=== PATIENT | male | born 1990 | race Caucasian/White ===

== ENCOUNTER 2020-11-11 12:31 | Outpatient (REF) | payer OTHER, SELFPAY | END 2020-11-11 12:32 | disposition home or self-care (01) | LOC: HO.LAB 12:31 | PROVIDERS: PCP Physician Assistant; Visit Provider Internal Medicine | DX: Z20.822 Contact with and (suspected) exposure to COVID-19 (principal) | CPT/HCPCS: 36415; C9803; U0003 ==

== ENCOUNTER 2020-12-28 13:00 | Outpatient (REF) | payer OTHER, SELFPAY | END 2020-12-28 13:01 | disposition home or self-care (01) | LOC: HO.LAB 13:00 | PROVIDERS: Visit Provider Internal Medicine | DX: Z20.822 Contact with and (suspected) exposure to COVID-19 (principal) | CPT/HCPCS: 36415; C9803; U0003; U0005 ==

== ENCOUNTER 2021-01-04 10:51 | Emergency (ER) | payer OTHER, SELFPAY ==
--- NOTE | ~2021-01-04 | US_ITS ---
EXAMINATION: US ABDOMEN LIMITED CLINICAL INFORMATION: Right upper quadrant pain.. COMPARISON: Ultrasound of the abdomen 11/02/2019. CT scan abdomen pelvis 08/24/2019 TECHNIQUE: Real-time imaging of the right upper quadrant abdominal viscera., Doppler exam was used. FINDINGS: PANCREAS: Normal. LIVER: Diffuse increased echogenicity of liver parenchyma due to fatty change. There is no focal liver lesion. There is no intrahepatic bile duct dilatation. GALLBLADDER: Normal. The gallbladder is physiologically distended without evidence of stones, sludge, polyps, wall thickening or pericholecystic fluid. Positive ultrasound Huddleston's sign COMMON BILE DUCT: Normal in caliber measuring 0.2 cm in diameter. RIGHT KIDNEY: Normal. No hydronephrosis. No renal calculi or focal parenchymal lesions. The kidney measures 12.5 cm in maximum dimension. FREE FLUID: None. US/US abdomen limited IMPRESSION: 1. No gallstone or acute change of gallbladder wall. No bile duct dilatation. Positive ultrasound Huddleston's sign. 2. Diffuse fatty change of liver.
[2021-01-04 11:14] VITALS: BP 174/98; PULSE 102; RESP 18; TEMP 36.9; O2SAT 97; BMI 27.0
[2021-01-04 12:02] LABS: Basophils Absolute Auto 0.1 X10*3/uL (0.0-0.2); Basophils Percent Auto 1.1 % (0-2); Eosinophils Absolute Auto 0.1 X10*3/uL (0.0-0.4); Eosinophils Percent Auto 1.5 % (0-4); Hematocrit 46.7 % (42-52); Hemoglobin 16.3 g/dl (14.0-18.0); Imm Gran Abs Auto 0.01 X10*3/uL (0.00-0.03); Imm Gran Pct Auto 0.2 % (0.0-0.4); Lymphocytes Percent Auto 21.9 % (20-40); MANUAL DIFF FLAG NO; Mean Corpuscular HGB Conc 34.9 g/dl (31.0-36.0); Mean Corpuscular Hemoglobin 32.9 pg (27.0-33.0); Mean Corpuscular Volume 94.2 fL (80-98); Mean Platelet Volume 9.6 fL (9.4-12.4); Monocytes Absolute Auto 0.4 X10*3/uL (0.1-1.2); Monocytes Percent Auto 7.6 % (2-11); Neutrophils Absolute Auto 3.1 X10*3/uL (2.0-8.3); Neutrophils Percent Auto 67.7 % (45-73); Platelet Count 173 X10*3/uL (160-400); Red Blood Count 4.96 X10*6/uL (4.60-5.80); Red Cell Distribution Width 11.8 % (11.0-16.0); White Blood Count 4.6 X10*3/uL (4.8-10.8)
[2021-01-04 12:34] LABS: Anion Gap 20 (12-20); Blood Urea Nitrogen 10 mg/dL (9-16); Calcium 9.4 mg/dL (8.4-10.2); Carbon Dioxide 22 mmol/L (22-29); Chloride 99 mmol/L (96-108); Creatinine Clr Calc Pharmacy 142.8; Estimated Glomerular Filt Rate > 60; Glucose Random 98 mg/dL (60-115); Lipase 19 U/L (8-78); Sodium 137 mmol/L (135-145)
--- NOTE | 2021-01-04 13:08 | ED_ITS ---
HPI - Abdominal Pain General Chief Complaint: Abdominal Pain <WAN Chung - Last Filed: 01/04/21 18:23> Stated Complaint: upper rt abd pain <WAN Chung - Last Filed: 01/04/21 18:23> Time Seen by Provider: 01/04/21 13:08 <WAN Chung Last Filed: 01/04/21 18:23> History of Present Illness HPI narrative: Patient has been drinking heavily For several days then had his last drink Saturday, and today developed right upper abdominal pain, nausea vomiting on Saturday and has not had a drink since He denies diarrhea he denies any dizziness or weakness, he had no fall no injury no fever no chills Patient has had multiple episodes of pancreatitis in the past he has pre- existing liver abnormalities and is a frequent binge drinker <WAN Chung Last Filed: 01/04/21 18:23> Related Data Home Medications: Previous Rx's Medication Instructions Recorded ondansetron HCl [Zofran] 4 mg PO Q6H PRN #10 tab 01/04/21 oxycodone 5 mg PO Q6H PRN #7 tab 01/04/21 <WAN Chung - Last Filed: 01/04/21 18:23> Allergies/Adverse Reactions: Allergies Allergy/AdvReac Type Severity Reaction Status Date / Time No Known Allergies Allergy Verified 01/04/21 11:17 [No Known Allergies*] <WAN Chung Last Filed: 01/04/21 18:23> Review of Systems Review of Systems Abdominal pain nausea and vomiting Negatives are no fever no chills no dizziness no weakness no throat pain no chest pain no blood in the emesis no coffee-ground emesis, no chest pain no shortness of breath no diarrhea no skin rash no numbness no weakness <WAN Chung Last Filed: 01/04/21 18:23> Physical Exam Vital Signs: Vital Signs: Last Vital Signs Temp 98.9 F 01/04/21 15:31 Pulse 74 01/04/21 17:42 Resp 20 01/04/21 17:42 BP 134/85 01/04/21 17:42 Pulse Ox 96 01/04/21 17:42 Body Mass Index 27.0 <WAN Chung Last Filed: 01/04/21 18:23> Vital Signs: Last Vital Signs Temp 98.9 F 01/04/21 15:31 Pulse 74 01/04/21 17:42 Resp 20 01/04/21 17:42 BP 134/85 01/04/21 17:42 Pulse Ox 96 01/04/21 17:42 Body Mass Index 27.0 <Lenny Youssef MD - Last Filed: 01/04/21 18:11> General appearance is uncomfortable appearing, a and O x3, and cooperative The head is normocephalic atraumatic, the eyes are anicteric without pallor The pharynx is mildly dried The neck is supple Chest is clear to auscultation bilaterally full symmetric deep breath sounds Heart rate and rhythm regular no murmur The abdomen had right upper quadrant tenderness, no rebound no guarding, no other tenderness The extremities full range of motion x4 The skin no rash The neuro exam motor is 5/5 x4 there is no tremor balance and gait are normal verbal interaction and comprehension are normal finger to nose is normal, There is no facial asymmetry <WAN Chung - Last Filed: 01/04/21 18:23> Course Course Course Narrative: Patient he had an ultrasound which did not show any evidence of cholecystitis and no acute abnormalities diffuse fatty changes of the liver Lipase was normal Elevated LFTs were consistent with previous Treatment with IV fluids Zofran and morphine relieved pain and nausea Re exam of the abdomen was nontender and patient was pain free Patient was given a large glass of water to drink and observed for 20 minutes and tolerated with no problems, no vomiting <WAN Chung - Last Filed: 01/04/21 18:23> I have discussed the case and management with the BOOGIE <Lenny Youssef MD - Last Filed: 01/04/21 18:11> MDM - Abdominal Pain Lab Data Attestation: I reviewed the patient's lab results. <WAN Chung - Last Filed: 01/04/21 18:23> Result diagrams: : 01/04/21 11:57 01/04/21 11:57 <WAN Chung - Last Filed: 01/04/21 18:23> Labs: Lab Results 01/04/21 01/04/21 01/04/21 Range/Units 11:57 11:57 11:57 WBC 4.6 L (4.8-10.8) X10*3/uL RBC 4.96 (4.60-5.80) X10*6/uL Hgb 16.3 (14.0-18.0) g/dl Hct 46.7 (42-52) % MCV 94.2 (80-98) fL MCH 32.9 (27.0-33.0) pg MCHC 34.9 (31.0-36.0) g/dl RDW 11.8 (11.0-16.0) % Plt Count 173 (160-400) X10*3/uL MPV 9.6 (9.4-12.4) fL Immature Gran % (Auto) 0.2 (0.0-0.4) % Neut % (Auto) 67.7 (45-73) % Lymph % (Auto) 21.9 (20-40) % Isabel[place] % (Auto) 7.6 (2-11) % Eos % (Auto) 1.5 (0-4) % Baso % (Auto) 1.1 (0-2) % Lymph # (Auto) 1.0 L (1.2-4.9) X10*3/uL [place] # (Auto) 0.4 (0.1-1.2) X10*3/uL Eos # (Auto) 0.1 (0.0-0.4) X10*3/uL Baso # (Auto) 0.1 (0.0-0.2) X10*3/uL Abs Immat Gran (auto) 0.01 (0.00-0.03) X10*3/uL Absolute Neuts (auto) 3.1 (2.0-8.3) X10*3/uL Absolute Nucleated RBC 0.000 (0.0-0.012) X10*3/uL Nucleated RBC % (auto) 0.0 (0.0-0.2) /100WBC Hold Blue Top SEE NOTE Sodium 137 (135-145) mmol/L Potassium 4.0 (3.3-5.1) mmol/L Chloride 99 (96-108) mmol/L Carbon Dioxide 22 (22-29) mmol/L Anion Gap 20 (12-20) BUN 10 (9-16) mg/dL Creatinine 0.87 (0.5-1.4) mg/dL Estim Creat Clear Calc 142.8 Estimated GFR > 60 Random Glucose 98 (60-115) mg/dL Calcium 9.4 (8.4-10.2) mg/dL Total Bilirubin 2.8 H (0.0-1.0) mg/dL Direct Bilirubin 1.0 H (0.0-0.5) mg/dL AST 60 H (5-37) U/L ALT 57 H (0-40) U/L Alkaline Phosphatase 49 (39-117) U/L Total Protein 8.2 H (6.5-8.0) g/dL Albumin 4.8 (3.5-5.0) g/dL Lipase 19 (8-78) U/L Urine Color Urine Appearance Urine pH (5.0-8.0) Ur Specific [place] (1.005-1.025) Urine Protein (NEG-TRACE) MG/DL Urine Glucose (UA) (NEG) MG/DL Urine Ketones (NEG) MG/DL Urine Blood (NEG) Urine Nitrite (NEG) Ur Leukocyte Esterase (NEG) Urine RBC (0) /HPF Urine WBC (0-4) /HPF Urine WBC Clumps Ur Squamous Epith Cells /LPF Ur Renal Epithelial Cell [place] Biurate Crystals Calcium Carbonate Cryst Calcium Phosphate Cryst Calcium Oxalate Crystal Leucine Crystals Cystine Crystals Uric Acid Crystals Triple Phos Crystals Talc Crystals Tyrosine Crystals Other Crystals Amorphous Sediment Urine Bacteria /LPF Epithelial Casts Fatty Casts Hyaline Casts Granular Casts Waxy Casts RBC Casts WBC Casts Other Casts Urine Mucus /LPF Urine Trichomonas Urine Yeast Urine Sperm Ur Oval Fat Bodies 01/04/21 01/04/21 Range/Units 12:27 12:27 WBC (4.8-10.8) X10*3/uL RBC (4.60-5.80) X10*6/uL Hgb (14.0-18.0) g/dl Hct (42-52) % MCV (80-98) fL MCH (27.0-33.0) pg MCHC (31.0-36.0) g/dl RDW (11.0-16.0) % Plt Count (160-400) X10*3/uL MPV (9.4-12.4) fL Immature Gran % (Auto) (0.0-0.4) % Neut % (Auto) (45-73) % Lymph % (Auto) (20-40) % Isabel[place] % (Auto) (2-11) % Eos % (Auto) (0-4) % Baso % (Auto) (0-2) % Lymph # (Auto) (1.2-4.9) X10*3/uL [place] # (Auto) (0.1-1.2) X10*3/uL Eos # (Auto) (0.0-0.4) X10*3/uL Baso # (Auto) (0.0-0.2) X10*3/uL Abs Immat Gran (auto) (0.00-0.03) X10*3/uL Absolute Neuts (auto) (2.0-8.3) X10*3/uL Absolute Nucleated RBC (0.0-0.012) X10*3/uL Nucleated RBC % (auto) (0.0-0.2) /100WBC Hold Blue Top Sodium (135-145) mmol/L Potassium (3.3-5.1) mmol/L Chloride (96-108) mmol/L Carbon Dioxide (22-29) mmol/L Anion Gap (12-20) BUN (9-16) mg/dL Creatinine (0.5-1.4) mg/dL Estim Creat Clear Calc Estimated GFR Random Glucose (60-115) mg/dL Calcium (8.4-10.2) mg/dL Total Bilirubin (0.0-1.0) mg/dL Direct Bilirubin (0.0-0.5) mg/dL AST (5-37) U/L ALT (0-40) U/L Alkaline Phosphatase (39-117) U/L Total Protein (6.5-8.0) g/dL Albumin (3.5-5.0) g/dL Lipase (8-78) U/L Urine Color CARL Cancelled Urine Appearance HAZY Cancelled Urine pH 6.0 Cancelled (5.0-8.0) Ur Specific [place] 1.025 Cancelled (1.005-1.025) Urine Protein 1+ H Cancelled (NEG-TRACE) MG/DL Urine Glucose (UA) NEG Cancelled (NEG) MG/DL Urine Ketones >=80 Cancelled (NEG) MG/DL Urine Blood NEG Cancelled (NEG) Urine Nitrite POS H Cancelled (NEG) Ur Leukocyte Esterase NEG Cancelled (NEG) Urine RBC 0-2 Cancelled (0) /HPF Urine WBC 1-4 Cancelled (0-4) /HPF Urine WBC Clumps Cancelled Ur Squamous Epith Cells NONE Cancelled /LPF Ur Renal Epithelial Cell Cancelled [place] Biurate Crystals Cancelled Calcium Carbonate Cryst Cancelled Calcium Phosphate Cryst Cancelled Calcium Oxalate Crystal Cancelled Leucine Crystals Cancelled Cystine Crystals Cancelled Uric Acid Crystals Cancelled Triple Phos Crystals Cancelled Talc Crystals Cancelled Tyrosine Crystals Cancelled Other Crystals Cancelled Amorphous Sediment Cancelled Urine Bacteria 1+ Cancelled /LPF Epithelial Casts Cancelled Fatty Casts Cancelled Hyaline Casts Cancelled Granular Casts Cancelled Waxy Casts Cancelled RBC Casts Cancelled WBC Casts Cancelled Other Casts Cancelled Urine Mucus 2+ Cancelled /LPF Urine Trichomonas Cancelled Urine Yeast Cancelled Urine Sperm Cancelled Ur Oval Fat Bodies Cancelled <WAN Chung - Last Filed: 01/04/21 18:23> Lab Results 01/04/21 01/04/21 01/04/21 Range/Units 11:57 11:57 11:57 WBC 4.6 L (4.8-10.8) X10*3/uL RBC 4.96 (4.60-5.80) X10*6/uL Hgb 16.3 (14.0-18.0) g/dl Hct 46.7 (42-52) % MCV 94.2 (80-98) fL MCH 32.9 (27.0-33.0) pg MCHC 34.9 (31.0-36.0) g/dl RDW 11.8 (11.0-16.0) % Plt Count 173 (160-400) X10*3/uL MPV 9.6 (9.4-12.4) fL Immature Gran % (Auto) 0.2 (0.0-0.4) % Neut % (Auto) 67.7 (45-73) % Lymph % (Auto) 21.9 (20-40) % Isabel[place] % (Auto) 7.6 (2-11) % Eos % (Auto) 1.5 (0-4) % Baso % (Auto) 1.1 (0-2) % Lymph # (Auto) 1.0 L (1.2-4.9) X10*3/uL [place] # (Auto) 0.4 (0.1-1.2) X10*3/uL Eos # (Auto) 0.1 (0.0-0.4) X10*3/uL Baso # (Auto) 0.1 (0.0-0.2) X10*3/uL Abs Immat Gran (auto) 0.01 (0.00-0.03) X10*3/uL Absolute Neuts (auto) 3.1 (2.0-8.3) X10*3/uL Absolute Nucleated RBC 0.000 (0.0-0.012) X10*3/uL Nucleated RBC % (auto) 0.0 (0.0-0.2) /100WBC Hold Blue Top SEE NOTE Sodium 137 (135-145) mmol/L Potassium 4.0 (3.3-5.1) mmol/L Chloride 99 (96-108) mmol/L Carbon Dioxide 22 (22-29) mmol/L Anion Gap 20 (12-20) BUN 10 (9-16) mg/dL Creatinine 0.87 (0.5-1.4) mg/dL Estim Creat Clear Calc 142.8 Estimated GFR > 60 Random Glucose 98 (60-115) mg/dL Calcium 9.4 (8.4-10.2) mg/dL Total Bilirubin 2.8 H (0.0-1.0) mg/dL Direct Bilirubin 1.0 H (0.0-0.5) mg/dL AST 60 H (5-37) U/L ALT 57 H (0-40) U/L Alkaline Phosphatase 49 (39-117) U/L Total Protein 8.2 H (6.5-8.0) g/dL Albumin 4.8 (3.5-5.0) g/dL Lipase 19 (8-78) U/L Urine Color Urine Appearance Urine pH (5.0-8.0) Ur Specific [place] (1.005-1.025) Urine Protein (NEG-TRACE) MG/DL Urine Glucose (UA) (NEG) MG/DL Urine Ketones (NEG) MG/DL Urine Blood (NEG) Urine Nitrite (NEG) Ur Leukocyte Esterase (NEG) Urine RBC (0) /HPF Urine WBC (0-4) /HPF Urine WBC Clumps Ur Squamous Epith Cells /LPF Ur Renal Epithelial Cell [place] Biurate Crystals Calcium Carbonate Cryst Calcium Phosphate Cryst Calcium Oxalate Crystal Leucine Crystals Cystine Crystals Uric Acid Crystals Triple Phos Crystals Talc Crystals Tyrosine Crystals Other Crystals Amorphous Sediment Urine Bacteria /LPF Epithelial Casts Fatty Casts Hyaline Casts Granular Casts Waxy Casts RBC Casts WBC Casts Other Casts Urine Mucus /LPF Urine Trichomonas Urine Yeast Urine Sperm Ur Oval Fat Bodies 01/04/21 01/04/21 Range/Units 12:27 12:27 WBC (4.8-10.8) X10*3/uL RBC (4.60-5.80) X10*6/uL Hgb (14.0-18.0) g/dl Hct (42-52) % MCV (80-98) fL MCH (27.0-33.0) pg MCHC (31.0-36.0) g/dl RDW (11.0-16.0) % Plt Count (160-400) X10*3/uL MPV (9.4-12.4) fL Immature Gran % (Auto) (0.0-0.4) % Neut % (Auto) (45-73) % Lymph % (Auto) (20-40) % [place] % (Auto) (2-11) % Eos % (Auto) (0-4) % Baso % (Auto) (0-2) % Lymph # (Auto) (1.2-4.9) X10*3/uL [place] # (Auto) (0.1-1.2) X10*3/uL Eos # (Auto) (0.0-0.4) X10*3/uL Baso # (Auto) (0.0-0.2) X10*3/uL Abs Immat Gran (auto) (0.00-0.03) X10*3/uL Absolute Neuts (auto) (2.0-8.3) X10*3/uL Absolute Nucleated RBC (0.0-0.012) X10*3/uL Nucleated RBC % (auto) (0.0-0.2) /100WBC Hold Blue Top Sodium (135-145) mmol/L Potassium (3.3-5.1) mmol/L Chloride (96-108) mmol/L Carbon Dioxide (22-29) mmol/L Anion Gap (12-20) BUN (9-16) mg/dL Creatinine (0.5-1.4) mg/dL Estim Creat Clear Calc Estimated GFR Random Glucose (60-115) mg/dL Calcium (8.4-10.2) mg/dL Total Bilirubin (0.0-1.0) mg/dL Direct Bilirubin (0.0-0.5) mg/dL AST (5-37) U/L ALT (0-40) U/L Alkaline Phosphatase (39-117) U/L Total Protein (6.5-8.0) g/dL Albumin (3.5-5.0) g/dL Lipase (8-78) U/L Urine Color CARL Cancelled Urine Appearance HAZY Cancelled Urine pH 6.0 Cancelled (5.0-8.0) Ur Specific [place] 1.025 Cancelled (1.005-1.025) Urine Protein 1+ H Cancelled (NEG-TRACE) MG/DL Urine Glucose (UA) NEG Cancelled (NEG) MG/DL Urine Ketones >=80 Cancelled (NEG) MG/DL Urine Blood NEG Cancelled (NEG) Urine Nitrite POS H Cancelled (NEG) Ur Leukocyte Esterase NEG Cancelled (NEG) Urine RBC 0-2 Cancelled (0) /HPF Urine WBC 1-4 Cancelled (0-4) /HPF Urine WBC Clumps Cancelled Ur Squamous Epith Cells NONE Cancelled /LPF Ur Renal Epithelial Cell Cancelled [place] Biurate Crystals Cancelled Calcium Carbonate Cryst Cancelled Calcium Phosphate Cryst Cancelled Calcium Oxalate Crystal Cancelled Leucine Crystals Cancelled Cystine Crystals Cancelled Uric Acid Crystals Cancelled Triple Phos Crystals Cancelled Talc Crystals Cancelled Tyrosine Crystals Cancelled Other Crystals Cancelled Amorphous Sediment Cancelled Urine Bacteria 1+ Cancelled /LPF Epithelial Casts Cancelled Fatty Casts Cancelled Hyaline Casts Cancelled Granular Casts Cancelled Waxy Casts Cancelled RBC Casts Cancelled WBC Casts Cancelled Other Casts Cancelled Urine Mucus 2+ Cancelled /LPF Urine Trichomonas Cancelled Urine Yeast Cancelled Urine Sperm Cancelled Ur Oval Fat Bodies Cancelled <Lenny Youssef MD - Last Filed: 01/04/21 18:11> Imaging Data US - abdomen: Radiologist's impression: S: Normal. LIVER: Diffuse increased echogenicity of liver parenchyma due to fatty change. There is no focal liver lesion. There is no intrahepatic bile duct dilatation. GALLBLADDER: Normal. The gallbladder is physiologically distended without evidence of stones, sludge, polyps, wall thickening or pericholecystic fluid. Positive ultrasound Huddleston's sign COMMON BILE DUCT: Normal in caliber measuring 0.2 cm in diameter. RIGHT KIDNEY: Normal. No hydronephrosis. No renal calculi or focal parenchymal lesions. The kidney measures 12.5 cm in maximum dimension. FREE FLUID: None. US/US abdomen limited IMPRESSION: 1. No gallstone or acute change of gallbladder wall. No bile duct dilatation. Positive ultrasound Huddleston's sign. 2. Diffuse fatty change of liver. <WAN Chung - Last Filed: 01/04/21 18:23> Discharge Plan Discharge Clinical Impression: Abdominal pain Qualifiers: Abdominal location: right upper quadrant Qualified Code(s): R10.11 - Right upper quadrant pain <WAN Chung - Last Filed: 01/04/21 18:23> Patient Disposition: Home, Self-Care <WAN Chung Last Filed: 01/04/21 18:23> Additional Instructions: Your pain is most likely from chronic liver disease from alcohol use I highly recommend follow with primary care doctor for discussion of medications that might help you stop drinking TATE is often helpful It is very difficult to stop but given that your so young and already have liver issues you will likely have worse problems in a very short amount of time Our testing today did not show pancreatitis or cholecystitis or gallbladder disease Use Zofran for nausea, if needed use the oxycodone for pain Return any time any worse condition or any concerns <WAN Chung Last Filed: 01/04/21 18:23> Prescriptions: New ondansetron HCl [Zofran] 4 mg tablet 4 mg PO Q6H PRN (Reason: nausea and vomiting) Qty: 10 RF: 0 oxycodone 5 mg tablet 5 mg PO Q6H PRN (Reason: pain) Qty: 7 RF: 0 <WAN Chung Last Filed: 01/04/21 18:23> Stand Alone Forms: Work/School Release <WAN Chung - Last Filed: 01/04/21 18:23> [facility] Past Medical History [facility] Narrative: Frequent drinker of alcohol, last drink was 48 hours ago, history of multiple bouts of pancreatitis <WAN Chung - Last Filed: 01/04/21 18:23> Source: nursing notes reviewed <WAN Chung - Last Filed: 01/04/21 18:23> Medical History: Medical History (Updated 01/04/21 @ 18:19 by WAN Chung) HTN (hypertension) <WAN Chung - Last Filed: 01/04/21 18:23> Social History Social History: Social History Alcohol intake: current Alcohol intake frequency: 3 or more drinks per day Alcohol type: beer Smoking Status: Never smoker Use of substances other than those prescribed or required for medical reasons: No Advance Directives: No Advance Directives Information Provided: No <WAN Chung - Last Filed: 01/04/21 18:23>
[2021-01-04 13:14] LABS: Glucose Urine UA NEG (NEG); Leukocyte Esterase Urine NEG (NEG); Specific Gravity - Urine 1.025 (1.005-1.025); Urine Blood NEG (NEG); Urine Ketones >=80 MG/DL (NEG); Urine Protein 1+ MG/DL (NEG-TRACE)
[2021-01-04 13:15] LABS: Appearance Urine HAZY; Color Urine AMBER
[2021-01-04 13:20] LABS: Nitrite Urine POS (NEG); UACC CULT YES
[2021-01-04 13:24] LABS: Bacteria Urine 1+ /LPF; Mucus Urine 2+ /LPF; RBC Urine 0-2 /HPF (0)
[2021-01-04 13:51] LABS: Alanine Aminotransferase 57 U/L (0-40); Albumin Level 4.8 g/dL (3.5-5.0); Alkaline Phosphatase 49 U/L (39-117); Aspartate Amino Transferase 60 U/L (5-37); Bilirubin Total 2.8 mg/dL (0.0-1.0); Total Protein 8.2 g/dL (6.5-8.0)
[2021-01-04] MEDS: ondansetron HCL 4 MG/2 ML VIAL IVPUSH (14:24)
[2021-01-04] MEDS: Morphine Sulfate 4 MG/ML CARTRIDGE IVPUSH ×2 (14:24→16:23)
[2021-01-04] MEDS: 0.9 % Sodium Chloride 1,000 ML 999 ML IVCONT (14:24)
[2021-01-04 14:38] VITALS: BP 143/95; PULSE 74; RESP 18; TEMP 36.8; O2SAT 96
--- NOTE | 2021-01-04 14:43 | PC.NURSE ---
IV started meds given as ordered
[2021-01-04 15:31] VITALS: BP 135/88; PULSE 77; RESP 18; TEMP 37.2; O2SAT 97
[2021-01-04 17:42] VITALS: BP 134/85; PULSE 74; RESP 20; O2SAT 96
--- NOTE | 2021-01-04 18:00 | MHC.RECOVSUP ---
? Reason for consult Support o Current location: ED20 o Identified substance use concern: Alcohol - Support ? Intervention: o Community resources provided o Harm reduction discussion ? Plan: o Referral to the [facility] o Patient to follow up with [facility] after discharge ? Additional information: Patient was looking for support to help him in recovery.. Patient is interested in M.A.T I supplied patient with the [facility] information and the walk in hours.
[2021-01-04] MEDS: Morphine Sulfate 2 MG/ML CARTRIDGE IVPUSH (18:01)
== END 2021-01-04 18:36 | disposition home or self-care (01) ==
PROVIDERS: Physician Assistant Medical; Emergency Provider Emergency Medicine; PCP Physician Assistant
DX: R10.11 Right upper quadrant pain (principal); I10 Essential (primary) hypertension; Z79.899 Other long term (current) drug therapy
CPT/HCPCS: 36415; 76705; 80048; 80076; 81001; 83690; 85025; 87086; 96365; 96375; 96376; 99284; J2270; J2405

== ENCOUNTER 2021-01-06 05:59 | Emergency (ER) | payer OTHER, SELFPAY ==
--- NOTE | ~2021-01-06 | US_ITS ---
EXAMINATION: US VENOUS ULTRASOUND WITH DOPPLER LOWER EXTREMITY, RIGHT CLINICAL INFORMATION: Pain right knee and calf. Assess for acute DVT. COMPARISON: None TECHNIQUE: Ultrasound of the deep veins is performed from the hip to the calf with compression sonography and color and pulse Doppler assessment. Spectral analysis with color-flow imaging is performed. FINDINGS: There is normal venous compression and respiratory variation and augmented flow. The visualized common femoral vein, superficial femoral vein, profunda femoral vein, popliteal vein, and the trifurcation region shows no evidence of deep venous thrombosis. There is small popliteal fossa cyst measuring 2.2 x 1.0 x 0.8 cm. US/US venous duplex LE RT IMPRESSION: 1. No DVT demonstrated in the right lower extremity. 2. Small popliteal fossa cyst 2.2 x 1.0 x 0.8 cm.
[2021-01-06 06:09] VITALS: BP 128/82; PULSE 99; RESP 15; TEMP 37.4; O2SAT 95; BMI 25.6
[2021-01-06 07:08] LABS: MANUAL DIFF FLAG NO
[2021-01-06] MEDS: Ketorolac Tromethamine 30 MG/ML VIAL IVPUSH (07:08)
[2021-01-06 07:10] LABS: Basophils Percent Auto 0.5 % (0-2); Eosinophils Absolute Auto 0.2 X10*3/uL (0.0-0.4); Eosinophils Percent Auto 2.5 % (0-4); Hematocrit 40.2 % (42-52); Hemoglobin 13.9 g/dl (14.0-18.0); Imm Gran Abs Auto 0.02 X10*3/uL (0.00-0.03); Imm Gran Pct Auto 0.3 % (0.0-0.4); Lymphocytes Absolute Auto 1.2 X10*3/uL (1.2-4.9); Lymphocytes Percent Auto 14.6 % (20-40); Mean Corpuscular HGB Conc 34.6 g/dl (31.0-36.0); Mean Corpuscular Hemoglobin 32.8 pg (27.0-33.0); Mean Corpuscular Volume 94.8 fL (80-98); Monocytes Absolute Auto 0.7 X10*3/uL (0.1-1.2); Monocytes Percent Auto 8.1 % (2-11); Neutrophils Absolute Auto 5.9 X10*3/uL (2.0-8.3); Platelet Count 133 X10*3/uL (160-400); Red Blood Count 4.24 X10*6/uL (4.60-5.80)
[2021-01-06 07:31] LABS: Alanine Aminotransferase 103 U/L (0-40); Albumin Level 4.4 g/dL (3.5-5.0); Alkaline Phosphatase 53 U/L (39-117); Anion Gap 17 (12-20); Aspartate Amino Transferase 109 U/L (5-37); Bilirubin Total 1.1 mg/dL (0.0-1.0); Blood Urea Nitrogen 13 mg/dL (9-16); C Reactive Protein 1.34 mg/dL (< or = 0.50); Calcium 8.9 mg/dL (8.4-10.2); Carbon Dioxide 21 mmol/L (22-29); Chloride 104 mmol/L (96-108); Creatinine Clr Calc Pharmacy 139.8; Estimated Glomerular Filt Rate > 60; Glucose Random 105 mg/dL (60-115); Potassium 4.3 mmol/L (3.3-5.1); Sodium 138 mmol/L (135-145); Total Protein 7.5 g/dL (6.5-8.0)
--- NOTE | 2021-01-06 08:45 | PC.NURSE ---
bedside ultrasound being completed, pain somewhat relieved per pt. wctm.
--- NOTE | 2021-01-06 09:05 | ED.GENADULT ---
HPI - General Adult General Chief complaint: Extremity Injury, Lower Stated complaint: RIGHT KNEE PAIN Time Seen by Provider: 01/06/21 06:43 Source: patient Mode of arrival: ambulatory Limitations: no limitations History of Present Illness HPI narrative: 30-year-old male who presents emergency department for evaluation of right knee pain. He states that Saturday he woke up with pain behind his right knee. He states that the pain was mild it got worse throughout the day. The patient was seen in the emergency department on Saturday for abdominal pain and had a workup which showed that had elevated LFTs secondary to alcohol use. He states his abdominal pain get better but his right knee pain is got progressively worse. The pain is spread to his right inner thigh into his calf. He feels like his calf and the back of his knee is swollen. He states that this morning he woke up and was unable to bear weight secondary to the pain. He states he is a constant, pressure, sharp pain in the back of his knee, calf and right inner thigh. The patient took 1 oxycodone with no relief for the pain. He states the pain is 10/10. The patient denied fever, chills, cough, chest pain, shortness of breath, abdominal pain, nausea, vomiting, frequency, urgency or dysuria. Related Data Home Medications Medication Instructions Recorded Confirmed ondansetron HCl 1 tab PO Q6H PRN 01/06/21 01/06/21 oxycodone 1 tab PO Q6H PRN 01/06/21 01/06/21 Previous Rx's Medication Instructions Recorded morphine 15 mg PO Q4-6H PRN #10 tab 01/06/21 Allergies Allergy/AdvReac Type Severity Reaction Status Date / Time No Known Allergies Allergy Verified 01/04/21 11:17 [No Known Allergies*] Review of Systems Review of Systems: Yes all other systems are reviewed and are negative [facility] Past Medical History [facility] Narrative: Patient has a history of hypertension, he denies tobacco use, he states that he drinks alcohol daily, 4 shots and multiple beers per day, he states he stopped drinking over the past 3 days, he denies injection drug use but does smoke marijuana at night. Medical History (Updated 01/06/21 @ 09:15 by Jose A Warner MD) HTN (hypertension) Social History Social History Alcohol intake: current Alcohol intake frequency: 0-2 drinks per day Alcohol type: beer Smoking Status: Never smoker Use of substances other than those prescribed or required for medical reasons: No Advance Directives: No Physical Exam Vital Signs: Vital Signs: Last Vital Signs Temp 99.3 F 01/06/21 06:09 Pulse 99 01/06/21 06:09 Resp 15 01/06/21 06:09 BP 128/82 01/06/21 06:09 Pulse Ox 95 01/06/21 06:09 Body Mass Index 25.6 Const: General: cooperative, healthy appearing and in distress moderate (Secondary to right leg pain) Orientation/consciousness: oriented to person and oriented to place Limitations: no limitations HENMT: Head: Yes normal to inspection, Yes normocephalic and Yes atraumatic Ears: external ears normal General nose exam: Normal external nose present Face and sinus: Yes normal facial exam Mouth: Normal oral and palatal mucosa present Throat: Yes posterior oropharynx normal Eyes: Periorbital: periorbital findings normal Eyelids: Yes eyelids normal Conjunctivae: conjunctivae normal Sclerae: sclerae normal Corneas: corneas normal Pupils: Equal, round and reactive pupils present Direct Ophthalmoscopy: normal light reflex Neck: Neck: Yes full ROM, Yes no lymphadenopathy, Yes no meningeal signs, Yes trachea midline and Yes supple Chest: Chest palpation & inspection: normal inspection of the chest and normal palpation of entire chest wall Resp: Effort & Inspection: normal respiratory effort and able to speak in complete sentences Auscultation: clear to auscultation bilaterally Cardio: Rate: regular rate Rhythm: regular rhythm Heart sounds: S1 normal heart sound present, S2 normal heart sound present and no murmurs GI: Inspection: Yes normal to inspection Palpation (GI): Soft to palpation, nontender, no guarding, not rigid and No hepatosplenomegaly present : General: Yes no CVA tenderness Back/Spine/Pelvis: Back: no CVA tenderness Cervical Spine: normal cervical lordosis Thoracic/Lumbar Spine: thoracic and lumbar spine normal to inspection Skin: Lesions: no lesions Rashes: no rashes Wounds: no wounds Neuro: General: oriented to person, oriented to place and no meningeal signs Cranial nerves: Yes CN's II-XII intact bilaterally and Yes Equal, round and reactive pupils present Cognition (Neuro): normal cognition Motor exam (neuro): 5/5 motor strength present throughout Extrem: Other: The patient does have a fullness in the right popliteal area of his knee, he has difficulty extending his knee secondary to pain, there is no joint effusion, there is no increased warmth, there does not appear to be any asymmetry of the patient's right versus left lower extremity, there is no increased warmth, there are no wounds noted or lesions noted. General: Yes normal to inspection and Yes full ROM Psych: Appearance: well kempt Mental Status: mental status grossly normal Speech and movement: Normal speech and movement present Affect: normal affect Attitude: cooperative Thought process: Normal thought process present Thought content: Normal thought content present Course Course Course Narrative: 30-year-old male who presents emergency department for evaluation of right leg pain times 3 days which is gotten progressively worse to the point where is having difficulty straightening his right knee. He had no systemic symptoms. Physical examination did reveal that he was in distress secondary to his pain. He does have a fullness behind his right knee but otherwise there were no other abnormalities noted on physical examination. Laboratory evaluation revealed a normal white blood cell count of 8000. CRP was elevated at 1.34. Patient's AST and ALT are elevated [id number] with an elevated total bilirubin of 1.1. The patient's Doppler ultrasound of his right lower extremity did reveal small popliteal cyst but otherwise has no other skin abnormalities. Hip this time I do not have a clear etiology for the patient's pain but I do not think that he has a soft tissue infection/necrotizing fasciitis or other infectious process. The patient does have a small popliteal cyst but I do not think that this is the cause of his pain and I do not think that he has a DVT. Patient most likely has an inflammatory process. He did receive Toradol 30 mg IV with only minimal improved his pain (10/10 to 7/10). He was given morphine 4 mg IV. The patient will be discharged home advised to take ibuprofen 600 mg 3 times a day. He was given a prescription for limited number of morphine tablet since the oxycodone was not helping his pain. He was given verbal and printed instructions and discharged home. [place] PAT search revealed by prescriptions for opiates over a 2 year period, I did note that he recently had oxycodone dispense from our emergency department for his abdominal pain by advised him to stop his medication and to switch to morphine for his pain. Medical Decision Making Lab Data Result diagrams: 01/06/21 07:03 01/06/21 07:03 Labs: Lab Results 01/06/21 01/06/21 Range/Units 07:03 07:03 WBC 8.0 (4.8-10.8) X10*3/uL RBC 4.24 L (4.60-5.80) X10*6/uL Hgb 13.9 L (14.0-18.0) g/dl Hct 40.2 L (42-52) % MCV 94.8 (80-98) fL MCH 32.8 (27.0-33.0) pg MCHC 34.6 (31.0-36.0) g/dl RDW 12.0 (11.0-16.0) % Plt Count 133 L (160-400) X10*3/uL MPV 10.0 (9.4-12.4) fL Immature Gran % (Auto) 0.3 (0.0-0.4) % Neut % (Auto) 74.0 H (45-73) % Lymph % (Auto) 14.6 L (20-40) % [place] % (Auto) 8.1 (2-11) % Eos % (Auto) 2.5 (0-4) % Baso % (Auto) 0.5 (0-2) % Lymph # (Auto) 1.2 (1.2-4.9) X10*3/uL [place] # (Auto) 0.7 (0.1-1.2) X10*3/uL Eos # (Auto) 0.2 (0.0-0.4) X10*3/uL Baso # (Auto) 0.0 (0.0-0.2) X10*3/uL Abs Immat Gran (auto) 0.02 (0.00-0.03) X10*3/uL Absolute Neuts (auto) 5.9 (2.0-8.3) X10*3/uL Absolute Nucleated RBC 0.000 (0.0-0.012) X10*3/uL Nucleated RBC % (auto) 0.0 (0.0-0.2) /100WBC Sodium 138 (135-145) mmol/L Potassium 4.3 (3.3-5.1) mmol/L Chloride 104 (96-108) mmol/L Carbon Dioxide 21 L (22-29) mmol/L Anion Gap 17 (12-20) BUN 13 (9-16) mg/dL Creatinine 0.94 (0.5-1.4) mg/dL Estim Creat Clear Calc 139.8 Estimated GFR > 60 Random Glucose 105 (60-115) mg/dL Calcium 8.9 (8.4-10.2) mg/dL Total Bilirubin 1.1 H (0.0-1.0) mg/dL AST 109 H (5-37) U/L ALT 103 H (0-40) U/L Alkaline Phosphatase 53 (39-117) U/L C-Reactive Protein 1.34 H (< or = 0.50) mg/dL Total Protein 7.5 (6.5-8.0) g/dL Albumin 4.4 (3.5-5.0) g/dL Discharge Plan Discharge Clinical Impression: Acute pain of right knee Patient Disposition: Home, Self-Care Instructions: Knee Pain (ED) Additional Instructions: Laboratory evaluation today revealed a normal white blood cell count and a slight elevation in your C reactive protein but otherwise nothing significant to explain your pain. I do not think that you have an infectious process however if you get fever, chills, redness or swelling of your leg then you should return to the emergency department so that we can re-evaluate you for an infection. The Doppler ultrasound of your right leg did reveal a small popliteal cyst behind your knee (Ruth cyst). I do not think that this is the cause of your pain. Your blood work did reveal an elevation in liver tests, your AST and ALT and this is most likely related to alcohol use. Also on your ultrasound of the liver you do have fatty liver and this can sometimes cause elevations in your liver test. Do not take Tylenol it is important that you stop drinking alcohol. Need to follow-up with your doctor in 2 weeks to have repeat liver test. Take ibuprofen 200 mg pills, 3 pills every 6 hours as needed for pain. Stop taking oxycodone. For pain not relieved by ibuprofen take morphine 15 mg pills, 1 pill every 6 hours as needed for pain. This is a narcotic medication and can be addicting, if your concerned about addiction do not this medication filled or ask the pharmacist for less pills. This medication will make you sleepy, do not drive or work while taking this medication. Follow-up with your doctor in 2 weeks for repeat liver test. Please return to the emergency department if your symptoms get worse or if you develop any symptoms that are concerning to you. Prescriptions: New morphine 15 mg tablet 15 mg PO Q4-6H PRN (Reason: pain) Qty: 10 RF: 0 No Action ondansetron HCl 4 mg tablet 1 tab PO Q6H PRN (Reason: nausea/vomiting) RF: 0 oxycodone 5 mg tablet 1 tab PO Q6H PRN (Reason: pain) RF: 0
[2021-01-06] MEDS: Morphine Sulfate 4 MG/ML CARTRIDGE IVPUSH (09:28)
== END 2021-01-06 10:28 | disposition home or self-care (01) ==
PROVIDERS: Emergency Provider Emergency Medicine Emergency Medical Services; PCP Physician Assistant
DX: M25.561 Pain in right knee (principal); Z79.899 Other long term (current) drug therapy
CPT/HCPCS: 36415; 80053; 85025; 86140; 93971; 96374; 96375; 99284; J1885; J2270

== ENCOUNTER → 2021-04-03 13:04 | Outpatient (BNVA) | payer OTHER, SELFPAY | PROVIDERS: Visit Provider Internal Medicine | DX: F10.20 Alcohol dependence, uncomplicated (principal) | CPT/HCPCS: 99202 ==

== ENCOUNTER 2021-06-28 09:06 | Inpatient (IN) | payer OTHER, SELFPAY ==
[2021-06-28] VITALS (10 sets, daily range): BP systolic 128–154; BP diastolic 81–100; PULSE 66–97; RESP 16–20; TEMP 36.7–37.6; O2SAT 93–98; BMI 26.2
--- NOTE | ~2021-06-28 | XR_ITS ---
EXAMINATION: XR CHEST CLINICAL INFORMATION: Left upper quadrant chest/rib pain COMPARISON: None TECHNIQUE: 2 views of the chest were obtained. FINDINGS: No significant abnormality is noted involving the heart, lungs, mediastinum, bony thorax or soft tissues. XR/XR chest 2V IMPRESSION: Unremarkable examination.
--- NOTE | ~2021-06-28 | CT_ITS ---
EXAMINATION: CT ABDOMEN AND PELVIS WITH CONTRAST CLINICAL INFORMATION: Left upper quadrant pain COMPARISON: Previous CT of the abdomen and pelvis August 2019 and abdominal ultrasound October 2019 TECHNIQUE: Multidetector volumetric images were obtained from the superior aspect of the liver through the pubic symphysis following administration 85 mL of Omnipaque 350 intravenous contrast. Sagittal and coronal reformatted images were obtained on the technologist's workstation. Oral contrast: Yes This CT examination was performed using dose optimization techniques as appropriate, variously including the following: *Automated exposure control *Adjustment of mA and/or kV according to patient size (this includes techniques or standardized protocols for targeted exams where dose is matched to indication/reason for exam; i.e. extremities or head) *Use of iterative reconstruction technique DLP: 704 mGy-cm FINDINGS: LUNG BASES: The visualized lung bases are unremarkable. LIVER, GALLBLADDER, AND BILIARY TREE: The liver is enlarged and low in attenuation suggestive of fatty infiltration. No focal liver lesion or biliary duct dilatation. Normal-appearing gallbladder. PANCREAS: The tail the pancreas is slightly enlarged measuring 2.3 cm in AP dimension. There is stranding of the peripancreatic fat adjacent to the tail the pancreas. There is trace fluid seen in the left anterior pararenal fascia and adjacent to the spleen. Findings are suggestive of acute pancreatitis. SPLEEN: Unremarkable. ADRENAL GLANDS: Unremarkable. KIDNEYS AND URETERS: The kidneys are normal in size, shape, and attenuation. No hydronephrosis, hydroureter, or calculi seen. No perinephric stranding. BLADDER: Unremarkable. GASTROINTESTINAL TRACT: The small and large bowel are unremarkable. The appendix is unremarkable. ABDOMINAL WALL: No significant hernia is appreciated. LYMPH NODES: Normal. VASCULAR: Unremarkable. PELVIC VISCERA: Unremarkable. OSSEOUS STRUCTURES: Unremarkable. CT/CT abdomen pelvis w con IMPRESSION: Acute pancreatitis of the tail the pancreas. Fatty infiltration of the liver.
--- NOTE | ~2021-06-28 | US_ITS ---
EXAMINATION: US ABDOMEN LIMITED CLINICAL INFORMATION: Pancreatitis. Assess for common duct stone. COMPARISON: CT abdomen and pelvis with contrast 06/28/2021 and 08/24/2019, abdominal ultrasound 01/04/2021 TECHNIQUE: Real-time imaging of the right upper quadrant abdominal viscera. FINDINGS: PANCREAS: Portions of the pancreatic head and tail are obscured by bowel gas and not imaged. The mid body pancreas appears normal in size and shows no pancreatic ductal distention. There is no retroperitoneal effusion or visible pseudocyst. LIVER: The liver is mildly enlarged secondary to diffuse hepatic steatosis. The liver surface is smooth. There is no focal hepatic parenchymal lesion or intrahepatic ductal dilatation. GALLBLADDER: The gallbladder is anechoic and shows no stone or sludge or wall thickening. There is a negative sonographic Huddleston's sign. COMMON BILE DUCT: The common duct is normal in caliber measuring 0.5 cm. There are some portions obscured by bowel gas. The visualized common duct shows no calculus. RIGHT KIDNEY: Normal. No hydronephrosis. No renal calculi or focal parenchymal lesions. The kidney measures 12.6 cm in maximum dimension. FREE FLUID: None. US/US abdomen limited IMPRESSION: 1. No cholelithiasis or biliary ductal dilatation. 2. The visualized portions of the common duct show no intraductal calculus. Some portions are obscured by bowel gas. 3. Mid body pancreas shows no ductal dilatation. No visible retroperitoneal effusion or pseudocyst. Portions of pancreatic head and tail are obscured by bowel gas and not imaged.
--- NOTE | ~2021-06-28 | XR_ITS ---
EXAMINATION: XR CHEST CLINICAL INFORMATION: Fever. COMPARISON: None TECHNIQUE: Frontal view of the chest was obtained. FINDINGS: The lungs are hypoexpanded with left basilar patchy opacity question atelectasis/effusion/infiltrate. Rest of the lungs are clear.. The heart size and pulmonary vascularity is normal. No gross bony abnormality seen. XR/XR chest 1V IMPRESSION: Hypoexpanded lungs patchy opacity left lung base suspicious for infiltrate/atelectasis/effusion. It is a new finding compared to previous study 06/28/2021.
--- NOTE | 2021-06-28 10:18 | ECG_ITS ---
Test Reason : CP Blood Pressure : / mmHG Vent. Rate : 072 BPM Atrial Rate : 072 BPM P-R Int : 130 ms QRS Dur : 088 ms QT Int : 386 ms P-R-T Axes : 037 060 064 degrees QTc Int : 422 ms Normal sinus rhythm Normal ECG When compared with ECG of 24-AUG-2019 02:35, No significant change was found Referred By: Dyan Bartlett Electronically Signed By:ADRIANNE TUCKER
--- NOTE | 2021-06-28 10:48 | ED_ITS ---
HPI - General Adult General Chief complaint: General Medical Stated complaint: lt side rib pain Time Seen by Provider: 06/28/21 10:12 Source: patient Mode of arrival: ambulatory Limitations: no limitations History of Present Illness HPI narrative: This is a 30-year-old male who presents to the emergency department with complaints off left upper quadrant pain, and pain to his left flank. He states this started last night, and worsened this morning. Abdominal pain is severe, and constant nature located to his left and right upper quadrant, with radiation 2 flank.The chest pain is boring, centralized and nonradiating. also reports nausea, with 1 episode of vomiting, prior to arriving. He states he vomited a stomach acid. He rates his pain a 7/10. He also states that he is having chest discomfort, which also started last night and has progressively worsened. He adds that he is been drinking more than usual this past week, since his friends are home to visit. Last night he drank 4 alcoholic beverages that contained whiskey and smoked marijuana. He reports previous issues with his gallbladder, but he is never gotten any abdominal surgeries. He has no past medical history. He denies fevers, chills, shortness of breath, recent sick contacts. He denies any trauma to the area. Onset (ago): day(s) (One) Relieving factors: none Exacerbating factors: none Associated symptoms: chest pain Treatments prior to arrival: none Related Data Home Medications Medication Instructions Recorded Confirmed ondansetron HCl 4 mg tablet 1 tab PO Q6H PRN 01/06/21 01/06/21 oxycodone 5 mg tablet 1 tab PO Q6H PRN 01/06/21 01/06/21 Previous Rx's Medication Instructions Recorded morphine 15 mg immediate release 15 mg PO Q4-6H PRN #10 tab 01/06/21 tablet clonidine HCl 0.1 mg tablet 0.1 mg PO TID 3 Days #9 tab 04/03/21 folic acid 1 mg tablet 1 mg PO DAILY 30 Days #30 tab 04/03/21 hydroxyzine pamoate 25 mg capsule 25 mg PO TID PRN 3 Days #9 cap 04/03/21 (Vistaril) naltrexone 50 mg tablet 50 mg PO DAILY 10 Days #10 tab 04/03/21 naltrexone microspheres 380 mg 380 mg IM Q4W 30 Days #1 ea 04/03/21 intramuscular suspension,extended release (Vivitrol) thiamine HCl (vitamin B1) 100 mg 100 mg PO DAILY 30 Days #30 tab 04/03/21 tablet Allergies Allergy/AdvReac Type Severity Reaction Status Date / Time No Known Allergies Allergy Verified 01/04/21 11:17 [No Known Allergies*] Review of Systems Constitutional: Constitutional: Reports no additional constitutional complaints Eyes: Eyes: Reports no additional eye complaints ENT: Reports system reviewed and no additional complaints, except as documented Cardiovascular: Cardiovascular: Reports chest pain (Centralized without radiation) Respiratory: Respiratory: Reports no additional respiratory complaints Gastrointestinal: Gastrointestinal: Reports abdominal pain (Localized to left and right upper quadrant radiates to left flank.) Genitourinary: Genitourinary: Reports no additional male genitourinary complaints Musculoskeletal: Musculoskeletal: Reports no additional musculoskeletal complaints Integumentary/Breasts: Skin/Breast: Reports system reviewed and no additional complaints, except as docu [facility] Past Medical History Medical History (Updated 06/28/21 @ 14:40 by WAN Morris) Alcohol use disorder HTN (hypertension) Surgical History (Updated 06/28/21 @ 10:46 by Denae Harry) History of appendectomy Social History Social History Alcohol intake: current Alcohol intake frequency: 0-2 drinks per day Alcohol type: beer Advance Directives: No Advance Directives Information Provided: No Physical Exam Vital Signs: Vital Signs: Last Vital Signs Temp 98.7 F 06/28/21 14:24 Pulse 87 06/28/21 14:24 Resp 16 06/28/21 14:24 BP 128/84 06/28/21 14:24 Pulse Ox 97 06/28/21 14:24 Body Mass Index 26.2 vital signs have been reviewed as normal and appeared to be correct. Blood pressure elevated (154/100), Heart rate normal. Respiration rate normal. Temperature normal. Oxygen saturation normal. Appearance: Alert. Oriented X3. No acute distress. However, patient appears uncomfortable, and is grimacing Head: Normal external exam. Normocephalic. Atraumatic. No [place] signs noted. No raccoon eyes noted Eyes: PERRLA. EOMI. Conjunctiva and sclera normal. Eyelids normal. Neck: Normal inspection. Neck supple. FROM. CVS: Normal heart rate and rhythm. Heart sound normal. Pulses normal throughout. No murmurs/rales/gallops. Respiratory: No respiratory distress. Painless inspiration. Breath sounds normal. No wheezes/rales/rhonchi noted. Chest nontender. No accessory muscle usage noted or decreased air movement noted. Abdomen: Soft and tender to left and right upper quadrant. Bowel sounds normal in all 4 quadrants. No distention noted. No organomegaly noted. No visible injury noted. Back: Left-sided CVA tenderness. Full range of motion noted. No rashes/lesion/induration/fluctuance or signs of infection noted. Skin: Skin warm and dry. Normal skin color. Normal skin turgor. No rashes/lesions/lacerations noted. Extremities: No lower extremity edema. Extremities exhibit normal range of mot ion. Extremities nontender. Neuro: Oriented X 3. No motor deficit. No sensory deficit. Reflexes normal. Normal steady gait. No focal neuro deficits noted. Vascular: + radial pulses/+ 2 distal pedal pulses/+2 dorsalis pedis b/l. Normal cap refill. No cyanosis noted to upper extremity nails and lower extremity toes nails. Course Course Course Narrative: 1028 30-year-old male who presents to the emergency department with complaints off left upper quadrant pain, and pain to his left flank. He states this started last night, and worsened this morning. Abdominal pain is severe, and constant nature located to his left and right upper quadrant, with radiation 2 flank.The chest pain is boring, centralized and nonradiating. also reports nausea, with 1 episode of vomiting, prior to arriving. He states he vomited a stomach acid. He rates his pain a 7/10. He also states that he is having chest discomfort, which also started last night and has progressively worsened. He adds that he is been drinking more than usual this past week, since his friends are home to visit. Last night he drank 4 alcoholic beverages that contained whiskey and smoked marijuana. -Plan: ordered basic labs. covid/flu/rsv/, chest x-ray, CT of the abdomen and pelvis, EKG, troponin Reevaluation(s) Reevaluation #1: CT scan revealed acute pancreatitis of the tail the pancreas. Fatty infiltrates of the liver. This is consistent with the findings on lab work. Dr. Loredo will be admitting this patient. Time: 14:37 Medical Decision Making Lab Data Result diagrams: 06/28/21 11:53 06/28/21 11:53 Labs: Lab Results 06/28/21 06/28/21 06/28/21 Range/Units 11:38 11:38 11:53 WBC 12.7 H (4.8-10.8) X10*3/uL RBC 4.95 (4.60-5.80) X10*6/uL Hgb 16.6 (14.0-18.0) g/dl Hct 45.7 (42-52) % MCV 92.3 (80-98) fL MCH 33.5 H (27.0-33.0) pg MCHC 36.3 H (31.0-36.0) g/dl RDW 12.5 (11.0-16.0) % Plt Count 176 D (160-400) X10*3/uL MPV 9.6 (9.4-12.4) fL Immature Gran % (Auto) 0.3 (0.0-0.4) % Neut % (Auto) 85.7 H (45-73) % Lymph % (Auto) 8.0 L (20-40) % [place] % (Auto) 5.5 (2-11) % Eos % (Auto) 0.1 (0-4) % Baso % (Auto) 0.4 (0-2) % Lymph # (Auto) 1.0 L (1.2-4.9) X10*3/uL [place] # (Auto) 0.7 (0.1-1.2) X10*3/uL Eos # (Auto) 0.0 (0.0-0.4) X10*3/uL Baso # (Auto) 0.1 (0.0-0.2) X10*3/uL Abs Immat Gran (auto) 0.04 H (0.00-0.03) X10*3/uL Absolute Neuts (auto) 10.9 H (2.0-8.3) X10*3/uL Absolute Nucleated RBC 0.000 (0.0-0.012) X10*3/uL Nucleated RBC % (auto) 0.0 (0.0-0.2) /100WBC PT (9.9-13.0) SEC INR (0.9-1.1) Sodium (135-145) mmol/L Potassium (3.3-5.1) mmol/L Chloride (96-108) mmol/L Carbon Dioxide (22-29) mmol/L Anion Gap (12-20) BUN (9-16) mg/dL Creatinine (0.5-1.4) mg/dL Estim Creat Clear Calc Estimated GFR Random Glucose (60-115) mg/dL Calcium (8.4-10.2) mg/dL Magnesium (1.6-2.6) mg/dL Total Bilirubin (0.0-1.0) mg/dL AST (5-37) U/L ALT (0-40) U/L Alkaline Phosphatase (39-117) U/L Lactate Dehydrogenase (118-273) U/L Troponin I High Sens (<3.5-35.0) ng/L Total Protein (6.5-8.0) g/dL Albumin (3.5-5.0) g/dL Lipase (8-78) U/L Urine Color YELLOW Urine Appearance CLEAR Urine pH 6.0 (5.0-8.0) Ur Specific [place] >= 1.030 H (1.005-1.025) Urine Protein TRACE (NEG-TRACE) MG/DL Urine Glucose (UA) NEG (NEG) MG/DL Urine Ketones 5 (NEG) MG/DL Urine Blood NEG (NEG) Urine Nitrite NEG (NEG) Ur Leukocyte Esterase NEG (NEG) Ethyl Alcohol mg/dL Coronavirus (PCR) NEGATIVE (Negative) Influenza Type A (PCR) NEGATIVE (Negative) Influenza Type B (PCR) NEGATIVE (Negative) RSV RNA Qual (PCR) NEGATIVE (Negative) 06/28/21 06/28/21 06/28/21 Range/Units 11:53 11:53 11:53 WBC (4.8-10.8) X10*3/uL RBC (4.60-5.80) X10*6/uL Hgb (14.0-18.0) g/dl Hct (42-52) % MCV (80-98) fL MCH (27.0-33.0) pg MCHC (31.0-36.0) g/dl RDW (11.0-16.0) % Plt Count (160-400) X10*3/uL MPV (9.4-12.4) fL Immature Gran % (Auto) (0.0-0.4) % Neut % (Auto) (45-73) % Lymph % (Auto) (20-40) % [place] % (Auto) (2-11) % Eos % (Auto) (0-4) % Baso % (Auto) (0-2) % Lymph # (Auto) (1.2-4.9) X10*3/uL [place] # (Auto) (0.1-1.2) X10*3/uL Eos # (Auto) (0.0-0.4) X10*3/uL Baso # (Auto) (0.0-0.2) X10*3/uL Abs Immat Gran (auto) (0.00-0.03) X10*3/uL Absolute Neuts (auto) (2.0-8.3) X10*3/uL Absolute Nucleated RBC (0.0-0.012) X10*3/uL Nucleated RBC % (auto) (0.0-0.2) /100WBC PT 13.8 H (9.9-13.0) SEC INR 1.2 H (0.9-1.1) Sodium 136 (135-145) mmol/L Potassium 4.1 (3.3-5.1) mmol/L Chloride 103 (96-108) mmol/L Carbon Dioxide 21 L (22-29) mmol/L Anion Gap 16 (12-20) BUN 13 (9-16) mg/dL Creatinine 0.80 (0.5-1.4) mg/dL Estim Creat Clear Calc 164.3 Estimated GFR > 60 Random Glucose 103 (60-115) mg/dL Calcium 9.2 (8.4-10.2) mg/dL Magnesium 1.9 (1.6-2.6) mg/dL Total Bilirubin 2.1 H (0.0-1.0) mg/dL AST 160 H (5-37) U/L ALT 133 H (0-40) U/L Alkaline Phosphatase 58 (39-117) U/L Lactate Dehydrogenase (118-273) U/L Troponin I High Sens (<3.5-35.0) ng/L Total Protein 7.9 (6.5-8.0) g/dL Albumin 4.5 (3.5-5.0) g/dL Lipase (8-78) U/L Urine Color Urine Appearance Urine pH (5.0-8.0) Ur Specific [place] (1.005-1.025) Urine Protein (NEG-TRACE) MG/DL Urine Glucose (UA) (NEG) MG/DL Urine Ketones (NEG) MG/DL Urine Blood (NEG) Urine Nitrite (NEG) Ur Leukocyte Esterase (NEG) Ethyl Alcohol mg/dL Coronavirus (PCR) (Negative) Influenza Type A (PCR) (Negative) Influenza Type B (PCR) (Negative) RSV RNA Qual (PCR) (Negative) 06/28/21 06/28/21 06/28/21 Range/Units 11:53 11:53 11:53 WBC (4.8-10.8) X10*3/uL RBC (4.60-5.80) X10*6/uL Hgb (14.0-18.0) g/dl Hct (42-52) % MCV (80-98) fL MCH (27.0-33.0) pg MCHC (31.0-36.0) g/dl RDW (11.0-16.0) % Plt Count (160-400) X10*3/uL MPV (9.4-12.4) fL Immature Gran % (Auto) (0.0-0.4) % Neut % (Auto) (45-73) % Lymph % (Auto) (20-40) % [place] % (Auto) (2-11) % Eos % (Auto) (0-4) % Baso % (Auto) (0-2) % Lymph # (Auto) (1.2-4.9) X10*3/uL [place] # (Auto) (0.1-1.2) X10*3/uL Eos # (Auto) (0.0-0.4) X10*3/uL Baso # (Auto) (0.0-0.2) X10*3/uL Abs Immat Gran (auto) (0.00-0.03) X10*3/uL Absolute Neuts (auto) (2.0-8.3) X10*3/uL Absolute Nucleated RBC (0.0-0.012) X10*3/uL Nucleated RBC % (auto) (0.0-0.2) /100WBC PT (9.9-13.0) SEC INR (0.9-1.1) Sodium (135-145) mmol/L Potassium (3.3-5.1) mmol/L Chloride (96-108) mmol/L Carbon Dioxide (22-29) mmol/L Anion Gap (12-20) BUN (9-16) mg/dL Creatinine (0.5-1.4) mg/dL Estim Creat Clear Calc Estimated GFR Random Glucose (60-115) mg/dL Calcium (8.4-10.2) mg/dL Magnesium (1.6-2.6) mg/dL Total Bilirubin (0.0-1.0) mg/dL AST (5-37) U/L ALT (0-40) U/L Alkaline Phosphatase (39-117) U/L Lactate Dehydrogenase 305 H (118-273) U/L Troponin I High Sens (<3.5-35.0) ng/L Total Protein (6.5-8.0) g/dL Albumin (3.5-5.0) g/dL Lipase 79 H (8-78) U/L Urine Color Urine Appearance Urine pH (5.0-8.0) Ur Specific [place] (1.005-1.025) Urine Protein (NEG-TRACE) MG/DL Urine Glucose (UA) (NEG) MG/DL Urine Ketones (NEG) MG/DL Urine Blood (NEG) Urine Nitrite (NEG) Ur Leukocyte Esterase (NEG) Ethyl Alcohol 35 mg/dL Coronavirus (PCR) (Negative) Influenza Type A (PCR) (Negative) Influenza Type B (PCR) (Negative) RSV RNA Qual (PCR) (Negative) 06/28/21 Range/Units 11:53 WBC (4.8-10.8) X10*3/uL RBC (4.60-5.80) X10*6/uL Hgb (14.0-18.0) g/dl Hct (42-52) % MCV (80-98) fL MCH (27.0-33.0) pg MCHC (31.0-36.0) g/dl RDW (11.0-16.0) % Plt Count (160-400) X10*3/uL MPV (9.4-12.4) fL Immature Gran % (Auto) (0.0-0.4) % Neut % (Auto) (45-73) % Lymph % (Auto) (20-40) % [place] % (Auto) (2-11) % Eos % (Auto) (0-4) % Baso % (Auto) (0-2) % Lymph # (Auto) (1.2-4.9) X10*3/uL [place] # (Auto) (0.1-1.2) X10*3/uL Eos # (Auto) (0.0-0.4) X10*3/uL Baso # (Auto) (0.0-0.2) X10*3/uL Abs Immat Gran (auto) (0.00-0.03) X10*3/uL Absolute Neuts (auto) (2.0-8.3) X10*3/uL Absolute Nucleated RBC (0.0-0.012) X10*3/uL Nucleated RBC % (auto) (0.0-0.2) /100WBC PT (9.9-13.0) SEC INR (0.9-1.1) Sodium (135-145) mmol/L Potassium (3.3-5.1) mmol/L Chloride (96-108) mmol/L Carbon Dioxide (22-29) mmol/L Anion Gap (12-20) BUN (9-16) mg/dL Creatinine (0.5-1.4) mg/dL Estim Creat Clear Calc Estimated GFR Random Glucose (60-115) mg/dL Calcium (8.4-10.2) mg/dL Magnesium (1.6-2.6) mg/dL Total Bilirubin (0.0-1.0) mg/dL AST (5-37) U/L ALT (0-40) U/L Alkaline Phosphatase (39-117) U/L Lactate Dehydrogenase (118-273) U/L Troponin I High Sens < 3.5 (<3.5-35.0) ng/L Total Protein (6.5-8.0) g/dL Albumin (3.5-5.0) g/dL Lipase (8-78) U/L Urine Color Urine Appearance Urine pH (5.0-8.0) Ur Specific [place] (1.005-1.025) Urine Protein (NEG-TRACE) MG/DL Urine Glucose (UA) (NEG) MG/DL Urine Ketones (NEG) MG/DL Urine Blood (NEG) Urine Nitrite (NEG) Ur Leukocyte Esterase (NEG) Ethyl Alcohol mg/dL Coronavirus (PCR) (Negative) Influenza Type A (PCR) (Negative) Influenza Type B (PCR) (Negative) RSV RNA Qual (PCR) (Negative) Imaging Data CT of the abdomen and pelvis: Attestation: I personally reviewed and interpreted this imaging study as follows: Radiologist's impression: IMPRESSION: Acute pancreatitis of the tail the pancreas. Fatty infiltration of the liver. ECG Data Attestation: I personally reviewed and interpreted this ECG as follows: Prior ECG tracings: available for review Interpretation: Normal sinus rhythm with a ventricular rate of 72 with normal [place] interval normal QRS duration normal QT/QTC interval. No acute ischemic changes are noted. EKG 08/24/2019. Critical Care Time Critical Care Time Critical Care Time: Yes Total Critical Care Time: 60 Attestation: I personally attest to this time spent taking care of the patient Discharge Plan Discharge Clinical Impression: Pancreatitis, alcoholic, acute, Nausea & vomiting Patient Disposition: Admitted As Inpatient Prescriptions: No Action ondansetron HCl 4 mg tablet 1 tab PO Q6H PRN (Reason: nausea/vomiting) RF: 0 oxycodone 5 mg tablet 1 tab PO Q6H PRN (Reason: pain) RF: 0 morphine 15 mg tablet 15 mg PO Q4-6H PRN (Reason: pain) Qty: 10 RF: 0 naltrexone 50 mg tablet 50 mg PO DAILY 10 Days Qty: 10 RF: 0 folic acid 1 mg tablet 1 mg PO DAILY 30 Days Qty: 30 RF: 11 thiamine HCl (vitamin B1) 100 mg tablet 100 mg PO DAILY 30 Days Qty: 30 RF: 0 clonidine HCl 0.1 mg tablet 0.1 mg PO TID 3 Days Qty: 9 RF: 0 hydroxyzine pamoate [Vistaril] 25 mg capsule 25 mg PO TID PRN (Reason: itching) 3 Days Qty: 9 RF: 0 Vivitrol 380 mg suspension,extended rel recon 380 mg IM Q4W 30 Days Qty: 1 RF: 5
[2021-06-28] MEDS: ondansetron HCL 4 MG/2 ML VIAL IVPUSH ×2 (11:18→13:47)
[2021-06-28] MEDS: Morphine Sulfate 4 MG/ML CARTRIDGE IVPUSH (11:21)
[2021-06-28] MEDS: 0.9 % Sodium Chloride 1,000 ML 999 ML IVCONT ×2 (11:30→14:49)
[2021-06-28 11:45] LABS: Appearance Urine CLEAR; Color Urine YELLOW; Glucose Urine UA NEG (NEG); Leukocyte Esterase Urine NEG (NEG); Nitrite Urine NEG (NEG); Specific Gravity - Urine >= 1.030 (1.005-1.025); Urine Blood NEG (NEG); Urine Ketones 5 MG/DL (NEG); Urine Protein TRACE MG/DL (NEG-TRACE)
[2021-06-28 12:00] LABS: MANUAL DIFF FLAG NO
[2021-06-28 12:04] LABS: Basophils Absolute Auto 0.1 X10*3/uL (0.0-0.2); Basophils Percent Auto 0.4 % (0-2); Eosinophils Percent Auto 0.1 % (0-4); Hematocrit 45.7 % (42-52); Hemoglobin 16.6 g/dl (14.0-18.0); Imm Gran Abs Auto 0.04 X10*3/uL (0.00-0.03); Imm Gran Pct Auto 0.3 % (0.0-0.4); Mean Corpuscular HGB Conc 36.3 g/dl (31.0-36.0); Mean Corpuscular Hemoglobin 33.5 pg (27.0-33.0); Mean Corpuscular Volume 92.3 fL (80-98); Mean Platelet Volume 9.6 fL (9.4-12.4); Monocytes Absolute Auto 0.7 X10*3/uL (0.1-1.2); Monocytes Percent Auto 5.5 % (2-11); Neutrophils Absolute Auto 10.9 X10*3/uL (2.0-8.3); Neutrophils Percent Auto 85.7 % (45-73); Platelet Count 176 X10*3/uL (160-400); Red Blood Count 4.95 X10*6/uL (4.60-5.80); Red Cell Distribution Width 12.5 % (11.0-16.0); White Blood Count 12.7 X10*3/uL (4.8-10.8)
[2021-06-28 12:07] LABS: INTERNATIONAL NORM RATIO 1.2 (0.9-1.1); Prothrombin Time 13.8 SEC (9.9-13.0)
[2021-06-28 12:18] LABS: Ethanol 35 mg/dL
[2021-06-28 12:21] LABS: Lactate Dehydrogenase 305 U/L (118-273); Magnesium 1.9 mg/dL (1.6-2.6)
[2021-06-28 12:23] LABS: Lipase 79 U/L (8-78)
[2021-06-28 12:29] LABS: Alanine Aminotransferase 133 U/L (0-40); Albumin Level 4.5 g/dL (3.5-5.0); Alkaline Phosphatase 58 U/L (39-117); Anion Gap 16 (12-20); Aspartate Amino Transferase 160 U/L (5-37); Bilirubin Total 2.1 mg/dL (0.0-1.0); Blood Urea Nitrogen 13 mg/dL (9-16); Calcium 9.2 mg/dL (8.4-10.2); Carbon Dioxide 21 mmol/L (22-29); Chloride 103 mmol/L (96-108); Creatinine Clr Calc Pharmacy 164.3; Estimated Glomerular Filt Rate > 60; Glucose Random 103 mg/dL (60-115); Potassium 4.1 mmol/L (3.3-5.1); Sodium 136 mmol/L (135-145); Total Protein 7.9 g/dL (6.5-8.0)
[2021-06-28 12:38] LABS: Troponin-I High Sensitivity < 3.5 ng/L (<3.5-35.0)
[2021-06-28 12:41] LABS: Influenza A PCR NEGATIVE (Negative); Influenza B PCR NEGATIVE (Negative); Resp Syncy Virus RNA Qual PCR NEGATIVE (Negative); SARS COV2 PCR INHOUSE NEGATIVE (Negative)
[2021-06-28] MEDS: iohexoL 350 MG/ML 100 ML INFUS..BTL 85 ML IV (13:33)
[2021-06-28] MEDS: HYDROmorphone HCl 1 MG/ML SYRINGE IVPUSH ×2 (13:51→14:40)
--- NOTE | 2021-06-28 15:10 | PM.EVENT ---
Event Note Date of Service: 06/28/21 Event Note: Attending Attestation: Patient seen and examined independently and I was present during reynoso portion of E/M service. Agree with Yudy Enriquez NP's history, physical, assessment, and plan. In brief, a 30 yo M with previous alcohol induced pancreatitis who now presents after a week long binge of EtOH use. Reports abdominal pain which started yesterday and became unbearable so he came in. CT showing evidence of acute pancreatitis. IVF IV pain control clear liquids alcohol cessation has been encouraged
--- NOTE | 2021-06-28 15:36 | PHA.MEDREC ---
Pharmacy Consult ? Medication Reconciliation Pharmacy has completed the medication reconciliation. Patient reports taking no medications at home. Cait Aleman, AnuragD
--- NOTE | 2021-06-28 16:21 | PM.IMHP ---
History of Present Illness Date of Service: 06/28/21 Chief Complaint: abdominal pain 30-year-old man with history of alcohol abuse and pancreatitis presents with complaints of abdominal pain, nausea and some episodes of vomiting. He reports that this has been ongoing for about a week. Over the last week specifically he has been drinking at least 6 drinks a day. reports epigastric abdominal pain and belching. His vital signs are stable. He was noted to have elevated liver enzymes, bilirubin 2.1. abdominal CT showed acute pancreatitis of the tail of the pancreas with fatty infiltration of the liver. He was given IV fluids and pain medication the ER he will be admitted for further management and treatment of acute pancreatitis. Review of Systems Review of Systems: Denies any recent fever chills or decrease in appetite respiratory denies any shortness of breath coverage production cardiovascular is adjustment of any PND or edema gastrointestinal see HPI genitourinary denies any dysuria frequency or hematuria musculoskeletal denies any joint pain or swelling neuropsych denies any weakness or seizures all other systems reviewed are negative [facility] Medical History (Updated 06/28/21 @ 14:40 by WAN Morris) Alcohol use disorder HTN (hypertension) Surgical History (Updated 06/28/21 @ 10:46 by Denae Harry) History of appendectomy Social History Alcohol intake: current Alcohol intake frequency: 0-2 drinks per day Alcohol type: beer Advance Directives: No Advance Directives Information Provided: No Meds Allergies Allergy/AdvReac Type Severity Reaction Status Date / Time No Known Allergies Allergy Verified 01/04/21 11:17 [No Known Allergies*] Active Medications: Current Medications Generic Name Dose Route Start Last Admin Trade Name Freq PRN Reason Stop Dose Admin Acetaminophen 650 mg 06/28/21 15:11 Acetaminophen 325 Mg Tablet PO Q6H PRN Pain, Mild (Pain Scale 1-3) Enoxaparin Sodium 40 mg 06/28/21 16:00 Enoxaparin Sodium 40 Mg/0.4 Ml Syringe SUBCUT Q24H TODD Hydromorphone HCl 0.5 mg 06/28/21 15:11 Hydromorphone Hcl 0.5 Mg/0.5 Ml Syringe IVPUSH Q4H PRN Pain, Moderate (Pain Scale 4-6 Protocol Hydromorphone HCl 1 mg 06/28/21 15:17 Hydromorphone Hcl 2 Mg/Ml Vial SUBCUT Q4H PRN Pain, Severe (Pain Scale 7-10) Protocol Lactated Ringer's 1,000 mls @ 150 mls/hr 06/28/21 15:15 Lr IVCONT .Q6H40M [facility] Ondansetron HCl 4 mg 06/28/21 15:11 Ondansetron Hcl 4 Mg/2 Ml Vial IVPUSH Q8H PRN Nausea and Vomiting Pharmacy Consult 1 each 06/28/21 14:46 Consult Rx Perform Med Rec MISCELLANE ONCE PRN Consult order Sodium Chloride 3 ml 06/28/21 16:00 0.9 % Sodium Chloride Flush 3 Ml Syringe IVFLUSH QSHIFT [facility] Home Medications Medication Instructions Recorded Confirmed Last Taken Type No Known Home Meds 06/28/21 06/28/21 Unknown History Physical Exam Vital Signs and Narrative: Vital Signs: Last Vital Signs Temp 99.7 F 06/28/21 15:17 Pulse 91 06/28/21 15:17 Resp 18 06/28/21 15:17 BP 139/89 06/28/21 15:17 Pulse Ox 95 06/28/21 15:17 Body Mass Index 26.2 Appearing in no acute distress head is normocephalic atraumatic eyes pupils are PERRLA sclera is anicteric mouth throat mucous membranes are intact and moist neck is supple no lymphadenopathy, no JVD noted lung sounds are clear to auscultation heart regular rate rhythm, clear S1, S2 positive bowel sounds, abdomen is soft, nontender neuro patient is alert x3, no focal deficits Results Labs CBC and Chem 7: 06/28/21 11:53 06/28/21 11:53 Labs: Laboratory Results - last 24 hr 06/28/21 06/28/21 06/28/21 11:38 11:38 11:53 MCV 92.3 MCH 33.5 H MCHC 36.3 H RDW 12.5 Plt Count 176 D MPV 9.6 Immature Gran % (Auto) 0.3 Neut % (Auto) 85.7 H Lymph % (Auto) 8.0 L [place] % (Auto) 5.5 Eos % (Auto) 0.1 Baso % (Auto) 0.4 Lymph # (Auto) 1.0 L [place] # (Auto) 0.7 Eos # (Auto) 0.0 Baso # (Auto) 0.1 Abs Immat Gran (auto) 0.04 H Absolute Neuts (auto) 10.9 H Absolute Nucleated RBC 0.000 Nucleated RBC % (auto) 0.0 PT INR Anion Gap Estim Creat Clear Calc Estimated GFR Random Glucose Calcium Magnesium Total Bilirubin AST ALT Alkaline Phosphatase Lactate Dehydrogenase Troponin I High Sens Total Protein Albumin Lipase Urine Color YELLOW Urine Appearance CLEAR Urine pH 6.0 Ur Specific [place] >= 1.030 H Urine Protein TRACE Urine Glucose (UA) NEG Urine Ketones 5 Urine Blood NEG Urine Nitrite NEG Ur Leukocyte Esterase NEG Ethyl Alcohol Coronavirus (PCR) NEGATIVE Influenza Type A (PCR) NEGATIVE Influenza Type B (PCR) NEGATIVE RSV RNA Qual (PCR) NEGATIVE 06/28/21 06/28/21 06/28/21 11:53 11:53 11:53 MCV MCH MCHC RDW Plt Count MPV Immature Gran % (Auto) Neut % (Auto) Lymph % (Auto) [place] % (Auto) Eos % (Auto) Baso % (Auto) Lymph # (Auto) [place] # (Auto) Eos # (Auto) Baso # (Auto) Abs Immat Gran (auto) Absolute Neuts (auto) Absolute Nucleated RBC Nucleated RBC % (auto) PT 13.8 H INR 1.2 H Anion Gap 16 Estim Creat Clear Calc 164.3 Estimated GFR > 60 Random Glucose 103 Calcium 9.2 Magnesium 1.9 Total Bilirubin 2.1 H AST 160 H ALT 133 H Alkaline Phosphatase 58 Lactate Dehydrogenase Troponin I High Sens Total Protein 7.9 Albumin 4.5 Lipase Urine Color Urine Appearance Urine pH Ur Specific [place] Urine Protein Urine Glucose (UA) Urine Ketones Urine Blood Urine Nitrite Ur Leukocyte Esterase Ethyl Alcohol Coronavirus (PCR) Influenza Type A (PCR) Influenza Type B (PCR) RSV RNA Qual (PCR) 06/28/21 06/28/21 06/28/21 11:53 11:53 11:53 MCV MCH MCHC RDW Plt Count MPV Immature Gran % (Auto) Neut % (Auto) Lymph % (Auto) [place] % (Auto) Eos % (Auto) Baso % (Auto) Lymph # (Auto) [place] # (Auto) Eos # (Auto) Baso # (Auto) Abs Immat Gran (auto) Absolute Neuts (auto) Absolute Nucleated RBC Nucleated RBC % (auto) PT INR Anion Gap Estim Creat Clear Calc Estimated GFR Random Glucose Calcium Magnesium Total Bilirubin AST ALT Alkaline Phosphatase Lactate Dehydrogenase 305 H Troponin I High Sens Total Protein Albumin Lipase 79 H Urine Color Urine Appearance Urine pH Ur Specific [place] Urine Protein Urine Glucose (UA) Urine Ketones Urine Blood Urine Nitrite Ur Leukocyte Esterase Ethyl Alcohol 35 Coronavirus (PCR) Influenza Type A (PCR) Influenza Type B (PCR) RSV RNA Qual (PCR) 06/28/21 11:53 MCV MCH MCHC RDW Plt Count MPV Immature Gran % (Auto) Neut % (Auto) Lymph % (Auto) [place] % (Auto) Eos % (Auto) Baso % (Auto) Lymph # (Auto) [place] # (Auto) Eos # (Auto) Baso # (Auto) Abs Immat Gran (auto) Absolute Neuts (auto) Absolute Nucleated RBC Nucleated RBC % (auto) PT INR Anion Gap Estim Creat Clear Calc Estimated GFR Random Glucose Calcium Magnesium Total Bilirubin AST ALT Alkaline Phosphatase Lactate Dehydrogenase Troponin I High Sens < 3.5 Total Protein Albumin Lipase Urine Color Urine Appearance Urine pH Ur Specific [place] Urine Protein Urine Glucose (UA) Urine Ketones Urine Blood Urine Nitrite Ur Leukocyte Esterase Ethyl Alcohol Coronavirus (PCR) Influenza Type A (PCR) Influenza Type B (PCR) RSV RNA Qual (PCR) Imaging Radiologist's Impressions: Impressions Abdomen/Pelvis CT 06/28/21 10:17 IMPRESSION: Acute pancreatitis of the tail the pancreas. Fatty infiltration of the liver. Chest X-Ray 06/28/21 10:19 IMPRESSION: Unremarkable examination. Assessment and Plan (1) Pancreatitis, alcoholic, acute: Status: Acute 30-year-old man admitted with acute pancreatitis with history of alcohol abuse and pancreatitis in the past. Pancreatitis. lipase 79 Aggressive IV fluid hydration Clear liquid diet Pain management Transaminitis. Secondary to alcohol abuse Trend Alcohol abuse. Encouraged to disease from alcohol CIWA scale DVT prophylaxis with Lovenox Attending Dr. Butts Quality Stroke Does the patient have a stroke diagnosis?: No VTE Prior VTE?: No VTE Risk Level:: Medical - moderate - high VTE Device Contraindication: Treatment Not Indicated VTE Drug Contraindication: N/A - Med Ordered
[2021-06-28] MEDS: Enoxaparin Sodium 40 MG/0.4 ML SYRINGE SUBCUT (17:25)
[2021-06-28] MEDS: HYDROmorphone HCl 2 MG/ML VIAL 1 MG SUBCUT ×2 (17:25→21:37)
[2021-06-28] MEDS: 0.9 % Sodium Chloride Flush 3 ML SYRINGE IVFLUSH (17:26)
[2021-06-28] MEDS: Lactated Ringers 1,000 ML 150 ML IVCONT ×2 (17:33→23:42)
--- NOTE | 2021-06-28 17:43 | PC.NURSE ---
Pt given pain medicine. On clear liquid diet. Offered broth but declined. Given [place] ice per pt request. Pt appears to be in NAD at this time.
--- NOTE | 2021-06-28 19:21 | MHC.CM.PN ---
CM met with admitted patient with bed pending. Pt is A&Ox3. Pleasant and cooperative. Contact is patients mother, Mariel Boss ([phone]). No HCP on file. Pt refuses to complete one at this time. Pt is fully vaccinated with [employer]. Pt lives with his mother. Use on DME or services and is employed. Pt agreeable to meeting with recovery team during hospitalization. Pt encouraged to actively deal with addiction to alcohol. D/C plan is home, hopefully to recovery program for ETOH abuse. Transportation by self or family. CM to follow for d/c needs.
[2021-06-28] MEDS: Acetaminophen 325 MG TABLET 650 MG PO (19:45)
[2021-06-29] VITALS (11 sets, daily range): BP systolic 137–158; BP diastolic 85–95; PULSE 97–131; RESP 15–20; TEMP 37.3–39; O2SAT 93–96
[2021-06-29] MEDS: Zolpidem Tartrate 5 MG TABLET PO (00:26)
--- NOTE | 2021-06-29 00:27 | PC.NURSE ---
Spoke with Dr Mcdermott regarding one time order for rebecaien after 2300. Still wants medication given.
[2021-06-29] MEDS: HYDROmorphone HCl 2 MG/ML VIAL 1 MG SUBCUT ×4 (01:54→19:57)
[2021-06-29] MEDS: Acetaminophen 325 MG TABLET 650 MG PO ×2 (04:29→13:40)
--- NOTE | 2021-06-29 05:55 | PC.NURSE ---
PATIENT WAKING UP MULTIPLE TIMES ASKING FOR HIS PAIN MEDICATION, STATING THE OTHER NURSE GAVE IT TO ME AT MIDNIGHT SO NOW I AM DUE, REVIEWING EMAR WITH PATIENT THE LAST TIME HE REECIVED MEDICAITON WAS AT 0154 AND COULD NOT RECIEVE IT AGAIN UNTIL 0554. PATIENT OFFERED AND ACCEPTING TYLENOL FOR BREAK THROUGH PAIN. PATIENT THEN RETURNING TO SLEEP. AWAKING NOW, WANTING PAIN MEDICATION. PATIENT MEDICATED PER EMAR. PATIENT HAVING NO FACIAL GRIMACE OR GUARDING ABLE TO TOLERATE CLEAR FLUIDS.
[2021-06-29] MEDS: Lactated Ringers 1,000 ML 150 ML IVCONT ×3 (06:40→20:24)
[2021-06-29 06:54] LABS: Hematocrit 40.9 % (42-52); Hemoglobin 14.4 g/dl (14.0-18.0); Mean Corpuscular HGB Conc 35.2 g/dl (31.0-36.0); Mean Corpuscular Hemoglobin 33.3 pg (27.0-33.0); Mean Corpuscular Volume 94.7 fL (80-98); Platelet Count 120 X10*3/uL (160-400); Red Blood Count 4.32 X10*6/uL (4.60-5.80); Red Cell Distribution Width 12.4 % (11.0-16.0); White Blood Count 11.4 X10*3/uL (4.8-10.8)
[2021-06-29 07:08] LABS: Alanine Aminotransferase 87 U/L (0-40); Albumin Level 3.6 g/dL (3.5-5.0); Alkaline Phosphatase 46 U/L (39-117); Anion Gap 11 (12-20); Aspartate Amino Transferase 86 U/L (5-37); Bilirubin Direct 1.3 mg/dL (0.0-0.5); Bilirubin Total 3.8 mg/dL (0.0-1.0); Blood Urea Nitrogen 5 mg/dL (9-16); Calcium 8.4 mg/dL (8.4-10.2); Carbon Dioxide 26 mmol/L (22-29); Chloride 101 mmol/L (96-108); Creatinine Clr Calc Pharmacy 162.2; Estimated Glomerular Filt Rate > 60; Glucose Random 109 mg/dL (60-115); Potassium 3.6 mmol/L (3.3-5.1); Sodium 134 mmol/L (135-145); Total Protein 6.3 g/dL (6.5-8.0)
[2021-06-29] MEDS: 0.9 % Sodium Chloride Flush 3 ML SYRINGE IVFLUSH (08:22)
--- NOTE | 2021-06-29 08:29 | PC.NURSE ---
Pt alert and oriented, vss. Pt denies headache/dizziness/sob. No chest pain/discomfort. LR infusing. Pt on thin liquid diet- thin liquid breakfast given. Pt in no apparent distress. will continue to monitor.
[2021-06-29] MEDS: HYDROmorphone HCl 0.5 MG/0.5 ML SYRINGE IVPUSH (10:57)
--- NOTE | 2021-06-29 11:19 | P.PNIM_ITS ---
Subjective Subjective Date of Service: 06/29/21 Interval History: seen and examined this AM abdominal pain persists but has improved reports epigastric pain now as well, reports similar to heart burn also reports mild anxiety / alcohol withdrawal symptoms Review of Systems no fevers or chills Review of Systems: Yes all other systems are reviewed and are negative Physical Exam Vital Signs: Vital Signs: Last Vital Signs Temp 98.9 F 06/28/21 16:54 Pulse 106 H 06/29/21 11:02 Resp 18 06/29/21 11:02 BP 137/94 H 06/29/21 11:02 Pulse Ox 96 06/29/21 11:02 Body Mass Index 26.2 Const: Other: General - no acute distress, appears comfortable Cardiovascular - regular rate and rhythm, S1-S2 Lungs - normal respiratory effort, clear to auscultation bilaterally, no wheezing Abdomen - +TTP, +epigastric TTP -- hypoactive BS Extremities - no edema bilaterally Neuro - awake and alert, no focal deficits Objective Data Active Medications Acetaminophen (Acetaminophen 325 Mg Tablet) 650 mg PO Q6H PRN PRN Reason: Pain, Mild (Pain Scale 1-3) Last Admin: 06/29/21 04:29 Dose: 650 mg Documented by: AGNES Enoxaparin Sodium (Enoxaparin Sodium 40 Mg/0.4 Ml Syringe) 40 mg SUBCUT Q24H [facility] Last Admin: 06/28/21 17:25 Dose: 40 mg Documented by: REA Famotidine (Famotidine/Pf 20 Mg/2 Ml Vial) 20 mg IVPUSH BID [facility] Hydromorphone HCl (Hydromorphone Hcl 0.5 Mg/0.5 Ml Syringe) 0.5 mg IVPUSH Q4H PRN; Protocol PRN Reason: Pain, Moderate (Pain Scale 4-6 Last Admin: 06/29/21 10:57 Dose: 0.5 mg Documented by: MARIETTA Hydromorphone HCl (Hydromorphone Hcl 2 Mg/Ml Vial) 1 mg SUBCUT Q4H PRN; Protocol PRN Reason: Pain, Severe (Pain Scale 7-10) Last Admin: 06/29/21 05:59 Dose: 1 mg Documented by: MILIND Lactated Ringer's (Lr) 1,000 mls @ 150 mls/hr IVCONT .Q6H40M [facility] Last Admin: 06/29/21 06:40 Dose: 150 mls/hr Documented by: AGNES Ondansetron HCl (Ondansetron Hcl 4 Mg/2 Ml Vial) 4 mg IVPUSH Q8H PRN PRN Reason: Nausea and Vomiting Pharmacy Consult (Consult Rx Perform Med Rec) 1 each MISCELLANE ONCE PRN PRN Reason: Consult order Pharmacy Consult (Consult Rx Etoh Phenob Dosing) 1 each MISCELLANE ONCE ONE; Protocol Stop: 06/29/21 11:15 Sodium Chloride (0.9 % Sodium Chloride Flush 3 Ml Syringe) 3 ml IVFLUSH QSHIFT [facility] Last Admin: 06/29/21 08:22 Dose: 3 ml Documented by: MARIETTA Labs CBC & Chem 7: 06/29/21 06:37 06/29/21 06:37 Labs: Laboratory Results - last 24 hr 06/28/21 06/28/21 06/28/21 11:38 11:38 11:53 MCV 92.3 MCH 33.5 H MCHC 36.3 H RDW 12.5 Plt Count 176 D MPV 9.6 Immature Gran % (Auto) 0.3 Neut % (Auto) 85.7 H Lymph % (Auto) 8.0 L Blanco % (Auto) 5.5 Eos % (Auto) 0.1 Baso % (Auto) 0.4 Lymph # (Auto) 1.0 L Blanco # (Auto) 0.7 Eos # (Auto) 0.0 Baso # (Auto) 0.1 Abs Immat Gran (auto) 0.04 H Absolute Neuts (auto) 10.9 H Absolute Nucleated RBC 0.000 Nucleated RBC % (auto) 0.0 PT INR Anion Gap Estim Creat Clear Calc Estimated GFR Random Glucose Calcium Magnesium Total Bilirubin Direct Bilirubin AST ALT Alkaline Phosphatase Lactate Dehydrogenase Troponin I High Sens Total Protein Albumin Lipase Urine Color YELLOW Urine Appearance CLEAR Urine pH 6.0 Ur Specific Firth >= 1.030 H Urine Protein TRACE Urine Glucose (UA) NEG Urine Ketones 5 Urine Blood NEG Urine Nitrite NEG Ur Leukocyte Esterase NEG Ethyl Alcohol Coronavirus (PCR) NEGATIVE Influenza Type A (PCR) NEGATIVE Influenza Type B (PCR) NEGATIVE RSV RNA Qual (PCR) NEGATIVE 06/28/21 06/28/21 06/28/21 11:53 11:53 11:53 MCV MCH MCHC RDW Plt Count MPV Immature Gran % (Auto) Neut % (Auto) Lymph % (Auto) Blanco % (Auto) Eos % (Auto) Baso % (Auto) Lymph # (Auto) Blanco # (Auto) Eos # (Auto) Baso # (Auto) Abs Immat Gran (auto) Absolute Neuts (auto) Absolute Nucleated RBC Nucleated RBC % (auto) PT 13.8 H INR 1.2 H Anion Gap 16 Estim Creat Clear Calc 164.3 Estimated GFR > 60 Random Glucose 103 Calcium 9.2 Magnesium 1.9 Total Bilirubin 2.1 H Direct Bilirubin AST 160 H ALT 133 H Alkaline Phosphatase 58 Lactate Dehydrogenase Troponin I High Sens Total Protein 7.9 Albumin 4.5 Lipase Urine Color Urine Appearance Urine pH Ur Specific Firth Urine Protein Urine Glucose (UA) Urine Ketones Urine Blood Urine Nitrite Ur Leukocyte Esterase Ethyl Alcohol Coronavirus (PCR) Influenza Type A (PCR) Influenza Type B (PCR) RSV RNA Qual (PCR) 06/28/21 06/28/21 06/28/21 11:53 11:53 11:53 MCV MCH MCHC RDW Plt Count MPV Immature Gran % (Auto) Neut % (Auto) Lymph % (Auto) Blanco % (Auto) Eos % (Auto) Baso % (Auto) Lymph # (Auto) Blanco # (Auto) Eos # (Auto) Baso # (Auto) Abs Immat Gran (auto) Absolute Neuts (auto) Absolute Nucleated RBC Nucleated RBC % (auto) PT INR Anion Gap Estim Creat Clear Calc Estimated GFR Random Glucose Calcium Magnesium Total Bilirubin Direct Bilirubin AST ALT Alkaline Phosphatase Lactate Dehydrogenase 305 H Troponin I High Sens Total Protein Albumin Lipase 79 H Urine Color Urine Appearance Urine pH Ur Specific Firth Urine Protein Urine Glucose (UA) Urine Ketones Urine Blood Urine Nitrite Ur Leukocyte Esterase Ethyl Alcohol 35 Coronavirus (PCR) Influenza Type A (PCR) Influenza Type B (PCR) RSV RNA Qual (PCR) 06/28/21 06/29/21 06/29/21 11:53 06:37 06:37 MCV 94.7 MCH 33.3 H MCHC 35.2 RDW 12.4 Plt Count 120 L D MPV 10.0 Immature Gran % (Auto) Neut % (Auto) Lymph % (Auto) Blanco % (Auto) Eos % (Auto) Baso % (Auto) Lymph # (Auto) Blanco # (Auto) Eos # (Auto) Baso # (Auto) Abs Immat Gran (auto) Absolute Neuts (auto) Absolute Nucleated RBC 0.000 Nucleated RBC % (auto) 0.0 PT INR Anion Gap 11 L Estim Creat Clear Calc 162.2 Estimated GFR > 60 Random Glucose 109 Calcium 8.4 D Magnesium Total Bilirubin 3.8 H Direct Bilirubin 1.3 H AST 86 H ALT 87 H Alkaline Phosphatase 46 D Lactate Dehydrogenase Troponin I High Sens < 3.5 Total Protein 6.3 L D Albumin 3.6 Lipase Urine Color Urine Appearance Urine pH Ur Specific Firth Urine Protein Urine Glucose (UA) Urine Ketones Urine Blood Urine Nitrite Ur Leukocyte Esterase Ethyl Alcohol Coronavirus (PCR) Influenza Type A (PCR) Influenza Type B (PCR) RSV RNA Qual (PCR) Assessment and Plan (1) Pancreatitis, alcoholic, acute: Status: Acute Assessment and Plan: This is a 30 male with a past medical history of heavy alcohol abuse who presents to the hospital after a 7 day binge with his friends. He is admitted for out acute alcoholic pancreatitis. 1. Acute alcoholic pancreatitis Continue IV fluids Continue IV narcotics for pain control Will advance diet to full liquids 2. Alcoholic liver disease Bilirubin on the rise His imaging studies show of fatty liver Also may have a component of alcoholic hepatitis 3. Alcohol abuse and dependence Endorses mild withdrawal symptoms, will start him on phenobarbital to prevent severe symptoms 4. Gastritis likely EtOH related IV pepcid 5. Thrombocytopenia stop lovenox trend supsected from his EtOH DVT pptx - early ambulation due to drop in platelets Quality Stroke Does the patient have a stroke diagnosis?: No VTE Prior VTE?: No VTE Risk Level:: Medical - moderate - high VTE Device Contraindication: Treatment Not Indicated VTE Drug Contraindication: N/A - Med Ordered
[2021-06-29] MEDS: PHENobarbitaL sodium 130 MG/ML VIAL 270 MG IM (11:51)
[2021-06-29] MEDS: Famotidine/PF 20 MG/2 ML VIAL IVPUSH ×2 (11:51→20:00)
--- NOTE | 2021-06-29 12:01 | PC.NURSE ---
Report given to receiving RN, pt will be transferred to room 357 by emergency medicine. Pt requested pain med, prn pain med given at 1057. LR still infusing.
[2021-06-29] MEDS: PHENobarbitaL sodium 130 MG/ML VIAL 203 MG IM ×2 (14:53→17:40)
[2021-06-29 15:52] LABS: Lactic Acid 0.9 mmol/L (0.5-2.0)
--- NOTE | 2021-06-29 16:30 | PC.NURSE ---
Temp 102.2. HR 116. Dr. Butts notified. Medicated with tylenol. Temp 101.6 after [address]lenol. HR 119. Dr. Butts ordered sepsis workup.
[2021-06-29] MEDS: levoFLOXacin/D5W 750 MG/150 ML PIGGYBACK 100 MG IV (17:36)
[2021-06-29] MEDS: Enoxaparin Sodium 40 MG/0.4 ML SYRINGE SUBCUT (17:38)
[2021-06-30] VITALS: BP 155/89; PULSE 125; RESP 18; TEMP 37.4; O2SAT 94
[2021-06-30] MEDS: HYDROmorphone HCl 0.5 MG/0.5 ML SYRINGE IVPUSH ×2 (00:16→09:02)
[2021-06-30] MEDS: 0.9 % Sodium Chloride Flush 3 ML SYRINGE IVFLUSH ×2 (00:16→09:02)
[2021-06-30 03:53] VITALS: BP 135/77; PULSE 120; RESP 18; TEMP 37.4; O2SAT 95
[2021-06-30] MEDS: HYDROmorphone HCl 2 MG/ML VIAL 1 MG SUBCUT (04:18)
[2021-06-30] MEDS: Lactated Ringers 1,000 ML 150 ML IVCONT ×3 (04:19→20:37)
[2021-06-30 06:28] LABS: Hematocrit 39.4 % (42-52); Hemoglobin 13.9 g/dl (14.0-18.0); Mean Corpuscular HGB Conc 35.3 g/dl (31.0-36.0); Mean Corpuscular Hemoglobin 33.3 pg (27.0-33.0); Mean Corpuscular Volume 94.5 fL (80-98); Mean Platelet Volume 10.6 fL (9.4-12.4); Platelet Count 100 X10*3/uL (160-400); Red Blood Count 4.17 X10*6/uL (4.60-5.80); Red Cell Distribution Width 12.4 % (11.0-16.0); White Blood Count 11.2 X10*3/uL (4.8-10.8)
[2021-06-30 06:39] LABS: INTERNATIONAL NORM RATIO 1.1 (0.9-1.1); Prothrombin Time 12.7 SEC (9.9-13.0)
[2021-06-30 06:55] LABS: Alanine Aminotransferase 69 U/L (0-40); Albumin Level 3.4 g/dL (3.5-5.0); Alkaline Phosphatase 47 U/L (39-117); Anion Gap 12 (12-20); Aspartate Amino Transferase 82 U/L (5-37); Bilirubin Direct 1.6 mg/dL (0.0-0.5); Bilirubin Total 3.5 mg/dL (0.0-1.0); Blood Urea Nitrogen 3 mg/dL (9-16); Carbon Dioxide 29 mmol/L (22-29); Chloride 96 mmol/L (96-108); Creatinine Clr Calc Pharmacy 170.7; Estimated Glomerular Filt Rate > 60; Glucose Random 104 mg/dL (60-115); Magnesium 1.6 mg/dL (1.6-2.6); Sodium 133 mmol/L (135-145); Total Protein 6.2 g/dL (6.5-8.0)
[2021-06-30 07:21] VITALS: BP 138/78; PULSE 93; RESP 18; TEMP 36.9; O2SAT 96
[2021-06-30] MEDS: PHENobarbitaL 30 MG TABLET 60 MG PO ×2 (09:01→20:34)
[2021-06-30] MEDS: Famotidine/PF 20 MG/2 ML VIAL IVPUSH ×2 (09:02→20:34)
[2021-06-30 11:29] VITALS: BP 123/75; PULSE 116; RESP 16; TEMP 37; O2SAT 94
--- NOTE | 2021-06-30 11:34 | P.PNIM_ITS ---
Subjective Subjective Date of Service: 06/30/21 Interval History: seen and examined this AM reports abd pain improved reports L sided pleurtic cp reports cough, non productive denies major withdrawal symptoms Review of Systems no fevers or chills Review of Systems: Yes all other systems are reviewed and are negative (except above) Physical Exam Vital Signs: Vital Signs: Last Vital Signs Temp 98.6 F 06/30/21 11:29 Pulse 116 H 06/30/21 11:29 Resp 16 06/30/21 11:29 BP 123/75 06/30/21 11:29 Pulse Ox 94 06/30/21 11:29 Body Mass Index 26.2 Const: Other: General - no acute distress, appears comfortable Cardiovascular - regular rate and rhythm, S1-S2 Lungs - normal respiratory effort, clear to auscultation - slighly dim L lung base, no wheezing Abdomen - tenderness improved, soft and improving BS Extremities - no edema bilaterally Neuro - awake and alert, no focal deficits Objective Data Active Medications Acetaminophen (Acetaminophen 325 Mg Tablet) 650 mg PO Q6H PRN PRN Reason: Pain, Mild (Pain Scale 1-3) Last Admin: 06/29/21 13:40 Dose: 650 mg Documented by: JANIE Enoxaparin Sodium (Enoxaparin Sodium 40 Mg/0.4 Ml Syringe) 40 mg SUBCUT Q24H [facility] Last Admin: 06/29/21 17:38 Dose: 40 mg Documented by: JUSTYNA Famotidine (Famotidine/Pf 20 Mg/2 Ml Vial) 20 mg IVPUSH BID [facility] Last Admin: 06/30/21 09:02 Dose: 20 mg Documented by: TANJA Hydromorphone HCl (Hydromorphone Hcl 0.5 Mg/0.5 Ml Syringe) 0.5 mg IVPUSH Q4H PRN; Protocol PRN Reason: Pain, Moderate (Pain Scale 4-6 Last Admin: 06/30/21 09:02 Dose: 0.5 mg Documented by: TANJA Hydromorphone HCl (Hydromorphone Hcl 2 Mg/Ml Vial) 1 mg SUBCUT Q4H PRN; Protocol PRN Reason: Pain, Severe (Pain Scale 7-10) Last Admin: 06/30/21 04:18 Dose: 1 mg Documented by: HO.ANTOIC Lactated Ringer's (Lr) 1,000 mls @ 150 mls/hr IVCONT .Q6H40M [facility] Last Admin: 06/30/21 04:19 Dose: 150 mls/hr Documented by: ANTOIC Levofloxacin (Levaquin) 750 mg in 150 mls @ 100 mls/hr IV Q24H [facility] Last Infusion: 06/29/21 19:38 Dose: 0 mls/hr Documented by: BEIT Medication (No Benzodiazepines) 1 each MISCELLANE DAILY [facility] Ondansetron HCl (Ondansetron Hcl 4 Mg/2 Ml Vial) 4 mg IVPUSH Q8H PRN PRN Reason: Nausea and Vomiting Pharmacy Consult (Consult Rx Perform Med Rec) 1 each MISCELLANE ONCE PRN PRN Reason: Consult order Phenobarbital (Phenobarbital 30 Mg Tablet) 60 mg PO BID [facility]; Protocol Stop: 07/01/21 21:01 Last Admin: 06/30/21 09:01 Dose: 60 mg Documented by: TANJA Phenobarbital (Phenobarbital 30 Mg Tablet) 30 mg PO BID [facility]; Protocol Stop: 07/03/21 21:01 Phenobarbital (Phenobarbital 30 Mg Tablet) 30 mg PO DAILY [facility]; Protocol Stop: 07/05/21 09:01 Sodium Chloride (0.9 % Sodium Chloride Flush 3 Ml Syringe) 3 ml IVFLUSH QSHIFT [facility] Last Admin: 06/30/21 09:02 Dose: 3 ml Documented by: TANJA Labs CBC & Chem 7: 06/30/21 05:53 06/30/21 05:53 Labs: Laboratory Results - last 24 hr 06/29/21 06/30/21 06/30/21 15:29 05:53 05:53 MCV 94.5 MCH 33.3 H MCHC 35.3 RDW 12.4 Plt Count 100 L MPV 10.6 Absolute Nucleated RBC 0.000 Nucleated RBC % (auto) 0.0 PT 12.7 INR 1.1 Anion Gap Estim Creat Clear Calc Estimated GFR Random Glucose Lactic Acid 0.9 Calcium Magnesium Total Bilirubin Direct Bilirubin AST ALT Alkaline Phosphatase Total Protein Albumin 06/30/21 05:53 MCV MCH MCHC RDW Plt Count MPV Absolute Nucleated RBC Nucleated RBC % (auto) PT INR Anion Gap 12 Estim Creat Clear Calc 170.7 Estimated GFR > 60 Random Glucose 104 Lactic Acid Calcium 8.0 L Magnesium 1.6 Total Bilirubin 3.5 H Direct Bilirubin 1.6 H AST 82 H ALT 69 H Alkaline Phosphatase 47 Total Protein 6.2 L Albumin 3.4 L Assessment and Plan (1) Pancreatitis, alcoholic, acute: Status: Acute Assessment and Plan: This is a 30 male with a past medical history of heavy alcohol abuse who present s to the hospital after a 7 day binge with his friends. He is admitted for out acute alcoholic pancreatitis. Acute alcoholic pancreatitis imaging negative for biliary cause clinically improving advance diet taper IV pain meds dec IVF, oral hydration encouraged Pneumonia -- suspected gram negative IV levaquin 750mg -- switch to oral upon d/c for total 5 days Alcoholic liver disease bili stable His imaging studies show of fatty liver Also may have a component of alcoholic hepatitis Alcohol abuse and dependence with withdrawal phenobarb care team consult ordered Gastritis likely EtOH related IV pepcid Thrombocytopenia supsected from his EtOH DVT pptx - early ambulation due to drop in platelets Quality Stroke Does the patient have a stroke diagnosis?: No VTE Prior VTE?: No VTE Risk Level:: Medical - moderate - high VTE Device Contraindication: Treatment Not Indicated VTE Drug Contraindication: N/A - Med Ordered
[2021-06-30] MEDS: oxyCODONE HCl Immed Release 5 MG TABLET PO ×2 (12:18→16:40)
[2021-06-30 15:11] VITALS: BP 132/79; PULSE 121; RESP 18; TEMP 36.6; O2SAT 93
[2021-06-30] MEDS: Enoxaparin Sodium 40 MG/0.4 ML SYRINGE SUBCUT (16:30)
[2021-06-30] MEDS: levoFLOXacin/D5W 750 MG/150 ML PIGGYBACK 100 MG IV (16:30)
[2021-06-30 18:57] VITALS: BP 131/79; PULSE 118; RESP 18; TEMP 36.8; O2SAT 95
[2021-06-30] MEDS: Morphine Sulfate 2 MG/ML CARTRIDGE IVPUSH (19:25)
[2021-07-01] VITALS: BP 148/89; PULSE 100; RESP 17; TEMP 36.9; O2SAT 95
[2021-07-01] MEDS: oxyCODONE HCl Immed Release 5 MG TABLET PO ×2 (00:59→08:48)
[2021-07-01 03:51] VITALS: BP 137/82; PULSE 94; RESP 17; TEMP 37.2; O2SAT 96
[2021-07-01] MEDS: HYDROmorphone HCl 0.5 MG/0.5 ML SYRINGE IVPUSH (04:27)
[2021-07-01] MEDS: Lactated Ringers 1,000 ML 150 ML IVCONT (04:30)
[2021-07-01 07:40] VITALS: BP 121/69; PULSE 103; RESP 18; TEMP 36.4; O2SAT 94
[2021-07-01] MEDS: PHENobarbitaL 30 MG TABLET 60 MG PO (08:48)
[2021-07-01] MEDS: Famotidine/PF 20 MG/2 ML VIAL IVPUSH (08:48)
[2021-07-01] MEDS: 0.9 % Sodium Chloride Flush 3 ML SYRINGE IVFLUSH (08:48)
[2021-07-01 09:54] LABS: Alanine Aminotransferase 54 U/L (0-40); Albumin Level 3.2 g/dL (3.5-5.0); Alkaline Phosphatase 44 U/L (39-117); Anion Gap 10 (12-20); Aspartate Amino Transferase 58 U/L (5-37); Bilirubin Direct 1.3 mg/dL (0.0-0.5); Bilirubin Total 2.3 mg/dL (0.0-1.0); Blood Urea Nitrogen 6 mg/dL (9-16); Calcium 8.4 mg/dL (8.4-10.2); Carbon Dioxide 31 mmol/L (22-29); Chloride 99 mmol/L (96-108); Creatinine Clr Calc Pharmacy 175.2; Estimated Glomerular Filt Rate > 60; Glucose Random 117 mg/dL (60-115); Potassium 4.2 mmol/L (3.3-5.1); Sodium 136 mmol/L (135-145); Total Protein 5.9 g/dL (6.5-8.0)
--- NOTE | 2021-07-01 10:08 | PM.DS ---
DS: Providers Provider Date of Service: 07/01/21 Date of admission: 06/28/21 15:11 Primary care physician: Stanley Grewal PA-C Consults: 06/30/21 11:39 Consult to Care Team Routine Comment: Reason for consultation: etoh abuse Attending physician on discharge: [facility] Discharging clinician: Aurea Enriquez DS: Diagnosis Discharge Diagnosis (1) Pancreatitis, alcoholic, acute: Status: Acute (2) Community acquired pneumonia: Status: Acute DS: Summary Hospital Course Hospital Course: HP as per admitting provider 30-year-old man with history of alcohol abuse and pancreatitis presents with complaints of abdominal pain, nausea and some episodes of vomiting.? He reports that this has been ongoing for about a week.? Over the last week specifically he has been drinking at least 6 drinks a day. reports epigastric abdominal pain and belching. His vital signs are stable.? He was noted to have elevated liver enzymes, bilirubin 2.1.? abdominal CT showed acute pancreatitis of the tail of the pancreas with fatty infiltration of the liver.? He was given IV fluids and pain medication the ER he will be admitted for further management and treatment of acute pancreatitis . Pancreatitis. Secondary to alcohol abuse and bingeing. Patient was treated with aggressive IV fluid hydration, Phenobarbital and pain medication. Diet was advanced to regular the patient did well with that. He no longer has abdominal pain. He also developed transaminitis that peaked at 3.8, came down to 2.3 his LFTs also trended down nicely as well. He was encouraged to stop drinking alcohol. He will have follow-up labs next week. He should follow-up with his primary care provider if he needs any assistance in stopping alcohol further id CAP. Developed cough, left-sided pleuritic chest pain. Chest x-ray showed lung opacity in the left lung base suspicious for infiltrate. He was started on IV Levaquin. He will go home with Levaquin for 3 more days for total 5 day treatment. Time Spent with Patient Time attestation: Total time spent providing and/or coordinating discharge services: Discharge coordination time: Greater than 30 minutes Quality: Stroke Does the patient have a stroke diagnosis?: No Physical Exam Vital Signs: Vital Signs: Last Vital Signs Temp 97.6 F 07/01/21 07:40 Pulse 103 H 07/01/21 07:40 Resp 18 07/01/21 07:40 BP 121/69 07/01/21 07:40 Pulse Ox 94 07/01/21 07:40 Body Mass Index 26.2 Appearing in no acute distress head is normocephalic atraumatic eyes pupils are PERRLA sclera is anicteric mouth throat mucous membranes are intact and moist neck is supple no lymphadenopathy, no JVD noted lung sounds are clear to auscultation heart regular rate rhythm, clear S1, S2 positive bowel sounds, abdomen is soft, nontender neuro patient is alert x3, no focal deficits DS: Data Data Completed and Pending Labs on day of discharge: Laboratory Results - last 24 hr 07/01/21 08:07 Sodium 136 Potassium 4.2 Chloride 99 Carbon Dioxide 31 H Anion Gap 10 L BUN 6 L D Creatinine 0.75 Estim Creat Clear Calc 175.2 Estimated GFR > 60 Random Glucose 117 H Calcium 8.4 Total Bilirubin 2.3 H Direct Bilirubin 1.3 H AST 58 H ALT 54 H Alkaline Phosphatase 44 Total Protein 5.9 L Albumin 3.2 L Preliminary micro results at discharge 06/29/21 15:29 Blood Culture - Preliminary Blood - Venous No growth after 24 hours. 06/29/21 15:29 Blood Culture - Preliminary Blood - Venous No growth after 24 hours. Discharge Plan Discharge Anticipated Discharge Date/Time: 07/01/21 09:56 Patient Disposition: Home, Self-Care Discharge Diagnosis: Pancreatitis Pneumonia Transaminitis Alcohol abuse Referrals: Stanley Grewal PA-C [Primary Care Provider] - 07/03/21 1:30 pm (You have a primary care follow up appointment scheduled on Saturday, July 03 at 1:30 pm. Please call your doctor's office if you need to reschedule.) Discharge Medications: New levofloxacin 750 mg tablet 750 mg PO DAILY Qty: 3 RF: 0 Discharge Orders: Discharge Order (Routine); Ordered 07/01/21 Ordered By: Aurea Enriquez Diet: advance to usual diet Activity on Discharge: As tolerated Stand Alone Forms: Patient Portal Discharge page Other Ambulatory Orders: Basic Metabolic Panel (Routine) Timeframe: [id number] Facility: [facility] - Location: Laboratory Ordered By: Aurea Enriquez Liver Panel (Routine) Timeframe: [id number] Facility: [facility] - Location: Laboratory Ordered By: Aurea Enriquez Care Plan Goals: stop drinking alcohol. Health Concerns: Pancreatitis Pneumonia Transaminitis Alcohol abuse Plan of Treatment: Follow-up with her primary care provider as needed. If he need help with alcohol use the primary care provider's office can help with this. Continue antibiotics as prescribed Assessment: See discharge summary
--- NOTE | 2021-07-01 10:51 | MHC.CM.PN ---
PT CLEARED TO DC HOME TODAY WITH NO SERVICES PT TO SELF ARRANGE TRANSPORT
--- NOTE | 2021-07-01 10:57 | MHC.RECOVSUP ---
Recovery Support note: Patient is a 30 year old Swedish speaking male who presented to [facility] ED due to N/V and abdominal pain. This credit underwriter met with patient in to discuss his alcohol use and recovery supports. Patient reports he typically drinks whiskey Saturday-Saturday because it is there, no other reason. Patient states when he drinks in this manner for 4-8 weeks, he then starts drinking daily. Patient reports daily alcohol consumption has resulted in him being hospitalized in the past. Patient reports he has been drinking daily for the last week due to a friend being in town. Patient reports a desire to reduce his alcohol consumption. Patient states that alcohol has a strong effect on his body and that he knows other people who drink far more than he does and they do not experience the health problems that he does. Discussed outpatient recovery supports with patient. Patient reports he has a great family and girlfriend and that everyone is very supportive. Patient reports he has an uncle who is also in recovery. Discussed the multiple pathways of recovery with patient. Patient accepted information on the [facility], [facility] and [facility]. Patient reports he previously did outpatient therapy however did not find it helpful. Patient found naltrexone helpful and hopes to restart this medication. Discussed naltrexone/Vivitrol with patient and provided him with information on the [facility]. Patient requested the medication while inpatient however patient will be discharging today. Encouraged patient to contact the [facility] on Saturday or come as a walk-in. Patient acknowledged and reports no questions or concerns at this time. Discussed case with Barbara Rabago NP.
[2021-07-01 11:53] VITALS: BP 117/78; PULSE 97; RESP 18; TEMP 36.7; O2SAT 93
== END 2021-07-01 13:54 | disposition home or self-care (01) | DRG 282 ==
LOC: HO.ED 14:39 → HO.EDOVER 15:23 → HO.S3 06-29 11:26
PROVIDERS: Physician Assistant Medical; Admitting Provider Family Medicine; Emergency Provider Emergency Medicine; PCP Physician Assistant; Visit Provider Nurse Practitioner Acute Care
DX: K85.20 Alcohol induced acute pancreatitis without necrosis or infection (principal); J15.9 Unspecified bacterial pneumonia; D69.6 Thrombocytopenia, unspecified; K70.0 Alcoholic fatty liver; F10.239 Alcohol dependence with withdrawal, unspecified; K70.10 Alcoholic hepatitis without ascites; K29.20 Alcoholic gastritis without bleeding; I10 Essential (primary) hypertension; Z20.822 Contact with and (suspected) exposure to COVID-19
CPT/HCPCS: 0241U; 36415; 71045; 71046; 74177; 76705; 80048; 80053; 80076; 81003; 82077; 83605; 83615; 83690; 83735; 84484; 85025; 85027; 85610; 87040; 93005; 96361; 96374; 96375; 96376; 99285; 99291; J1170; J1650; J1956; J2270; J2405; J2560; Q9967

== ENCOUNTER 2022-02-22 19:15 | Emergency (ER) | payer OTHER, SELFPAY ==
--- NOTE | ~2022-02-22 | XR_ITS ---
EXAMINATION: XR FOOT, RIGHT CLINICAL INFORMATION: Pain. Erythema. No injury. COMPARISON: None TECHNIQUE: AP, lateral, and oblique views of the right foot. FINDINGS: The bones and soft tissues are normal. No fracture. Alignment is anatomic. Joint spaces are maintained. XR/XR foot RT min 3V IMPRESSION: Normal right foot.
[2022-02-22 21:04] VITALS: BP 139/89; PULSE 112; RESP 16; TEMP 36.8; O2SAT 95; BMI 26.9
[2022-02-22 21:45] LABS: MANUAL DIFF FLAG NO
[2022-02-22 21:47] LABS: Basophils Percent Auto 0.4 % (0-2); Eosinophils Percent Auto 0.1 % (0-4); Hematocrit 40.5 % (42.0-52.0); Hemoglobin 14.2 g/dl (14.0-18.0); Imm Gran Abs Auto 0.05 X10*3/uL (0.00-0.03); Imm Gran Pct Auto 0.7 % (0.0-0.4); Lymphocytes Absolute Auto 1.1 X10*3/uL (1.2-4.9); Lymphocytes Percent Auto 14.7 % (20-40); Mean Corpuscular HGB Conc 35.1 g/dl (31.0-36.0); Mean Corpuscular Hemoglobin 33.4 pg (27.0-33.0); Mean Corpuscular Volume 95.3 fL (80.0-98.0); Mean Platelet Volume 9.6 fL (9.4-12.4); Monocytes Absolute Auto 0.6 X10*3/uL (0.1-1.2); Monocytes Percent Auto 8.3 % (2-11); Neutrophils Absolute Auto 5.5 x10*3/uL (2.0-8.3); Neutrophils Percent Auto 75.8 % (45-73); Platelet Count 248 X10*3/uL (160-400); Red Blood Count 4.25 X10*6/uL (4.60-5.80); White Blood Count 7.3 X10*3/uL (4.8-10.8)
[2022-02-22 22:00] LABS: Anion Gap 18 (12-20); Blood Urea Nitrogen 7 mg/dL (9-16); Calcium 10.2 mg/dL (8.4-10.2); Carbon Dioxide 21 mmol/L (22-29); Chloride 105 mmol/L (96-108); Creatinine Clr Calc Pharmacy 162.8; Estimated Glomerular Filt Rate > 60; Glucose Random 178 mg/dL (60-115); Potassium 3.8 mmol/L (3.3-5.1); Sodium 140 mmol/L (135-145)
--- NOTE | 2022-02-23 00:27 | ED_ITS ---
HPI - Extremity Injury (Lower) General Chief Complaint: Extremity Injury, Lower Stated Complaint: right ankle pain Time Seen by Provider: 02/22/22 23:06 Source: patient Mode of arrival: ambulatory History of Present Illness HPI Narrative: 31-year-old male with a past medical history of hypertension, ETOH use, gout, presenting to the ED complaining of right foot pain & erythema x 3 days. Denies trauma/ injury or fall. Denies numbness, tingling, weakness, fever. MD complaint: foot injury Onset (ago): day(s) Related Data Previous Rx's Medication Instructions Recorded blood pressure test kit-large #1 ea 12/21/21 naltrexone 50 mg tablet 50 mg PO DAILY 30 Days #30 tab 12/21/21 cephalexin 500 mg capsule 500 mg PO QID 7 Days #28 cap 02/23/22 naproxen 500 mg tablet 500 mg PO BID PRN 10 Days #20 tab 02/23/22 prednisone 20 mg tablet 40 mg PO DAILY 5 Days #10 tab 02/23/22 Allergies Allergy/AdvReac Type Severity Reaction Status Date / Time No Known Allergies Allergy Verified 12/21/21 15:05 [No Known Allergies*] Review of Systems Review of Systems: Constitutional: No Fever, No Chills ENT/Mouth: No Ear Pain, No Nasal Congestion, No Sinus Pain, No Hoarseness, No sore throat, No Rhinorrhea, No Swallowing Difficulty Cardiovascular: No Chest Pain, No SOB Respiratory: No Cough, No Sputum, No Wheezing Gastrointestinal: No Nausea, No Vomiting, No Diarrhea, No Constipation, No Abdominal pain Genitourinary: No Dysuria, No Urinary Frequency, No Flank Pain Musculoskeletal: + joint pain, No Myalgias, No+Joint Swelling Skin: + Skin Lesions, No rash Neuro: No Weakness, No Numbness, No Paresthesias Yes all other systems are reviewed and are negative [facility] Past Medical History Attestation statement: The following information was validated with the patient. Medical History Alcohol use disorder HTN (hypertension) Surgical History History of appendectomy Social History Social History Household Members: Family Housing: House Do you presently have visiting nurse or other home services: No Alcohol intake: current Alcohol intake frequency: a few times a week Alcohol type: hard liquor Patient Tobacco Use Status: Never used Tobacco Substance Use Type: Marijuana Advance Directives: No Advance Directives Information Provided: No service: No Current occupational status: employed Physical Exam Vital Signs: Vital Signs: Last Vital Signs Temp 97.1 F 02/23/22 00:54 Pulse 93 02/23/22 00:54 Resp 18 02/23/22 00:54 BP 142/84 H 02/23/22 00:54 Pulse Ox 96 02/23/22 00:54 BMI result Body Mass Index 26.9 Const: General: cooperative, healthy appearing and no acute distress Orientation/consciousness: patient oriented x3 Limitations: no limitations HEENT: Head: Yes normal to inspection and Yes atraumatic Ears: hearing grossly normal bilaterally General nose exam: Normal external nose present Face and sinus: Yes normal facial exam Eyes: General: appearance normal, both eyes and all related structures EOM: EOMs intact bilaterally Neck: Neck: Yes normal visual inspection and Yes no meningeal signs Resp: Effort & Inspection: normal respiratory effort and no respiratory distress Cardio: Rate: regular rate Peripheral pulses: dorsalis pedis present Skin: Rashes: no rashes Wounds: no wounds Neuro: General: patient oriented x3, tone normal and no meningeal signs Gait exam (Neuro): Normal gait present Extrem: Other: Right foot dorsal lateral aspect of with noted swelling and erythema. Warm to touch. Tender to palpation. Ankle nontender with full range of motion intact. Sensation intact to light touch. Neurovascularly intact. Course Course Course Narrative: XR foot RT min 3V IMPRESSION: Normal right foot. - labs otherwise unremarkable /no leukocytosis Results discussed with patient. Will treat for cellulitis and gout. Is to follow-up with PCP. Patient in agreement with plan MDM - Extremity Injury (Lower) MDM Narrative Medical decision making narrative: 31-year-old male with a past medical history of hypertension, ETOH use, gout, presenting to the ED complaining of right foot pain & erythema x 3 days. On exam a initially tachycardic likely from discomfort, NAD, nontoxic appearing, tachycardia resolved without intervention. Physical exam as above. Concern for fracture vs cellulitis vs gout plan: X-rays. Labs were ordered in triage Differential Diagnosis Differential diagnosis: Likely fracture of toe Medical Records Attestation: I reviewed the patient's medical records. Lab Data Attestation: I reviewed the patient's lab results. Result diagrams: 02/22/22 21:11 02/22/22 21:11 Labs: Lab Results 02/22/22 02/22/22 Range/Units 21:11 21:11 WBC 7.3 (4.8-10.8) X10*3/uL RBC 4.25 L (4.60-5.80) X10*6/uL Hgb 14.2 (14.0-18.0) g/dl Hct 40.5 L (42.0-52.0) % MCV 95.3 (80.0-98.0) fL MCH 33.4 H (27.0-33.0) pg MCHC 35.1 (31.0-36.0) g/dl RDW 14.0 (11.0-16.0) % Plt Count 248 (160-400) X10*3/uL MPV 9.6 (9.4-12.4) fL Immature Gran % (Auto) 0.7 H (0.0-0.4) % Neut % (Auto) 75.8 H (45-73) % Lymph % (Auto) 14.7 L (20-40) % [place] % (Auto) 8.3 (2-11) % Eos % (Auto) 0.1 (0-4) % Baso % (Auto) 0.4 (0-2) % Lymph # (Auto) 1.1 L (1.2-4.9) X10*3/uL [place] # (Auto) 0.6 (0.1-1.2) X10*3/uL Eos # (Auto) 0.0 (0.0-0.4) X10*3/uL Baso # (Auto) 0.0 (0.0-0.2) X10*3/uL Abs Immat Gran (auto) 0.05 H (0.00-0.03) X10*3/uL Absolute Neuts (auto) 5.5 (2.0-8.3) x10*3/uL Absolute Nucleated RBC 0.000 (0.0-0.012) X10*3/uL Nucleated RBC % (auto) 0.0 (0.0-0.2) /100WBC Sodium 140 (135-145) mmol/L Potassium 3.8 (3.3-5.1) mmol/L Chloride 105 (96-108) mmol/L Carbon Dioxide 21 L (22-29) mmol/L Anion Gap 18 (12-20) BUN 7 L (9-16) mg/dL Creatinine 0.80 (0.5-1.4) mg/dL Estim Creat Clear Calc 162.8 Estimated GFR > 60 Random Glucose 178 H D (60-115) mg/dL Calcium 10.2 D (8.4-10.2) mg/dL Discharge Plan Discharge Clinical Impression: Cellulitis, Gout Patient Disposition: Home, Self-Care Instructions: Cellulitis (DC), Gout (ED) Additional Instructions: your x-rays unremarkable. Your blood work is reassuring. You likely have early cellulitis versus gout. Keflex as an antibiotic please take as prescribed. In addition naproxen as anti-inflammatory/pain medication, and prednisone as a steroid which helped treat gout. If area begins to look worse, more infected, you have fever or pain becomes unbearable return to the emergency department. Follow up with her doctor Prescriptions: New prednisone 20 mg tablet 40 mg PO DAILY 5 Days Qty: 10 0RF cephalexin 500 mg capsule 500 mg PO QID 7 Days Qty: 28 0RF naproxen 500 mg tablet 500 mg PO BID PRN (Reason: pain) 10 Days Qty: 20 0RF No Action (DME) blood pressure test kit-large Kit See Rx Instructions .Route Qty: 1 0RF Rx Instructions: As directed naltrexone 50 mg tablet 50 mg PO DAILY 30 Days Qty: 30 1RF Referrals: Stanley Grewal PA-C [Primary Care Provider] - 3 days Interventions: ED Discharge Assessment Last Done: 02/23/22 00:54 Discharge Date/Time: 02/23/22 00:56
[2022-02-23 00:54] VITALS: BP 142/84; PULSE 93; RESP 18; TEMP 36.2; O2SAT 96
== END 2022-02-23 00:56 | disposition home or self-care (01) ==
PROVIDERS: Emergency Provider Student in an Organized Health Care Education/Training Program; PCP Physician Assistant
DX: L03.115 Cellulitis of right lower limb (principal); M10.9 Gout, unspecified; I10 Essential (primary) hypertension
CPT/HCPCS: 36415; 73630; 80048; 85025; 99281; 99283

== ENCOUNTER 2022-05-14 06:21 | Emergency (ER) | payer OTHER, SELFPAY ==
[2022-05-14 06:48] VITALS: BP 166/64; PULSE 91; RESP 22; TEMP 36.7; O2SAT 96; BMI 27.5
--- NOTE | 2022-05-14 08:09 | ED.GENADULT ---
HPI - General Adult General Chief complaint: Extremity Injury, Lower Stated complaint: left knee sharp pain Time Seen by Provider: 05/14/22 08:09 Source: patient Mode of arrival: ambulatory Limitations: no limitations History of Present Illness HPI narrative: Patient with atraumatic knee pain. Started to swell yesterday. Patient has had gout to the foot 3 times with redness and swelling. He is an alcoholic Onset (ago): day(s) Location: left and lower extremity Severity: moderate Quality: burning Pain Consistency: constant Associated symptoms: other (knee effusion) Related Data Previous Rx's Medication Instructions Recorded blood pressure test kit-large #1 ea 12/21/21 naltrexone 50 mg tablet 50 mg PO DAILY 30 days #30 tabs 12/21/21 cephalexin 500 mg capsule 500 mg PO QID 7 days #28 caps 02/23/22 naproxen 500 mg tablet 500 mg PO BID PRN pain 10 days #20 02/23/22 tabs prednisone 20 mg tablet 40 mg PO DAILY 5 days #10 tabs 02/23/22 colchicine 0.6 mg tablet (Colcrys) 0.6 mg PO DAILY #7 tabs 05/14/22 indomethacin 50 mg capsule 50 mg PO TID #14 caps 05/14/22 Allergies Allergy/AdvReac Type Severity Reaction Status Date / Time No Known Allergies Allergy Verified 12/21/21 15:05 [No Known Allergies*] Review of Systems Constitutional: Constitutional: Reports no additional constitutional complaints Eyes: Eyes: Reports no additional eye complaints ENT: Denies dizziness Cardiovascular: Cardiovascular: Reports no additional cardiovascular complaints Respiratory: Respiratory: Reports as per HPI Gastrointestinal: Gastrointestinal: Reports no additional gastrointestinal complaints Musculoskeletal: Musculoskeletal: Reports no additional musculoskeletal complaints Integumentary/Breasts: Skin/Breast: Denies rash Neurologic: Reports system reviewed and no additional complaints, except as documented, Denies dizziness and Denies Sensory deficit (Neuro) Psychiatric: Psychiatric: Denies anxiety PMFSH Past Medical History Medical History Alcohol use disorder HTN (hypertension) Surgical History History of appendectomy Social History Social History Household Members: Family Housing: House Do you presently have visiting nurse or other home services: No Alcohol intake: current Alcohol intake frequency: a few times a week Alcohol type: hard liquor Patient Tobacco Use Status: Never used Tobacco Substance Use Type: Marijuana Advance Directives: No Advance Directives Information Provided: No service: No Current occupational status: employed Physical Exam ED Vital Signs: Vital Signs - 24 hr 05/14/22 06:48 Temperature 98.1 F Pulse Rate 91 Respiratory Rate 22 H Blood Pressure 166/64 H Pulse Oximetry 96 Oxygen Delivery Method Room Air BMI result Body Mass Index 27.5 Const General: healthy appearing Nutritional Appearance: average body habitus Orientation/consciousness: oriented to person and patient oriented x3 Limitations: no limitations HENMT Head: Yes normal to inspection Ears: external ears normal General nose exam: Normal external nose present Mouth: Normal oral and palatal mucosa present and oropharynx normal Throat: Yes posterior oropharynx normal Eyes General: appearance normal, both eyes and all related structures Neck Neck: Yes normal visual inspection Chest Chest palpation & inspection: normal inspection of the chest Resp Auscultation: clear to auscultation bilaterally Cardio Jugular venous distension: no JVD Rate: regular rate Rhythm: regular rhythm Heart sounds: S1 normal heart sound present and S2 normal heart sound present GI Inspection: Yes normal to inspection Palpation (GI): Soft to palpation, nontender and No hepatosplenomegaly present Auscultation: normal bowel sounds General: Yes no CVA tenderness Back/Spine/Pelvis Back: no CVA tenderness Skin General skin exam: no rashes or lesions noted Neuro General: oriented to person and patient oriented x3 Cranial nerves: Yes CN's II-XII intact bilaterally Motor exam (neuro): 5/5 motor strength present throughout Sensory Exam: No Sensory deficit (Neuro) Extrem Other: left knee with effusion, warmth and pain with range of motion Psych Appearance: grossly normal Course Reevaluation(s) Reevaluation #1: patient with a prior history of gout, given his active alcoholism this is most likely gout. Time: 08:49 Discharge Plan Discharge Clinical Impression: Gout, Gout attack Patient Disposition: Home, Self-Care Instructions: Low Purine Diet (ED), Gout (ED) Prescriptions: New indomethacin 50 mg capsule 50 mg PO TID Qty: 14 0RF Rx Instructions: administer with food or milk colchicine [Colcrys] 0.6 mg tablet 0.6 mg PO DAILY Qty: 7 0RF No Action prednisone 20 mg tablet 40 mg PO DAILY 5 Days Qty: 10 0RF cephalexin 500 mg capsule 500 mg PO QID 7 Days Qty: 28 0RF naproxen 500 mg tablet 500 mg PO BID PRN (Reason: pain) 10 Days Qty: 20 0RF (DME) blood pressure test kit-large Kit See Rx Instructions .Route Qty: 1 0RF Rx Instructions: As directed naltrexone 50 mg tablet 50 mg PO DAILY 30 Days Qty: 30 1RF
[2022-05-14] MEDS: Ketorolac Tromethamine 60 MG/2 ML VIAL IM (08:24)
[2022-05-14] MEDS: Colchicine 0.6 MG TABLET 1.2 MG PO (08:52)
== END 2022-05-14 10:10 | disposition home or self-care (01) ==
PROVIDERS: Emergency Provider Emergency Medicine; PCP Physician Assistant
DX: M10.062 Idiopathic gout, left knee (principal); M25.562 Pain in left knee; Z79.899 Other long term (current) drug therapy
CPT/HCPCS: 96372; 99283; 99284; J1885

== ENCOUNTER 2022-08-22 11:57 | Emergency (ER) | payer OTHER, SELFPAY ==
[2022-08-22 14:08] VITALS: BP 168/95; PULSE 80; RESP 16; TEMP 36.8; O2SAT 97; BMI 27.5
--- OUTSIDE RECORDS SUMMARY | 2022-08-22 14:32 | XMS_ITS | Continuity of Care Document ---
:1990 Author Organization [facility] Address [address] [place] [id number]- Care Team Providers Name Role Phone Stanley Cleaning Primary Care Physician Encounter [facility] Date(s): 06/09/20 - 06/11/[address] [id number]- [facility] Encounter Diagnosis Pancreatitis (Final) - 06/09/20 Discharge Disposition: A-D/C Home Attending Physician: Genet Torres MD Admitting Physician: Roz Tadeo MD Referring Physician: Not on Staff, Referring MD Allergies, Adverse Reactions, Alerts Substance Reaction Severity Status NKA Active Immunizations Not Given Vaccine Date Status Refusal Reason pneumococcal 23-valent vaccine 05/27/19 Not Given P atient Refuses Medications oxyCODONE 5 mg oral capsule 1 capsule = 5 mg, By Mouth, Every 6 hours, PRN as needed for pain, # 10 capsule, 0 Refills, Acute 06/17/20 17:00:00 EDT, 06/11/20 16:12:00 EDT, Capsule, BISON #[id number], 191, cm, 06/11/20 11:59:00 EDT, Height, 97.75, kg, 06/09/20 15:18:00... Start Date: 06/11/20 Stop Date: 06/17/20 Status: Ordered Problem List Condition Effective Dates Status Health Status Informant Alcohol abuse(Confirmed) Active Pancreatitis(Confirmed) Active Procedures Procedure Date Related Diagnosis Body Site Status Appendectomy 06/08/14 Completed Vital Signs Most recent to oldest 1 2 3 [Reference Range]: Height 191 cm 191 cm 191 cm (06/11/20 11:59 AM) (06/11/20 9:23 AM) (06/11/20 4: 25 AM) Weight 97.75 kg 97.75 kg (06/09/20 3:18 PM) (06/09/20 2:47 PM) Oxygen Saturation [94-100 97 % 98 % 96 % %] (06/11/20 11:59 AM) (06/11/20 9:23 AM) (06/11/20 4: 25 AM) Pulse Rate [55-90 bpm] 77 bpm 74 bpm 77 bpm (06/11/20 11:59 AM) (06/11/20 9:23 AM) (06/11/20 4: 25 AM) Body Mass Index 26.79 26.79 [18.5-24.99] *H* *H* (06/09/20 3:18 PM) (06/09/20 2:47 PM) Blood Pressure 150/100 mm Hg 154/105 mm Hg 136/86 mm Hg [90-138/55-84 mm Hg] *H* *H* (06/11/20 9: 14 AM) (06/11/20 11:59 AM) (06/11/20 9:23 AM) Respiratory Rate [16-30 19 br/min 18 br/min 20 br/mi n br/min] (06/11/20 2:42 PM) (06/11/20 11:59 AM) (06/11/20 11 :54 AM) Temperature [96.8-100.4 98.5 DegF 98.1 DegF 98.3 Deg F DegF] (06/11/20 11:59 AM) (06/11/20 9:23 AM) (06/11/20 4: 25 AM) Mode of Delivery (Oxygen) Room air Room air Room a ir (06/11/20 11:59 AM) (06/11/20 9:23 AM) (06/11/20 4: 25 AM) Blood pressure sites Arm, left Arm, right Arm, left (06/11/20 11:59 AM) (06/11/20 9:23 AM) (06/11/20 4: 25 AM) Temperature Route Oral Oral Oral (06/11/20 11:59 AM) (06/11/20 9:23 AM) (06/11/20 4: 25 AM) Dry Weight 97.75 kg 97.75 kg (06/09/20 3:18 PM) (06/09/20 2:47 PM) Weight Obtained Via Patient/family stated (06/09/20 2:47 PM) Dry Weight Obtained Via Patient/family stated (06/09/20 2:47 PM) Social History Social History Type Response Smoking Status Never (less than 100 in life time) entered on: 05/26/19 Sex
--- NOTE | 2022-08-22 15:26 | ED.HA ---
HPI - Headache General Chief Complaint: Headache Stated Complaint: Head Pain S/P Injury 08/19/22 Time Seen by Provider: 08/22/22 14:22 History of Present Illness HPI Narrative: Patient with the complaint of 4 days of headache and some nausea and 1 episode of vomiting yesterday, but no nausea or vomiting today no dizziness This started 4 days ago when he was carrying something into a freezer and banged his head hard against the metal entryway to the freezer, no loss of consciousness, no retrograde amnesia no confusion no disorientation he was not dazed no seizure no vision change no numbness or weakness Related Data Previous Rx's Medication Instructions Recorded blood pressure test kit-large #1 ea 12/21/21 naltrexone 50 mg tablet 50 mg PO DAILY 30 days #30 tabs 12/21/21 cephalexin 500 mg capsule 500 mg PO QID 7 days #28 caps 02/23/22 prednisone 20 mg tablet 40 mg PO DAILY 5 days #10 tabs 02/23/22 colchicine 0.6 mg tablet (Colcrys) 0.6 mg PO DAILY #7 tabs 07/02/22 indomethacin 50 mg capsule 50 mg PO TID #14 caps 07/02/22 acetaminophen 500 mg tablet 1,000 mg PO QID PRN pain #30 tabs 08/22/22 colchicine 0.6 mg tablet 0.6 mg PO DAILY PRN Gout flare #7 08/22/22 tabs indomethacin 50 mg capsule 50 mg PO BID PRN Pain from gout 08/22/22 #14 caps Allergies Allergy/AdvReac Type Severity Reaction Status Date / Time No Known Allergies Allergy Verified 08/22/22 14:10 [No Known Allergies*] Review of Systems Review of Systems: Positive for headache Negatives are no loss of consciousness he was not dazed there was no disorientation no confusion no retrograde amnesia no vision changes no fainting or feeling faint no neck pain no numbness weakness or tingling no chest pain no abdominal pain no extremity pain or injuries Yes all other systems are reviewed and are negative PMFSH Past Medical History Source: nursing notes reviewed Medical History Alcohol use disorder HTN (hypertension) Surgical History History of appendectomy Social History Social History Household Members: Family Housing: House Do you presently have visiting nurse or other home services: No Alcohol intake: current Alcohol intake frequency: a few times a week Alcohol type: hard liquor Patient Tobacco Use Status: Never used Tobacco Substance Use Type: Marijuana Advance Directives: No Advance Directives Information Provided: No service: No Current occupational status: employed Physical Exam Vital Signs: Vital Signs: Last Vital Signs Temp 98.2 F 08/22/22 14:08 Pulse 80 08/22/22 14:08 Resp 16 08/22/22 14:08 BP 144/103 H 08/22/22 15:27 Pulse Ox 97 08/22/22 14:08 O2 Del Method 08/22/22 14:08 BMI result Body Mass Index 27.5 General appearance is no acute distress comfortable relaxed cooperative The head was normocephalic atraumatic there was no raccoon eyes no Mendiola signs no hematomas on the scalp no deformities on the scalp no lacerations The ears no hemotympanum Eyes pupils were equal round reactive to light extraocular motions are intact The neck was supple and nontender with full range of motion The chest wall was nontender Abdomen soft nontender Extremities full range of motion x4 Neuro gait and balance are normal, interaction both expression and comprehension were normal, motor is 5/5 x4 sensation is intact and symmetrical the cerebellar exam was normal, cranial nerves 2-12 intact as tested Course Course Course Narrative: Patient with a headache that is not progressing since a minor head injury 4 days ago, he did have nausea and vomiting yesterday but this is completely resolved, he has a [address] [place] Head CT score and so no CT will be done at this time, he likely has a concussion At this time he has no nausea no vomiting tolerates p.o. the headache is mild and does not request any medication and is very well-appearing and cooperative Prior to discharge she also mentioned that he believes is right knee is flaring up with his gout which he has had before in the same location and he says colchicine and Indocin have worked in the past and he is given prescription for both Discharge Plan Discharge Clinical Impression: Concussion, Gout Patient Disposition: Home, Self-Care Additional Instructions: Evaluation today shows likely concussion, no sign on history and exam of any dangerous brain bleeding or skull fracture, or any dangerous or concerning condition at this time If headache get significantly worse, vomiting returns confusion any worse condition or any concerns return to the ER for re-evaluation You mention you believe you are getting a gout flare in the right knee so I wrote prescriptions for some gout medications Follow with your doctor, return any concerns Prescriptions: New colchicine 0.6 mg tablet 0.6 mg PO DAILY PRN (Reason: Gout flare) Qty: 7 0RF acetaminophen 500 mg tablet 1,000 mg PO QID PRN (Reason: pain) Qty: 30 0RF indomethacin 50 mg capsule 50 mg PO BID PRN (Reason: Pain from gout) Qty: 14 0RF Rx Instructions: administer with food or milk No Action colchicine [Colcrys] 0.6 mg tablet 0.6 mg PO DAILY Qty: 7 0RF indomethacin 50 mg capsule 50 mg PO TID Qty: 14 0RF Rx Instructions: administer with food or milk prednisone 20 mg tablet 40 mg PO DAILY 5 Days Qty: 10 0RF cephalexin 500 mg capsule 500 mg PO QID 7 Days Qty: 28 0RF (DME) blood pressure test kit-large Kit See Rx Instructions .Route Qty: 1 0RF Rx Instructions: As directed naltrexone 50 mg tablet 50 mg PO DAILY 30 Days Qty: 30 1RF Interventions: ED Discharge Assessment Last Done: 08/22/22 15:51 Discharge Date/Time: 08/22/22 15:51
[2022-08-22 15:27] VITALS: BP 144/103
== END 2022-08-22 15:51 | disposition home or self-care (01) ==
PROVIDERS: Emergency Provider Emergency Medicine; PCP Physician Assistant
DX: M10.9 Gout, unspecified (principal); R51.9 Headache, unspecified; R11.2 Nausea with vomiting, unspecified; Z79.899 Other long term (current) drug therapy
CPT/HCPCS: 99283

== ENCOUNTER 2022-10-01 08:36 | Emergency (ER) | payer OTHER, SELFPAY ==
[2022-10-01 08:44] VITALS: PULSE 85; RESP 18; TEMP 37.1; O2SAT 97; BMI 27.5
[2022-10-01] MEDS: Ketorolac Tromethamine 15 MG/ML VIAL IM (10:21)
--- NOTE | 2022-10-01 10:30 | ED.EXTPRO ---
HPI - Extremity Problem General Chief complaint: Extremity Problem Stated complaint: r foot inj Time Seen by Provider: 10/01/22 09:43 History of Present Illness HPI Narrative: 32-year-old male with past medical history of gout presents to the emergency department today complaining of right foot pain with difficulty walking after drinking alcohol this weekend. He reports pain began on Saturday morning after drinking alcohol on Saturday and Saturday night. He denies any know injury and states he has had similar pain in the past with negative xrays of the foot. He declines xray at this time. He states he typically takes colchicine for gout flares, however; he does not have any refills on the prescription. He states he has been managing pain with [id number] Tylenol and Motrin with little reduction in pain. Related Data Previous Rx's Medication Instructions Recorded blood pressure test kit-large #1 ea 12/21/21 naltrexone 50 mg tablet 50 mg PO DAILY 30 days #30 tabs 12/21/21 cephalexin 500 mg capsule 500 mg PO QID 7 days #28 caps 02/23/22 prednisone 20 mg tablet 40 mg PO DAILY 5 days #10 tabs 02/23/22 acetaminophen 500 mg tablet 1,000 mg PO QID PRN pain #30 tabs 08/22/22 colchicine 0.6 mg tablet 0.6 mg PO DAILY PRN Gout flare #7 08/22/22 tabs indomethacin 50 mg capsule 50 mg PO BID PRN Pain from gout 08/22/22 #14 caps colchicine 0.6 mg tablet (Colcrys) 0.6 mg PO DAILY #7 tabs 09/04/22 indomethacin 50 mg capsule 50 mg PO TID #14 caps 09/04/22 colchicine 0.6 mg tablet 0.6 mg PO BID 10 days #20 tabs 10/01/22 oxycodone 5 mg tablet 5 mg PO BID PRN pain (scale score 10/01/22 7-10) 3 days #3 tabs Allergies Allergy/AdvReac Type Severity Reaction Status Date / Time No Known Allergies Allergy Verified 08/22/22 14:10 [No Known Allergies*] [facility] Past Medical History Medical History Alcohol use disorder HTN (hypertension) Surgical History History of appendectomy Social History Social History Household Members: Family Housing: House Do you presently have visiting nurse or other home services: No Alcohol intake: current Alcohol intake frequency: holidays/special occasions only Alcohol type: hard liquor Patient Tobacco Use Status: Never used Tobacco Smoked in Last 30 Days: No Substance Use Type: Marijuana Advance Directives: No Advance Directives Information Provided: No service: No Current occupational status: employed Physical Exam Vital Signs: Vital Signs: Last Vital Signs Temp 98.7 F 10/01/22 08:44 Pulse 85 10/01/22 08:44 Resp 18 10/01/22 08:44 Pulse Ox 97 10/01/22 08:44 O2 Del Method 10/01/22 08:44 BMI result Body Mass Index 27.5 Medications Administered Discontinued Medications Generic Name Dose Route Start Last Admin Trade Name Freq PRN Reason Stop Dose Admin Colchicine 1.2 mg 10/01/22 10:20 10/01/22 12:03 Colchicine 0.6 Mg Tablet PO 10/01/22 10:21 1.2 mg ONCE ONE Administration Ketorolac Tromethamine 15 mg 10/01/22 10:15 10/01/22 10:21 Ketorolac Tromethamine 15 Mg/Ml Vial IM 10/01/22 10:16 15 mg ONCE ONE Administration Oxycodone HCl 5 mg 10/01/22 11:47 10/01/22 12:04 Oxycodone Hcl Immed Release 5 Mg Tablet PO 10/01/22 11:48 5 mg ONCE ONE Administration Medical Decision Making Medical Decision Making MDM Narrative: 32-year-old male with past medical history of gout presents to the emergency department today complaining of right foot pain with difficulty walking after drinking alcohol this weekend. He reports pain began on Saturday morning after drinking alcohol on Saturday and Saturday night. No eccymosis or erythema noted. ROM of LLE WNL. HPI and PE consistent with gout. IM toradol given with moderate improvement in discomfort. Oxycodone given in ED with improved pain level. Colchicine started in the ED with colchicine prescription sent to his preferred pharmacy to continue at home. HPI, PE, and plan discussed with patient with no unanswered questions at this time. Patient educated to refrain from eating foods high in purines and drinking alcohol. Educated to return to the emergency department with worsening pain, redness, warmth, or increased difficulty walking. Recommended to follow up with his primary care provider for further management to prevent future gout flares. Discharge Plan Discharge Clinical Impression: Gout flare Patient Disposition: Home, Self-Care Instructions: Low Purine Diet (ED), Gout (ED), Swollen Ankle Joint (ED) Additional Instructions: You are having an acute flare of gout most likely brought on by alcohol consumption. Please return to the emergency department with worsening pain, redness, warmth, or increased difficulty walking. Please follow up with your primary care provider for further management to prevent future gout flares. Prescriptions: New colchicine 0.6 mg tablet 0.6 mg PO BID 10 Days Qty: 20 0RF Rx Instructions: Please begin one hour after taking dose in the Emergency Department. oxycodone 5 mg tablet 5 mg PO BID PRN (Reason: pain (scale score 7-10)) 3 Days Qty: 3 0RF Rx Instructions: Partial Fill upon patient request. No Action colchicine [Colcrys] 0.6 mg tablet 0.6 mg PO DAILY Qty: 7 0RF indomethacin 50 mg capsule 50 mg PO TID Qty: 14 0RF Rx Instructions: administer with food or milk prednisone 20 mg tablet 40 mg PO DAILY 5 Days Qty: 10 0RF cephalexin 500 mg capsule 500 mg PO QID 7 Days Qty: 28 0RF colchicine 0.6 mg tablet 0.6 mg PO DAILY PRN (Reason: Gout flare) Qty: 7 0RF acetaminophen 500 mg tablet 1,000 mg PO QID PRN (Reason: pain) Qty: 30 0RF indomethacin 50 mg capsule 50 mg PO BID PRN (Reason: Pain from gout) Qty: 14 0RF Rx Instructions: administer with food or milk (DME) blood pressure test kit-large Kit See Rx Instructions .Route Qty: 1 0RF Rx Instructions: As directed naltrexone 50 mg tablet 50 mg PO DAILY 30 Days Qty: 30 1RF Referrals: Stanley Grewal PA-C [Primary Care Provider] - Stand Alone Forms: Work/School Release Print Language: Uzbek
[2022-10-01] MEDS: Colchicine 0.6 MG TABLET 1.2 MG PO (12:03)
[2022-10-01] MEDS: oxyCODONE HCl Immed Release 5 MG TABLET PO (12:04)
[2022-10-01 12:28] VITALS: BP 131/84; PULSE 72; RESP 18; O2SAT 97
== END 2022-10-01 12:34 | disposition home or self-care (01) ==
PROVIDERS: Emergency Provider Emergency Medicine; PCP Physician Assistant
DX: M10.071 Idiopathic gout, right ankle and foot (principal)
CPT/HCPCS: 96372; 99284; J1885

== ENCOUNTER 2023-08-18 12:25 | Emergency (ER) | payer OTHER, SELFPAY ==
[2023-08-18 12:28] VITALS: BP 148/103; PULSE 104; RESP 18; TEMP 36.8; O2SAT 97; BMI 27.3
--- NOTE | 2023-08-18 12:28 | ED_ITS ---
HPI - General Adult General Chief complaint: General Medical Stated complaint: Chest pain/Gout flare Time Seen by Provider: 08/18/23 13:09 Source: patient Mode of arrival: ambulatory Limitations: no limitations History of Present Illness HPI narrative: This is a very pleasant 33 years old male who presented to the emergency department with multiple complain which include the alcohol abuse chest pain, without radiation non exertional, also is complaining of a flare of gout left knee . He does not want any help for the drinking he does want to go to detox . He denies SI and HI Onset (ago): day(s) (2) Radiation: non-radiation Severity: mild Relieving factors: none Exacerbating factors: none Associated symptoms: denies other symptoms Related Data Previous Rx's Medication Instructions Recorded blood pressure test kit-large #1 ea 12/21/21 prednisone 20 mg tablet 40 mg (2 x 20 mg) PO DAILY 5 days 02/26/23 #10 tabs hydroxyzine HCl 25 mg tablet 25 mg PO BEDTIME PRN sleep 20 days 03/27/23 #20 tabs colchicine (gout) 0.6 mg tablet 0.6 mg PO DAILY 30 days #30 tabs 05/15/23 colchicine (gout) 0.6 mg tablet 0.6 mg PO DAILY #10 tabs 08/18/23 prednisone 20 mg tablet 20 mg PO DAILY #3 tabs 08/18/23 Allergies Allergy/AdvReac Type Severity Reaction Status Date / Time No Known Allergies Allergy Verified 08/18/23 12:28 [No Known Allergies*] Review of Systems 2 Constitutional: Constitutional: Denies fever(s) ENT: Reports system reviewed and no additional complaints, except as documented Cardiovascular: Cardiovascular: Reports as per HPI Musculoskeletal: Musculoskeletal: Reports as per HPI Psychiatric: Psychiatric: Reports anxiety and Denies suicidal ideation [facility] Past Medical History Medical History Alcohol use disorder HTN (hypertension) Surgical History History of appendectomy Social History Social History Household Members: Family Housing: House Do you presently have visiting nurse or other home services: No Alcohol intake: current Alcohol intake frequency: 3 or more drinks per day Alcohol type: hard liquor Patient Tobacco Use Status: Never used Tobacco Smoked in Last 30 Days: Yes e-Cigarette/Vaping Use: Currently Using Second Hand Smoke Exposure: No Substance Use Type: Marijuana Substance Use Frequency: Weekly Advance Directives: No service: No Current occupational status: employed Cognitive needs: No Hearing needs: No Vision needs: Yes (contact/glasses) Physical Exam ED Vital Signs: Vital Signs - 24 hr 08/18/23 12:28 08/18/23 13:06 08/18/23 14:08 Temperature 98.2 F 98.2 F Pulse Rate 104 H 85 78 Respiratory Rate 18 14 16 Blood Pressure 148/103 H 147/86 H 134/85 Pulse Oximetry 97 98 100 Oxygen Delivery Method Room Air Room Air Room Air 08/18/23 15:34 08/18/23 18:00 Temperature 97.8 F 98.4 F Pulse Rate 69 82 Respiratory Rate 16 18 Blood Pressure 127/79 140/87 H Pulse Oximetry 97 98 Oxygen Delivery Method Room Air Room Air BMI result Body Mass Index 27.3 Const General: cooperative Nutritional Appearance: well nourished Orientation/consciousness: patient oriented x3 Limitations: no limitations HENMT Head: Yes normal to inspection Ears: hearing grossly normal bilaterally General nose exam: Normal external nose present Face and sinus: Yes normal facial exam Mouth: Normal oral and palatal mucosa present Throat: Yes posterior oropharynx normal Neck Neck: Yes normal visual inspection and Yes full ROM Chest Chest palpation & inspection: normal inspection of the chest Resp Effort & Inspection: normal respiratory effort Auscultation: clear to auscultation bilaterally Cardio Jugular venous distension: no JVD Rate: regular rate Rhythm: regular rhythm GI Inspection: Yes normal to inspection Palpation (GI): Soft to palpation, not firm, nontender and no guarding Percussion: Yes normal to percussion Auscultation: normal bowel sounds Skin General skin exam: no rashes or lesions noted Lesions: no lesions Rashes: no rashes Neuro General: patient oriented x3 Cranial nerves: Yes CN's II-XII intact bilaterally Extrem Other: left knee positive effusion Course Course Course Narrative: RME: 33yo M w/PMHx HTN, ETOH use disorder, gout c/o ETOH abuse daily since mother passed & now w/gout flare up to L knee and foot. Also reports CP and epigastric abdominal pain w/ PO intake. Admits to drinking 10-15 shots daily, last drink yesterday afternoon. denies hx withdrawal seizures/hallucinations. denies interested in detox EKG, labs, UA ordered Full HPI, ROS and PE to be performed by primary ED provider. Reevaluation(s) Reevaluation #1: left knee was aspirated and sent to the lab,he received IV toradol,refused detox we are waiting for arthrocentesis result Time: 16:36 Reevaluation #2: signed out to Dr Palma Time: 16:37 Medications Administered Discontinued Medications Generic Name Dose Route Start Last Admin Trade Name Brisa PRN Reason Stop Dose Admin Sodium Chloride 1,000 mls @ 999 mls/hr 08/18/23 13:30 08/18/23 15:38 Ns IVCONT 08/18/23 14:30 Infused .Q1H1M TODD Infusion Sodium Chloride 1,000 mls @ 999 mls/hr 08/18/23 16:00 08/18/23 18:13 Ns IVCONT 08/18/23 17:00 Infused .Q1H1M TODD Infusion Sodium Chloride 1,000 mls @ 999 mls/hr 08/18/23 16:15 08/18/23 18:13 Ns IVCONT 08/18/23 17:15 999 mls/hr .Q1H1M TODD Administration Ketorolac Tromethamine 30 mg 08/18/23 13:49 08/18/23 13:53 Ketorolac Tromethamine 30 Mg/Ml Vial IVPUSH 08/18/23 13:50 30 mg ONCE ONE Administration Procedures Joint Aspiration/Injection Joint Asp./Inject. 1: Time Out Performed: Yes Side of body: left Joint Aspirated: knee Ultrasound Guidance: No Skin Prep: Chlorhexidine Local Anesthetic: lidocaine 1% Amount of anesthesia used (mL): 2 Needle Size Used: 18G Fluid Obtained: bloody Total fluid obtained (mL): 60 Patient Tolerated Procedure: well Complications: none Medical Decision Making Medical Decision Making [facility] Narrative: Patient presented with multiple complaining gluten chest pain and flare of gout and abusing alcohol, he does no want any help for is alcohol use disorder -I received sign-out from Dr. Carr, patient was given colchicine. -synovial fluid reassuring, not concerning for septic joint. Differential Diagnosis Differential Diagnoses: The differential diagnosis associated with the presentation includes Should gout/pericarditis/acute coronary syndrome Admission/Observation Consideration of admission/observation: Escalation of care including admission/observation considered Lab Data MDM Lab Attestation statement: I reviewed the patient's lab results. 08/18/23 13:15 08/18/23 13:15 Labs: Lab Results 08/18/23 08/18/23 08/18/23 Range/Units 13:15 13:28 16:07 WBC 6.6 (4.8-10.8) X10*3/uL RBC 4.55 L (4.60-5.80) X10*6/uL Hgb 15.8 (14.0-18.0) g/dl Hct 44.2 (42.0-52.0) % MCV 97.1 (80.0-98.0) fL MCH 34.7 H (27.0-33.0) pg MCHC 35.7 (31.0-36.0) g/dl RDW 13.0 (11.0-16.0) % Plt Count 201 (160-400) X10*3/uL MPV 9.3 L (9.4-12.4) fL Immature Gran % (Auto) 0.2 (0.0-0.4) % Neut % (Auto) 68.6 (45-73) % Lymph % (Auto) 18.8 L (20-40) % [place] % (Auto) 9.9 (2-11) % Eos % (Auto) 1.7 (0-4) % Baso % (Auto) 0.8 (0-2) % Lymph # (Auto) 1.2 (1.2-4.9) X10*3/uL [place] # (Auto) 0.7 (0.1-1.2) X10*3/uL Eos # (Auto) 0.1 (0.0-0.4) X10*3/uL Baso # (Auto) 0.1 (0.0-0.2) X10*3/uL Abs Immat Gran (auto) 0.01 (0.00-0.03) X10*3/uL Absolute Neuts (auto) 4.5 (2.0-8.3) x10*3/uL Absolute Nucleated RBC 0.000 (0.0-0.012) X10*3/uL Nucleated RBC % (auto) 0.0 (0.0-0.2) /100WBC Sodium 138 (135-145) mmol/L Potassium 3.4 (3.3-5.1) mmol/L Chloride 100 (96-108) mmol/L Carbon Dioxide 25 (22-29) mmol/L Anion Gap 16 (12-20) BUN 6 L (9-16) mg/dL Creatinine 0.87 (0.5-1.4) mg/dL Estim Creat Clear Calc 147.0 Estimated GFR > 60 Random Glucose 111 (60-115) mg/dL Uric Acid 14.0 H (3.4-7.0) mg/dL Calcium 9.4 D (8.4-10.2) mg/dL Magnesium 1.5 L (1.6-2.6) mg/dL Total Bilirubin 2.5 H (0.0-1.0) mg/dL Direct Bilirubin 1.0 H (0.0-0.5) mg/dL AST 104 H (5-37) U/L ALT 69 H (0-40) U/L Alkaline Phosphatase 70 (39-117) U/L Troponin I High Sens < 2.7 (<3.5-35.0) ng/L Total Protein 8.5 H (6.5-8.0) g/dL Albumin 4.4 (3.5-5.0) g/dL Lipase 12 (8-78) U/L Urine Color [place] A Urine Appearance Clear Urine pH 6.0 (5.0-9.0) Ur Specific [place] 1.020 (1.005-1.025) Urine Protein See Note (Neg-Trace) mg/dL Urine Glucose (UA) Negative (Negative) mg/dL Urine Ketones Negative (Negative) mg/dL Urine Blood Trace H (Negative) Urine Nitrite See Note (Negative) Ur Leukocyte Esterase See Note (Negative) Urine RBC 3-5 H (0-2) /HPF Urine WBC 0-5 (0-5) /HPF Ur Squamous Epith Cells 0-2 (0-2) /HPF Urine Bacteria None Seen (None Seen) Hyaline Casts 0-2 (0-2) /LPF Synovial Source knee Synovial WBC 6.378 X10*3/uL Synovial RBC 0.059 X10*6/uL Synovial Neutrophils 77 % Synovial Lymphocytes 5 % Synovial Monocytes 10 % Synovial Other Cells 8 Urine Opiates Screen Not Detected (Not Detect) Urine Fentanyl Screen Not Detected (Not Detect) Ur Barbiturates Screen Not Detected (Not Detect) Ur Phencyclidine Scrn Not Detected (Not Detect) Ur Amphetamines Screen Not Detected (Not Detect) U Benzodiazepines Scrn Not Detected (Not Detect) Urine Cocaine Screen Not Detected (Not Detect) U Marijuana (THC) Screen POSITIVE H (Not Detect) Ethyl Alcohol < 10 mg/dL Independent Interpretation I performed an independent interpretation of an: EKG Interpretation: Normal sinus rhythm rate [address]-T changes normal EKG Discharge Plan Discharge Clinical Impression: Effusion of left knee, Alcohol abuse, Elevated LFTs Patient Disposition: Home, Self-Care Instructions: Chest Pain (ED), Gout (ED), Alcohol Dependence (ED) Additional Instructions: Please follow-up with your primary care physician tomorrow. If you have any worsening or new symptoms, please return to the emergency room or call 911 Prescriptions: New colchicine (gout) 0.6 mg tablet 0.6 mg PO DAILY Qty: 10 0RF prednisone 20 mg tablet 20 mg PO DAILY Qty: 3 0RF No Action prednisone 20 mg tablet 40 mg PO DAILY 5 Days Qty: 10 0RF colchicine (gout) 0.6 mg tablet 0.6 mg PO DAILY 30 Days Qty: 30 3RF (DME) blood pressure test kit-large Kit See Rx Instructions .Route Qty: 1 0RF Rx Instructions: As directed hydroxyzine HCl 25 mg tablet 25 mg PO BEDTIME PRN (Reason: sleep) 20 Days Qty: 20 1RF
--- NOTE | 2023-08-18 12:31 | ECG_ITS ---
Test Reason : CP Blood Pressure : / mmHG Vent. Rate : 084 BPM Atrial Rate : 084 BPM P-R Int : 138 ms QRS Dur : 092 ms QT Int : 368 ms P-R-T Axes : 065 041 057 degrees QTc Int : 434 ms Normal sinus rhythm Normal ECG When compared with ECG of 28-JUN-2021 10:48, No significant change was found Referred By: Betzaida Rodriguez Electronically Signed By:JACE HOLMAN MD
[2023-08-18 13:06] VITALS: BP 147/86; PULSE 85; RESP 14; TEMP 36.8; O2SAT 98
[2023-08-18 13:18] LABS: MANUAL DIFF FLAG NO
[2023-08-18 13:21] LABS: Basophils Absolute Auto 0.1 X10*3/uL (0.0-0.2); Basophils Percent Auto 0.8 % (0-2); Eosinophils Absolute Auto 0.1 X10*3/uL (0.0-0.4); Eosinophils Percent Auto 1.7 % (0-4); Hematocrit 44.2 % (42.0-52.0); Hemoglobin 15.8 g/dl (14.0-18.0); Imm Gran Abs Auto 0.01 X10*3/uL (0.00-0.03); Imm Gran Pct Auto 0.2 % (0.0-0.4); Lymphocytes Absolute Auto 1.2 X10*3/uL (1.2-4.9); Lymphocytes Percent Auto 18.8 % (20-40); Mean Corpuscular HGB Conc 35.7 g/dl (31.0-36.0); Mean Corpuscular Hemoglobin 34.7 pg (27.0-33.0); Mean Corpuscular Volume 97.1 fL (80.0-98.0); Mean Platelet Volume 9.3 fL (9.4-12.4); Monocytes Absolute Auto 0.7 X10*3/uL (0.1-1.2); Monocytes Percent Auto 9.9 % (2-11); Neutrophils Absolute Auto 4.5 x10*3/uL (2.0-8.3); Neutrophils Percent Auto 68.6 % (45-73); Platelet Count 201 X10*3/uL (160-400); Red Blood Count 4.55 X10*6/uL (4.60-5.80); White Blood Count 6.6 X10*3/uL (4.8-10.8)
[2023-08-18 13:35] LABS: Alanine Aminotransferase 69 U/L (0-40); Albumin Level 4.4 g/dL (3.5-5.0); Alkaline Phosphatase 70 U/L (39-117); Anion Gap 16 (12-20); Aspartate Amino Transferase 104 U/L (5-37); Bilirubin Total 2.5 mg/dL (0.0-1.0); Blood Urea Nitrogen 6 mg/dL (9-16); Calcium 9.4 mg/dL (8.4-10.2); Carbon Dioxide 25 mmol/L (22-29); Chloride 100 mmol/L (96-108); Estimated Glomerular Filt Rate > 60; Ethanol < 10 mg/dL; Glucose Random 111 mg/dL (60-115); Lipase 12 U/L (8-78); Magnesium 1.5 mg/dL (1.6-2.6); Potassium 3.4 mmol/L (3.3-5.1); Sodium 138 mmol/L (135-145); Total Protein 8.5 g/dL (6.5-8.0)
[2023-08-18 13:42] LABS: Troponin-I High Sensitivity < 2.7 ng/L (<3.5-35.0)
[2023-08-18 13:43] LABS: Amphetamine Screen Urine Not Detected (Not Detect); Barbiturates, Urine Not Detected (Not Detect); Benzodiazepines Screen Urine Not Detected (Not Detect); Cannabinoid Screen Urine POSITIVE (Not Detect); Cocaine Screen Urine Not Detected (Not Detect); Fentanyl, urine Not Detected (Not Detect); Opiate Screen Urine Not Detected (Not Detect); Phencyclidine Screen Urine Not Detected (Not Detect)
[2023-08-18] MEDS: 0.9 % Sodium Chloride 1,000 ML 999 ML IVCONT ×3 (13:45→18:13)
[2023-08-18 13:52] LABS: Appearance Urine Clear; Color Urine Orange; Glucose Urine UA Negative (Negative); UMIC TRIGGER UACC YES; Urine Blood Trace (Negative); Urine Ketones Negative (Negative)
[2023-08-18 13:53] LABS: Bacteria Urine None Seen (None Seen); Hyaline Casts Urine 0-2 /LPF (0-2); Squamous Epithelial Cell Urine 0-2 /HPF (0-2); WBC Urine 0-5 /HPF (0-5)
[2023-08-18] MEDS: Ketorolac Tromethamine 30 MG/ML VIAL IVPUSH (13:53)
[2023-08-18 14:08] VITALS: BP 134/85; PULSE 78; RESP 16; O2SAT 100
[2023-08-18 15:34] VITALS: BP 127/79; PULSE 69; RESP 16; TEMP 36.6; O2SAT 97
--- NOTE | 2023-08-18 15:52 | PC.NURSE ---
md saenz notified pt reports very minimal relief w toradol. attempting po fluids/food. no respiratory distress/cp/sob
[2023-08-18 16:12] LABS: Source Synovial Fluid knee
[2023-08-18 16:30] LABS: MN% 29.4 %; PMN% 70.6 %; RBC Synovial Fluid 0.059 X10*6/uL; WBC Synovial Fluid 6.378 X10*3/uL
[2023-08-18 16:59] LABS: BF Shift QC OK YES; Lymphocytes Synovial Fluid 5 %; Man Diluent Bkgrd OK YES; Neutrophils Synovial Fluid 77 %
[2023-08-18 17:01] LABS: Monocytes Synovial Fluid 10 %; Other Cells Synovial Fluid 8
[2023-08-18 18:00] VITALS: BP 140/87; PULSE 82; RESP 18; TEMP 36.9; O2SAT 98
[2023-08-18 19:04] VITALS: BP 143/86; PULSE 86; RESP 18; O2SAT 98
== END 2023-08-18 19:05 | disposition home or self-care (01) ==
PROVIDERS: Emergency Medicine; Physician Assistant; Emergency Provider Emergency Medicine; PCP Physician Assistant
DX: M25.462 Effusion, left knee (principal); R79.89 Other specified abnormal findings of blood chemistry; M10.9 Gout, unspecified; R07.9 Chest pain, unspecified; F10.90 Alcohol use, unspecified, uncomplicated; I10 Essential (primary) hypertension; R10.13 Epigastric pain; Z79.899 Other long term (current) drug therapy
CPT/HCPCS: 20610; 36415; 80048; 80076; 80307; 81001; 83690; 83735; 84484; 84550; 85025; 87070; 87073; 87205; 89051; 89060; 93005; 96361; 96374; 99285; J1885

== ENCOUNTER 2023-08-19 02:08 | Emergency (ER) | payer OTHER, SELFPAY ==
[2023-08-19 02:09] VITALS: BP 155/101; PULSE 86; RESP 18; TEMP 36.8; O2SAT 95; BMI 25.6
--- NOTE | 2023-08-19 03:45 | ED_ITS ---
HPI - Extremity Injury (Lower) General Chief Complaint: Extremity Injury, Lower Stated Complaint: knee pain Time Seen by Provider: 08/19/23 03:27 Source: patient Mode of arrival: ambulatory Limitations: no limitations History of Present Illness HPI Narrative: return to the emergency department for evaluation of left knee pain. Was seen yesterday in the emergency department for left knee swelling and pain patient is with known history of gout patient admitted to drinking plenty of alcohol lately. S/p arthrocentesis of the left knee yesterday and patient was sent home on cholicin and the prednisone returned today for persistent pain in the left knee. No fever, no chills. Patient stated that he has been feeling dehydrated and would like to have IV hydration. Related Data Previous Rx's Medication Instructions Recorded blood pressure test kit-large #1 ea 12/21/21 prednisone 20 mg tablet 40 mg (2 x 20 mg) PO DAILY 5 days 02/26/23 #10 tabs hydroxyzine HCl 25 mg tablet 25 mg PO BEDTIME PRN sleep 20 days 03/27/23 #20 tabs colchicine (gout) 0.6 mg tablet 0.6 mg PO DAILY 30 days #30 tabs 05/15/23 colchicine (gout) 0.6 mg tablet 0.6 mg PO DAILY #10 tabs 08/18/23 prednisone 20 mg tablet 20 mg PO DAILY #3 tabs 08/18/23 Allergies Allergy/AdvReac Type Severity Reaction Status Date / Time No Known Allergies Allergy Verified 08/19/23 02:13 [No Known Allergies*] Review of Systems 2 Review of Systems: All other systems are reviewed and are negative Constitutional: Reports as per HPI and Reports no additional constitutional complaints Eyes: Reports as per HPI and Reports no additional eye complaints Reports system reviewed and no additional complaints, except as documented Cardiovascular: Reports as per HPI and Reports no additional cardiovascular complaints Respiratory: Reports as per HPI and Reports no additional respiratory complaints Gastrointestinal: Reports as per HPI and Reports no additional gastrointestinal complaints Genitourinary: Reports no additional female genitourinary complaints Musculoskeletal: Reports no additional musculoskeletal complaints Skin/Breast: Reports system reviewed and no additional complaints, except as docu Psychiatric: Reports no additional psychiatric complaints Endocrine: Reports no additional endocrine complaints Hematologic/Lymphatic: Reports no additional hematologic/lymphatic complaints Allergic/Immunologic: Reports no additional allergic/immunologic complaints Reports system reviewed and no additional complaints, except as documented and Reports Abnormal speech present PMFSH Past Medical History Medical History Alcohol use disorder HTN (hypertension) Surgical History History of appendectomy Social History Social History Household Members: Family Housing: House Do you presently have visiting nurse or other home services: No Alcohol intake: current Alcohol intake frequency: 3 or more drinks per day Alcohol type: hard liquor Patient Tobacco Use Status: Never used Tobacco Smoked in Last 30 Days: Yes e-Cigarette/Vaping Use: Currently Using Second Hand Smoke Exposure: No Use of substances other than those prescribed or required for medical reasons: Yes Substance Use Type: Marijuana Advance Directives: No Advance Directives Information Provided: Yes service: No Current occupational status: employed Cognitive needs: No Hearing needs: No Vision needs: Yes (contact/glasses) Physical Exam 2 Vital Signs: Vital Signs: Last Vital Signs Temp 98.2 F 08/19/23 02:09 Pulse 77 08/19/23 05:19 Resp 16 08/19/23 05:19 BP 135/83 08/19/23 05:19 Pulse Ox 94 08/19/23 05:19 O2 Del Method Room Air 08/19/23 05:19 BMI result Body Mass Index 25.6 Vital signs have been reviewed and appear to be correct. Blood pressure elevated. Heart rate normal. Respiratory rate normal. Temperature normal. Oxygen saturation normal. Appearance: Alert. Oriented X3. No acute distress. Head: Normal external exam. Normocephalic. Atraumatic. No [place] signs noted. No raccoon eyes noted Eyes: PERRLA. EOMI. Conjunctiva and sclera normal. Eyelids normal. ENT: TM's Normal. Pharynx normal. Uvula midline. Moist mucous membranes. No trismus noted. No drooling noted. No muffled voice noted. Neck: Normal inspection. Neck supple. FROM. No adenopathy. Thyroid Normal. No meningeal signs. No neck mass noted. CVS: Normal heart rate and rhythm. Heart sound normal. No murmurs noted. Pulses normal throughout. Respiratory: No respiratory distress. Painless inspiration. Breath sounds normal. No wheezes/rales/rhonchi noted. Chest nontender. No accessory muscle usage noted or decreased air movement noted. Abdomen: Soft and nontender. Bowel sounds normal in all 4 quadrants. No distention noted. No organomegaly noted. No visible injury noted. Back: No CVA tenderness. Full range of motion noted. Skin: Skin warm and dry. Normal skin color. Normal skin turgor. No rashes/lesions/lacerations noted. Extremities: Left knee: Mild effusion, no redness, no hotness, full range of motion, neurovascular exam is grossly intact to the left lower extremity. Neuro: Oriented X 3. Cranial nerve exam: II-XII are grossly intact No motor deficit. No sensory deficit. Reflexes normal. Course Reevaluation(s) Reevaluation #1: left knee gout arthritis s/p arthrocentesis yesterday come back for swelling of the left knee again and seeking IV hydration. Patient was instructed to resume his colchicine and prednisone and follow up with orthopedic. Patient was instructed to refrain from drinking alcohol. Time: 04:31 Medications Administered Discontinued Medications Generic Name Dose Route Start Last Admin Trade Name Freq PRN Reason Stop Dose Admin Hydromorphone HCl 1 mg 08/19/23 04:01 08/19/23 04:24 Hydromorphone Hcl 1 Mg/Ml Syringe IVPUSH 08/19/23 04:02 1 mg ONCE ONE Administration Protocol Sodium Chloride 1,000 mls @ 999 mls/hr 08/19/23 04:01 08/19/23 05:42 Ns IV 08/19/23 05:01 Infused .Q1H1M ONE Infusion Oxycodone HCl 5 mg 08/19/23 05:39 08/19/23 05:48 Oxycodone Hcl Immed Release 5 Mg Tablet PO 08/19/23 05:40 5 mg ONCE ONE Administration Medical Decision Making Differential Diagnosis Differential Diagnoses: The differential diagnosis associated with the presentation includes ( Gout, arthritis, dehydration, severe anemia, electrolyte abnormality.) Admission/Observation Consideration of admission/observation: Escalation of care including admission/observation considered Lab Data MDM Lab Attestation statement: I reviewed the patient's lab results. 08/19/23 04:19 08/19/23 04:19 Labs: Lab Results 08/19/23 Range/Units 04:19 WBC 5.4 (4.8-10.8) X10*3/uL RBC 4.05 L (4.60-5.80) X10*6/uL Hgb 14.2 (14.0-18.0) g/dl Hct 39.2 L (42.0-52.0) % MCV 96.8 (80.0-98.0) fL MCH 35.1 H (27.0-33.0) pg MCHC 36.2 H (31.0-36.0) g/dl RDW 12.9 (11.0-16.0) % Plt Count 160 (160-400) X10*3/uL MPV 9.5 (9.4-12.4) fL Immature Gran % (Auto) 0.2 (0.0-0.4) % Neut % (Auto) 61.2 (45-73) % Lymph % (Auto) 25.9 (20-40) % [place] % (Auto) 9.4 (2-11) % Eos % (Auto) 2.4 (0-4) % Baso % (Auto) 0.9 (0-2) % Lymph # (Auto) 1.4 (1.2-4.9) X10*3/uL [place] # (Auto) 0.5 (0.1-1.2) X10*3/uL Eos # (Auto) 0.1 (0.0-0.4) X10*3/uL Baso # (Auto) 0.1 (0.0-0.2) X10*3/uL Abs Immat Gran (auto) 0.01 (0.00-0.03) X10*3/uL Absolute Neuts (auto) 3.3 (2.0-8.3) x10*3/uL Absolute Nucleated RBC 0.000 (0.0-0.012) X10*3/uL Nucleated RBC % (auto) 0.0 (0.0-0.2) /100WBC Sodium 139 (135-145) mmol/L Potassium 3.7 (3.3-5.1) mmol/L Chloride 106 (96-108) mmol/L Carbon Dioxide 23 (22-29) mmol/L Anion Gap 14 (12-20) BUN 6 L (9-16) mg/dL Creatinine 0.76 (0.5-1.4) mg/dL Estim Creat Clear Calc 168.3 Estimated GFR > 60 Random Glucose 94 (60-115) mg/dL Calcium 8.8 D (8.4-10.2) mg/dL Discharge Plan Discharge Clinical Impression: Gout attack, Effusion of left knee Patient Disposition: Home, Self-Care Instructions: Gout (ED), Swollen Joint (ED) Prescriptions: No Action prednisone 20 mg tablet 40 mg PO DAILY 5 Days Qty: 10 0RF colchicine (gout) 0.6 mg tablet 0.6 mg PO DAILY 30 Days Qty: 30 3RF colchicine (gout) 0.6 mg tablet 0.6 mg PO DAILY Qty: 10 0RF prednisone 20 mg tablet 20 mg PO DAILY Qty: 3 0RF (DME) blood pressure test kit-large Kit See Rx Instructions .Route Qty: 1 0RF Rx Instructions: As directed hydroxyzine HCl 25 mg tablet 25 mg PO BEDTIME PRN (Reason: sleep) 20 Days Qty: 20 1RF Referrals: Erich Card MD [Physician] - Stand Alone Forms: Work/School Release
[2023-08-19 04:23] LABS: MANUAL DIFF FLAG NO
[2023-08-19 04:24] LABS: Basophils Absolute Auto 0.1 X10*3/uL (0.0-0.2); Basophils Percent Auto 0.9 % (0-2); Eosinophils Absolute Auto 0.1 X10*3/uL (0.0-0.4); Eosinophils Percent Auto 2.4 % (0-4); Hematocrit 39.2 % (42.0-52.0); Hemoglobin 14.2 g/dl (14.0-18.0); Imm Gran Abs Auto 0.01 X10*3/uL (0.00-0.03); Imm Gran Pct Auto 0.2 % (0.0-0.4); Lymphocytes Absolute Auto 1.4 X10*3/uL (1.2-4.9); Lymphocytes Percent Auto 25.9 % (20-40); Mean Corpuscular HGB Conc 36.2 g/dl (31.0-36.0); Mean Corpuscular Hemoglobin 35.1 pg (27.0-33.0); Mean Corpuscular Volume 96.8 fL (80.0-98.0); Mean Platelet Volume 9.5 fL (9.4-12.4); Monocytes Absolute Auto 0.5 X10*3/uL (0.1-1.2); Monocytes Percent Auto 9.4 % (2-11); Neutrophils Absolute Auto 3.3 x10*3/uL (2.0-8.3); Neutrophils Percent Auto 61.2 % (45-73); Platelet Count 160 X10*3/uL (160-400); Red Blood Count 4.05 X10*6/uL (4.60-5.80); Red Cell Distribution Width 12.9 % (11.0-16.0); White Blood Count 5.4 X10*3/uL (4.8-10.8)
[2023-08-19] MEDS: 0.9 % Sodium Chloride 1,000 ML 999 ML IV (04:24)
[2023-08-19] MEDS: HYDROmorphone HCl 1 MG/ML SYRINGE IVPUSH (04:24)
--- NOTE | 2023-08-19 04:29 | PC.NURSE ---
20 g iv placed in l hand pt tolerated well. pt medicated according to wanda pt calm and cooperative
[2023-08-19 04:35] LABS: Anion Gap 14 (12-20); Blood Urea Nitrogen 6 mg/dL (9-16); Calcium 8.8 mg/dL (8.4-10.2); Carbon Dioxide 23 mmol/L (22-29); Chloride 106 mmol/L (96-108); Creatinine Clr Calc Pharmacy 168.3; Estimated Glomerular Filt Rate > 60; Glucose Random 94 mg/dL (60-115); Potassium 3.7 mmol/L (3.3-5.1); Sodium 139 mmol/L (135-145)
[2023-08-19 05:19] VITALS: BP 135/83; PULSE 77; RESP 16; O2SAT 94
[2023-08-19] MEDS: oxyCODONE HCl Immed Release 5 MG TABLET PO (05:48)
--- NOTE | 2023-08-19 06:15 | PC.NURSE ---
pt calm and cooperative. pt sister to provide ride home. pt ambulatory at discharge. pt provided with discharge packet and work note at discharge pt verbalized understanding of discharge plan
== END 2023-08-19 06:18 | disposition home or self-care (01) ==
PROVIDERS: Emergency Provider Emergency Medicine
DX: M10.9 Gout, unspecified (principal); M25.462 Effusion, left knee; M25.562 Pain in left knee; Z79.899 Other long term (current) drug therapy
CPT/HCPCS: 36415; 80048; 85025; 96361; 96374; 99284; J1170

== ENCOUNTER 2023-08-19 09:22 | Emergency (ER) | payer OTHER, SELFPAY ==
[2023-08-19 09:46] VITALS: BP 147/86; PULSE 92; RESP 18; TEMP 37; O2SAT 97; BMI 25.6
--- NOTE | 2023-08-19 10:08 | PC.NURSE ---
pt comes in today d/t gout flare up in left knee. pt currently verbalizing 07/23 pain while in tears. states he came on saturday - had knee drained - found relief. was referred to specialist at [address] [place] [address]. woke up this am around 0130 in 07/23 pain - came back to ED w/o relief. returning today for 2nd time.
--- NOTE | 2023-08-19 10:20 | ED.EXTPRO ---
HPI - Extremity Problem General Chief complaint: Extremity Problem Stated complaint: seen 08/19, gout flair up Time Seen by Provider: 08/19/23 10:08 Source: patient, RN notes reviewed and old records reviewed Mode of arrival: ambulatory History of Present Illness HPI Narrative: 33-year-old male with a past medical history of hypertension, ETOH use disorder, gout, presenting to the ED complaining of acute on chronic left knee pain s/p arthrocentesis. Patient was seen and treated in our ED yesterday and again early this morning for similar symptoms, had knee arthrocentesis yesterday which showed no evidence of septic joint, labs consistent with gout flare, was discharged on Colchicine and Prednisone. Patient admits to taking Colchicine, denies other medications or picking up new prescriptions. Denies injury/trauma or fall, fever/chills, nausea/vomiting. Reports pain is worsening since visit this morning MD Complaint: extremity pain and extremity swelling Onset (ago): day(s) Related Data Previous Rx's Medication Instructions Recorded blood pressure test kit-large #1 ea 12/21/21 prednisone 20 mg tablet 40 mg (2 x 20 mg) PO DAILY 5 days 02/26/23 #10 tabs hydroxyzine HCl 25 mg tablet 25 mg PO BEDTIME PRN sleep 20 days 03/27/23 #20 tabs colchicine (gout) 0.6 mg tablet 0.6 mg PO DAILY 30 days #30 tabs 05/15/23 colchicine (gout) 0.6 mg tablet 0.6 mg PO DAILY #10 tabs 08/18/23 prednisone 20 mg tablet 20 mg PO DAILY #3 tabs 08/18/23 tramadol 50 mg tablet 50 mg PO BID pain 4 days #8 tabs 08/19/23 Allergies Allergy/AdvReac Type Severity Reaction Status Date / Time No Known Allergies Allergy Verified 08/19/23 02:13 [No Known Allergies*] Review of Systems Review of Systems: Constitutional: No Fever, No Chills ENT/Mouth: No Ear Pain, No Nasal Congestion, No sore throat, No Rhinorrhea, No Swallowing Difficulty Cardiovascular: No Chest Pain, No SOB Respiratory: No Cough, No Sputum Gastrointestinal: No Nausea, No Vomiting, No Abdominal pain Musculoskeletal: +joint pain, No Myalgias, + Joint Swelling Skin: No Skin Lesions, No rash Neuro: No Weakness, No Numbness, No Paresthesias Yes all other systems are reviewed and are negative Constitutional: Constitutional: Reports as per [facility] Past Medical History Attestation statement: The following information was validated with the patient. Source: old records reviewed Medical History Alcohol use disorder HTN (hypertension) Surgical History History of appendectomy Social History Social History Household Members: Family Housing: House Do you presently have visiting nurse or other home services: No Alcohol intake: current Alcohol intake frequency: 3 or more drinks per day Alcohol type: hard liquor Patient Tobacco Use Status: Never used Tobacco e-Cigarette/Vaping Use: Currently Using Second Hand Smoke Exposure: No Substance Use Type: Marijuana service: No Current occupational status: employed Cognitive needs: No Hearing needs: No Vision needs: Yes (contact/glasses) Physical Exam Vital Signs: Vital Signs: Last Vital Signs Temp 98.6 F 08/19/23 09:46 Pulse 92 08/19/23 09:46 Resp 18 08/19/23 09:46 BP 147/86 H 08/19/23 09:46 Pulse Ox 97 08/19/23 09:46 O2 Del Method Room Air 08/19/23 09:46 BMI result Body Mass Index 25.6 Const: General: cooperative, healthy appearing and no acute distress Orientation/consciousness: patient oriented x3 Limitations: no limitations HEENT: Head: Yes normal to inspection and Yes atraumatic Ears: hearing grossly normal bilaterally General nose exam: Normal external nose present Face and sinus: Yes normal facial exam Eyes: General: appearance normal, both eyes and all related structures EOM: EOMs intact bilaterally Neck: Neck: Yes normal visual inspection and Yes no meningeal signs Resp: Effort & Inspection: normal respiratory effort and no respiratory distress Cardio: Rate: regular rate Heart sounds: S1 normal heart sound present and S2 normal heart sound present Skin: Rashes: no rashes Wounds: no wounds Neuro: General: patient oriented x3, tone normal and no meningeal signs Cranial nerves: Yes CN's II-XII intact bilaterally Gait exam (Neuro): Normal gait present Extrem: Other: Left knee with mild swelling, no erythema/warmth. +diffusely ttp. No crepitus. Limited ROM 2/2 pain. NV intact distally General: Yes no pedal edema and Yes no calf tenderness Course Course Course Narrative: 1115-Colton wrap applied. Patient ambulatory with crutches. Recommended close orthopedic follow-up. Should refrain from EtOH use. Will not discharge on opiates secondary to EtOH abuse Results discussed with patient including worrisome signs and symptoms and strict return precautions, and when to return to the emergency department. They verbalized understanding and feel safe for discharge at this time. Medications Administered Discontinued Medications Generic Name Dose Route Start Last Admin Trade Name Brisa PRN Reason Stop Dose Admin Acetaminophen 650 mg 08/19/23 10:20 08/19/23 10:26 Acetaminophen 325 Mg Tablet PO 08/19/23 10:21 650 mg ONCE ONE Administration Oxycodone HCl 5 mg 08/19/23 10:20 08/19/23 10:26 Oxycodone Hcl Immed Release 5 Mg Tablet PO 08/19/23 10:21 5 mg ONCE ONE Administration Prednisone 40 mg 08/19/23 10:20 08/19/23 10:26 Prednisone 20 Mg Tablet PO 08/19/23 10:21 40 mg ONCE ONE Administration Medical Decision Making Medical Decision Making [facility] Narrative: 33-year-old male with a past medical history of hypertension, ETOH use disorder, gout, presenting to the ED complaining of acute on chronic left knee pain s/p arthrocentesis. On exam vital signs stable, NAD, nontoxic appearing, physical exam as above with left knee swelling and diffuse tenderness. Limited ROM secondary to pain. No erythema/warmth or crepitus. Concern for knee pain secondary to gout. No evidence of septic joint/arthritis, low suspicion for hematoma/bleeding into joint space, bursitis, DVT Plan: Pain medication, Colton wrap, orthopedic follow-up Labs reviewed from yesterday Please refer to course for remaining clinical decision making, interpretation of labs/imaging results, and discussions with consultants and/or family members. Differential Diagnosis Differential Diagnoses: The differential diagnosis associated with the presentation includes As above Lab Data [facility] Lab Attestation statement: I reviewed the patient's lab results. External Record Review External record reviewed: Inpatient record, Office record, Outpatient record, Prior outpatient labs, Prior outpatient radiology, Primary care record and Outside ED record Tests considered The following testing was considered but not selected: As above Repeat labs, and imaging not needed at this time Prescription Management I considered prescription management with: Pain Medication Social Determinants Patient?s care significantly limited by Social Determinants of Health including: Alcoholism and drug addiction in family and Problems related to primary support group Discharge Plan Discharge Clinical Impression: Gout attack Patient Disposition: Home, Self-Care Instructions: Low Purine Diet (ED), Gout (ED) Additional Instructions: 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 FROM THE PHARMACY ICE AND ELEVATE WEAR COLTON WRAP FOR COMFORT AND STABILITY USE CRUTCHES NEEDED CALL ORTHOPEDICS FOR FOLLOW-UP AVOID ALCOHOL USE IF SYMPTOMS PERSIST OR WORSEN OR AREA BEGINS TO LOOK INFECTED, IS RED OR WARM RETURN TO THE ED Prescriptions: No Action prednisone 20 mg tablet 40 mg PO DAILY 5 Days Qty: 10 0RF colchicine (gout) 0.6 mg tablet 0.6 mg PO DAILY 30 Days Qty: 30 3RF tramadol 50 mg tablet 50 mg PO BID 4 Days Qty: 8 0RF colchicine (gout) 0.6 mg tablet 0.6 mg PO DAILY Qty: 10 0RF prednisone 20 mg tablet 20 mg PO DAILY Qty: 3 0RF (DME) blood pressure test kit-large Kit See Rx Instructions .Route Qty: 1 0RF Rx Instructions: As directed hydroxyzine HCl 25 mg tablet 25 mg PO BEDTIME PRN (Reason: sleep) 20 Days Qty: 20 1RF Referrals: [facility] [place] Orthopedic Surgeons [Provider Group] Interventions: ED Discharge Assessment Last Done: 08/19/23 11:45 Discharge Date/Time: 08/19/23 11:45
[2023-08-19] MEDS: oxyCODONE HCl Immed Release 5 MG TABLET PO (10:26)
[2023-08-19] MEDS: Acetaminophen 325 MG TABLET 650 MG PO (10:26)
[2023-08-19] MEDS: predniSONE 20 MG TABLET 40 MG PO (10:26)
--- NOTE | 2023-08-19 10:28 | PC.NURSE ---
medication administered per provider order. pt c/o 07/23 left knee pain - will reassess pain level shortly. pt tearful/resting w/ lights dimmed.
== END 2023-08-19 11:45 | disposition home or self-care (01) ==
PROVIDERS: Emergency Provider Emergency Medicine
DX: M10.062 Idiopathic gout, left knee (principal); M25.562 Pain in left knee; Z79.899 Other long term (current) drug therapy
CPT/HCPCS: 99283; 99284

== ENCOUNTER 2023-08-23 13:35 | Outpatient (AMB) | payer OTHER, SELFPAY ==
[2023-08-23 13:40] VITALS: BMI 25.6
--- NOTE | 2023-08-23 13:40 | A.OFFVIS_ITS ---
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 Patient reports having a lot a pain for some time. He states that his pain is mainly behind his knee. No hx of previous treatment. Patient reports his ROM is limited. 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 He was seen at ED on 08/19/23. He states he has chronic pain in his knee which is located in the posterior aspect of his knee. He also c/o limited ROM in his knee. He denies any treatment and has not had any injury in the past. He has a history of gout and reports having flareups once every 2 months. [facility] Medical History Alcohol use disorder HTN (hypertension) Surgical History History of appendectomy Social History Household Members: Family Housing: House Do you presently have visiting nurse or other home services: No Alcohol intake: current Alcohol intake frequency: 3 or more drinks per day Alcohol type: hard liquor Patient Tobacco Use Status: Never used Tobacco e-Cigarette/Vaping Use: Currently Using Second Hand Smoke Exposure: No Substance Use Type: Marijuana service: No Current occupational status: employed Cognitive needs: No Hearing needs: No Vision needs: Yes (contact/glasses) Review of Systems Const All systems reviewed & are unremarkable except as noted in HPI and below Physical Exam Vital Signs: BMI result Body Mass Index 25.6 Const General: cooperative, healthy appearing, comfortable, no acute distress, well developed and alert Orientation/consciousness: patient oriented x3 HEENT Head: Yes normal to inspection, Yes normocephalic and Yes atraumatic Eyes General: appearance normal, both eyes and all related structures Resp Effort & Inspection: normal respiratory effort and able to speak in complete sentences Cardio Rate: regular rate Peripheral pulses: Peripheral pulses 2+ throughout GI Palpation (GI): Soft to palpation Skin Lesions: no lesions Rashes: no rashes Neuro General: patient oriented x3 Extrem Other: Left knee: Skin intact, no erythema. Moderate sized joint effusion. Tenderness along the medial and lateral joint line. Full ROM with crepitus. Negative Tia?s. No ligamentous laxity. NVI. Office Procedures Joint Injection/Drain Joint Injection/Drain Details: 95cc joint fluid asp from the left knee Primary Site: left knee Prep: site was prepped using aseptic technique and injection warnings given Injected: 80 mg of, DepoMedrol, with 8 mL of, 1% plain lidocaine and in the joint Approach Used: lateral parapatellar Procedure: The patient tolerated the procedure well and there was some relief with the local anesthesia Coding 78290 - Glenohumeral/Tronchanteric Bursa/Intraarticular Procedure code (CPT) selection complete Results Reviewed Results Reviewed: 08/23/23 13:54 Lidocaine HCl 2 % MPF [Xylocaine 2 % MPF] 5 ml .ROUTE .STK-MED ONE methylPREDNISolone acetate [DEPO-MedroL] 80 mg .ROUTE .STK-MED ONE Assessment & Plan Assessment & Plan (1) Gout: Code(s): M10.9 - Gout, unspecified Qualifiers: Chronicity: chronic Gout etiology: idiopathic Gout site: knee Laterality: left Presence of tophus: without tophus Qualified Code(s): M1A.0620 - Idiopathic chronic gout, left knee, without tophus (tophi) Plan We discussed options today which include steroid injection. They did consent to move forward with the left knee aspiration and injection, which was tolerated well. Aspiration of 95cc joint fluid from the left knee. I recommended rest, ice and elevation and OTC anti-inflammatories PRN for discomfort. If symptoms persist or worsens over the next 6-8 weeks, patient will contact the office, otherwise follow-up as needed. Patient Instructions: Scribed for Kianna Ghotra PA-C, by Will Escobar medical operations supervisor, on 08/23/2023 at 1:45 PM EST. IKianna PA-C, have personally reviewed and agree with the information entered by the scribe. 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
== END 2023-08-23 14:21 | disposition home or self-care (01) ==
PROVIDERS: Visit Provider Physician Assistant
DX: M1A.0620 Idiopathic chronic gout, left knee, without tophus (tophi) (principal)
CPT/HCPCS: 20610; 99203

== ENCOUNTER → 2023-08-23 13:35 | Outpatient (BNVA) | payer OTHER, SELFPAY | PROVIDERS: Visit Provider Physician Assistant | DX: M1A.0620 Idiopathic chronic gout, left knee, without tophus (tophi) (principal) | CPT/HCPCS: 20610; 99202; J1040 ==

== ENCOUNTER 2023-10-16 06:53 | Emergency (ER) | payer OTHER, SELFPAY ==
--- NOTE | ~2023-10-16 | CT_ITS ---
EXAMINATION: CT ABDOMEN AND PELVIS WITH CONTRAST CLINICAL INFORMATION: Abdominal pain. COMPARISON: Ultrasound abdomen 06/29/2021 TECHNIQUE: Multidetector volumetric images were obtained from the superior aspect of the liver through the pubic symphysis following administration 100 mL of Omnipaque 350 intravenous contrast. Sagittal and coronal reformatted images were obtained on the technologist's workstation. Oral contrast: No This CT examination was performed using dose optimization techniques as appropriate, variously including the following: *Automated exposure control *Adjustment of mA and/or kV according to patient size (this includes techniques or standardized protocols for targeted exams where dose is matched to indication/reason for exam; i.e. extremities or head) *Use of iterative reconstruction technique DLP: 557 mGy-cm FINDINGS: LUNG BASES: There is bibasilar compressive atelectasis. The heart size is normal. LIVER, GALLBLADDER, AND BILIARY TREE: The liver is enlarged in size measuring 23 cm in craniocaudal length. It has normal shape, and diffuse hypo-attenuation. No focal hepatic lesion or biliary ductal dilatation is present. The gallbladder is unremarkable with no evidence of radiopaque gallstones, gallbladder wall thickening, or obvious pericholecystic inflammatory changes. PANCREAS: Unremarkable. SPLEEN: Unremarkable. ADRENAL GLANDS: Unremarkable. KIDNEYS AND URETERS: The kidneys are normal in size, shape, and attenuation. No hydronephrosis, hydroureter, or calculi seen. No perinephric stranding. BLADDER: Unremarkable. GASTROINTESTINAL TRACT: There is scattered gas and stool seen in colon without distention. The small bowel loops are normal caliber. Appendix is not visualized. No inflammatory process, free air or free fluid seen. ABDOMINAL WALL: Small umbilical hernia containing fat is noted. LYMPH NODES: Normal. VASCULAR: Unremarkable. PELVIC VISCERA: The prostate gland is normal size. The periprostatic fat planes are preserved. No abnormal size pelvic or inguinal lymph nodes seen. OSSEOUS STRUCTURES: No aggressive lytic or sclerotic process seen. CT/CT abdomen pelvis w IV con IMPRESSION: 1. No acute intra-abdominal process seen. 2. Mild hepatomegaly with diffuse hepatic steatosis. Fleischner guidelines were followed.
[2023-10-16 07:01] VITALS: BP 171/96; PULSE 95; RESP 20; TEMP 36.7; O2SAT 97; BMI 26.6
[2023-10-16 07:21] LABS: MANUAL DIFF FLAG NO
--- NOTE | 2023-10-16 07:23 | ED_ITS ---
HPI - General Adult General Chief complaint: Abdominal Pain Stated complaint: L Shoulder Blade Pain No Injury Time Seen by Provider: 10/16/23 07:22 Source: patient Mode of arrival: ambulatory Limitations: no limitations History of Present Illness HPI narrative: Patient is a 33 year old assigned male at with a history of HTN and alcohol abuse presenting to the emergency department today with left shoulder pain and epigastric pain. Patient states that yesterday he began to have left sided shoulder pain that radiates to his epigastric area. Patient states that the last time this happened, it was pancreatitis. Patient denies any dizziness, lightheadedness, vomiting, fever, chills, blurry vision, double vision, loss of vision, chest pain, difficulty breathing, shortness of breath, back pain, night sweats, pain with urination, increased urinary frequency, increased urinary urgency, blood in his urine or stool, syncope or a near syncopal episode, recent trauma or falls, bowel incontinence, bladder incontinence, bowel retention, bladder retention, or any other complaints at this time. Onset (ago): day(s) (1) Location: abdomen, left and upper extremity Severity: mild Severity scale (1-10): 4 Relieving factors: none Exacerbating factors: none Associated symptoms: nausea/vomiting Treatments prior to arrival: none Related Data Previous Rx's Medication Instructions Recorded blood pressure test kit-large #1 ea 12/21/21 prednisone 20 mg tablet 40 mg (2 x 20 mg) PO DAILY 5 days 02/26/23 #10 tabs hydroxyzine HCl 25 mg tablet 25 mg PO BEDTIME PRN sleep 20 days 03/27/23 #20 tabs colchicine 0.6 mg tablet 0.6 mg PO DAILY #10 tabs 08/18/23 prednisone 20 mg tablet 20 mg PO DAILY #3 tabs 08/18/23 tramadol 50 mg tablet 50 mg PO BID pain 4 days #8 tabs 08/19/23 colchicine 0.6 mg tablet 0.6 mg PO DAILY 30 days #30 tabs 10/03/23 Allergies Allergy/AdvReac Type Severity Reaction Status Date / Time No Known Allergies Allergy Verified 10/16/23 07:03 [No Known Allergies*] Review of Systems 2 Constitutional: Constitutional: Reports no additional constitutional complaints, Denies chills, Denies fever(s) and Denies night sweats Eyes: Eyes: Reports no additional eye complaints, Denies blurry vision, Denies change in vision, Denies diplopia, Denies eye discharge, Denies loss of vision and Denies eye pain ENT: Denies dizziness Cardiovascular: Cardiovascular: Reports no additional cardiovascular complaints, Denies chest pain, Denies lightheadedness, Denies Loss of Consciousness and Denies dyspnea Respiratory: Respiratory: Reports no additional respiratory complaints and Denies dyspnea Gastrointestinal: Gastrointestinal: Reports no additional gastrointestinal complaints, Reports abdominal pain, Denies melena, Denies hematochezia, Denies change in bowel habits, Denies change in stool character and Reports nausea Genitourinary: Genitourinary: Reports no additional male genitourinary complaints, Denies hematuria, Denies oliguria, Denies difficulty urinating, Denies dysuria, Denies urinary frequency, Denies urinary hesitancy, Denies urinary incontinence and Denies urinary urgency Musculoskeletal: Musculoskeletal: Reports no additional musculoskeletal complaints, Denies numbness and Denies tingling Comments: left shoulder pain Neurologic: Denies dizziness, Denies loss of vision, Denies numbness and Denies tingling Psychiatric: Psychiatric: Reports no additional psychiatric complaints Endocrine: Endocrine: Reports no additional endocrine complaints Hematologic/Lymphatic: Hematologic/Lymphatic: Reports no additional hematologic/lymphatic complaints Allergic/Immunologic: Allergic/Immunologic: Reports no additional allergic/immunologic complaints PMFSH Past Medical History Attestation statement: The following information was validated with the patient. Source: old records reviewed and nursing notes reviewed Onset Date is defined in the Problem List Problems that require an onset date and time if occurred within 24 hrs of arrival to the ED Aortic Dissection and Rupture; Neurologic impairment; Cardiopulmonary Arrest; Endotracheal Intubation; Insertion or Replacement of Mechanical Circulatory Assist Device Medical History (Updated 10/16/23 @ 11:35 by WAN Laurent) Screening for hypercholesterolemia Screening for diabetes mellitus (DM) Community acquired pneumonia Transaminitis Alcohol use disorder, moderate, dependence Alcohol use disorder HTN (hypertension) Surgical History History of appendectomy Social History Social History Household Members: Family Housing: House Do you presently have visiting nurse or other home services: No Alcohol intake: current Alcohol intake frequency: 3 or more drinks per day Alcohol type: hard liquor Patient Tobacco Use Status: Never used Tobacco Smoked in Last 30 Days: No e-Cigarette/Vaping Use: Currently Using Second Hand Smoke Exposure: No Substance Use Type: Marijuana Advance Directives: No service: No Current occupational status: employed Cognitive needs: No Hearing needs: No Vision needs: Yes (contact/glasses) Physical Exam ED Vital Signs: Vital Signs - 24 hr 10/16/23 07:01 10/16/23 07:30 10/16/23 08:25 Temperature 98.1 F Pulse Rate 95 82 84 Respiratory Rate 20 16 20 Blood Pressure 171/96 H 140/95 H 133/84 Pulse Oximetry 97 95 95 Oxygen Delivery Method Room Air Room Air Room Air 10/16/23 10:46 Temperature Pulse Rate 73 Respiratory Rate 14 Blood Pressure 135/77 Pulse Oximetry 97 Oxygen Delivery Method Room Air BMI result Body Mass Index 26.6 Const General: cooperative, no acute distress, alert and awake Nutritional Appearance: well nourished Orientation/consciousness: patient oriented x3 Limitations: no limitations HENMT Head: Yes normal to inspection and Yes atraumatic Ears: hearing grossly normal bilaterally and external ears normal General nose exam: Normal external nose present, no nasal discharge noted and no epistaxis Face and sinus: Yes normal facial exam, No abrasion and No laceration Mouth: Normal oral and palatal mucosa present, no drooling and no muffled voice Eyes General: appearance normal, both eyes and all related structures Periorbital: periorbital findings normal Eyelids: Yes eyelids normal Conjunctivae: conjunctivae normal Pupils: Equal, round and reactive pupils present EOM: EOMs intact bilaterally Neck Neck: Yes normal visual inspection, Yes full ROM and Yes no lymphadenopathy Chest Chest palpation & inspection: normal inspection of the chest Resp Effort & Inspection: normal respiratory effort and able to speak in complete sentences GI Inspection: Yes normal to inspection Palpation (GI): Soft to palpation, not firm, nontender and no guarding Neuro General: patient oriented x3 and moves all extremities Cranial nerves: Yes Equal, round and reactive pupils present Cognition (Neuro): normal cognition Motor exam (neuro): 5/5 motor strength present throughout Sensory Exam: Normal double simultaneous stimulation for sensation Coordination: [id number] test normal Extrem General: Yes normal to inspection, Yes full ROM and Yes capillary refill normal Psych Appearance: grossly normal Mental Status: mental status grossly normal Affect: normal affect Attitude: cooperative Thought process: Normal thought process present Thought content: Normal thought content present Insight: Good insight present (Psych) Medications Administered Discontinued Medications Generic Name Dose Route Start Last Admin Trade Name Brisa PRN Reason Stop Dose Admin Al Hydroxide/Mg Hydroxide 15 ml 10/16/23 07:49 10/16/23 08:22 Magnesium Hydrox/Alum Hydrox 30 Ml Oral.Susp PO 10/16/23 07:50 15 ml ONCE ONE Administration Hydromorphone HCl 1 mg 10/16/23 09:09 10/16/23 09:14 Hydromorphone Hcl 1 Mg/Ml Syringe IVPUSH 10/16/23 09:10 1 mg ONCE ONE Administration Protocol Sodium Chloride 1,000 mls @ 999 mls/hr 10/16/23 07:30 10/16/23 09:11 Ns IV 10/16/23 08:30 Infused .Q1H1M TODD Infusion Sodium Chloride 1,000 mls @ 999 mls/hr 10/16/23 09:45 10/16/23 11:23 Ns IV 10/16/23 10:45 Infused .Q1H1M TODD Infusion Iohexol 85 ml 10/16/23 08:13 10/16/23 08:14 Iohexol 350 Mg/Ml 100 Ml Infus..Btl IV 10/16/23 08:14 85 ml ONCE ONE Administration Iohexol 70 ml 10/16/23 10:24 10/16/23 10:26 Iohexol 350 Mg/Ml 100 Ml Infus..Btl IV 10/16/23 10:25 70 ml ONCE ONE Administration Morphine Sulfate 4 mg 10/16/23 07:38 10/16/23 07:45 Morphine Sulfate 4 Mg/Ml Cartridge IVPUSH 10/16/23 07:39 4 mg ONCE ONE Administration Protocol Ondansetron HCl 4 mg 10/16/23 07:22 10/16/23 07:44 Ondansetron Hcl 4 Mg/2 Ml Vial IVPUSH 10/16/23 07:23 4 mg ONCE ONE Administration Pantoprazole Sodium 40 mg 10/16/23 07:49 10/16/23 08:21 Pantoprazole Sodium 40 Mg/10 Ml Vial IVPUSH 10/16/23 07:50 40 mg ONCE ONE Administration Medical Decision Making Medical Decision Making MDM Narrative: Patient is a 33 year old assigned male at with a history of HTN and alcohol abuse presenting to the emergency department today with epigastric pain and left shoulder pain. Patient's physical exam was unremarkable. Patient's blood work was unremarkable. Patient's urine showed a possible UTI however, the patient's sample was contaminated, will await culture before initiating treatment. Patient's EKG was unremarkable. Patient's CT abdomen/pelvis showed no acute process. Patient's CT angio aorta of the chest showed evidence of viral illness but was otherwise unremarkable. I explained my physical exam findings as well as all test results to the patient. I answered all questions asked by the patient. Patient received multiple doses of IV pain medication which he stated helped his symptoms significantly. I stressed the importance of the patient taking his medication as prescribed. I stressed the importance of the patient following up with his primary care provider. I stressed the importance of the patient returning to the emergency department immediately if his symptoms were to worsen or if he were to develop any dizziness, shortness of breath, difficulty breathing, chest pain, blurry vision, loss of vision, nausea, vomiting, abdominal pain, fever, chills, back pain, or any other complaints. Patient verbalized agreement and understanding with this treatment plan and discharge. Differential Diagnosis Differential Diagnoses: The differential diagnosis associated with the presentation includes Viral illness Epigastric pain Alcohol use / abuse Admission/Observation Consideration of admission/observation: Escalation of care including admission/observation considered Patient would have been admitted to the hospital had his work up had any findings where hospital admission was appropriate and his clinical presentation warranted hospital admission. Lab Data MDM Lab Attestation statement: I reviewed the patient's lab results. My interpretation of these studies and their corresponding values is that they are grossly normal. 10/16/23 07:16 10/16/23 07:16 Labs: Lab Results 10/16/23 10/16/23 Range/Units 07:16 07:37 WBC 6.7 (4.8-10.8) X10*3/uL RBC 4.40 L (4.60-5.80) X10*6/uL Hgb 15.1 (14.0-18.0) g/dl Hct 41.7 L (42.0-52.0) % MCV 94.8 (80.0-98.0) fL MCH 34.3 H (27.0-33.0) pg MCHC 36.2 H (31.0-36.0) g/dl RDW 12.9 (11.0-16.0) % Plt Count 194 (160-400) X10*3/uL MPV 9.4 (9.4-12.4) fL Immature Gran % (Auto) 0.6 H (0.0-0.4) % Neut % (Auto) 71.5 (45-73) % Lymph % (Auto) 19.5 L (20-40) % [place] % (Auto) 6.6 (2-11) % Eos % (Auto) 1.2 (0-4) % Baso % (Auto) 0.6 (0-2) % Lymph # (Auto) 1.3 (1.2-4.9) X10*3/uL [place] # (Auto) 0.4 (0.1-1.2) X10*3/uL Eos # (Auto) 0.1 (0.0-0.4) X10*3/uL Baso # (Auto) 0.0 (0.0-0.2) X10*3/uL Abs Immat Gran (auto) 0.04 H (0.00-0.03) X10*3/uL Absolute Neuts (auto) 4.8 (2.0-8.3) x10*3/uL Absolute Nucleated RBC 0.000 (0.0-0.012) X10*3/uL Nucleated RBC % (auto) 0.0 (0.0-0.2) /100WBC Sodium 137 (135-145) mmol/L Potassium 3.6 (3.3-5.1) mmol/L Chloride 102 (96-108) mmol/L Carbon Dioxide 25 (22-29) mmol/L Anion Gap 14 (12-20) BUN 8 L (9-16) mg/dL Creatinine 0.85 (0.5-1.4) mg/dL Estim Creat Clear Calc 150.4 Estimated GFR > 60 Random Glucose 150 H (60-115) mg/dL Calcium 9.9 D (8.4-10.2) mg/dL Total Bilirubin 4.3 H (0.0-1.0) mg/dL Direct Bilirubin 1.6 H (0.0-0.5) mg/dL AST 122 H (5-37) U/L ALT 69 H (0-40) U/L Alkaline Phosphatase 76 (39-117) U/L Troponin I High Sens < 2.7 (<3.5-35.0) ng/L Total Protein 8.5 H (6.5-8.0) g/dL Albumin 4.7 (3.5-5.0) g/dL Lipase 26 (8-78) U/L Urine Color [place] Urine Appearance Hazy Urine pH 5.5 (5.0-9.0) Ur Specific [place] 1.025 (1.005-1.025) Urine Protein See Note (Neg-Trace) mg/dL Urine Glucose (UA) See Note (Negative) mg/dL Urine Ketones See Note (Negative) mg/dL Urine Blood See Note (Negative) Urine Nitrite See Note (Negative) Ur Leukocyte Esterase Trace H (Negative) Urine RBC 3-5 H (0-2) /HPF Urine WBC 11-20 H (0-5) /HPF Ur Squamous Epith Cells 6-10 (0-2) /HPF Urine Bacteria None Seen (None Seen) Hyaline Casts 0-2 (0-2) /LPF Influenza Type A (PCR) NEGATIVE (Negative) Influenza Type B (PCR) NEGATIVE (Negative) RSV RNA Qual (PCR) NEGATIVE (Negative) SARS-CoV-2 RNA (RT-PCR) NEGATIVE (Negative) Independent Interpretation I performed an independent interpretation of an: EKG and CT Scan Interpretation: My interpretation is in agreement with the radiologist's impression of these imaging studies. - EXAMINATION: CT ABDOMEN AND PELVIS WITH CONTRAST CLINICAL INFORMATION: Abdominal pain. COMPARISON: Ultrasound abdomen 06/29/2021 TECHNIQUE: Multidetector volumetric images were obtained from the superior aspect of the liver through the pubic symphysis following administration 100 mL of Omnipaque 350 intravenous contrast. Sagittal and coronal reformatted images were obtained on the technologist's workstation. Oral contrast: No This CT examination was performed using dose optimization techniques as appropriate, variously including the following: *Automated exposure control *Adjustment of mA and/or kV according to patient size (this includes techniques or standardized protocols for targeted exams where dose is matched to indication/reason for exam; i.e. extremities or head) *Use of iterative reconstruction technique DLP: 557 mGy-cm FINDINGS: LUNG BASES: There is bibasilar compressive atelectasis. The heart size is normal. LIVER, GALLBLADDER, AND BILIARY TREE: The liver is enlarged in size measuring 23 cm in craniocaudal length. It has normal shape, and diffuse hypo-attenuation. No focal hepatic lesion or biliary ductal dilatation is present. The gallbladder is unremarkable with no evidence of radiopaque gallstones, gallbladder wall thickening, or obvious pericholecystic inflammatory changes. PANCREAS: Unremarkable. SPLEEN: Unremarkable. ADRENAL GLANDS: Unremarkable. KIDNEYS AND URETERS: The kidneys are normal in size, shape, and attenuation. No hydronephrosis, hydroureter, or calculi seen. No perinephric stranding. BLADDER: Unremarkable. GASTROINTESTINAL TRACT: There is scattered gas and stool seen in colon without distention. The small bowel loops are normal caliber. Appendix is not visualized. No inflammatory process, free air or free fluid seen. ABDOMINAL WALL: Small umbilical hernia containing fat is noted. LYMPH NODES: Normal. VASCULAR: Unremarkable. PELVIC VISCERA: The prostate gland is normal size. The periprostatic fat planes are preserved. No abnormal size pelvic or inguinal lymph nodes seen. OSSEOUS STRUCTURES: No aggressive lytic or sclerotic process seen. CT/CT abdomen pelvis w IV con IMPRESSION: 1. No acute intra-abdominal process seen. 2. Mild hepatomegaly with diffuse hepatic steatosis. Fleischner guidelines were followed. Dictated By: Francisco Steiner MD Signed By: Electronically signed by Francisco Steiner MD 10/16/23 1092 - EXAMINATION: CT ANGIOGRAM CHEST CLINICAL INFORMATION: Chest pain COMPARISON: Chest radiograph 06/29/2021, CT abdomen and pelvis 10/16/2023 TECHNIQUE: Multiple axial images were obtained through the chest after the administration of 70 mL of Omnipaque 350 intravenous contrast. Extensive vascular post-processing including two-dimensional and three-dimensional reformatted images were created and reviewed on an independent workstation. This CT examination was performed using dose optimization techniques as appropriate, variously including the following: *Automated exposure control *Adjustment of mA and/or kV according to patient size (this includes techniques or standardized protocols for targeted exams where dose is matched to indication/reason for exam; i.e. extremities or head) *Use of iterative reconstruction technique DLP: 412 mGy-cm FINDINGS: While the study is not gated, there is no evidence of aneurysm or dissection of the thoracic aorta. There is a three-vessel branching appearance to the aortic arch. The origins of the arch vessels and their visualized segments are normal in caliber. The visualized upper abdominal aorta is normal in caliber and the origin of the celiac is widely patent. While not a dedicated evaluation of the pulmonary arteries, there are no large central pulmonary emboli. There is an unremarkable appearance of the central venous structures. The heart is not enlarged. There is no pericardial effusion or pericardial thickening. The lungs are well expanded. There is equivocal mild smooth thickening of the medium-sized airways of the lower lobes and patchy areas of groundglass attenuation which could represent scattered atelectasis in the setting of airways inflammation. No discrete suspicious pulmonary nodule or focal consolidation is identified. There is no pleural effusion or pleural thickening. The axillae are unremarkable. The structures of the chest wall are intact. Incompletely visualized upper abdomen is again notable for diffuse hepatic steatosis. No new findings in the abdomen since prior study. CT/CT angio chest aorta IMPRESSION: No evidence of acute aortic pathology. Equivocal mild smooth airways thickening involving the lower lobes and scattered foci of atelectasis which could represent airways inflammation. Correlate with any upper respiratory symptoms. Fleischner guidelines were followed. Dictated By: Jose Miguel Driver MD Signed By: Electronically signed by Jose Miguel Driver MD 10/16/23 1126 - Vent. Rate : 082 BPM Atrial Rate : 082 BPM P-R Int: 134 ms QRS Dur 086 ms QT Int: 358 ms P-R-T Axes: 075 050 070 degrees QTc Int: 418 ms Normal sinus rhythm Normal ECG When compared with ECG of 18-AUG-2023 12:57, No significant change was found DD/ [id number] Radiology Impression Discussion of test interpretation with radiology: I have reviewed the radiologist's reading. Critical Care Time Critical Care Time Critical Care Time: Yes Total Critical Care Time: 45 Attestation: I spent 45 minutes of Critical Care Time with this patient. This does not include time spent on separately reported billable procedures. Discharge Plan Discharge Clinical Impression: Viral illness, Epigastric pain Patient Disposition: Home, Self-Care Instructions: Viral Syndrome (ED), Epigastric Pain (ED) Additional Instructions: Please continue to abstain from alcohol. Follow up with your primary care provider. Return to the emergency department immediately if your symptoms worsen or if you develop any dizziness, shortness of breath, difficulty breathing, chest pain, blurry vision, loss of vision, nausea, vomiting, abdominal pain, fever, chills, back pain, or any other complaints. Prescriptions: No Action prednisone 20 mg tablet 40 mg PO DAILY 5 Days Qty: 10 0RF tramadol 50 mg tablet 50 mg PO BID 4 Days Qty: 8 0RF colchicine 0.6 mg tablet 0.6 mg PO DAILY 30 Days Qty: 30 3RF colchicine 0.6 mg tablet 0.6 mg PO DAILY Qty: 10 0RF prednisone 20 mg tablet 20 mg PO DAILY Qty: 3 0RF (DME) blood pressure test kit-large Kit See Rx Instructions .Route Qty: 1 0RF Rx Instructions: As directed hydroxyzine HCl 25 mg tablet 25 mg PO BEDTIME PRN (Reason: sleep) 20 Days Qty: 20 1RF Referrals: Stanley Grewal PA-C [Primary Care Provider] - Print Language: Maltese
--- NOTE | 2023-10-16 07:23 | ECG_ITS ---
Test Reason : l sided pain Blood Pressure : / mmHG Vent. Rate : 082 BPM Atrial Rate : 082 BPM P-R Int : 134 ms QRS Dur : 086 ms QT Int : 358 ms P-R-T Axes : 075 050 070 degrees QTc Int : 418 ms Normal sinus rhythm Normal ECG When compared with ECG of 18-AUG-2023 12:57, No significant change was found Referred By: Tika Garcia Electronically Signed By:Mayco Mark
[2023-10-16 07:25] LABS: Appearance Urine Hazy; Color Urine Orange; Leukocyte Esterase Urine Trace (Negative); PH 5.5 (5.0-9.0); Specific Gravity - Urine 1.025 (1.005-1.025); UMIC TRIGGER UACC YES
[2023-10-16 07:30] VITALS: BP 140/95; PULSE 82; RESP 16; O2SAT 95
[2023-10-16 07:30] LABS: Basophils Percent Auto 0.6 % (0-2); Eosinophils Absolute Auto 0.1 X10*3/uL (0.0-0.4); Eosinophils Percent Auto 1.2 % (0-4); Hematocrit 41.7 % (42.0-52.0); Hemoglobin 15.1 g/dl (14.0-18.0); Imm Gran Abs Auto 0.04 X10*3/uL (0.00-0.03); Imm Gran Pct Auto 0.6 % (0.0-0.4); Lymphocytes Absolute Auto 1.3 X10*3/uL (1.2-4.9); Lymphocytes Percent Auto 19.5 % (20-40); Mean Corpuscular HGB Conc 36.2 g/dl (31.0-36.0); Mean Corpuscular Hemoglobin 34.3 pg (27.0-33.0); Mean Corpuscular Volume 94.8 fL (80.0-98.0); Mean Platelet Volume 9.4 fL (9.4-12.4); Monocytes Absolute Auto 0.4 X10*3/uL (0.1-1.2); Monocytes Percent Auto 6.6 % (2-11); Neutrophils Absolute Auto 4.8 x10*3/uL (2.0-8.3); Neutrophils Percent Auto 71.5 % (45-73); Platelet Count 194 X10*3/uL (160-400); Red Cell Distribution Width 12.9 % (11.0-16.0); White Blood Count 6.7 X10*3/uL (4.8-10.8)
[2023-10-16 07:32] LABS: Bacteria Urine None Seen (None Seen); Hyaline Casts Urine 0-2 /LPF (0-2); UACC Culture Trigger YES
[2023-10-16] MEDS: ondansetron HCL 4 MG/2 ML VIAL IVPUSH (07:44)
[2023-10-16] MEDS: Morphine Sulfate 4 MG/ML CARTRIDGE IVPUSH (07:45)
[2023-10-16] MEDS: 0.9 % Sodium Chloride 1,000 ML 999 ML IV (07:45)
[2023-10-16 07:46] LABS: Alanine Aminotransferase 69 U/L (0-40); Albumin Level 4.7 g/dL (3.5-5.0); Alkaline Phosphatase 76 U/L (39-117); Anion Gap 14 (12-20); Aspartate Amino Transferase 122 U/L (5-37); Bilirubin Direct 1.6 mg/dL (0.0-0.5); Bilirubin Total 4.3 mg/dL (0.0-1.0); Blood Urea Nitrogen 8 mg/dL (9-16); Calcium 9.9 mg/dL (8.4-10.2); Carbon Dioxide 25 mmol/L (22-29); Chloride 102 mmol/L (96-108); Creatinine Clr Calc Pharmacy 150.4; Estimated Glomerular Filt Rate > 60; Glucose Random 150 mg/dL (60-115); Lipase 26 U/L (8-78); Potassium 3.6 mmol/L (3.3-5.1); Sodium 137 mmol/L (135-145); Total Protein 8.5 g/dL (6.5-8.0)
--- NOTE | 2023-10-16 07:48 | PC.NURSE ---
Pt reports heavily drinking throughout holidays, yesterday starting with left shoulder pain into epigastrium nausea, vomiting yesterday. H/O Pancreatitis and feels similar. Skin pwd. Restless and uncomfortable. IV established and medicated as charted
[2023-10-16] MEDS: iohexoL 350 MG/ML 100 ML INFUS..BTL 85 ML IV (08:14)
[2023-10-16] MEDS: Pantoprazole Sodium 40 MG/10 ML VIAL IVPUSH (08:21)
[2023-10-16] MEDS: Magnesium Hydrox/Alum Hydrox 30 ML ORAL.SUSP 15 ML PO (08:22)
[2023-10-16 08:24] LABS: Influenza A PCR NEGATIVE (Negative); Influenza B PCR NEGATIVE (Negative); Resp Syncy Virus RNA Qual PCR NEGATIVE (Negative); SARS COV2 PCR INHOUSE NEGATIVE (Negative)
[2023-10-16 08:25] VITALS: BP 133/84; PULSE 84; RESP 20; O2SAT 95
[2023-10-16 08:50] LABS: Troponin-I High Sensitivity < 2.7 ng/L (<3.5-35.0)
--- NOTE | 2023-10-16 09:15 | PC.NURSE ---
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
--- NOTE | 2023-10-16 10:16 | PC.NURSE ---
Plan for CTA, new iv start 20g to right AC, additional fluid bolus started Pt voided marcelo colored urine in bedside urinal
[2023-10-16 10:46] VITALS: BP 135/77; PULSE 73; RESP 14; O2SAT 97
== END 2023-10-16 12:07 | disposition home or self-care (01) ==
PROVIDERS: Physician Assistant Medical; Emergency Provider Emergency Medicine; PCP Physician Assistant
DX: B34.9 Viral infection, unspecified (principal); R10.13 Epigastric pain; I10 Essential (primary) hypertension; M25.512 Pain in left shoulder; R07.9 Chest pain, unspecified; Z20.822 Contact with and (suspected) exposure to COVID-19; Z20.828 Contact with and (suspected) exposure to other viral communicable diseases
CPT/HCPCS: 0241U; 36415; 71275; 74177; 80048; 80076; 81001; 83690; 84484; 85025; 87086; 93005; 96361; 96374; 96375; 96376; 99284; 99285; C9113; J1170; J2270; J2405; Q9967

== ENCOUNTER → 2023-10-16 07:23 | Outpatient (BNV) | payer OTHER, SELFPAY | PROVIDERS: Emergency Provider Emergency Medicine; PCP Physician Assistant; Visit Provider Internal Medicine Cardiovascular Disease | DX: M25.512 Pain in left shoulder (principal) | CPT/HCPCS: 93010 ==

== ENCOUNTER 2023-12-10 05:37 | Emergency (ER) | payer OTHER, SELFPAY ==
--- NOTE | ~2023-12-10 | XR_ITS ---
EXAMINATION: XR FOOT, LEFT CLINICAL INFORMATION: Pain to foot and toe COMPARISON: 04/28/2020 TECHNIQUE: AP, lateral, and oblique views of the left foot. FINDINGS: Osseous alignment is anatomic. No acute fracture is seen. There is mild degenerative change at the second MTP and PIP joints with spurring. Plantar calcaneal spur is noted. No significant focal soft tissue abnormality identified. XR/XR foot LT 2V IMPRESSION: No acute findings identified. Degenerative changes as noted above.
[2023-12-10 05:45] VITALS: BP 148/95; PULSE 107; RESP 16; TEMP 37; O2SAT 96; BMI 25.6
[2023-12-10 06:27] VITALS: BP 138/89; PULSE 94; RESP 16; TEMP 36.8; O2SAT 96
[2023-12-10 06:34] LABS: Appearance Urine Clear; Color Urine Dark Yellow; Glucose Urine UA Negative (Negative); Leukocyte Esterase Urine Trace (Negative); Nitrite Urine Negative (Negative); PH 5.5 (5.0-9.0); UMIC TRIGGER UACC YES; Urine Blood Negative (Negative); Urine Ketones Negative (Negative); Urine Protein Negative (Neg-Trace)
[2023-12-10 06:41] LABS: Bacteria Urine None Seen (None Seen); Hyaline Casts Urine 0-2 /LPF (0-2); RBC Urine 0-2 /HPF (0-2); Squamous Epithelial Cell Urine 0-2 /HPF (0-2); WBC Urine 0-5 /HPF (0-5)
--- NOTE | 2023-12-10 06:52 | ED_ITS ---
HPI - Extremity Problem General Chief complaint: Extremity Problem Stated complaint: gout flare up Time Seen by Provider: 12/10/23 06:37 Source: patient Mode of arrival: ambulatory Limitations: no limitations History of Present Illness HPI Narrative: This is a 33-year-old male history of alcohol use disorder, hypertension, gout presenting with complaints of atraumatic left foot pain for the past few days, patient reports his left foot hurts diffusely however worse to the medial aspect of left ankle and his left 2nd toe. He reports he has a history of gout and this feels like his typical flare. Denies fevers, chills, nausea, vomiting, numbness, tingling, blunt trauma, chest pain, shortness of breath. Related Data Previous Rx's Medication Instructions Recorded blood pressure test kit-large #1 ea 12/21/21 prednisone 20 mg tablet 40 mg (2 x 20 mg) PO DAILY 5 days 02/26/23 #10 tabs hydroxyzine HCl 25 mg tablet 25 mg PO BEDTIME PRN sleep 20 days 03/27/23 #20 tabs colchicine 0.6 mg tablet 0.6 mg PO DAILY #10 tabs 08/18/23 prednisone 20 mg tablet 20 mg PO DAILY #3 tabs 08/18/23 tramadol 50 mg tablet 50 mg PO BID pain 4 days #8 tabs 08/19/23 colchicine 0.6 mg tablet 0.6 mg PO DAILY 30 days #30 tabs 10/03/23 ketorolac 10 mg tablet 10 mg PO TID PRN pain 5 days #15 12/10/23 tabs prednisone 50 mg tablet 50 mg PO DAILY 5 days #5 tabs 12/10/23 Allergies Allergy/AdvReac Type Severity Reaction Status Date / Time No Known Allergies Allergy Verified 10/16/23 07:03 [No Known Allergies*] Review of Systems Review of Systems: Yes all other systems are reviewed and are negative PMFSH Past Medical History Attestation statement: The following information was validated with the patient. Source: old records reviewed and nursing notes reviewed Medical History Screening for hypercholesterolemia Screening for diabetes mellitus (DM) Community acquired pneumonia Transaminitis Alcohol use disorder, moderate, dependence Alcohol use disorder HTN (hypertension) Surgical History History of appendectomy Social History Social History Household Members: Family Housing: House Do you presently have visiting nurse or other home services: No Alcohol intake: current Alcohol intake frequency: 3 or more drinks per day Alcohol type: hard liquor Patient Tobacco Use Status: Never used Tobacco e-Cigarette/Vaping Use: Currently Using Second Hand Smoke Exposure: No Substance Use Type: Marijuana Advance Directives: No Advance Directives Information Provided: No service: No Current occupational status: employed Cognitive needs: No Hearing needs: No Vision needs: Yes (contact/glasses) Physical Exam Vital Signs: Vital Signs: Last Vital Signs Temp 98.3 F 12/10/23 06:27 Pulse 94 12/10/23 06:27 Resp 16 12/10/23 06:27 BP 138/89 12/10/23 06:27 Pulse Ox 96 12/10/23 06:27 O2 Del Method Room Air 12/10/23 06:27 BMI result Body Mass Index 25.6 vss Appearance: Alert.? Oriented X3.? No acute distress.? Head: Normocephalic, atraumatic, no step-offs or deformities Eyes: Pupils equal, round and reactive to light.? Neck: Normal inspection.? Neck supple.? CVS: Normal heart rate and rhythm.? Pulses normal.? Respiratory: No respiratory distress.? Breath sounds normal.? Abdomen: Soft and nontender.? Skin: Skin warm and dry.? Normal skin color.? Normal skin turgor.? Extremities: No lower extremity edema.? No calf ttp. 5/5 strength to bilateral upper and lower extremities 2+ DP,AT,PT pulses equal and b/l. TTP to L medial aspect of ankle and foot and TTP to L second toe. Back: No midline tenderness, no C-spine tenderness, full range of motion, no CVA tenderness bilaterally Neuro: Oriented X 3.? No motor deficit.? No sensory deficit. CN 2-12 intact Course Reevaluation(s) Reevaluation #1: X-ray no acute findings degenerative changes noted. Educated patient on diagnosis and treatment plan, answered all question, patient verbalizes understanding. At this time patient will be discharged home, advised to return with new or worsening symptoms. Educated on worrisome signs and symptoms and when to return. At this time I feel comfortable discharge home. Time: 07:01 Medical Decision Making Medical Decision Making [facility] Narrative: 33-year-old male presents with atraumatic left foot pain for the past few days Physical exam significant 2+ DP,AT,PT pulses equal and b/l. TTP to L medial aspect of ankle and foot and TTP to L second toe. History and physical exam concerning for gout versus pseudogout versus inflammatory arthritis. Unlikely neurovascular compromise, threat to Kenny, septic joint. No trauma unlikely fracture dislocation Plan at this time imaging Differential Diagnosis Differential Diagnoses: The differential diagnosis associated with the presentation includes History and physical exam concerning for gout versus pseudogout versus inflammatory arthritis. Unlikely neurovascular compromise, threat to Kenny, septic joint. No trauma unlikely fracture dislocation Admission/Observation Consideration of admission/observation: Escalation of care including admission/observation considered Unlikely based off presentation Lab Data [facility] Lab Attestation statement: I reviewed the patient's lab results. Labs: Lab Results 12/10/23 Range/Units 06:26 Urine Color Dark Yellow Urine Appearance Clear Urine pH 5.5 (5.0-9.0) Ur Specific [place] 1.020 (1.005-1.025) Urine Protein Negative (Neg-Trace) mg/dL Urine Glucose (UA) Negative (Negative) mg/dL Urine Ketones Negative (Negative) mg/dL Urine Blood Negative (Negative) Urine Nitrite Negative (Negative) Ur Leukocyte Esterase Trace H (Negative) Urine RBC 0-2 (0-2) /HPF Urine WBC 0-5 (0-5) /HPF Ur Squamous Epith Cells 0-2 (0-2) /HPF Urine Bacteria None Seen (None Seen) Hyaline Casts 0-2 (0-2) /LPF Independent Interpretation I performed an independent interpretation of an: Plain X-Ray (FINDINGS: Osseous alignment is anatomic. No acute fracture is seen. There is mild degenerative change at the second MTP and PIP joints with spurring. Plantar calcaneal spur is noted. No significant focal soft tissue abnormality identified. XR/XR foot LT 2V IMPRESSION: No acut) Radiology Impression Discussion of test interpretation with radiology: I have reviewed the radiologist's reading. Prescription Management I considered prescription management with: Pain Medication (toradol ) Critical Care Time Critical Care Time Critical Care Time: No Discharge Plan Discharge Clinical Impression: Gout Patient Disposition: Home, Self-Care Instructions: Low Purine Diet (ED), Gout (ED), Swollen Ankle Joint (ED) Additional Instructions: Take your medications as prescribed. If you were prescribed antibiotics today, it is important that you take your medication to their entirety, do not skip any doses, do not finish them early. Follow-up with your primary care provider this week. Return to the emergency department with new or worsening symptoms. Such as fevers, chills, chest pain, shortness of breath, nausea, vomiting, dizziness, headache, vision changes, lethargy In case of emergency call 911 Toradol has been sent to your pharmacy, you tolerated this well in the department. Please take this as prescribed do not take this with ibuprofen, or other NSAIDs, do not mix this with alcohol. Side effects of this medication including increased risk for bleeding and possible kidney injury. Prescriptions: New ketorolac 10 mg tablet 10 mg PO TID PRN (Reason: pain) 5 Days Qty: 15 0RF prednisone 50 mg tablet 50 mg PO DAILY 5 Days Qty: 5 0RF No Action prednisone 20 mg tablet 40 mg PO DAILY 5 Days Qty: 10 0RF tramadol 50 mg tablet 50 mg PO BID 4 Days Qty: 8 0RF colchicine 0.6 mg tablet 0.6 mg PO DAILY 30 Days Qty: 30 3RF colchicine 0.6 mg tablet 0.6 mg PO DAILY Qty: 10 0RF prednisone 20 mg tablet 20 mg PO DAILY Qty: 3 0RF (DME) blood pressure test kit-large Kit See Rx Instructions .Route Qty: 1 0RF Rx Instructions: As directed hydroxyzine HCl 25 mg tablet 25 mg PO BEDTIME PRN (Reason: sleep) 20 Days Qty: 20 1RF Referrals: ED Physician,Generic [Emergency Provider] - 2 days Stand Alone Forms: Work/School Release
[2023-12-10] MEDS: Morphine Sulfate Immed Release 15 MG TABLET PO (07:03)
[2023-12-10] MEDS: Ketorolac Tromethamine 30 MG/ML VIAL IM (07:04)
== END 2023-12-10 07:12 | disposition home or self-care (01) ==
PROVIDERS: Emergency Provider Emergency Medicine
DX: M10.072 Idiopathic gout, left ankle and foot (principal); M79.672 Pain in left foot; Z79.899 Other long term (current) drug therapy
CPT/HCPCS: 73620; 81001; 96372; 99283; 99284; J1885

== ENCOUNTER 2023-12-15 17:59 | Emergency (ER) | payer OTHER, SELFPAY ==
[2023-12-15 18:12] VITALS: BP 148/83; PULSE 102; RESP 16; O2SAT 94; BMI 21.7
--- NOTE | 2023-12-15 18:15 | ED_ITS ---
HPI - General Adult General Chief complaint: Extremity Injury, Lower Stated complaint: L foot gout flare up Time Seen by Provider: 12/15/23 18:14 Source: patient, RN notes reviewed and old records reviewed Mode of arrival: ambulatory Limitations: no limitations History of Present Illness HPI narrative: 33-year-old male presents for evaluation of left foot pain. Patient reports he has a history of gout and this feels similar. He reports he was seen here about a week ago for gout and was treated with prednisone and ketorolac. His symptoms resolved. He reports that he was drinking last night and his symptoms returned today with left foot pain at the left 2nd toe He reports some redness, denies any trauma to the area Related Data Previous Rx's Medication Instructions Recorded blood pressure test kit-large #1 ea 12/21/21 prednisone 20 mg tablet 40 mg (2 x 20 mg) PO DAILY 5 days 02/26/23 #10 tabs hydroxyzine HCl 25 mg tablet 25 mg PO BEDTIME PRN sleep 20 days 03/27/23 #20 tabs colchicine 0.6 mg tablet 0.6 mg PO DAILY #10 tabs 08/18/23 prednisone 20 mg tablet 20 mg PO DAILY #3 tabs 08/18/23 tramadol 50 mg tablet 50 mg PO BID pain 4 days #8 tabs 08/19/23 colchicine 0.6 mg tablet 0.6 mg PO DAILY 30 days #30 tabs 10/03/23 ketorolac 10 mg tablet 10 mg PO TID PRN pain 5 days #15 12/10/23 tabs prednisone 50 mg tablet 50 mg PO DAILY 5 days #5 tabs 12/10/23 ketorolac 10 mg tablet 10 mg PO TID PRN pain 5 days #15 12/15/23 tabs prednisone 20 mg tablet 40 mg (2 x 20 mg) PO DAILY #10 tabs 12/15/23 Allergies Allergy/AdvReac Type Severity Reaction Status Date / Time No Known Allergies Allergy Verified 10/16/23 07:03 [No Known Allergies*] Review of Systems Constitutional: Constitutional: Denies chills and Denies fever(s) Musculoskeletal: Musculoskeletal: Reports arthralgias and Reports joint swelling Integumentary/Breasts: Skin/Breast: Reports erythema PMFSH Past Medical History Medical History Screening for hypercholesterolemia Screening for diabetes mellitus (DM) Community acquired pneumonia Transaminitis Alcohol use disorder, moderate, dependence Alcohol use disorder HTN (hypertension) Surgical History History of appendectomy Social History Social History Household Members: Family Housing: House Do you presently have visiting nurse or other home services: No Alcohol intake: current Alcohol intake frequency: 3 or more drinks per day Alcohol type: hard liquor Patient Tobacco Use Status: Never used Tobacco e-Cigarette/Vaping Use: Currently Using Second Hand Smoke Exposure: No Substance Use Type: Marijuana Advance Directives: No Advance Directives Information Provided: No service: No Current occupational status: employed Cognitive needs: No Hearing needs: No Vision needs: Yes (contact/glasses) Physical Exam ED Vital Signs: Vital Signs - 24 hr 12/15/23 18:12 Pulse Rate 102 H Respiratory Rate 16 Blood Pressure 148/83 H Pulse Oximetry 94 Oxygen Delivery Method Room Air BMI result Body Mass Index 21.7 Extrem Other: Mild edema to the base of the left 2nd MTP with tenderness to palpation. No d eformity noted Medical Decision Making Medical Decision Making MDM Narrative: Patient requesting the same treatment he received last month which was prednisone and ketorolac. I have low suspicion for infectious process and low suspicion for traumatic injury as patient denies any trauma. We will treat with prednisone and ketorolac Differential Diagnosis Differential Diagnoses: The differential diagnosis associated with the presentation includes Gout Foot pain Cellulitis Contusion Discharge Plan Discharge Clinical Impression: Acute gout of left foot Patient Disposition: Home, Self-Care Instructions: Gout (ED) Additional Instructions: Take prednisone 40 mg daily for the next 5 days. Take ketorolac 10 mg up to 3 times a day for pain Drink lots of fluids that are nonalcoholic Prescriptions: New prednisone 20 mg tablet 40 mg PO DAILY Qty: 10 0RF ketorolac 10 mg tablet 10 mg PO TID PRN (Reason: pain) 5 Days Qty: 15 0RF No Action prednisone 20 mg tablet 40 mg PO DAILY 5 Days Qty: 10 0RF tramadol 50 mg tablet 50 mg PO BID 4 Days Qty: 8 0RF colchicine 0.6 mg tablet 0.6 mg PO DAILY 30 Days Qty: 30 3RF ketorolac 10 mg tablet 10 mg PO TID PRN (Reason: pain) 5 Days Qty: 15 0RF prednisone 50 mg tablet 50 mg PO DAILY 5 Days Qty: 5 0RF colchicine 0.6 mg tablet 0.6 mg PO DAILY Qty: 10 0RF prednisone 20 mg tablet 20 mg PO DAILY Qty: 3 0RF (DME) blood pressure test kit-large Kit See Rx Instructions .Route Qty: 1 0RF Rx Instructions: As directed hydroxyzine HCl 25 mg tablet 25 mg PO BEDTIME PRN (Reason: sleep) 20 Days Qty: 20 1RF Interventions: ED Discharge Assessment Last Done: 12/15/23 18:26 Discharge Date/Time: 12/15/23 18:27
== END 2023-12-15 18:27 | disposition home or self-care (01) ==
LOC: HO.ED 18:24
PROVIDERS: Emergency Provider Internal Medicine; PCP Physician Assistant
DX: M10.072 Idiopathic gout, left ankle and foot (principal); Z79.899 Other long term (current) drug therapy
CPT/HCPCS: 99282; 99283

== ENCOUNTER 2023-12-25 10:34 | Emergency (ER) | payer OTHER, SELFPAY ==
--- NOTE | 2023-12-25 | ECG_ITS ---
Test Reason : CHEST PAIN Blood Pressure : / mmHG Vent. Rate : 103 BPM Atrial Rate : 103 BPM P-R Int : 124 ms QRS Dur : 088 ms QT Int : 338 ms P-R-T Axes : 074 056 058 degrees QTc Int : 442 ms Sinus tachycardia Otherwise normal ECG When compared with ECG of 16-OCT-2023 07:28, No significant change was found Referred By: Generic ED Physician Electronically Signed By:JESE SHEPHERD MD
--- NOTE | ~2023-12-25 | XR_ITS ---
EXAMINATION: XR FOOT, LEFT CLINICAL INFORMATION: Left foot pain COMPARISON: Radiographs 12/10/2023 TECHNIQUE: AP, lateral, and oblique views of the left foot. FINDINGS: No acute fracture or malalignment. Probable remote, healed fracture of the 2nd proximal phalanx with secondary degenerative change at the 2nd MTP and PIP joints, similar to previous. No acute abnormality. Prominent heel spur. XR/XR foot LT 2V IMPRESSION: No acute fracture or malalignment. Probable remote, healed fracture of the 2nd proximal phalanx with secondary degenerative change at the 2nd MTP and PIP joints.
--- NOTE | ~2023-12-25 | XR_ITS ---
EXAMINATION: XR CHEST CLINICAL INFORMATION: Chest pain COMPARISON: None available. TECHNIQUE: 2 views of the chest were obtained. FINDINGS: No significant abnormality is noted involving the heart, lungs, mediastinum, bony thorax or soft tissues. XR/XR chest 2V IMPRESSION: Unremarkable chest examination.
[2023-12-25 10:46] VITALS: BP 147/95; PULSE 102; RESP 18; TEMP 36.6; O2SAT 95; BMI 26.9
[2023-12-25 14:51] LABS: MANUAL DIFF FLAG NO
[2023-12-25 14:57] LABS: Basophils Absolute Auto 0.1 X10*3/uL (0.0-0.2); Basophils Percent Auto 0.5 % (0-2); Eosinophils Absolute Auto 0.1 X10*3/uL (0.0-0.4); Eosinophils Percent Auto 0.8 % (0-4); Hematocrit 43.6 % (42.0-52.0); Hemoglobin 14.9 g/dl (14.0-18.0); Imm Gran Abs Auto 0.05 X10*3/uL (0.00-0.03); Imm Gran Pct Auto 0.4 % (0.0-0.4); Lymphocytes Absolute Auto 1.6 X10*3/uL (1.2-4.9); Lymphocytes Percent Auto 12.7 % (20-40); Mean Corpuscular HGB Conc 34.2 g/dl (31.0-36.0); Mean Corpuscular Volume 96.7 fL (80.0-98.0); Mean Platelet Volume 9.5 fL (9.4-12.4); Monocytes Absolute Auto 1.3 X10*3/uL (0.1-1.2); Monocytes Percent Auto 9.9 % (2-11); Neutrophils Absolute Auto 9.5 x10*3/uL (2.0-8.3); Neutrophils Percent Auto 75.7 % (45-73); Platelet Count 298 X10*3/uL (160-400); Red Blood Count 4.51 X10*6/uL (4.60-5.80); Red Cell Distribution Width 13.4 % (11.0-16.0); White Blood Count 12.6 X10*3/uL (4.8-10.8)
[2023-12-25 15:21] LABS: Alanine Aminotransferase 75 U/L (0-40); Albumin Level 4.3 g/dL (3.5-5.0); Alkaline Phosphatase 62 U/L (39-117); Anion Gap 15 (12-20); Aspartate Amino Transferase 41 U/L (5-37); Bilirubin Total 1.8 mg/dL (0.0-1.0); Blood Urea Nitrogen 9 mg/dL (9-16); Calcium 9.9 mg/dL (8.4-10.2); Carbon Dioxide 25 mmol/L (22-29); Chloride 105 mmol/L (96-108); Creatinine Clr Calc Pharmacy 193.8; Estimated Glomerular Filt Rate > 60; Glucose Random 107 mg/dL (60-115); Magnesium 1.7 mg/dL (1.6-2.6); Potassium 4.1 mmol/L (3.3-5.1); Sodium 141 mmol/L (135-145); Total Protein 8.4 g/dL (6.5-8.0)
--- NOTE | 2023-12-25 16:59 | ED.GENADULT ---
HPI - General Adult General Chief complaint: General Medical Stated complaint: Chest Pain L Foot Pain Time Seen by Provider: 12/25/23 14:43 Source: patient Limitations: no limitations History of Present Illness HPI narrative: 33 years old with history of gout, presents to the emergency room for left foot and the left knee pain. Patient reported symptoms are very similar to his prior gout exacerbation. Last use of steroids was 3 weeks ago and patient reports that he had moderate results with colchicine. Patient reports pain is 10/10 in severity, he also reports swelling of the left foot at the level of the 2nd digit but denies swelling of the knee. He denies chills or fever, no recent falls. He also reported he had chest pain that started earlier today. Pain is worsened on palpation of the chest, it has not exertional or pleuritic. Related Data Previous Rx's Medication Instructions Recorded blood pressure test kit-large #1 ea 12/21/21 prednisone 20 mg tablet 40 mg (2 x 20 mg) PO DAILY 5 days 02/26/23 #10 tabs hydroxyzine HCl 25 mg tablet 25 mg PO BEDTIME PRN sleep 20 days 03/27/23 #20 tabs colchicine 0.6 mg tablet 0.6 mg PO DAILY #10 tabs 08/18/23 prednisone 20 mg tablet 20 mg PO DAILY #3 tabs 08/18/23 tramadol 50 mg tablet 50 mg PO BID pain 4 days #8 tabs 08/19/23 colchicine 0.6 mg tablet 0.6 mg PO DAILY 30 days #30 tabs 10/03/23 ketorolac 10 mg tablet 10 mg PO TID PRN pain 5 days #15 12/10/23 tabs prednisone 50 mg tablet 50 mg PO DAILY 5 days #5 tabs 12/10/23 ketorolac 10 mg tablet 10 mg PO TID PRN pain 5 days #15 12/15/23 tabs prednisone 20 mg tablet 40 mg (2 x 20 mg) PO DAILY #10 tabs 12/15/23 naproxen 500 mg tablet 500 mg PO BID #30 tabs 12/25/23 oxycodone 5 mg tablet 5 mg PO Q8H PRN pain #6 tabs 12/25/23 pantoprazole 20 mg tablet,delayed 20 mg PO DAILY #30 tabs 12/25/23 release prednisone 10 mg tablets in a dose 10 mg PO DIRECTED #70 ea 12/25/23 pack Allergies Allergy/AdvReac Type Severity Reaction Status Date / Time No Known Allergies Allergy Verified 12/25/23 10:48 [No Known Allergies*] Review of Systems Review of Systems: Yes all other systems are reviewed and are negative [facility] Past Medical History Medical History Screening for hypercholesterolemia Screening for diabetes mellitus (DM) Community acquired pneumonia Transaminitis Alcohol use disorder, moderate, dependence Alcohol use disorder HTN (hypertension) Surgical History History of appendectomy Social History Social History Household Members: Family Housing: House Do you presently have visiting nurse or other home services: No Alcohol intake: current Alcohol intake frequency: 3 or more drinks per day Alcohol type: hard liquor Patient Tobacco Use Status: Never used Tobacco Smoked in Last 30 Days: No e-Cigarette/Vaping Use: Currently Using Second Hand Smoke Exposure: No Use of substances other than those prescribed or required for medical reasons: No Substance Use Type: Marijuana Advance Directives: No Advance Directives Information Provided: No service: No Current occupational status: employed Cognitive needs: No Hearing needs: No Vision needs: Yes (contact/glasses) Physical Exam ED Vital Signs: Vital Signs - 24 hr 12/25/23 10:46 12/25/23 17:01 12/25/23 18:00 Temperature 97.9 F 98.5 F 98.8 F Pulse Rate 102 H 94 91 Respiratory Rate 18 20 16 Blood Pressure 147/95 H 138/94 H 141/92 H Pulse Oximetry 95 98 97 Oxygen Delivery Method Room Air Room Air Room Air 12/25/23 20:16 Temperature 98.8 F Pulse Rate 99 Respiratory Rate 16 Blood Pressure 149/88 H Pulse Oximetry 97 Oxygen Delivery Method Room Air BMI result Body Mass Index 26.9 General: Alert, Not in Distress Skin: mild erythematous rash at the level of the 2nd metatersal area. There is also tenderness on palpation of the area. HEENT: Atraumatic, No Exudate or Pharyngeal Erythema Resp: Normal Breath sounds bilaterally Cardio: Regular rate and Rhythm, Normal S1, S2 ABD: Abd soft, non tender, no guarding or rebound. Normal Bowel sounds. : No cva tenderness Neuro: Alert, oriented x4, PERRL Strenght 5/5 on all extremities Sensation is preserved in both lower and upper extremities Index to nose: normal Cranial Nerves II-XII grossly intact No dysarthria, or aphasia No neglet. Visual mishra are normal bilaterally Psych: Cooperative, NO SI Left knee is not swollen There is tenderness on palpation of the knee. No fluctuance Neurovascular intact on all 4 extremity Course Reevaluation(s) Reevaluation #1: Patient reports minimal improve with pain with NSAIDs, colchicine and steroids. Will give 1 dose of opiate. I discussed at bedside outpatient treatment and the patient will like to try NSAIDs and steroids rather than colchicine since he had inconsistent results in the past. I think it is appropriate to discharge the patient on naproxen 500 mg twice a day. At this time I do not think patient requires further observation or admission. Time: 19:45 Reevaluation #2: Pain is still present but improved. We will give a 2nd dose of Toradol. Considering that the patient's symptoms have just mild improve after NSAID will prescribe also short course of oxycodone which I recommended the patient to use only if strictly necessary. Patient is okay with discharge him on naproxen and steroids. Prescription sent to patient's pharmacy. Time: 20:37 Medications Administered Discontinued Medications Generic Name Dose Route Start Last Admin Trade Name Brisa PRN Reason Stop Dose Admin Colchicine 1.2 mg 12/25/23 14:55 12/25/23 17:32 Colchicine 0.6 Mg Tablet PO 12/25/23 14:56 1.2 mg ONCE ONE Administration Colchicine 1.2 mg 12/25/23 17:00 12/25/23 17:33 Colchicine 0.6 Mg Tablet PO 12/25/23 17:01 Not Given ONCE ONE Ketorolac Tromethamine 30 mg 12/25/23 14:50 12/25/23 17:32 Ketorolac Tromethamine 30 Mg/Ml Vial IM 12/25/23 14:51 30 mg ONCE ONE Administration Ketorolac Tromethamine 30 mg 12/25/23 17:00 12/25/23 17:33 Ketorolac Tromethamine 30 Mg/Ml Vial IM 12/25/23 17:01 Not Given ONCE ONE Oxycodone HCl 5 mg 12/25/23 18:35 12/25/23 20:02 Oxycodone Hcl Immed Release 5 Mg Tablet PO 12/25/23 18:36 5 mg ONCE ONE Administration Prednisone 40 mg 12/25/23 14:55 12/25/23 17:32 Prednisone 20 Mg Tablet PO 12/25/23 14:56 40 mg ONCE ONE Administration Prednisone 40 mg 12/25/23 17:00 12/25/23 17:33 Prednisone 20 Mg Tablet PO 12/25/23 17:01 Not Given ONCE ONE Medical Decision Making Medical Decision Making [facility] Narrative: Patient presented to the emergency room for what it looks like gout exacerbation. Patient has been diagnosed with gout in the past but is not on any allopurinol, I personally reviewed the patient's old lab work which showed an elevated uric acid. He does not have any fever at this time I have very low suspicion for septic joint. Considering there are 2 joints involved will give patient is steroids as well as Toradol and colchicine. Admission/Observation Consideration of admission/observation: Escalation of care including admission/observation considered Lab Data [facility] Lab Attestation statement: I reviewed the patient's lab results. 12/25/23 14:42 12/25/23 14:42 Labs: Lab Results 12/25/23 Range/Units 14:42 WBC 12.6 H (4.8-10.8) X10*3/uL RBC 4.51 L (4.60-5.80) X10*6/uL Hgb 14.9 (14.0-18.0) g/dl Hct 43.6 (42.0-52.0) % MCV 96.7 (80.0-98.0) fL MCH 33.0 (27.0-33.0) pg MCHC 34.2 (31.0-36.0) g/dl RDW 13.4 (11.0-16.0) % Plt Count 298 D (160-400) X10*3/uL MPV 9.5 (9.4-12.4) fL Immature Gran % (Auto) 0.4 (0.0-0.4) % Neut % (Auto) 75.7 H (45-73) % Lymph % (Auto) 12.7 L (20-40) % [place] % (Auto) 9.9 (2-11) % Eos % (Auto) 0.8 (0-4) % Baso % (Auto) 0.5 (0-2) % Lymph # (Auto) 1.6 (1.2-4.9) X10*3/uL [place] # (Auto) 1.3 H (0.1-1.2) X10*3/uL Eos # (Auto) 0.1 (0.0-0.4) X10*3/uL Baso # (Auto) 0.1 (0.0-0.2) X10*3/uL Abs Immat Gran (auto) 0.05 H (0.00-0.03) X10*3/uL Absolute Neuts (auto) 9.5 H (2.0-8.3) x10*3/uL Absolute Nucleated RBC 0.000 (0.0-0.012) X10*3/uL Nucleated RBC % (auto) 0.0 (0.0-0.2) /100WBC Sodium 141 (135-145) mmol/L Potassium 4.1 (3.3-5.1) mmol/L Chloride 105 (96-108) mmol/L Carbon Dioxide 25 (22-29) mmol/L Anion Gap 15 (12-20) BUN 9 (9-16) mg/dL Creatinine 0.66 (0.5-1.4) mg/dL Estim Creat Clear Calc 193.8 Estimated GFR > 60 Random Glucose 107 (60-115) mg/dL Uric Acid 12.0 H (3.4-7.0) mg/dL Calcium 9.9 (8.4-10.2) mg/dL Magnesium 1.7 (1.6-2.6) mg/dL Total Bilirubin 1.8 H (0.0-1.0) mg/dL AST 41 H (5-37) U/L ALT 75 H (0-40) U/L Alkaline Phosphatase 62 (39-117) U/L Total Protein 8.4 H (6.5-8.0) g/dL Albumin 4.3 (3.5-5.0) g/dL Independent Interpretation I performed an independent interpretation of an: Plain X-Ray (I personally reviewed patient's chest x-ray which was normal and as well patient's foot x-ray which showed no fracture. ) Discharge Plan Discharge Clinical Impression: Gout attack Patient Disposition: Home, Self-Care Additional Instructions: You were seen emergency room for gout exacerbation. Chest x-ray, x-ray of the foot were unremarkable, your uric acid was elevated and we would like you to discuss with your primary care physician the use of allopurinol if indicated. In the meantime while you are having this exacerbation allopurinol is contraindicated because may worsened symptoms Take prednisone 40 mg once a day for 7 days and then taper down as instructed For pain control you can take naproxen 500 mg twice a day for the next 2 weeks For the 1st few days you can also use oxycodone 5 mg every 6 hours. This medication may upset your stomach therefore I prescribed you also 20 mg daily of the pantoprazole. Prescriptions: New naproxen 500 mg tablet 500 mg PO BID Qty: 30 0RF pantoprazole 20 mg tablet,delayed release (DR/EC) 20 mg PO DAILY Qty: 30 0RF prednisone 10 mg tablets,dose pack 10 mg PO DIRECTED Qty: 70 0RF Rx Instructions: take 40 mg ( 4 tablet) for 7 days then 30 mg once a day for 7 days then 20mg once a day for 7 days and then 10 mg for 7 days oxycodone 5 mg tablet 5 mg PO Q8H PRN (Reason: pain) Qty: 6 0RF Rx Instructions: Partial Fill upon patient request. No Action prednisone 20 mg tablet 40 mg PO DAILY 5 Days Qty: 10 0RF tramadol 50 mg tablet 50 mg PO BID 4 Days Qty: 8 0RF colchicine 0.6 mg tablet 0.6 mg PO DAILY 30 Days Qty: 30 3RF ketorolac 10 mg tablet 10 mg PO TID PRN (Reason: pain) 5 Days Qty: 15 0RF prednisone 50 mg tablet 50 mg PO DAILY 5 Days Qty: 5 0RF prednisone 20 mg tablet 40 mg PO DAILY Qty: 10 0RF ketorolac 10 mg tablet 10 mg PO TID PRN (Reason: pain) 5 Days Qty: 15 0RF colchicine 0.6 mg tablet 0.6 mg PO DAILY Qty: 10 0RF prednisone 20 mg tablet 20 mg PO DAILY Qty: 3 0RF (DME) blood pressure test kit-large Kit See Rx Instructions .Route Qty: 1 0RF Rx Instructions: As directed hydroxyzine HCl 25 mg tablet 25 mg PO BEDTIME PRN (Reason: sleep) 20 Days Qty: 20 1RF Stand Alone Forms: Work/School Release
[2023-12-25 17:01] VITALS: BP 138/94; PULSE 94; RESP 20; TEMP 36.9; O2SAT 98
[2023-12-25] MEDS: Ketorolac Tromethamine 30 MG/ML VIAL IM (17:32)
[2023-12-25] MEDS: Colchicine 0.6 MG TABLET 1.2 MG PO (17:32)
[2023-12-25] MEDS: predniSONE 20 MG TABLET 40 MG PO (17:32)
--- NOTE | 2023-12-25 17:36 | PC.NURSE ---
Medicated as charted for 10/10 left knee burning, cramp like pain d/t gout. No other sx reported. Skin pwd. Breathing easy and unlabored
[2023-12-25 18:00] VITALS: BP 141/92; PULSE 91; RESP 16; TEMP 37.1; O2SAT 97
--- NOTE | 2023-12-25 18:11 | MHC.EDTECH ---
Brought patient a pitcher of ice water.
--- NOTE | 2023-12-25 18:37 | MHC.EDTECH ---
Put patient on heart monitor.
[2023-12-25] MEDS: oxyCODONE HCl Immed Release 5 MG TABLET PO (20:02)
[2023-12-25 20:16] VITALS: BP 149/88; PULSE 99; RESP 16; TEMP 37.1; O2SAT 97
[2023-12-25] MEDS: Ketorolac Tromethamine 15 MG/ML VIAL IVPUSH (20:57)
[2023-12-25 20:58] VITALS: BP 143/82; PULSE 110; RESP 14; O2SAT 94
== END 2023-12-25 21:05 | disposition home or self-care (01) ==
PROVIDERS: Physician Assistant Medical; Emergency Provider Student in an Organized Health Care Education/Training Program; PCP Physician Assistant
DX: M10.062 Idiopathic gout, left knee (principal); R07.89 Other chest pain; M79.672 Pain in left foot; M25.562 Pain in left knee; Z79.899 Other long term (current) drug therapy
CPT/HCPCS: 36415; 71046; 73620; 80053; 83735; 84550; 85025; 93005; 96372; 96374; 99284; J1885

== ENCOUNTER → 2023-12-25 10:39 | Outpatient (BNV) | payer OTHER, SELFPAY | PROVIDERS: PCP Physician Assistant; Visit Provider Internal Medicine Cardiovascular Disease | DX: R07.9 Chest pain, unspecified (principal) | CPT/HCPCS: 93010 ==

== ENCOUNTER 2023-12-29 12:58 | Emergency (ER) | payer OTHER, SELFPAY ==
--- NOTE | ~2023-12-29 | XR_ITS ---
EXAMINATION: XR KNEE, LEFT CLINICAL INFORMATION: Reason for Exam pain and swelling COMPARISON: None TECHNIQUE: 4 views of the knee FINDINGS: No acute fracture or dislocation. Joint spaces are maintained. Moderate suprapatellar joint effusion. Soft tissues are unremarkable. XR/XR knee LT 3V IMPRESSION: * No acute osseous abnormality. * Joint spaces are maintained without significant degenerative change. Moderate suprapatellar joint effusion.
--- NOTE | 2023-12-29 13:00 | ED.GENADULT ---
HPI - General Adult General Chief complaint: Extremity Injury, Lower Stated complaint: L Knee Pain Swelling No Injury Time Seen by Provider: 12/29/23 14:04 Source: patient Mode of arrival: ambulatory Limitations: no limitations History of Present Illness HPI narrative: 33-year-old male with past medical history significant for hypertension, transaminitis and alcohol dependence presents to the ED today for evaluation of atraumatic painful and swollen left knee. Patient was seen in our ED 4 days ago. He was diagnosed with gout of the left knee and left foot via lab work. No imaging of the knee was obtained. Joint aspiration was not performed. He was discharged home with oxycodone, prednisone and naproxen. He presents today with continued 10/10 pain despite 4 days of treatment. 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 Denies fever, chills. Denies IV drug use. Denies recent tick or insect bites. Related Data Previous Rx's Medication Instructions Recorded blood pressure test kit-large #1 ea 12/21/21 prednisone 20 mg tablet 40 mg (2 x 20 mg) PO DAILY 5 days 02/26/23 #10 tabs hydroxyzine HCl 25 mg tablet 25 mg PO BEDTIME PRN sleep 20 days 03/27/23 #20 tabs colchicine 0.6 mg tablet 0.6 mg PO DAILY #10 tabs 08/18/23 prednisone 20 mg tablet 20 mg PO DAILY #3 tabs 08/18/23 tramadol 50 mg tablet 50 mg PO BID pain 4 days #8 tabs 08/19/23 colchicine 0.6 mg tablet 0.6 mg PO DAILY 30 days #30 tabs 10/03/23 ketorolac 10 mg tablet 10 mg PO TID PRN pain 5 days #15 12/10/23 tabs prednisone 50 mg tablet 50 mg PO DAILY 5 days #5 tabs 12/10/23 ketorolac 10 mg tablet 10 mg PO TID PRN pain 5 days #15 12/15/23 tabs prednisone 20 mg tablet 40 mg (2 x 20 mg) PO DAILY #10 tabs 12/15/23 naproxen 500 mg tablet 500 mg PO BID #30 tabs 12/25/23 oxycodone 5 mg tablet 5 mg PO Q8H PRN pain #6 tabs 12/25/23 pantoprazole 20 mg tablet,delayed 20 mg PO DAILY #30 tabs 12/25/23 release prednisone 10 mg tablets in a dose 10 mg PO DIRECTED #70 ea 12/25/23 pack morphine 15 mg immediate release 15 mg PO Q12H PRN pain (scale 12/29/23 tablet score 7-10) #2 tabs Allergies Allergy/AdvReac Type Severity Reaction Status Date / Time No Known Allergies Allergy Verified 12/25/23 10:48 [No Known Allergies*] Review of Systems Review of Systems: Constitutional: No fever, chills, fatigue, night sweats, weight changes ENT/Mouth: No ear pain, hearing loss, nasal congestion, sinus pain, rhinorrhea, sore throat Eyes: No eye pain, swelling, redness, vision changes, discharge Cardio: No chest pain, palpitations, MC, orthopnea, peripheral edema Pulm: No SOB, cough, sputum, wheezing, dyspnea, hemoptysis GI: No nausea, vomiting, hematemesis, abdominal pain, diarrhea, constipation, hematochezia, melena : No irregular bleeding, dysuria, frequency, urgency, hesitancy, hematuria, flank pain, urinary flow changes, urinary incontinence or retention MSK: No back pain, neck pain, joint pain, myalgias, +knee pain/swelling Skin: No lesions, rashes Neuro: No weakness, numbness, paresthesias, LOC, dizziness, headache Psych: No anxiety/panic, depression, SI/HI, AH/VH All other systems reviewed and are negative. [facility] Past Medical History Attestation statement: The following information was validated with the patient. Source: old records reviewed and nursing notes reviewed Medical History Screening for hypercholesterolemia Screening for diabetes mellitus (DM) Community acquired pneumonia Transaminitis Alcohol use disorder, moderate, dependence Alcohol use disorder HTN (hypertension) Surgical History History of appendectomy Social History Social History Household Members: Family Housing: House Do you presently have visiting nurse or other home services: No Alcohol intake: current Alcohol intake frequency: 3 or more drinks per day Alcohol type: hard liquor Patient Tobacco Use Status: Never used Tobacco Smoked in Last 30 Days: No e-Cigarette/Vaping Use: Currently Using Second Hand Smoke Exposure: No Use of substances other than those prescribed or required for medical reasons: No Substance Use Type: Marijuana Advance Directives: No Advance Directives Information Provided: No service: No Current occupational status: employed Cognitive needs: No Hearing needs: No Vision needs: Yes (contact/glasses) Physical Exam ED Vital Signs: Vital Signs - 24 hr 12/29/23 13:18 12/29/23 15:03 12/29/23 19:05 Temperature 98.2 F 97.8 F 98.2 F Pulse Rate 90 88 75 Respiratory Rate 16 20 18 Blood Pressure 120/82 136/79 130/73 Pulse Oximetry 96 97 98 Oxygen Delivery Method Room Air Room Air Room Air BMI result Body Mass Index 28.1 Vital signs stable Const General: cooperative, healthy appearing, comfortable and no acute distress Orientation/consciousness: patient oriented x3 Limitations: no limitations HENMT Head: Yes normal to inspection, Yes No palpable skull fracture present, Yes normocephalic and Yes atraumatic Eyes General: appearance normal, both eyes and all related structures Pupils: Equal, round and reactive pupils present Neck Neck: Yes normal visual inspection Resp Effort & Inspection: normal respiratory effort Auscultation: clear to auscultation bilaterally Cardio Rate: regular rate Rhythm: regular rhythm Skin General skin exam: no rashes or lesions noted Neuro Other: + antalgic gait secondary to pain + Strength 5/5 intact throughout.? No saddle anesthesia.? Sensation intact to light touch.? Neurovascular intact distally.? General: patient oriented x3 Cranial nerves: Yes Equal, round and reactive pupils present Extrem Other: + moderate amount of swelling noted to left knee. Warm to the touch. No overlying cellulitic changes. Diffusely tender to palpation, greater along the lateral and posterior aspect. No palpable deformity. No pitting edema noted to the left lower extremity. 2+ DP and PT pulses. No calf tenderness. Course Course Course Narrative: This is a rapid medical exam: Additional HPI, ROS, PE not included below will be deferred to primary provider. Patient is a 33-year-old male with history of gout, HTN, alcohol use disorder presenting to the ED with complaint of left knee pain and swelling. Denies injury, fevers. Seen here on 12/24 and diagnosed with gout, states has been taking meds he was prescribed but last night pain worsened. Plan: xray, labs Reevaluation(s) Reevaluation #1: 4666-- Patient with slight leukocytosis to 11.9 however improved since visit 4 days ago. Stable anemia. Chemistry without acute electrolyte abnormality requiring intervention. Uric acid 9.2, improved from 12 4 days ago. Chronically elevated liver enzymes secondary to EtOH abuse. Elevated inflammatory markers. X-ray of the knee does not show acute fracture or osseous abnormality. It does show moderate suprapatellar joint effusion. > joint aspiration performed to left knee. Written consent obtained. This was a sterile procedure. Lidocaine was injected and then approximately 30 cc of fluid was removed from the joint. Dr. Han was at bedside supervising and assisting. Patient tolerated procedure well with minimal amount of pain. He was administered morphine prior to procedure due to 10/10 pain. Fluid sent to lab to assess for infection vs gout. Patient will be called with any positive results. Presentation most consistent with gout however due to patient's continued pain without even slight improvement with medication regimen, needle aspiration was performed. Knee was wrapped with Colton wrap. Patient requesting pain medication to go home with. I advised him that he can take the naproxen that was prescribed to him 4 days ago along with the oxycodone. He states that he ran out of the oxycodone. I will prescribe him 2 tablets of morphine for him to take for breakthrough pain following today's procedure. I will not send any other controlled substance to pharmacy. > educated patient on the importance of a low purine diet. He states he was unaware of this and will now make the appropriate dietary changes > Patient has remained stable throughout ED visit today. Discussed worrisome signs and symptoms and when to return to the ED. All questions answered at this time. Patient is agreeable with disposition and stable for discharge. Medications Administered Discontinued Medications Generic Name Dose Route Start Last Admin Trade Name Freq PRN Reason Stop Dose Admin Ketorolac Tromethamine 30 mg 12/29/23 14:56 12/29/23 15:17 Ketorolac Tromethamine 30 Mg/Ml Vial IM 12/29/23 14:57 30 mg ONCE ONE Administration Lidocaine HCl 5 ml 12/29/23 16:15 12/29/23 17:39 Lidocaine Hcl 1 % Mpf 5 Ml Vial INFILTRATI 12/29/23 16:16 5 ml ONCE ONE Administration Lidocaine HCl 5 ml 12/29/23 16:15 12/29/23 17:40 Lidocaine Hcl 1 % Mpf 5 Ml Vial INFILTRATI 12/29/23 16:16 5 ml ONCE ONE Administration Morphine Sulfate 4 mg 12/29/23 17:15 12/29/23 17:39 Morphine Sulfate 4 Mg/Ml Cartridge IVPUSH 12/29/23 17:16 4 mg ONCE ONE Administration Protocol Procedures Joint Aspiration/Injection Joint Asp./Inject. 1: Time Out Performed: Yes Side of body: left Joint Aspirated: knee Ultrasound Guidance: No Skin Prep: Povidone-Iodine1% Local Anesthetic: lidocaine 1% Amount of anesthesia used (mL): 5 Needle Size Used: 18G Fluid Obtained: bloody Total fluid obtained (mL): 30 Medication Injected, if any: Lidocaine Amount of medication injected (mL): 5 Patient Tolerated Procedure: well Complications: none Orthopedic Splinting/Casting Injury #1: Side: left Lower Extremity Injury Location: knee Lower Extremity Immobilizer: Colton wrap Medical Decision Making Medical Decision Making [facility] Narrative: 33-year-old male with past medical history significant for hypertension, transaminitis and alcohol dependence presents to the ED today for evaluation of atraumatic painful and swollen left knee. Vital signs stable. Afebrile. On exam, there is moderate amount of swelling noted to left knee. Warm to the touch. No overlying cellulitic changes. Diffusely tender to palpation, greater along the lateral and posterior aspect. No palpable deformity. No pitting edema noted to the left lower extremity. 2+ DP and PT pulses. No calf tenderness. Differential diagnosis includes gout, pseudogout, septic joint, arthritis. Low suspicion for fracture, dislocation, neurovascular compromise, threat to limb, compartment syndrome, Lyme arthritis Plan for labs, x-ray +/-aspiration Differential Diagnosis Differential Diagnoses: The differential diagnosis associated with the presentation includes As above Admission/Observation Not indicated Lab Data [facility] Lab Attestation statement: I reviewed the patient's lab results. as above. 12/29/23 13:29 12/29/23 13:29 Labs: Lab Results 12/29/23 12/29/23 Range/Units 13:29 18:44 WBC 11.9 H (4.8-10.8) X10*3/uL RBC 4.10 L (4.60-5.80) X10*6/uL Hgb 13.8 L (14.0-18.0) g/dl Hct 40.6 L (42.0-52.0) % MCV 99.0 H (80.0-98.0) fL MCH 33.7 H (27.0-33.0) pg MCHC 34.0 (31.0-36.0) g/dl RDW 13.2 (11.0-16.0) % Plt Count 279 (160-400) X10*3/uL MPV 9.2 L (9.4-12.4) fL Immature Gran % (Auto) 0.5 H (0.0-0.4) % Neut % (Auto) 88.5 H (45-73) % Lymph % (Auto) 7.5 L (20-40) % Stearns % (Auto) 2.7 (2-11) % Eos % (Auto) 0.3 (0-4) % Baso % (Auto) 0.5 (0-2) % Lymph # (Auto) 0.9 L (1.2-4.9) X10*3/uL Stearns # (Auto) 0.3 (0.1-1.2) X10*3/uL Eos # (Auto) 0.0 (0.0-0.4) X10*3/uL Baso # (Auto) 0.1 (0.0-0.2) X10*3/uL Abs Immat Gran (auto) 0.06 H (0.00-0.03) X10*3/uL Absolute Neuts (auto) 10.5 H (2.0-8.3) x10*3/uL Absolute Nucleated RBC 0.000 (0.0-0.012) X10*3/uL Nucleated RBC % (auto) 0.0 (0.0-0.2) /100WBC ESR 34 H (0-15) MM/HR Sodium 140 (135-145) mmol/L Potassium 4.4 (3.3-5.1) mmol/L Chloride 106 (96-108) mmol/L Carbon Dioxide 24 (22-29) mmol/L Anion Gap 14 (12-20) BUN 15 (9-16) mg/dL Creatinine 0.75 (0.5-1.4) mg/dL Estim Creat Clear Calc 184.6 Estimated GFR > 60 Random Glucose 155 H (60-115) mg/dL Uric Acid 9.2 H (3.4-7.0) mg/dL Calcium 9.3 D (8.4-10.2) mg/dL Total Bilirubin 0.5 (0.0-1.0) mg/dL AST 160 H (5-37) U/L ALT 148 H (0-40) U/L Alkaline Phosphatase 61 (39-117) U/L C-Reactive Protein 0.74 H (< or = 0.50) mg/dL Total Protein 7.5 (6.5-8.0) g/dL Albumin 4.0 (3.5-5.0) g/dL Synovial Source knee Independent Interpretation I performed an independent interpretation of an: Plain X-Ray Interpretation: I reviewed x-ray of left knee and agree with radiologist's interpretation. I also reviewed x-ray of left foot obtained on 12/25/2023 and agree with radiologist's interpretation. Radiology Impression Discussion of test interpretation with radiology: I have reviewed the radiologist's reading. Radiologist Impression: EXAMINATION: XR KNEE, LEFT CLINICAL INFORMATION: Reason for Exam pain and swelling COMPARISON: None TECHNIQUE: 4 views of the knee FINDINGS: No acute fracture or dislocation. Joint spaces are maintained. Moderate suprapatellar joint effusion. Soft tissues are unremarkable. XR/XR knee LT 3V IMPRESSION: * No acute osseous abnormality. * Joint spaces are maintained without significant degenerative change. Moderate suprapatellar joint effusion. Critical Care Time Critical Care Time Critical Care Time: Yes Total Critical Care Time: 40 Attestation: Critical care time in the amount of 40 minutes has been provided to the patient in terms of direct patient care, frequent reevaluation on IV morphine, review and interpretation of medical data and results, and management of potentially life-threatening conditions. This is all outside of any medical procedures. Discharge Plan Discharge Clinical Impression: Gout attack Qualifiers: Gout site: knee Laterality: left Patient Disposition: Home, Self-Care Instructions: Low Purine Diet (ED), Gout (ED), Swollen Ankle Joint (ED) Additional Instructions: You were evaluated in the ED today for swelling of your left knee. The x-ray of your left knee shows a moderate amount of fluid within the joint however no other abnormality is noted. Your knee was drained via needle aspiration and the fluid has been sent to the lab for evaluation. You will be called with any positive results. You likely are having an acute gout attack. Continue taking the naproxen and prednisone prescribed to you at your visit on December 24. As discussed, you need to make diet changes in order to prevent gout flare-ups. Limit red meat. Stop drinking alcohol. This is harmful to your health and will increase symptoms. See the low purine diet sheet attached to this paperwork. Keep the Colton wrap on your knee to help with compression swelling. Morphine has been sent to your pharmacy for you to take for breakthrough pain. Follow-up with your PCP as scheduled this month. Prescriptions: New morphine 15 mg tablet 15 mg PO Q12H PRN (Reason: pain (scale score 7-10)) Qty: 2 0RF Rx Instructions: Partial Fill upon patient request. No Action prednisone 20 mg tablet 40 mg PO DAILY 5 Days Qty: 10 0RF tramadol 50 mg tablet 50 mg PO BID 4 Days Qty: 8 0RF colchicine 0.6 mg tablet 0.6 mg PO DAILY 30 Days Qty: 30 3RF ketorolac 10 mg tablet 10 mg PO TID PRN (Reason: pain) 5 Days Qty: 15 0RF prednisone 50 mg tablet 50 mg PO DAILY 5 Days Qty: 5 0RF prednisone 20 mg tablet 40 mg PO DAILY Qty: 10 0RF ketorolac 10 mg tablet 10 mg PO TID PRN (Reason: pain) 5 Days Qty: 15 0RF colchicine 0.6 mg tablet 0.6 mg PO DAILY Qty: 10 0RF prednisone 20 mg tablet 20 mg PO DAILY Qty: 3 0RF naproxen 500 mg tablet 500 mg PO BID Qty: 30 0RF pantoprazole 20 mg tablet,delayed release (DR/EC) 20 mg PO DAILY Qty: 30 0RF prednisone 10 mg tablets,dose pack 10 mg PO DIRECTED Qty: 70 0RF Rx Instructions: take 40 mg ( 4 tablet) for 7 days then 30 mg once a day for 7 days then 20mg once a day for 7 days and then 10 mg for 7 days oxycodone 5 mg tablet 5 mg PO Q8H PRN (Reason: pain) Qty: 6 0RF Rx Instructions: Partial Fill upon patient request. (DME) blood pressure test kit-large Kit See Rx Instructions .Route Qty: 1 0RF Rx Instructions: As directed hydroxyzine HCl 25 mg tablet 25 mg PO BEDTIME PRN (Reason: sleep) 20 Days Qty: 20 1RF Referrals: Stanley Grewal PA-C [Primary Care Provider] - Stand Alone Forms: Work/School Release Interventions: ED Discharge Assessment Last Done: 12/29/23 19:05 Discharge Date/Time: 12/29/23 19:06
[2023-12-29 13:18] VITALS: BP 120/82; PULSE 90; RESP 16; TEMP 36.8; O2SAT 96; BMI 28.1
[2023-12-29 13:33] LABS: MANUAL DIFF FLAG NO
[2023-12-29 13:35] LABS: Basophils Absolute Auto 0.1 X10*3/uL (0.0-0.2); Basophils Percent Auto 0.5 % (0-2); Eosinophils Percent Auto 0.3 % (0-4); Hematocrit 40.6 % (42.0-52.0); Hemoglobin 13.8 g/dl (14.0-18.0); Imm Gran Abs Auto 0.06 X10*3/uL (0.00-0.03); Imm Gran Pct Auto 0.5 % (0.0-0.4); Lymphocytes Absolute Auto 0.9 X10*3/uL (1.2-4.9); Lymphocytes Percent Auto 7.5 % (20-40); Mean Corpuscular Hemoglobin 33.7 pg (27.0-33.0); Mean Platelet Volume 9.2 fL (9.4-12.4); Monocytes Absolute Auto 0.3 X10*3/uL (0.1-1.2); Monocytes Percent Auto 2.7 % (2-11); Neutrophils Absolute Auto 10.5 x10*3/uL (2.0-8.3); Neutrophils Percent Auto 88.5 % (45-73); Platelet Count 279 X10*3/uL (160-400); Red Cell Distribution Width 13.2 % (11.0-16.0); White Blood Count 11.9 X10*3/uL (4.8-10.8)
[2023-12-29 13:50] LABS: Alanine Aminotransferase 148 U/L (0-40); Alkaline Phosphatase 61 U/L (39-117); Anion Gap 14 (12-20); Aspartate Amino Transferase 160 U/L (5-37); Bilirubin Total 0.5 mg/dL (0.0-1.0); Blood Urea Nitrogen 15 mg/dL (9-16); C Reactive Protein 0.74 mg/dL (< or = 0.50); Calcium 9.3 mg/dL (8.4-10.2); Carbon Dioxide 24 mmol/L (22-29); Chloride 106 mmol/L (96-108); Creatinine Clr Calc Pharmacy 184.6; Estimated Glomerular Filt Rate > 60; Glucose Random 155 mg/dL (60-115); Potassium 4.4 mmol/L (3.3-5.1); Sodium 140 mmol/L (135-145); Total Protein 7.5 g/dL (6.5-8.0); Uric Acid 9.2 mg/dL (3.4-7.0)
[2023-12-29 15:02] LABS: Erythrocyte Sedimentation Rate 34 MM/HR (0-15)
[2023-12-29 15:03] VITALS: BP 136/79; PULSE 88; RESP 20; TEMP 36.6; O2SAT 97
[2023-12-29] MEDS: Ketorolac Tromethamine 30 MG/ML VIAL IM (15:17)
[2023-12-29] MEDS: Morphine Sulfate 4 MG/ML CARTRIDGE IVPUSH (17:39)
[2023-12-29] MEDS: Lidocaine HCl 1 % MPF 5 ML VIAL INFILTRATI ×2 (17:39→17:40)
[2023-12-29 18:55] LABS: Source Synovial Fluid knee
[2023-12-29 19:02] LABS: MN% 27.3 %; PMN% 72.7 %; RBC Synovial Fluid 0.199 X10*6/uL; WBC Synovial Fluid 3.873 X10*3/uL
[2023-12-29 19:05] VITALS: BP 130/73; PULSE 75; RESP 18; TEMP 36.8; O2SAT 98
[2023-12-29 19:06] LABS: BF Shift QC OK YES
[2023-12-29 19:59] LABS: Lymphocytes Synovial Fluid 18 %; Monocytes Synovial Fluid 3 %; Neutrophils Synovial Fluid 79 %
[2024-01-02 07:38] LABS: Uric Acid Synovial Fluid 7.9
== END 2023-12-29 19:06 | disposition home or self-care (01) ==
PROVIDERS: Physician Assistant Medical; Registered Nurse Emergency; Emergency Provider Emergency Medicine; PCP Physician Assistant
DX: M10.9 Gout, unspecified (principal); I10 Essential (primary) hypertension
CPT/HCPCS: 20610; 36415; 73562; 80053; 84550; 84560; 85025; 85652; 86140; 87070; 87073; 87205; 89051; 89060; 96372; 96374; 99284; J1885; J2270

== ENCOUNTER 2024-01-07 08:33 | Outpatient (AMB) | payer OTHER, SELFPAY ==
[2024-01-07 08:37] VITALS: BP 148/86; BMI 27.1
--- NOTE | 2024-01-07 08:37 | A.OFFPC_ITS ---
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 Accompanied by: Self / Same As Patient Allergies No Known Allergies [No Known Allergies*] Allergy (Verified 01/07/24 08:45) Medication List - Last Reconciled 01/07/24 by Stanley Grewal PA-C blood pressure test kit-large As directed naproxen 500 mg PO BID pantoprazole 20 mg PO DAILY prednisone 10 mg PO DIRECTED Tobacco use date assessed: 01/07/24 Dental Screening Dental Screen Date: 01/07/24 Did you have a dental visit in the last 12 months?: No Did you have a dental problem in the last 6 months where you did not have access to dental care?: No Was dental information given to patient?: Patient has dentist HPI [facility] HPI Details Patient is a 33-year-old male here today for an ER follow-up visit. Was seen at the ER for acute knee pain. Knee aspiration showed positive crystals though no evidence of septic arthritis. Patient was discharged with prednisone. We believe his most recent gout flare was brought on by alcohol intake. Has been using colchicine a daily basis for prophylactic treatment though does not seem to be helping. He is willing to try new treatment for prophylaxis and acute gout flare treatment. He is also reporting be continues to have difficulty with sleeping. Has tried trazodone and hydroxyzine without significant effectiveness. He also reports recurrent epistaxis that has been evident since he was a young child. He denies any major trauma to his nose. He reports he gets more frequent epistaxis in warm environments. Will plan to have him evaluated by ENT Laboratory Tests 03/27/20 06/28/21 12/25/23 07:37 11:53 14:42 WBC Uric Acid 12.0 H AST ALT C-Reactive Protein Synovial WBC Synovial Neutrophi ls Synovial Uric Acid Ethyl Alcohol 89 35 12/29/23 12/29/23 12/29/23 13:29 13:29 18:44 WBC 11.9 H Uric Acid 9.2 H AST 160 H ALT 148 H C-Reactive Protein 0.74 H Synovial WBC 3.873 Synovial Neutrophi ls 79 Synovial Uric Acid 7.9 Ethyl Alcohol PFSH Medical History Screening for hypercholesterolemia Screening for diabetes mellitus (DM) Community acquired pneumonia Transaminitis Alcohol use disorder, moderate, dependence Alcohol use disorder HTN (hypertension) Surgical History History of appendectomy Social History Household Members: Family Housing: House Do you presently have visiting nurse or other home services: No Alcohol intake: current Alcohol intake frequency: 3 or more drinks per day Alcohol type: hard liquor Patient Tobacco Use Status: Never used Tobacco e-Cigarette/Vaping Use: Currently Using Second Hand Smoke Exposure: No Substance Use Type: Marijuana service: No Current occupational status: employed Current occupational exposures/hazards: No Cognitive needs: No Hearing needs: No Vision needs: Yes (contact/glasses) Questionnaire PHQ-9 Over the last 2 weeks, how often have you been bothered by any of the following problems? 1. Little interest or pleasure in doing things: not at all 2. Feeling down, depressed, or hopeless: not at all 3. Trouble falling or staying asleep, or sleeping too much: not at all 4. Feeling tired or having little energy: not at all 5. Poor appetite or overeating: not at all 6. Feeling bad about yourself - or that you are a failure or have let yourself or your family down: not at all 7. Trouble concentrating on things, such as reading the newspaper or watching television: not at all 8. Moving or speaking so slowly that other people could have noticed. Or the opposite - being so fidgety or restless that you have been moving around a lot more than usual: not at all 9. Thoughts that you would be better off or of hurting yourself in some way: not at all Total score: 0 Depression Screening Interpretation: Negative Depression Screening Done: Yes 60733 - PHQ-9 Billing: Yes Source: Developed by Drs. González Kelley, Ritu Thomas, Mervin Weber and colleagues, with an educational isaías from [employer]. Thrive Questionnaire Date Thrive assessed: 01/07/24 I am a: Patient What is your living situation today?: I have a steady place to live Within the past 12 months, did the food you bought not last and you didn't have the money to get more?: Never true Within the past 12 months, did you worry whether your food would run out before you got money to buy more?: Never true Do you have trouble paying for medicines?: No Do you have trouble getting transportation to medical appointments?: No Do you have trouble paying your heating and electricity bill?: No Do you have trouble taking care of your child, family member or friend?: No Do you have trouble with day-to-day activities such as bathing, preparing meals, shopping, managing finances, etc.?: No Are you currently unemployed and looking for a job?: No Are you interested in more education?: No Please select the resources that you would like help with: None Currently or been in a relationship where the following occur: no concerns reported THRIVE Score: 0 AUDIT C Alcohol Use Questionnaire (AUDIT-C) 1. How often do you have a drink containing alcohol?: 2-4 times a month 2. How many drinks containing alcohol do you have on a typical day when you are drinking?: 1 or 2 3. How often do you have six or more drinks on one occasion?: Never Total Score: 2 STARLA-7 AMB Questionnaire STARLA-7 Date STARLA - 7 assessed: 01/07/24 Feeling nervous, anxious, or on edge: 0 = Not at all Not being able to stop or control worryin = Not at all Worrying too much about different things: 0 = Not at all Trouble relaxin = Not at all Being so restless that it is hard to sit still: 0 = Not at all Becoming easily annoyed or irritable: 0 = Not at all Feeling afraid as if something awful might happen: 0 = Not at all Total STARLA-7 score (0-4 normal; 5-9 mild; 10-14 moderate; 15-21 severe): 0 Source: Developed by Drs. González Kelley, Ritu Thomas, Mervin Weber and colleagues, with an educational isaías from [employer] STARLA-7 Assessment Billing STARLA-7 Assessment Tool: STARLA-7 Assessment 40074 Review of Systems Const Denies headache(s) Eyes Denies loss of vision ENT Denies vertigo, Denies dizziness, Denies headache(s) and Denies sore throat Card Denies chest pain, Denies leg edema and Denies lightheadedness Resp Denies cough, Denies hemoptysis and Denies wheezing GI Denies abdominal pain, Denies melena, Denies constipation, Denies diarrhea and Denies vomiting Denies dysuria, Denies urinary frequency and Denies urinary urgency Musc Denies arthralgias, Denies joint swelling, Denies numbness and Denies tingling Neuro Denies Abnormal speech present, Denies behavioral changes, Denies vertigo, Denies dizziness, Denies headache(s), Denies loss of vision, Denies memory loss, Denies numbness and Denies tingling Psych Denies anxiety, Denies behavioral changes, Denies depression, Denies memory loss and Denies panic attacks Nino/Lymph Denies easy bleeding and Denies easy bruising Aller/Immun Denies wheezing Physical exam (Primary Care) Vital Signs: Last Vital Signs BP 148/86 H 01/07/24 08:37 BMI result Body Mass Index 27.1 Tobacco/Smoking Status: Tobacco use Status Tobacco use date assessed 01/07/24 01/07/24 08:38 Patient Tobacco Use Status Never used Tobacco 01/07/24 08:37 e-Cigarette/Vaping Use Currently Using 01/07/24 08:37 PHQ-9: PHQ-9 Score PHQ-9: Total score 0 01/07/24 08:43 Depression Screening Interpretation: Negative Thrive Assessment: Date of Thrive Assessment Date Thrive assessed 01/07/24 01/07/24 08:43 Currently or been in a relationship where the following occur: no concerns reported Const General: healthy appearing, no acute distress, alert and awake Nutritional Appearance: well nourished Orientation/consciousness: oriented to person, oriented to place and oriented to time HENMT Ears: TM's normal bilaterally General nose exam: Normal nasal mucous membranes and turbinates present Eyes Conjunctivae: conjunctivae normal Sclerae: sclerae normal Pupils: Equal, round and reactive pupils present Neck Neck: Yes no lymphadenopathy and Yes no JVD Thyroid: Thyroid normal Carotids: no bruits Resp Effort & Inspection: normal respiratory effort and not tachypneic Auscultation: no crackles, no rales, no rhonchi and no wheezes Cardio Rate: regular rate Rhythm: regular rhythm Heart sounds: no murmurs and normal S1 and S2 GI Palpation (GI): Soft to palpation, nontender, no hepatomegaly and no splenomegaly Auscultation: normal bowel sounds Skin General skin exam: no rashes or lesions noted and dry skin Neuro General: oriented to person, oriented to place and oriented to time Cranial nerves: Yes Equal, round and reactive pupils present Speech: No Abnormal speech present Gait exam (Neuro): Normal gait present Motor exam (neuro): no tremor noted Extrem Right upper extremity: full ROM Left upper extremity: full ROM Right lower extremity: full ROM; no edema Left lower extremity: full ROM; no edema Psych Mental Status: mental status grossly normal Speech and movement: Normal speech and movement present Affect: normal affect Attitude: cooperative Thought process: Normal thought process present Assessment and Plan Assessment & Plan (1) Gout: Code(s): M10.9 - Gout, unspecified Qualifiers: Gout etiology: idiopathic Gout site: knee Laterality: left Presence of tophus: without tophus Plan: Patient continues to have chronic gout with acute flares. Will likely benefit from lowering his uric acid levels. Advised on low purine diet. Will start allopurinol 200 mg daily. Also will try colchicine for acute flares. (2) Insomnia: Code(s): G47.00 - Insomnia, unspecified Qualifiers: Insomnia type: primary Qualified Code(s): F51.01 - Primary insomnia Plan: Continues to have trouble sleeping. Will try doxepin before bed for sleep. (3) Epistaxis: Code(s): R04.0 - Epistaxis Plan: As per HPI has been having chronic issue with intermittent epistaxis. No major trauma to his nose. Will refer to ENT for evaluation of his intermittent epistaxis for Orders: Referrals Ear/Nose/Throat Referral R04.0 - Epistaxis Medications: New allopurinol 200 mg PO DAILY 90 days 90 tabs 1RF M10.9 - Gout, unspecified doxepin 10 mg PO BEDTIME 30 days 30 caps 1RF F51.01 - Primary insomnia colchicine To use during acute flares 1.2 mg (2 x 0.6 mg) PO DAILY 5 days 10 tabs 0RF M10.9 - Gout, unspecified Coding Level of Care Code Est Pt Level 4 (10943) Diagnoses Gout M10.9 Gout etiology: idiopathic Gout site: knee Laterality: left Presence of tophus: without tophus Primary insomnia F51.01 Insomnia type: primary Epistaxis R04.0 Additional Codes STARLA-7 Assessment Billing - STARLA-7 Assessment Tool: STARLA-7 Assessment [id number] ([id number])
== END 2024-01-07 08:59 | disposition home or self-care (01) ==
PROVIDERS: PCP Physician Assistant; Visit Provider Physician Assistant
DX: M10.9 Gout, unspecified (principal); F51.01 Primary insomnia; R04.0 Epistaxis
CPT/HCPCS: 99214

== ENCOUNTER 2024-02-04 10:13 | Outpatient (AMB) | payer OTHER, SELFPAY ==
--- NOTE | 2024-02-04 10:16 | A.OFFPC_ITS ---
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: No Accompanied by: Self / Same As Patient Allergies No Known Allergies [No Known Allergies*] Allergy (Verified 02/04/24 10:28) Medication List - Last Reconciled 02/04/24 by Stanley Grewal PA-C allopurinol 200 mg (2 x 100 mg) PO DAILY 90 days blood pressure test kit-large As directed colchicine 1.2 mg (2 x 0.6 mg) PO DAILY PRN 30 days doxepin 10 mg PO BEDTIME 30 days naproxen 500 mg PO BID pantoprazole 20 mg PO DAILY prednisone 10 mg PO DIRECTED Tobacco use date assessed: 01/07/24 Dental Screening Dental Screen Date: 01/07/24 HPI F/U on Medication Change HPI Details Patient is a 33-year-old male here today for follow-up visit. Patient has a past medical history significant for gout, insomnia, hypertension, chronic intermittent epistaxis .. Gout: Last visit we discussed his recurrent gout attacks and was started on allopurinol which has been helpful in reducing his gout pain and recurrent attacks. He does have colchicine to use for acute attacks. .. Alcohol use disorder: He does report binge drinking on the weekends. He is interested in medication to deter him from drinking alcohol. Will start Antabus in follow-up in a few weeks. .. Elevated blood pressure readings: Noted elevated blood pressure reading today in office. He has not interested in starting any blood pressure medication at this time. He will work on lifestyle modifications.. He does not monitor his blood pressure at home. He will start monitoring his blood pressure at home to evaluate for blood pressures over 140/90. PLAN: Will consider starting lisinopril 5 mg for elevated blood pressure reading [facility] Medical History Screening for hypercholesterolemia Screening for diabetes mellitus (DM) Community acquired pneumonia Transaminitis Alcohol use disorder, moderate, dependence Alcohol use disorder HTN (hypertension) Surgical History History of appendectomy Social History Household Members: Family Housing: House Do you presently have visiting nurse or other home services: No Alcohol intake: current Alcohol intake frequency: 3 or more drinks per day Alcohol type: hard liquor Patient Tobacco Use Status: Never used Tobacco e-Cigarette/Vaping Use: Currently Using Second Hand Smoke Exposure: No Substance Use Type: Marijuana service: No Current occupational status: employed Current occupational exposures/hazards: No Cognitive needs: No Hearing needs: No Vision needs: Yes (contact/glasses) Questionnaire Thrive Questionnaire Date Thrive assessed: 01/07/24 STARLA-7 AMB Questionnaire STARLA-7 Date STARLA - 7 assessed: 01/07/24 Source: Developed by Drs. González Kelley, Ritu Thomas, Mervin Weber and colleagues, with an educational isaías from [employer]. Review of Systems Const Denies headache(s) Eyes Denies loss of vision ENT Denies vertigo, Denies dizziness, Denies headache(s) and Denies sore throat Card Denies chest pain, Denies leg edema and Denies lightheadedness Resp Denies cough, Denies hemoptysis and Denies wheezing GI Denies abdominal pain, Denies melena, Denies constipation, Denies diarrhea and Denies vomiting Denies dysuria, Denies urinary frequency and Denies urinary urgency Musc Denies arthralgias, Denies joint swelling, Denies numbness and Denies tingling Neuro Denies Abnormal speech present, Denies behavioral changes, Denies vertigo, Denies dizziness, Denies headache(s), Denies loss of vision, Denies memory loss, Denies numbness and Denies tingling Psych Denies anxiety, Denies behavioral changes, Denies depression, Denies memory loss and Denies panic attacks Nino/Lymph Denies easy bleeding and Denies easy bruising Aller/Immun Denies wheezing Physical exam (Primary Care) Vital Signs: Last Vital Signs Pulse 99 02/04/24 10:25 BP 140/90 H 02/04/24 10:25 Pulse Ox 98 02/04/24 10:25 Oxygen Delivery Method Room Air 02/04/24 10:25 BMI result Body Mass Index 27.7 Tobacco/Smoking Status: Tobacco use Status Tobacco use date assessed 01/07/24 02/04/24 10:16 Patient Tobacco Use Status Never used Tobacco 02/04/24 10:16 e-Cigarette/Vaping Use Currently Using 02/04/24 10:16 Thrive Assessment: Date of Thrive Assessment Date Thrive assessed 01/07/24 02/04/24 10:16 Const General: healthy appearing, no acute distress, alert and awake Nutritional Appearance: well nourished Orientation/consciousness: oriented to person, oriented to place and oriented to time HENMT Ears: TM's normal bilaterally General nose exam: Normal nasal mucous membranes and turbinates present Eyes Conjunctivae: conjunctivae normal Sclerae: sclerae normal Pupils: Equal, round and reactive pupils present Neck Neck: Yes no lymphadenopathy and Yes no JVD Thyroid: Thyroid normal Carotids: no bruits Resp Effort & Inspection: normal respiratory effort and not tachypneic Auscultation: no crackles, no rales, no rhonchi and no wheezes Cardio Rate: regular rate Rhythm: regular rhythm Heart sounds: no murmurs and normal S1 and S2 GI Palpation (GI): Soft to palpation, nontender, no hepatomegaly and no splenomegaly Auscultation: normal bowel sounds Skin General skin exam: no rashes or lesions noted and dry skin Neuro General: oriented to person, oriented to place and oriented to time Cranial nerves: Yes Equal, round and reactive pupils present Speech: No Abnormal speech present Gait exam (Neuro): Normal gait present Motor exam (neuro): no tremor noted Extrem Right upper extremity: full ROM Left upper extremity: full ROM Right lower extremity: full ROM; no edema Left lower extremity: full ROM; no edema Psych Mental Status: mental status grossly normal Speech and movement: Normal speech and movement present Affect: normal affect Attitude: cooperative Thought process: Normal thought process present Assessment and Plan Assessment & Plan (1) Alcohol use disorder: Plan: Patient interested in medication to deter him alcohol intake. Will start Antabus. Follow-up in 6 weeks to evaluate effectiveness of the medication. (2) HTN (hypertension): Code(s): I10 - Essential (primary) hypertension Qualifiers: Hypertension type: primary hypertension Qualified Code(s): I10 - Essential (primary) hypertension Plan: Patient's blood pressure remains slightly elevated today in office. He will commence blood pressure readings at home and follow-up in 6 weeks and if blood pressure is consistently above 140/90 will start low-dose lisinopril. (3) Gout: Code(s): M10.9 - Gout, unspecified Qualifiers: Gout site: knee Gout etiology: idiopathic Laterality: left Presence of tophus: without tophus Chronicity: chronic Qualified Code(s): M1A.0620 - Idiopathic chronic gout, left knee, without tophus (tophi) Plan: Gout has been much better since starting allopurinol. He has been trying to reduce his alcohol intake. Will continue him on allopurinol as mainstay of tr eatment. He will use colchicine for acute gout attacks. 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
[2024-02-04 10:25] VITALS: BP 140/90; PULSE 99; O2SAT 98; BMI 27.7
== END 2024-02-04 10:44 | disposition home or self-care (01) ==
PROVIDERS: Visit Provider Physician Assistant
DX: F10.90 Alcohol use, unspecified, uncomplicated (principal); I10 Essential (primary) hypertension; M1A.0620 Idiopathic chronic gout, left knee, without tophus (tophi)
CPT/HCPCS: 99214

== ENCOUNTER 2024-02-09 13:28 | Emergency (ER) | payer OTHER, SELFPAY ==
[2024-02-09 14:03] VITALS: BP 142/99; PULSE 110; RESP 18; TEMP 37.1; O2SAT 97; BMI 28.1
--- NOTE | 2024-02-09 16:35 | ED_ITS ---
HPI - General Adult General Chief complaint: Extremity Injury, Lower Stated complaint: Gout flare up Time Seen by Provider: 02/09/24 16:20 Source: patient Mode of arrival: wheelchair Limitations: no limitations History of Present Illness HPI narrative: Patient is a 33-year-old male with past medical history of gout, hypertension, alcohol use disorder presenting to emergency department for evaluation of painful left ankle with personal concern for gout flare. He admits to having consumed a large amount of alcohol over the past 2 days which typically triggers his gout. He has been taking allopurinol as prescribed by his primary care provider, began taking colchicine yesterday, but feels as though the pain is only worsening. He denies any numbness tingling to the foot/ankle. He denies any fevers or chills. Currently reporting 07/23 pain. Denies the use of any NSAIDs today for pain management. Denies any recent injury. Related Data Previous Rx's ?Medication ?Instructions ?Recorded blood pressure test kit-large #1 ea 12/21/21 naproxen 500 mg tablet 500 mg PO BID #30 tabs 12/25/23 pantoprazole 20 mg tablet,delayed 20 mg PO DAILY #30 tabs 12/25/23 release prednisone 10 mg tablets in a dose 10 mg PO DIRECTED #70 ea 12/25/23 pack doxepin 10 mg capsule 10 mg PO BEDTIME 30 days #30 caps 01/07/24 allopurinol 100 mg tablet 200 mg (2 x 100 mg) PO DAILY 90 01/27/24 days #180 tabs colchicine 0.6 mg tablet 1.2 mg (2 x 0.6 mg) PO DAILY PRN 01/27/24 acute gout flares 30 days #60 tabs disulfiram 500 mg tablet 500 mg PO DAILY 21 days #21 tabs 02/04/24 oxycodone 5 mg tablet 5 mg PO Q6H PRN pain #7 tabs 02/09/24 prednisone 10 mg tablet 10 mg PO DIRECTED #30 tabs 02/09/24 Allergies Allergy/AdvReac Type Severity Reaction Status Date / Time No Known Allergies Allergy Verified 02/09/24 14:06 [No Known Allergies*] Review of Systems 2 Review of Systems: Yes all other systems are reviewed and are negative PMFSH Past Medical History Attestation statement: The following information was validated with the patient. Source: old records reviewed Medical History Screening for hypercholesterolemia Screening for diabetes mellitus (DM) Community acquired pneumonia Transaminitis Alcohol use disorder, moderate, dependence Alcohol use disorder HTN (hypertension) Surgical History History of appendectomy Social History Social History Household Members: Family Housing: House Do you presently have visiting nurse or other home services: No Alcohol intake: current Alcohol intake frequency: 3 or more drinks per day Alcohol type: hard liquor Patient Tobacco Use Status: Never used Tobacco e-Cigarette/Vaping Use: Currently Using Second Hand Smoke Exposure: No Substance Use Type: Marijuana Advance Directives: No Advance Directives Information Provided: No Do you have a plan to hurt others: No Plan service: No Current occupational status: employed Current occupational exposures/hazards: No Cognitive needs: No Hearing needs: No Vision needs: Yes (contact/glasses) Physical Exam ED Vital Signs: Vital Signs - 24 hr 02/09/24 14:03 02/09/24 16:43 Temperature 98.7 F 99 F Pulse Rate 110 H 87 Respiratory Rate 18 20 Blood Pressure 142/99 H 144/91 H Pulse Oximetry 97 99 Oxygen Delivery Method Room Air Room Air BMI result Body Mass Index 28.1 Appearance: Alert.?Oriented to person, place and time. No acute distress.?Normal affect. Eyes: Pupils equal, round and reactive to light.? ENT: Pharynx normal.?? Neck: Normal inspection.? Neck supple.?? CVS: Heart sounds normal. Normal heart rate and rhythm.? Pulses normal.?? Respiratory: No respiratory distress.? Lung sounds clear to auscultation bilaterally?? Abdomen: Soft and non-tender. Normoactive bowel sounds. ? Skin: Skin warm and dry.? Normal skin color.? Extremities: No lower extremity edema.? No calf ttp. 2+ DP/PT pulse bilaterally. Left ankle is not swollen, there is diffuse tenderness upon palpation, no rashes or lesions, no fluctuance. no external erythema or warmth upon palpation. Neuro: Moves all extremities spontaneously. Sensation intact bilaterally. CN II- XII intact. No focal neuro deficits. Ambulates with normal Antalgic gait. Course Reevaluation(s) Reevaluation #1: Pain has aluminum really improved after Toradol injection. Patient is requesting prescription medication to take home for further management. Pharmacy is closed and he denies access to 24 hour pharmacy locally. Requesting prescriptions be sent to pharmacy despite it being closed. Will receive a dose of prednisone and a single dose of oxycodone in the emergency department. Discussed worrisome signs and symptoms that would warrant re-evaluation in the emergency department. Advised outpatient follow-up with primary care provider Time: 18:01 Medications Administered Discontinued Medications Generic Name Dose Route Start Last Admin Trade Name Freq PRN Reason Stop Dose Admin Ketorolac Tromethamine 30 mg 02/09/24 16:49 02/09/24 17:05 Ketorolac Tromethamine 30 Mg/Ml Vial IM 02/09/24 16:50 30 mg ONCE ONE Administration Medical Decision Making Medical Decision Making [facility] [place] Narrative: Patient is a 33-year-old male with past medical history of gout, hypertension, alcohol use disorder presenting to emergency department for evaluation of painful left ankle with personal concern for gout flare. Upon review of medical records this is patient's visit for a gouty flare within the past 4 months discussed with patient that he should schedule follow-up visit with primary care provider to discuss prophylactic/preventative medication flare given the increased frequency of episodes. On further review he was seen by his primary care provider on 02/04/2024, he had been started on allopurinol in December of 2023, which he felt was reducing frequency of these attacks, he was also given colchicine to use as needed during acute attacks. at this time he appears uncomfortable, but nontoxic. No fever, tachycardia, erythema or warmth, have a low suspicion for septic joint. Atraumatic, have low suspicion for fracture / dislocation. Single joint involvement at this time, will trial pain management with Toradol. Differential Diagnosis Differential Diagnoses: The differential diagnosis associated with the presentation includes ( as noted above) Admission/Observation Consideration of admission/observation: Escalation of care including admission/observation considered ( as noted above) Lab Data [facility] [place] Lab Attestation statement: I reviewed the patient's lab results. 02/09/24 17:24 02/09/24 17:24 Labs: Lab Results 02/09/24 Range/Units 17:24 WBC 7.9 (4.8-10.8) X10*3/uL RBC 4.39 L (4.60-5.80) X10*6/uL Hgb 14.8 (14.0-18.0) g/dl Hct 41.2 L (42.0-52.0) % MCV 93.8 (80.0-98.0) fL MCH 33.7 H (27.0-33.0) pg MCHC 35.9 (31.0-36.0) g/dl RDW 13.8 (11.0-16.0) % Plt Count 185 D (160-400) X10*3/uL MPV 9.6 (9.4-12.4) fL Immature Gran % (Auto) 0.3 (0.0-0.4) % Neut % (Auto) 69.6 (45-73) % Lymph % (Auto) 19.4 L (20-40) % [place] % (Auto) 8.2 (2-11) % Eos % (Auto) 1.9 (0-4) % Baso % (Auto) 0.6 (0-2) % Lymph # (Auto) 1.5 (1.2-4.9) X10*3/uL [place] # (Auto) 0.7 (0.1-1.2) X10*3/uL Eos # (Auto) 0.2 (0.0-0.4) X10*3/uL Baso # (Auto) 0.1 (0.0-0.2) X10*3/uL Abs Immat Gran (auto) 0.02 (0.00-0.03) X10*3/uL Absolute Neuts (auto) 5.5 (2.0-8.3) x10*3/uL Absolute Nucleated RBC 0.000 (0.0-0.012) X10*3/uL Nucleated RBC % (auto) 0.0 (0.0-0.2) /100WBC Sodium 141 (135-145) mmol/L Potassium 3.5 D (3.3-5.1) mmol/L Chloride 105 (96-108) mmol/L Carbon Dioxide 25 (22-29) mmol/L Anion Gap 15 (12-20) BUN 4 L (9-16) mg/dL Creatinine 0.65 (0.5-1.4) mg/dL Estim Creat Clear Calc 213.1 Estimated GFR > 60 Random Glucose 89 (60-115) mg/dL Uric Acid 7.5 H (3.4-7.0) mg/dL Calcium 9.4 (8.4-10.2) mg/dL External Record Review External record reviewed: Outpatient record and 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 You may continue taking the allopurinol As you have been. A prescription for prednisone was sent to your pharmacy, please take this taper as prescribed. For pain that is unrelieved by this you may trial oxycodone. This is a narcotic medication. It may make you drowsy And it can be addictive. You should not drive, drink alcohol, or work while taking this medication. As discussed, alcohol is often cause for increased frequency of gout flare-ups. Please work with your doctor /insurance regarding the disulfiram /Antabuse that was prescribed for you, and tried to decrease amount of alcohol intake. Prescriptions: New prednisone 10 mg tablet 10 mg PO DIRECTED Qty: 30 0RF Rx Instructions: see taper instructions Take 40 mg ( 4 tablets ) daily for 3 days Then take 30 mg ( 3 tablets ) daily for 3 days Then take 20 mg ( 2 tablets ) daily for 3 days Then take 10 mg ( 1 tablet) daily for 3 days oxycodone 5 mg tablet 5 mg PO Q6H PRN (Reason: pain) Qty: 7 0RF Rx Instructions: Partial Fill upon patient request. No Action colchicine 0.6 mg tablet 1.2 mg PO DAILY PRN (Reason: acute gout flares) 30 Days Qty: 60 1RF Rx Instructions: To use during acute flares allopurinol 100 mg tablet 200 mg PO DAILY 90 Days Qty: 180 1RF naproxen 500 mg tablet 500 mg PO BID Qty: 30 0RF pantoprazole 20 mg tablet,delayed release (DR/EC) 20 mg PO DAILY Qty: 30 0RF prednisone 10 mg tablets,dose pack 10 mg PO DIRECTED Qty: 70 0RF Rx Instructions: take 40 mg ( 4 tablet) for 7 days then 30 mg once a day for 7 days then 20mg once a day for 7 days and then 10 mg for 7 days (DME) blood pressure test kit-large Kit See Rx Instructions .Route Qty: 1 0RF Rx Instructions: As directed disulfiram 500 mg tablet 500 mg PO DAILY 21 Days Qty: 21 0RF doxepin 10 mg capsule 10 mg PO BEDTIME 30 Days Qty: 30 1RF Referrals: Stanley Grewal PA-C [Primary Care Provider] - Print Language: Niuean
[2024-02-09 16:43] VITALS: BP 144/91; PULSE 87; RESP 20; TEMP 37.2; O2SAT 99
[2024-02-09] MEDS: Ketorolac Tromethamine 30 MG/ML VIAL IM (17:05)
[2024-02-09 17:33] LABS: MANUAL DIFF FLAG NO
[2024-02-09 17:34] LABS: Basophils Absolute Auto 0.1 X10*3/uL (0.0-0.2); Basophils Percent Auto 0.6 % (0-2); Eosinophils Absolute Auto 0.2 X10*3/uL (0.0-0.4); Eosinophils Percent Auto 1.9 % (0-4); Hematocrit 41.2 % (42.0-52.0); Hemoglobin 14.8 g/dl (14.0-18.0); Imm Gran Abs Auto 0.02 X10*3/uL (0.00-0.03); Imm Gran Pct Auto 0.3 % (0.0-0.4); Lymphocytes Absolute Auto 1.5 X10*3/uL (1.2-4.9); Lymphocytes Percent Auto 19.4 % (20-40); Mean Corpuscular HGB Conc 35.9 g/dl (31.0-36.0); Mean Corpuscular Hemoglobin 33.7 pg (27.0-33.0); Mean Corpuscular Volume 93.8 fL (80.0-98.0); Mean Platelet Volume 9.6 fL (9.4-12.4); Monocytes Absolute Auto 0.7 X10*3/uL (0.1-1.2); Monocytes Percent Auto 8.2 % (2-11); Neutrophils Absolute Auto 5.5 x10*3/uL (2.0-8.3); Neutrophils Percent Auto 69.6 % (45-73); Platelet Count 185 X10*3/uL (160-400); Red Blood Count 4.39 X10*6/uL (4.60-5.80); Red Cell Distribution Width 13.8 % (11.0-16.0); White Blood Count 7.9 X10*3/uL (4.8-10.8)
[2024-02-09 17:47] LABS: Anion Gap 15 (12-20); Blood Urea Nitrogen 4 mg/dL (9-16); Calcium 9.4 mg/dL (8.4-10.2); Carbon Dioxide 25 mmol/L (22-29); Chloride 105 mmol/L (96-108); Creatinine Clr Calc Pharmacy 213.1; Estimated Glomerular Filt Rate > 60; Glucose Random 89 mg/dL (60-115); Potassium 3.5 mmol/L (3.3-5.1); Sodium 141 mmol/L (135-145); Uric Acid 7.5 mg/dL (3.4-7.0)
[2024-02-09] MEDS: oxyCODONE HCl Immed Release 5 MG TABLET PO (18:47)
[2024-02-09] MEDS: predniSONE 20 MG TABLET 40 MG PO (18:47)
[2024-02-09 18:52] VITALS: BP 144/91; PULSE 87; RESP 20; TEMP 37.2; O2SAT 99
== END 2024-02-09 18:53 | disposition home or self-care (01) ==
PROVIDERS: Nurse Practitioner Family; Emergency Provider Internal Medicine; PCP Physician Assistant
DX: M1A.0620 Idiopathic chronic gout, left knee, without tophus (tophi) (principal); I10 Essential (primary) hypertension; Z79.899 Other long term (current) drug therapy
CPT/HCPCS: 36415; 80048; 84550; 85025; 96372; 99283; 99284; J1885

== ENCOUNTER 2024-02-16 19:33 | Emergency (ER) | payer OTHER, SELFPAY ==
[2024-02-16 19:44] VITALS: BP 132/87; PULSE 117; RESP 18; TEMP 37.2; O2SAT 98; BMI 27.5
[2024-02-16] MEDS: Ketorolac Tromethamine 60 MG/2 ML VIAL IM (21:45)
[2024-02-16] MEDS: dexAMETHasone 2 MG TABLET 10 MG PO (21:46)
[2024-02-16] MEDS: Morphine Sulfate Immed Release 15 MG TABLET PO (23:07)
--- NOTE | 2024-02-16 23:07 | PC.NURSE ---
pt medicated per DEC fro 06/23 right knee pain.
--- NOTE | 2024-02-16 23:56 | PC.NURSE ---
med not in pyxis, supervisory civil engineer will bring from 3rd floor.
[2024-02-17] VITALS: BP 135/76; PULSE 86; RESP 16; TEMP 36.9; O2SAT 94
[2024-02-17] MEDS: Colchicine 0.6 MG TABLET 1.2 MG PO (00:02)
--- NOTE | 2024-02-17 00:42 | ED_ITS ---
HPI - Extremity Problem General Chief complaint: Extremity Problem Stated complaint: Flare up in both knees Time Seen by Provider: 02/16/24 21:25 Source: patient Mode of arrival: ambulatory Limitations: no limitations History of Present Illness HPI Narrative: Patient's history of gouty arthritis of the knee for last 2 years on allopurinol had few drinks and red meat for last few days started having increased pain in the right knee for last 2 days got worse today patient has been taking allopurinol without much relief did not take his colchicine no fever no skin color changes has slight fusion in the right knee Related Data Previous Rx's ?Medication ?Instructions ?Recorded blood pressure test kit-large #1 ea 12/21/21 naproxen 500 mg tablet 500 mg PO BID #30 tabs 12/25/23 pantoprazole 20 mg tablet,delayed 20 mg PO DAILY #30 tabs 12/25/23 release prednisone 10 mg tablets in a dose 10 mg PO DIRECTED #70 ea 12/25/23 pack doxepin 10 mg capsule 10 mg PO BEDTIME 30 days #30 caps 01/07/24 allopurinol 100 mg tablet 200 mg (2 x 100 mg) PO DAILY 90 01/27/24 days #180 tabs colchicine 0.6 mg tablet 1.2 mg (2 x 0.6 mg) PO DAILY PRN 01/27/24 acute gout flares 30 days #60 tabs disulfiram 500 mg tablet 500 mg PO DAILY 21 days #21 tabs 02/04/24 oxycodone 5 mg tablet 5 mg PO Q6H PRN pain #7 tabs 02/09/24 prednisone 10 mg tablet 10 mg PO DIRECTED #30 tabs 02/09/24 disulfiram 250 mg tablet 500 mg (2 x 250 mg) PO DAILY 30 02/11/24 days #60 tabs indomethacin 50 mg capsule 50 mg PO QID #30 caps 02/17/24 prednisone 20 mg tablet 40 mg (2 x 20 mg) PO DAILY #10 tabs 02/17/24 Allergies Allergy/AdvReac Type Severity Reaction Status Date / Time No Known Allergies Allergy Verified 02/16/24 19:47 [No Known Allergies*] Review of Systems Review of Systems: Yes all other systems are reviewed and are negative PMFSH Past Medical History Medical History Screening for hypercholesterolemia Screening for diabetes mellitus (DM) Community acquired pneumonia Transaminitis Alcohol use disorder, moderate, dependence Alcohol use disorder HTN (hypertension) Surgical History History of appendectomy Social History Social History Household Members: Family Housing: House Do you presently have visiting nurse or other home services: No Alcohol intake: current Alcohol intake frequency: 3 or more drinks per day Alcohol type: hard liquor Patient Tobacco Use Status: Never used Tobacco Smoked in Last 30 Days: Yes e-Cigarette/Vaping Use: Currently Using Second Hand Smoke Exposure: No Use of substances other than those prescribed or required for medical reasons: Yes Substance Use Type: Marijuana Substance Use Frequency: Daily Last Used Substance: Days (ago) Any prior treatment program specific to substance use: No Advance Directives: No Advance Directives Information Provided: No Do you have a plan to hurt others: No Plan service: No Current occupational status: employed Current occupational exposures/hazards: No Cognitive needs: No Hearing needs: No Vision needs: Yes (contact/glasses) Physical Exam Vital Signs: Vital Signs: Last Vital Signs Temp 98.5 F 02/17/24 01:08 Pulse 85 02/17/24 01:08 Resp 18 02/17/24 01:08 BP 133/71 02/17/24 01:08 Pulse Ox 94 02/17/24 01:08 O2 Del Method Room Air 02/17/24 01:08 BMI result Body Mass Index 27.5 Appearance: Alert. Oriented X3. Moderate distress. + ENT: Pharynx normal. Oral Mucosa moist Neck: Normal inspection. Neck supple. CVS: Normal heart rate and rhythm. Pulses normal. Respiratory: No respiratory distress. Equal air entry bilateral, Abdomen: Soft and nontender. Bowel sounds are present, no mass palpable, no CVA tenderness Skin: Skin warm and dry. Normal skin color. Normal skin turgor. Extremities: Right knee with mild effusion good range of movement tender diffuse Neuro: Oriented X 3. Medications Administered Discontinued Medications Generic Name Dose Route Start Last Admin Trade Name Freq PRN Reason Stop Dose Admin Colchicine 1.2 mg 02/16/24 23:48 02/17/24 00:02 Colchicine 0.6 Mg Tablet PO 02/16/24 23:49 1.2 mg ONCE ONE Administration Dexamethasone 10 mg 02/16/24 21:37 02/16/24 21:46 Dexamethasone 2 Mg Tablet PO 02/16/24 21:38 10 mg ONCE ONE Administration Ketorolac Tromethamine 60 mg 02/16/24 21:37 02/16/24 21:45 Ketorolac Tromethamine 60 Mg/2 Ml Vial IM 02/16/24 21:38 60 mg ONCE ONE Administration Morphine Sulfate 15 mg 02/16/24 22:57 02/16/24 23:07 Morphine Sulfate Immed Release 15 Mg Tablet PO 02/16/24 22:58 15 mg ONCE ONE Administration Medical Decision Making Medical Decision Making MDM Narrative: Patient with gouty arthritis right knee felt better after Toradol Decadron and colchicine will discharge patient does seen in prednisone advised to continue colchicine Discharge Plan Discharge Clinical Impression: Gout Patient Disposition: Home, Self-Care Instructions: Low Purine Diet (ED), Gout (ED) Additional Instructions: Continue allopurinol and colchicine daily Pain medication as prescribed Do not have red meat and alcohol as it can precipitate gouty attack Prescriptions: New prednisone 20 mg tablet 40 mg PO DAILY Qty: 10 0RF indomethacin 50 mg capsule 50 mg PO QID Qty: 30 0RF Rx Instructions: administer with food or milk No Action colchicine 0.6 mg tablet 1.2 mg PO DAILY PRN (Reason: acute gout flares) 30 Days Qty: 60 1RF Rx Instructions: To use during acute flares allopurinol 100 mg tablet 200 mg PO DAILY 90 Days Qty: 180 1RF disulfiram 250 mg tablet 500 mg PO DAILY 30 Days Qty: 60 0RF naproxen 500 mg tablet 500 mg PO BID Qty: 30 0RF pantoprazole 20 mg tablet,delayed release (DR/EC) 20 mg PO DAILY Qty: 30 0RF prednisone 10 mg tablets,dose pack 10 mg PO DIRECTED Qty: 70 0RF Rx Instructions: take 40 mg ( 4 tablet) for 7 days then 30 mg once a day for 7 days then 20mg once a day for 7 days and then 10 mg for 7 days prednisone 10 mg tablet 10 mg PO DIRECTED Qty: 30 0RF Rx Instructions: see taper instructions Take 40 mg ( 4 tablets ) daily for 3 days Then take 30 mg ( 3 tablets ) daily for 3 days Then take 20 mg ( 2 tablets ) daily for 3 days Then take 10 mg ( 1 tablet) daily for 3 days oxycodone 5 mg tablet 5 mg PO Q6H PRN (Reason: pain) Qty: 7 0RF Rx Instructions: Partial Fill upon patient request. (DME) blood pressure test kit-large Kit See Rx Instructions .Route Qty: 1 0RF Rx Instructions: As directed disulfiram 500 mg tablet 500 mg PO DAILY 21 Days Qty: 21 0RF doxepin 10 mg capsule 10 mg PO BEDTIME 30 Days Qty: 30 1RF Interventions: ED Discharge Assessment Last Done: 02/17/24 01:08 Discharge Date/Time: 02/17/24 00:50 Print Language: Citizen Of [place]
[2024-02-17 01:08] VITALS: BP 133/71; PULSE 85; RESP 18; TEMP 36.9; O2SAT 94
== END 2024-02-17 00:50 | disposition home or self-care (01) ==
PROVIDERS: Emergency Provider Internal Medicine; PCP Physician Assistant
DX: M10.9 Gout, unspecified (principal); I10 Essential (primary) hypertension
CPT/HCPCS: 96372; 99284; J1885; J8540

== ENCOUNTER 2024-03-14 11:23 | Emergency (ER) | payer OTHER, SELFPAY ==
[2024-03-14 11:29] VITALS: BP 148/85; PULSE 104; RESP 22; TEMP 37.2; O2SAT 103; BMI 27.5
--- NOTE | 2024-03-14 11:32 | ED_ITS ---
HPI - Extremity Problem General Chief complaint: Extremity Problem Stated complaint: RT leg pain and stiffness Time Seen by Provider: 03/14/24 12:52 History of Present Illness HPI Narrative: Patient complains of 1 day of right knee pain and swelling same as prior episodes of gout, pain is severe, he denies any redness swelling or fever, it is in the right knee, it is very painful to straighten it or bend it, it is hard to bear weight on it, this is the same way it has presented twice in the past with his knee There was no injury there is no back pain no numbness weakness or tingling no rash no redness no warmth Related Data Previous Rx's ?Medication ?Instructions ?Recorded blood pressure test kit-large #1 ea 12/21/21 naproxen 500 mg tablet 500 mg PO BID #30 tabs 12/25/23 pantoprazole 20 mg tablet,delayed 20 mg PO DAILY #30 tabs 12/25/23 release prednisone 10 mg tablets in a dose 10 mg PO DIRECTED #70 ea 12/25/23 pack doxepin 10 mg capsule 10 mg PO BEDTIME 30 days #30 caps 01/07/24 allopurinol 100 mg tablet 200 mg (2 x 100 mg) PO DAILY 90 01/27/24 days #180 tabs colchicine 0.6 mg tablet 1.2 mg (2 x 0.6 mg) PO DAILY PRN 01/27/24 acute gout flares 30 days #60 tabs disulfiram 500 mg tablet 500 mg PO DAILY 21 days #21 tabs 02/04/24 oxycodone 5 mg tablet 5 mg PO Q6H PRN pain #7 tabs 02/09/24 prednisone 10 mg tablet 10 mg PO DIRECTED #30 tabs 02/09/24 disulfiram 250 mg tablet 500 mg (2 x 250 mg) PO DAILY 30 02/11/24 days #60 tabs indomethacin 50 mg capsule 50 mg PO QID #30 caps 02/17/24 prednisone 20 mg tablet 40 mg (2 x 20 mg) PO DAILY #10 tabs 02/17/24 colchicine 0.6 mg tablet 0.6 mg PO BID #10 tabs 03/14/24 naproxen 500 mg tablet (Naprosyn) 500 mg PO BID PRN pain #20 tabs 03/14/24 oxycodone 5 mg tablet 5 mg PO Q4-6H PRN pain 3 days #14 03/14/24 tabs prednisone 20 mg tablet 60 mg (3 x 20 mg) PO DAILY 5 days 03/14/24 #15 tabs Allergies Allergy/AdvReac Type Severity Reaction Status Date / Time No Known Allergies Allergy Verified 03/14/24 11:30 [No Known Allergies*] [facility] Past Medical History Source: nursing notes reviewed Medical History Screening for hypercholesterolemia Screening for diabetes mellitus (DM) Community acquired pneumonia Transaminitis Alcohol use disorder, moderate, dependence Alcohol use disorder HTN (hypertension) Surgical History History of appendectomy Social History Social History (Reviewed 02/17/24 @ 02: by Perfecto Han MD) Household Members: Family Housing: House Do you presently have visiting nurse or other home services: No Alcohol intake: current Alcohol intake frequency: 3 or more drinks per day Alcohol type: hard liquor Patient Tobacco Use Status: Never used Tobacco e-Cigarette/Vaping Use: Currently Using Second Hand Smoke Exposure: No Substance Use Type: Marijuana Advance Directives: No Advance Directives Information Provided: No service: No Current occupational status: employed Current occupational exposures/hazards: No Cognitive needs: No Hearing needs: No Vision needs: Yes (contact/glasses) Physical Exam Vital Signs: Vital Signs: Last Vital Signs Temp 98.9 F 03/14/24 11:29 Pulse 104 H 03/14/24 11:29 Resp 22 H 03/14/24 11:29 BP 148/85 H 03/14/24 11:29 Pulse Ox 103 H 03/14/24 11:29 BMI result Body Mass Index 27.5 General appearance uncomfortable no acute distress Head normocephalic atraumatic Neck is supple Respiratory no distress Extremities the right knee is very mildly swollen it is a normal color there is no redness no obvious effusion no warmth, there is diffuse tenderness, it is held in about 45 degrees of flexion and is too painful to straighten or bend, it is neurovascular intact distal the skin is all normal there are no rashes there is no calf swelling or tenderness, tenderness is all in the knee joint Course Course Course Narrative: This is an RME: Additional HPI, ROS, PE not included below will be deferred to primary provider. RME assessment and note performed by: Karyn Engle PA-C This is a 33-year-old male, with a history of gouty arthritis, who presents emergency department with complaints of severe right knee pain. Patient states that he did not take his gout medication he typically takes, allopurinol and colchicine and noticed a flare. Right knee is warm, with tenderness to palpation. Pt states that he would like to get pain medication in the ER for flare up. Plan: Pain management, re-eval As knee was initially held in 45 degrees and he would not straighten or bend it I advised that I tap the joint to make sure it has not an early infection he said he did not want to do that and I suggested we would observe for awhile after treatment for both gout and pain He was given prednisone colchicine Toradol and oxycodone with very good relief of pain After treatment and observation for over an hour he was able to extend it almost 2 180 degrees it was no longer a locked joint, I doubt very much this is a septic joint and it is very likely to be gout and I agreed with him that we would not tap it at this time He is advised to return tomorrow for re-evaluation and immediately if it gets wo rse Medications Administered Discontinued Medications Generic Name Dose Route Start Last Admin Trade Name Brisa PRN Reason Stop Dose Admin Colchicine 1.2 mg 03/14/24 13:33 03/14/24 13:42 Colchicine 0.6 Mg Tablet PO 03/14/24 13:34 1.2 mg ONCE ONE Administration Ketorolac Tromethamine 60 mg 03/14/24 13:30 03/14/24 13:39 Ketorolac Tromethamine 60 Mg/2 Ml Vial IM 03/14/24 13:31 60 mg ONCE ONE Administration Oxycodone HCl 10 mg 03/14/24 13:30 03/14/24 13:40 Oxycodone Hcl Immed Release 5 Mg Tablet PO 03/14/24 13:31 10 mg ONCE ONE Administration Prednisone 60 mg 03/14/24 13:30 03/14/24 13:40 Prednisone 20 Mg Tablet PO 03/14/24 13:31 60 mg ONCE ONE Administration Discharge Plan Discharge Clinical Impression: Gout Patient Disposition: Home, Self-Care Additional Instructions: This is likely a gout attack as it is the same as several prior in the knee At 1st it hurt too much to straighten the knee but after medication it was very improved so I doubt very much this is an infected joint, it is not red or swollen You did not want me to tap it today so I did not as I do not think this is an infection I think this is gout But if the knee locks in place and will not straighten and bend, if it gets red and hot, if it gets more swollen and painful we would have to check this joint for infection The gout medication I prescribed should bring improvement by tomorrow as opposed to getting worse So best plan is to return to the ER in 24 hours tomorrow Saturday for us to re- evaluate the knee and make sure there is no concern for infection Return to the ER immediately if the knee gets red and hot, if it is more swollen or if it is locked in place at about a 45 degree angle unable to straighten or bend Follow with primary doctor Prescriptions: New colchicine 0.6 mg tablet 0.6 mg PO BID Qty: 10 0RF oxycodone 5 mg tablet 5 mg PO Q4-6H PRN (Reason: pain) 3 Days Qty: 14 0RF Rx Instructions: Partial Fill upon patient request. naproxen [Naprosyn] 500 mg tablet 500 mg PO BID PRN (Reason: pain) Qty: 20 0RF prednisone 20 mg tablet 60 mg PO DAILY 5 Days Qty: 15 0RF No Action colchicine 0.6 mg tablet 1.2 mg PO DAILY PRN (Reason: acute gout flares) 30 Days Qty: 60 1RF Rx Instructions: To use during acute flares allopurinol 100 mg tablet 200 mg PO DAILY 90 Days Qty: 180 1RF disulfiram 250 mg tablet 500 mg PO DAILY 30 Days Qty: 60 0RF prednisone 20 mg tablet 40 mg PO DAILY Qty: 10 0RF indomethacin 50 mg capsule 50 mg PO QID Qty: 30 0RF Rx Instructions: administer with food or milk naproxen 500 mg tablet 500 mg PO BID Qty: 30 0RF pantoprazole 20 mg tablet,delayed release (DR/EC) 20 mg PO DAILY Qty: 30 0RF prednisone 10 mg tablets,dose pack 10 mg PO DIRECTED Qty: 70 0RF Rx Instructions: take 40 mg ( 4 tablet) for 7 days then 30 mg once a day for 7 days then 20mg once a day for 7 days and then 10 mg for 7 days prednisone 10 mg tablet 10 mg PO DIRECTED Qty: 30 0RF Rx Instructions: see taper instructions Take 40 mg ( 4 tablets ) daily for 3 days Then take 30 mg ( 3 tablets ) daily for 3 days Then take 20 mg ( 2 tablets ) daily for 3 days Then take 10 mg ( 1 tablet) daily for 3 days oxycodone 5 mg tablet 5 mg PO Q6H PRN (Reason: pain) Qty: 7 0RF Rx Instructions: Partial Fill upon patient request. (DME) blood pressure test kit-large Kit See Rx Instructions .Route Qty: 1 0RF Rx Instructions: As directed disulfiram 500 mg tablet 500 mg PO DAILY 21 Days Qty: 21 0RF doxepin 10 mg capsule 10 mg PO BEDTIME 30 Days Qty: 30 1RF Stand Alone Forms: Work/School Release Print Language: Tamazight
--- NOTE | 2024-03-14 13:19 | PC.NURSE ---
patient a&ox3, pt requesting pain medications for 10/10 rt knee pain, awaiting provider, pt requested pillow for knee, obtained pillow and propped leg to patient comfort, will notify provider
[2024-03-14] MEDS: Ketorolac Tromethamine 60 MG/2 ML VIAL IM (13:39)
[2024-03-14] MEDS: predniSONE 20 MG TABLET 60 MG PO (13:40)
[2024-03-14] MEDS: oxyCODONE HCl Immed Release 5 MG TABLET 10 MG PO (13:40)
[2024-03-14] MEDS: Colchicine 0.6 MG TABLET 1.2 MG PO (13:42)
--- NOTE | 2024-03-14 13:44 | PC.NURSE ---
pt medicated for pain per order
--- NOTE | 2024-03-14 15:26 | PC.NURSE ---
pt a&ox3, pt continues to complain of 9/10 pain, provider was notified, call marques within reach, will continue to monitor
[2024-03-14 16:48] VITALS: BP 143/88; PULSE 80; RESP 18; TEMP 36.5; O2SAT 94
[2024-03-14] MEDS: oxyCODONE HCl Immed Release 5 MG TABLET PO (16:53)
[2024-03-14 17:04] VITALS: BP 143/88; PULSE 80; RESP 18; TEMP 36.5; O2SAT 94
== END 2024-03-14 17:05 | disposition home or self-care (01) ==
PROVIDERS: Emergency Provider Emergency Medicine; PCP Physician Assistant
DX: M10.9 Gout, unspecified (principal); M25.561 Pain in right knee; I10 Essential (primary) hypertension
CPT/HCPCS: 96372; 99283; 99284; J1885

== ENCOUNTER 2024-03-18 15:08 | Outpatient (AMB) | payer OTHER, SELFPAY ==
[2024-03-18 15:24] VITALS: BP 148/86; PULSE 101; O2SAT 97; BMI 28.3
--- NOTE | 2024-03-18 15:24 | A.OFFPC_ITS ---
Vital Signs 03/18/24 15:24 Height 6 ft 3 in Weight 226 lb 4 oz BMI 28.3 BP 148/86 H Blood Pressure Location Lt brachial Position Sitting Pulse 101 H Pulse Source Pulse Oximeter Pulse Oximetry (%) 97 Oxygen Delivery Method Room Air Intake Visit Reasons: f/u blood pressure and gout. 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 Accompanied by: Self / Same As Patient Allergies No Known Allergies [No Known Allergies*] Allergy (Verified 03/18/24 15:55) Medication List - Last Reconciled 03/18/24 by Stanley Grewal PA-C allopurinol 200 mg (2 x 100 mg) PO DAILY 90 days blood pressure test kit-large As directed colchicine 0.6 mg PO BID colchicine 1.2 mg (2 x 0.6 mg) PO DAILY PRN 30 days disulfiram 500 mg PO DAILY 21 days disulfiram 500 mg (2 x 250 mg) PO DAILY 30 days doxepin 10 mg PO BEDTIME 30 days indomethacin 50 mg PO QID naproxen (Naprosyn) 500 mg PO BID PRN naproxen 500 mg PO BID oxycodone 5 mg PO Q6H PRN oxycodone 5 mg PO Q4-6H PRN 3 days pantoprazole 20 mg PO DAILY prednisone 10 mg PO DIRECTED prednisone 10 mg PO DIRECTED prednisone 40 mg (2 x 20 mg) PO DAILY prednisone 60 mg (3 x 20 mg) PO DAILY 5 days Tobacco use date assessed: 01/07/24 Dental Screening Dental Screen Date: 01/07/24 HPI f/u blood pressure and gout. HPI Details Patient is a 33-year-old male presented today in the office and had vitals checked though needed to leave due to an emergency at work. We followed up later in the day via telephone. Blood pressure still elevated and he admits to he has not been checking his blood pressure at home. He will start monitoring blood pressure at home. He does admit that he is stopped drinking over the last week and maybe going through a small withdrawal from alcohol. Epistaxis: Has upcoming appointment with ENT specialist and reports they are planning and cauterizing his nose. [facility] Medical History Screening for hypercholesterolemia Screening for diabetes mellitus (DM) Community acquired pneumonia Transaminitis Alcohol use disorder, moderate, dependence Alcohol use disorder HTN (hypertension) Surgical History History of appendectomy Social History Household Members: Family Housing: House Do you presently have visiting nurse or other home services: No Alcohol intake: current Alcohol intake frequency: 3 or more drinks per day Alcohol type: hard liquor Patient Tobacco Use Status: Never used Tobacco e-Cigarette/Vaping Use: Currently Using Second Hand Smoke Exposure: No Substance Use Type: Marijuana service: No Current occupational status: employed Current occupational exposures/hazards: No Cognitive needs: No Hearing needs: No Vision needs: Yes (contact/glasses) Questionnaire Thrive Questionnaire Date Thrive assessed: 01/07/24 STARLA-7 AMB Questionnaire STARLA-7 Date STARLA - 7 assessed: 01/07/24 Source: Developed by Drs. González Kelley, Ritu Thomas, Mervin Weber and colleagues, with an educational isaías from [email or web address]. Review of Systems Const Denies headache(s) Eyes Denies loss of vision ENT Denies vertigo, Denies dizziness, Denies headache(s) and Denies sore throat Card Denies chest pain, Denies leg edema and Denies lightheadedness Resp Denies cough, Denies hemoptysis and Denies wheezing GI Denies abdominal pain, Denies melena, Denies constipation, Denies diarrhea and Denies vomiting Denies dysuria, Denies urinary frequency and Denies urinary urgency Musc Denies arthralgias, Denies joint swelling, Denies numbness and Denies tingling Neuro Denies behavioral changes, Denies vertigo, Denies dizziness, Denies headache(s), Denies loss of vision, Denies memory loss, Denies numbness and Denies tingling Psych Denies anxiety, Denies behavioral changes, Denies depression, Denies memory loss and Denies panic attacks Nino/Lymph Denies easy bleeding and Denies easy bruising Aller/Immun Denies wheezing Physical exam (Primary Care) Vital Signs: Last Vital Signs Pulse 101 H 03/18/24 15:24 BP 148/86 H 03/18/24 15:24 Pulse Ox 97 03/18/24 15:24 Oxygen Delivery Method Room Air 06/05/24 15:24 BMI result Body Mass Index 28.3 Tobacco/Smoking Status: Tobacco use Status Tobacco use date assessed 01/07/24 03/18/24 15:26 Patient Tobacco Use Status Never used Tobacco 03/18/24 15:26 e-Cigarette/Vaping Use Currently Using 03/18/24 15:26 Thrive Assessment: Date of Thrive Assessment Date Thrive assessed 01/07/24 03/18/24 15:26 Telehealth Telehealth Telehealth Platform: Telephone Location of provider rendering services: practice address Location of patient: address on file Patient Identification confirmed using: Name, : Yes Telehealth method: voice only Patient verbally consented to treatment: Yes Patient verbally consented to billing insurance company: Yes Patient informed of any privacy concerns related to visit: Yes Minutes spent on Phone/Video with Pt.: 11 Assessment and Plan Assessment & Plan (1) Alcohol use disorder: Plan: Patient interested in medication to deter him alcohol intake. Will start Antabus. Follow-up in 6 weeks to evaluate effectiveness of the medication. (2) HTN (hypertension): Code(s): I10 - Essential (primary) hypertension Qualifiers: Hypertension type: primary hypertension Qualified Code(s): I10 - Essential (primary) hypertension Plan: Patient's blood pressure remains slightly elevated today in office. He will commence blood pressure readings at home and follow-up in 6 weeks and if blood pressure is consistently above 140/90 will start low-dose lisinopril. (3) Epistaxis: Code(s): R04.0 - Epistaxis Plan: Has upcoming appointment with ENT and apparently will be getting his nose cauterized. Medications: Discontinued prednisone take 40 mg ( 4 tablet) for 7 days then 30 mg once a day for 7 days then 20mg once a day for 7 days and then 10 mg for 7 days Discontinued Reason: Doctor's Order 10 mg PO DIRECTED 70 ea 0RF prednisone see taper instructions Take 40 mg ( 4 tablets ) daily for 3 days Then take 30 mg ( 3 tablets ) daily for 3 days Then take 20 mg ( 2 tablets ) daily for 3 days Then take 10 mg ( 1 tablet) daily for 3 days Discontinued Reason: Doctor's Order 10 mg PO DIRECTED 30 tabs 0RF naproxen Discontinued Reason: Doctor's Order 500 mg PO BID 30 tabs 0RF oxycodone Partial Fill upon patient request. Discontinued Reason: Doctor's Order 5 mg PO Q6H PRN 7 tabs 0RF pain Coding Level of Care Code Tele Est Pt Level 3 (59306) Diagnoses Alcohol use disorder F10.90 Primary hypertension I10 Hypertension type: primary hypertension Epistaxis R04.0
== END 2024-03-18 16:00 | disposition home or self-care (01) ==
PROVIDERS: PCP Physician Assistant; Visit Provider Physician Assistant
DX: F10.90 Alcohol use, unspecified, uncomplicated (principal); I10 Essential (primary) hypertension; R04.0 Epistaxis
CPT/HCPCS: 99213

== ENCOUNTER 2024-04-20 12:23 | Emergency (ER) | payer OTHER, SELFPAY ==
[2024-04-20 12:49] VITALS: BP 142/96; PULSE 85; RESP 18; TEMP 36.8; O2SAT 97; BMI 28.3
[2024-04-20 13:04] LABS: MANUAL DIFF FLAG NO
[2024-04-20 13:08] LABS: Basophils Absolute Auto 0.1 X10*3/uL (0.0-0.2); Basophils Percent Auto 0.9 % (0-2); Eosinophils Absolute Auto 0.2 X10*3/uL (0.0-0.4); Eosinophils Percent Auto 3.1 % (0-4); Hematocrit 45.6 % (42.0-52.0); Hemoglobin 15.9 g/dl (14.0-18.0); Imm Gran Abs Auto 0.01 X10*3/uL (0.00-0.03); Imm Gran Pct Auto 0.1 % (0.0-0.4); Lymphocytes Absolute Auto 1.4 X10*3/uL (1.2-4.9); Lymphocytes Percent Auto 20.5 % (20-40); Mean Corpuscular HGB Conc 34.9 g/dl (31.0-36.0); Mean Corpuscular Hemoglobin 33.4 pg (27.0-33.0); Mean Corpuscular Volume 95.8 fL (80.0-98.0); Mean Platelet Volume 9.6 fL (9.4-12.4); Monocytes Absolute Auto 0.5 X10*3/uL (0.1-1.2); Neutrophils Absolute Auto 4.6 x10*3/uL (2.0-8.3); Neutrophils Percent Auto 68.4 % (45-73); Platelet Count 200 X10*3/uL (160-400); Red Blood Count 4.76 X10*6/uL (4.60-5.80); Red Cell Distribution Width 12.8 % (11.0-16.0); White Blood Count 6.7 X10*3/uL (4.8-10.8)
[2024-04-20 13:27] LABS: Alanine Aminotransferase 85 U/L (0-40); Albumin Level 4.6 g/dL (3.5-5.0); Alkaline Phosphatase 74 U/L (39-117); Anion Gap 14 (12-20); Aspartate Amino Transferase 112 U/L (5-37); Bilirubin Total 1.9 mg/dL (0.0-1.0); Blood Urea Nitrogen 5 mg/dL (9-16); Carbon Dioxide 24 mmol/L (22-29); Chloride 106 mmol/L (96-108); Creatinine Clr Calc Pharmacy 187.7; Estimated Glomerular Filt Rate > 60; Glucose Random 114 mg/dL (60-115); Potassium 4.2 mmol/L (3.3-5.1); Sodium 140 mmol/L (135-145); Total Protein 7.8 g/dL (6.5-8.0); Uric Acid 10.4 mg/dL (3.4-7.0)
[2024-04-20 16:12] VITALS: BP 162/81; PULSE 82; RESP 20; TEMP 37.2; O2SAT 98
--- NOTE | 2024-04-20 18:34 | ED.GENADULT ---
HPI - General Adult General Chief complaint: General Medical Stated complaint: Gout flare R knee Time Seen by Provider: 04/20/24 17:46 Source: patient and RN notes reviewed Mode of arrival: ambulatory Limitations: no limitations History of Present Illness ED Provider: Karyn Engle PA-C HPI narrative: This is a 33-year-old male, with a history of gout, who presents emergency department with complaints of right knee pain since yesterday. Patient states that he recently traveled to and from [place] and forgot his colchicine and allopurinol. He also endorses that he was drinking which is a trigger for his gout. He states that he has had increased pain and swelling to his right knee. He states that this feels typical of his gout flare-ups he has had in the past. Reports that the pain worsens with movement and with light palpation. He denies any fevers or chills. No calf tenderness No other complaints or concerns at this time. MD complaint: Right knee pain Onset (ago): day(s) Location: lower extremity Radiation: non-radiation Severity: moderate Quality: aching Pain Consistency: constant Relieving factors: none Exacerbating factors: movement Associated symptoms: denies other symptoms Treatments prior to arrival: none Related Data Previous Rx's ?Medication ?Instructions ?Recorded blood pressure test kit-large #1 ea 12/21/21 pantoprazole 20 mg tablet,delayed 20 mg PO DAILY #30 tabs 12/25/23 release doxepin 10 mg capsule 10 mg PO BEDTIME 30 days #30 caps 01/07/24 allopurinol 100 mg tablet 200 mg (2 x 100 mg) PO DAILY 90 01/27/24 days #180 tabs colchicine 0.6 mg tablet 1.2 mg (2 x 0.6 mg) PO DAILY PRN 01/27/24 acute gout flares 30 days #60 tabs disulfiram 500 mg tablet 500 mg PO DAILY 21 days #21 tabs 02/04/24 disulfiram 250 mg tablet 500 mg (2 x 250 mg) PO DAILY 30 02/11/24 days #60 tabs indomethacin 50 mg capsule 50 mg PO QID #30 caps 02/17/24 prednisone 20 mg tablet 40 mg (2 x 20 mg) PO DAILY #10 tabs 02/17/24 colchicine 0.6 mg tablet 0.6 mg PO BID #10 tabs 03/14/24 naproxen 500 mg tablet (Naprosyn) 500 mg PO BID PRN pain #20 tabs 03/14/24 oxycodone 5 mg tablet 5 mg PO Q4-6H PRN pain 3 days #14 03/14/24 tabs prednisone 20 mg tablet 60 mg (3 x 20 mg) PO DAILY 5 days 03/14/24 #15 tabs oxycodone 5 mg tablet 5 mg PO Q6H pain 5 days #7 tabs 04/20/24 prednisone 20 mg tablet 40 mg (2 x 20 mg) PO DAILY 4 days 04/20/24 #8 tabs Allergies Allergy/AdvReac Type Severity Reaction Status Date / Time No Known Allergies Allergy Verified 04/20/24 12:50 [No Known Allergies*] Review of Systems Review of Systems: Yes all other systems are reviewed and are negative Constitutional: Constitutional: Reports as per [facility] Past Medical History Medical History Screening for hypercholesterolemia Screening for diabetes mellitus (DM) Community acquired pneumonia Transaminitis Alcohol use disorder, moderate, dependence Alcohol use disorder HTN (hypertension) Surgical History History of appendectomy Social History Social History Household Members: Family Housing: House Do you presently have visiting nurse or other home services: No Alcohol intake: current Alcohol intake frequency: 3 or more drinks per day Alcohol type: hard liquor Patient Tobacco Use Status: Never used Tobacco e-Cigarette/Vaping Use: Currently Using Second Hand Smoke Exposure: No Substance Use Type: Marijuana Advance Directives: No Advance Directives Information Provided: Yes Do you have a plan to hurt others: No Plan service: No Current occupational status: employed Current occupational exposures/hazards: No Cognitive needs: No Hearing needs: No Vision needs: Yes (contact/glasses) Physical Exam ED Vital Signs: Vital Signs - 24 hr 04/20/24 12:49 04/20/24 16:12 04/20/24 19:52 Temperature 98.2 F 98.9 F 99.1 F Pulse Rate 85 82 72 Respiratory Rate 18 20 16 Blood Pressure 142/96 H 162/81 H 151/80 H Pulse Oximetry 97 98 96 Oxygen Delivery Method Room Air Room Air Room Air 04/20/24 21:10 Temperature 99.1 F Pulse Rate 72 Respiratory Rate 16 Blood Pressure 151/80 H Pulse Oximetry 96 Oxygen Delivery Method Room Air BMI result Body Mass Index 28.3 Const General: cooperative, comfortable and no acute distress Orientation/consciousness: patient oriented x3 Limitations: no limitations HENMT Head: Yes normal to inspection, Yes normocephalic and Yes atraumatic Ears: hearing grossly normal bilaterally General nose exam: Normal external nose present Face and sinus: Yes normal facial exam Mouth: Normal oral and palatal mucosa present, oropharynx normal and moist mucous membranes Throat: Yes posterior oropharynx normal Eyes General: appearance normal, both eyes and all related structures Eyelids: Yes eyelids normal Conjunctivae: conjunctivae normal Sclerae: sclerae normal Pupils: Equal, round and reactive pupils present EOM: EOMs intact bilaterally Neck Neck: Yes normal visual inspection, Yes full ROM and Yes no lymphadenopathy Lymphatic: no lymphadenopathy noted Chest Chest palpation & inspection: normal inspection of the chest Resp Effort & Inspection: normal respiratory effort and able to speak in complete sentences Auscultation: clear to auscultation bilaterally, no crackles, no rales, no rhonchi and no wheezes Cardio Rate: regular rate Rhythm: regular rhythm Heart sounds: S1 normal heart sound present and S2 normal heart sound present GI Inspection: Yes normal to inspection Skin General skin exam: no rashes or lesions noted Trauma: no lacerations or abrasions Wounds: no wounds Neuro General: patient oriented x3 and moves all extremities Cranial nerves: Yes Equal, round and reactive pupils present Extrem Other: Right knee with no overlying erythema, however does appear to be edematous, no obvious effusion. Slight warmth. Exquisite tenderness to even light touch. Held in 45 degree of flexion, able to slightly flex and extend leg. Neurovascularly intact. No overlying skin changes. No General: Yes normal to inspection Right upper extremity: normal to inspection Left upper extremity: normal to inspection Right lower extremity: normal to inspection Left lower extremity: normal to inspection Course Reevaluation(s) Reevaluation #1: Patient re-evaluated after receiving Toradol, morphine, and prednisone. He is still uncomfortable, he is requesting 1 last dose of pain medication prior to his departure. Given level of pain, I suggested that we could potentially bit him for intractable pain however he refuses, he states that he would like to just get a tablet for pain, oxycodone 5 mg ordered. Patient wanting to be discharged, he understands return precautions. Patient stable discharge Time: 20:51 Medications Administered Discontinued Medications Generic Name Dose Route Start Last Admin Trade Name Brisa PRN Reason Stop Dose Admin Ketorolac Tromethamine 30 mg 04/20/24 18:37 04/20/24 18:44 Ketorolac Tromethamine 30 Mg/Ml Vial IM 04/20/24 18:38 30 mg ONCE ONE Administration Morphine Sulfate 15 mg 04/20/24 19:20 04/20/24 19:36 Morphine Sulfate Immed Release 15 Mg Tablet PO 04/20/24 19:21 15 mg ONCE ONE Administration Oxycodone HCl 5 mg 04/20/24 20:51 04/20/24 21:03 Oxycodone Hcl Immed Release 5 Mg Tablet PO 04/20/24 20:52 5 mg ONCE ONE Administration Prednisone 50 mg 04/20/24 18:37 04/20/24 18:48 Prednisone 10 Mg Tablet PO 04/20/24 18:38 50 mg ONCE ONE Administration Medical Decision Making Medical Decision Making MDM Narrative: This is a 33-year-old male who presents emergency department with complaints of hypertension, alcohol use disorder, presenting to the emergency department with complaints of right knee pain. Patient typically takes colchicine in allopurinol however states that he was without this medication as he was traveling. He states that he was drinking which is a trigger for him. On arrival, patient mildly hypertensive, likely due to pain. Patient with exquisite tenderness overlying the right knee, held in a 45 degree flexion secondary to pain. It is warm. Labs were ordered prior to my assessment, he has no leukocytosis, elevated uric acid at 10 point 4. This is typical of his gout flare-ups, and patient is experiencing a gout flare-up. Other differentials including septic arthritis, cellulitis. He does have elevated liver transaminases which is typical for him. Plan: Labs, IM Toradol, prednisone, re-evaluate Differential Diagnosis Differential Diagnoses: The differential diagnosis associated with the presentation includes See above Admission/Observation Consideration of admission/observation: Escalation of care including admission/observation considered Lab Data MDM Lab Attestation statement: I reviewed the patient's lab results. No leukocytosis, stable H&H, chemistry revealing elevated total bili, and elevated liver transaminases, patient has known history of alcohol use disorder, and recently was drinking. Elevated uric acid at 10.4. 04/20/24 13:00 04/20/24 13:00 Labs: Lab Results 04/20/24 Range/Units 13:00 WBC 6.7 (4.8-10.8) X10*3/uL RBC 4.76 (4.60-5.80) X10*6/uL Hgb 15.9 (14.0-18.0) g/dl Hct 45.6 (42.0-52.0) % MCV 95.8 (80.0-98.0) fL MCH 33.4 H (27.0-33.0) pg MCHC 34.9 (31.0-36.0) g/dl RDW 12.8 (11.0-16.0) % Plt Count 200 (160-400) X10*3/uL MPV 9.6 (9.4-12.4) fL Immature Gran % (Auto) 0.1 (0.0-0.4) % Neut % (Auto) 68.4 (45-73) % Lymph % (Auto) 20.5 (20-40) % [place] % (Auto) 7.0 (2-11) % Eos % (Auto) 3.1 (0-4) % Baso % (Auto) 0.9 (0-2) % Lymph # (Auto) 1.4 (1.2-4.9) X10*3/uL [place] # (Auto) 0.5 (0.1-1.2) X10*3/uL Eos # (Auto) 0.2 (0.0-0.4) X10*3/uL Baso # (Auto) 0.1 (0.0-0.2) X10*3/uL Abs Immat Gran (auto) 0.01 (0.00-0.03) X10*3/uL Absolute Neuts (auto) 4.6 (2.0-8.3) x10*3/uL Absolute Nucleated RBC 0.000 (0.0-0.012) X10*3/uL Nucleated RBC % (auto) 0.0 (0.0-0.2) /100WBC Sodium 140 (135-145) mmol/L Potassium 4.2 (3.3-5.1) mmol/L Chloride 106 (96-108) mmol/L Carbon Dioxide 24 (22-29) mmol/L Anion Gap 14 (12-20) BUN 5 L (9-16) mg/dL Creatinine 0.74 (0.5-1.4) mg/dL Estim Creat Clear Calc 187.7 Estimated GFR > 60 Random Glucose 114 (60-115) mg/dL Uric Acid 10.4 H (3.4-7.0) mg/dL Calcium 10.0 D (8.4-10.2) mg/dL Total Bilirubin 1.9 H (0.0-1.0) mg/dL AST 112 H (5-37) U/L ALT 85 H (0-40) U/L Alkaline Phosphatase 74 (39-117) U/L Total Protein 7.8 (6.5-8.0) g/dL Albumin 4.6 (3.5-5.0) g/dL Discharge Plan Discharge Clinical Impression: Gout Qualifiers: Gout site: knee Gout etiology: idiopathic Chronicity: chronic Laterality: left Presence of tophus: without tophus Qualified Code(s): M1A.0620 - Idiopathic chronic gout, left knee, without tophus (tophi) Patient Disposition: Home, Self-Care Instructions: Low Purine Diet (ED), Gout (ED) Additional Instructions: You were seen in the emergency department due to a gout flare-up. We medicated you with your 1st dose of prednisone, also gave you a dose of morphine and oxycodone and Toradol. Please rest, elevate, and take prescribed medication as directed. Please take prednisone as prescribed. Finish the entire course even if you are feeling better. Take oxycodone for severe pain only. Please be advised that this can cause drowsiness, do not drink alcohol or drive while taking this medication. If any new or worsening symptoms occur including but fevers, chills, inability to flex and extend your leg, please return for re-evaluation. Prescriptions: New prednisone 20 mg tablet 40 mg PO DAILY 4 Days Qty: 8 0RF oxycodone 5 mg tablet 5 mg PO Q6H 5 Days Qty: 7 0RF Rx Instructions: Partial Fill upon patient request. No Action colchicine 0.6 mg tablet 1.2 mg PO DAILY PRN (Reason: acute gout flares) 30 Days Qty: 60 1RF Rx Instructions: To use during acute flares allopurinol 100 mg tablet 200 mg PO DAILY 90 Days Qty: 180 1RF disulfiram 250 mg tablet 500 mg PO DAILY 30 Days Qty: 60 0RF prednisone 20 mg tablet 40 mg PO DAILY Qty: 10 0RF indomethacin 50 mg capsule 50 mg PO QID Qty: 30 0RF Rx Instructions: administer with food or milk pantoprazole 20 mg tablet,delayed release (DR/EC) 20 mg PO DAILY Qty: 30 0RF colchicine 0.6 mg tablet 0.6 mg PO BID Qty: 10 0RF oxycodone 5 mg tablet 5 mg PO Q4-6H PRN (Reason: pain) 3 Days Qty: 14 0RF Rx Instructions: Partial Fill upon patient request. naproxen [Naprosyn] 500 mg tablet 500 mg PO BID PRN (Reason: pain) Qty: 20 0RF prednisone 20 mg tablet 60 mg PO DAILY 5 Days Qty: 15 0RF (DME) blood pressure test kit-large Kit See Rx Instructions .Route Qty: 1 0RF Rx Instructions: As directed disulfiram 500 mg tablet 500 mg PO DAILY 21 Days Qty: 21 0RF doxepin 10 mg capsule 10 mg PO BEDTIME 30 Days Qty: 30 1RF Stand Alone Forms: Work/School Release Interventions: ED Discharge Assessment Last Done: 04/20/24 21:10 Discharge Date/Time: 04/20/24 21:12 Print Language: Faroese
[2024-04-20] MEDS: Ketorolac Tromethamine 30 MG/ML VIAL IM (18:44)
[2024-04-20] MEDS: predniSONE 10 MG TABLET 50 MG PO (18:48)
[2024-04-20] MEDS: Morphine Sulfate Immed Release 15 MG TABLET PO (19:36)
[2024-04-20 19:52] VITALS: BP 151/80; PULSE 72; RESP 16; TEMP 37.3; O2SAT 96
[2024-04-20] MEDS: oxyCODONE HCl Immed Release 5 MG TABLET PO (21:03)
[2024-04-20 21:10] VITALS: BP 151/80; PULSE 72; RESP 16; TEMP 37.3; O2SAT 96
== END 2024-04-20 21:12 | disposition home or self-care (01) ==
PROVIDERS: Emergency Provider Emergency Medicine; PCP Physician Assistant
DX: M10.061 Idiopathic gout, right knee (principal); Z79.899 Other long term (current) drug therapy
CPT/HCPCS: 36415; 80053; 84550; 85025; 96372; 99283; 99284; J1885

== ENCOUNTER 2024-05-14 06:37 | Emergency (ER) | payer OTHER, SELFPAY ==
[2024-05-14 06:44] VITALS: BP 138/84; PULSE 90; RESP 18; TEMP 36.9; O2SAT 95; BMI 28.1
--- NOTE | 2024-05-14 06:48 | ED_ITS ---
HPI - Extremity Problem General Chief complaint: Extremity Problem Stated complaint: rt knee pain, can't bend Time Seen by Provider: 05/14/24 06:48 Source: patient Mode of arrival: ambulatory Limitations: no limitations History of Present Illness ED Provider: Anju Alvarado PA-C HPI Narrative: 33 yo male with history of gout who presents to the ER for evaluation of right knee pain that started yesterday. Patient states that he has a history of gout, and that he has had multiple flare-ups of gout in his right knee in the past. Patient states that he was drinking more alcohol than usual about 2-3 days ago with friends and woke up yesterday with pain in his knee. 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 He took Ibuprofen yesterday to help with the pain, but it had no effect. He says that he usually only has 2-3 drinks per week. Patient states that he is prescribed Allopurinol and Colchicine, however he has not been taking the medication because his pain was gone and no longer felt he needed to take it. He denies any trauma or injury to the area, and is having difficulty walking and bending the right knee. He has had this happen in the past multiple times, and states taht he has had gout flareups in his left big toe and right knee multiple times before. No other concerns at this time, Complaint: extremity pain Onset (ago): day(s) (1) Pain Consistency: constant Location: right and lower extremity (knee) Severity scale (1-10): 8 Quality: stabbing and sharp Relieving factors: immobilization and medication Exacerbating factors: range of motion, weight bearing and walking Associated symptoms: denies other symptoms Related Data Previous Rx's ?Medication ?Instructions ?Recorded blood pressure test kit-large #1 ea 12/21/21 pantoprazole 20 mg tablet,delayed 20 mg PO DAILY #30 tabs 12/25/23 release doxepin 10 mg capsule 10 mg PO BEDTIME 30 days #30 caps 01/07/24 allopurinol 100 mg tablet 200 mg (2 x 100 mg) PO DAILY 90 01/27/24 days #180 tabs colchicine 0.6 mg tablet 1.2 mg (2 x 0.6 mg) PO DAILY PRN 01/27/24 acute gout flares 30 days #60 tabs disulfiram 500 mg tablet 500 mg PO DAILY 21 days #21 tabs 02/04/24 disulfiram 250 mg tablet 500 mg (2 x 250 mg) PO DAILY 30 02/11/24 days #60 tabs indomethacin 50 mg capsule 50 mg PO QID #30 caps 02/17/24 prednisone 20 mg tablet 40 mg (2 x 20 mg) PO DAILY #10 tabs 02/17/24 colchicine 0.6 mg tablet 0.6 mg PO BID #10 tabs 03/14/24 naproxen 500 mg tablet (Naprosyn) 500 mg PO BID PRN pain #20 tabs 03/14/24 oxycodone 5 mg tablet 5 mg PO Q4-6H PRN pain 3 days #14 03/14/24 tabs prednisone 20 mg tablet 60 mg (3 x 20 mg) PO DAILY 5 days 03/14/24 #15 tabs oxycodone 5 mg tablet 5 mg PO Q6H pain 5 days #7 tabs 04/20/24 prednisone 20 mg tablet 40 mg (2 x 20 mg) PO DAILY 4 days 04/20/24 #8 tabs prednisone 10 mg tablets in a dose See Rx Instructions .Route 05/14/24 pack .COMPLEX #48 ea Allergies Allergy/AdvReac Type Severity Reaction Status Date / Time No Known Allergies Allergy Verified 05/14/24 06:45 [No Known Allergies*] Review of Systems Review of Systems: Yes all other systems are reviewed and are negative [facility] Past Medical History Medical History Screening for hypercholesterolemia Screening for diabetes mellitus (DM) Community acquired pneumonia Transaminitis Alcohol use disorder, moderate, dependence Alcohol use disorder HTN (hypertension) Surgical History History of appendectomy Social History Social History Household Members: Family Housing: House Do you presently have visiting nurse or other home services: No Alcohol intake: current Alcohol intake frequency: 3 or more drinks per day Alcohol type: hard liquor Patient Tobacco Use Status: Never used Tobacco e-Cigarette/Vaping Use: Currently Using Second Hand Smoke Exposure: No Substance Use Type: Marijuana service: No Current occupational status: employed Current occupational exposures/hazards: No Cognitive needs: No Hearing needs: No Vision needs: Yes (contact/glasses) Physical Exam Vital Signs: Vital Signs: Last Vital Signs Temp 98.4 F 05/14/24 06:44 Pulse 90 05/14/24 06:44 Resp 18 05/14/24 06:44 BP 138/84 05/14/24 06:44 Pulse Ox 95 05/14/24 06:44 O2 Del Method Room Air 05/14/24 06:44 BMI result Body Mass Index 28.1 Appearance: Alert. Oriented X3. Distress with right leg movement. walking. HEENT: normal inspection CVS: Normal heart rate and rhythm. Pulses normal. Respiratory: No respiratory distress. Skin: Skin warm and dry. Normal skin color. Normal skin turgor. No rashes. Extremities: Right knee is slightly warm with minor swelling. On movement patient is in severe pain, ROM is limited and patient can not flex right leg. Other extremities are normal to exam. Neuro: Oriented X 3. No motor deficit. No sensory deficit. Medical Decision Making Medical Decision Making MDM Narrative: 33 year old male presents to the ER today with severe right knee pain, pain with walking and flexion of the right knee causes severe pain. Right knee joint is not erythematous, and is slightly warm to palpation as well as slightly swollen. Patient has no trauma or injury, as well as no IV drug use making septic joint less likely. Patient also declines multiple sexual partners, and does not worry about a STD. Patient has history of gout and recurrent flare-ups of gout in the right knee in the past. Declines he is taking Allopurinol and Colchicine at home, which is preventative against Uric acid build up. Responded well to Toradol and Prednisone taper in the past. He will be sent home with Prednisone taper and Toradol injection, and was counseled on his need to for taking medications to prevent future Gout flare-ups. Differential Diagnosis Differential Diagnoses: The differential diagnosis associated with the presentation includes Gout Flare-up, Septic joint, arthritis, Disseminated Gonorrhea/Chlamydia External Record Review External record reviewed: Prior outpatient labs and Prior outpatient radiology Tests considered The following testing was considered but not selected: x-ray knee, but recent image reviewed, no trauma Prescription Management I considered prescription management with: Pain Medication and Other (prednisone) Chronic Conditions Patient?s care impacted by: Other (gout) Critical Care Time Critical Care Time Critical Care Time: No Discharge Plan Discharge Clinical Impression: Gout Qualifiers: Gout site: knee Gout etiology: idiopathic Chronicity: chronic Laterality: left Presence of tophus: without tophus Qualified Code(s): M1A.0620 - Idiopathic chronic gout, left knee, without tophus (tophi) Patient Disposition: Home, Self-Care Instructions: Low Purine Diet (ED), Gout (ED) Additional Instructions: start the prednisone taper tomorrow, you were given 1st dose today in the ER it is important to complete the entire prednisone taper even if you are feeling better restart your allopurinol once your flare is resolved - it important to take this every day to prevent gout flares rest your knee, no strenuous activity follow up with your doctor If you develop new or worsening symptoms call 911 or come back to the ER for further evaluation. Prescriptions: New prednisone 10 mg tablets,dose pack See Rx Instructions .ROUTE .COMPLEX Qty: 48 0RF Taper: Prednisone 40 mg daily for 3 Days and 0 Hour 30 mg daily for 3 Days and 0 Hour 20 mg daily for 3 Days and 0 Hour 10 mg daily for 3 Days and 0 Hour Rx Instructions: See Taper orally No Action colchicine 0.6 mg tablet 1.2 mg PO DAILY PRN (Reason: acute gout flares) 30 Days Qty: 60 1RF Rx Instructions: To use during acute flares allopurinol 100 mg tablet 200 mg PO DAILY 90 Days Qty: 180 1RF disulfiram 250 mg tablet 500 mg PO DAILY 30 Days Qty: 60 0RF prednisone 20 mg tablet 40 mg PO DAILY Qty: 10 0RF indomethacin 50 mg capsule 50 mg PO QID Qty: 30 0RF Rx Instructions: administer with food or milk pantoprazole 20 mg tablet,delayed release (DR/EC) 20 mg PO DAILY Qty: 30 0RF colchicine 0.6 mg tablet 0.6 mg PO BID Qty: 10 0RF oxycodone 5 mg tablet 5 mg PO Q4-6H PRN (Reason: pain) 3 Days Qty: 14 0RF Rx Instructions: Partial Fill upon patient request. naproxen [Naprosyn] 500 mg tablet 500 mg PO BID PRN (Reason: pain) Qty: 20 0RF prednisone 20 mg tablet 60 mg PO DAILY 5 Days Qty: 15 0RF prednisone 20 mg tablet 40 mg PO DAILY 4 Days Qty: 8 0RF oxycodone 5 mg tablet 5 mg PO Q6H 5 Days Qty: 7 0RF Rx Instructions: Partial Fill upon patient request. (DME) blood pressure test kit-large Kit See Rx Instructions .Route Qty: 1 0RF Rx Instructions: As directed disulfiram 500 mg tablet 500 mg PO DAILY 21 Days Qty: 21 0RF doxepin 10 mg capsule 10 mg PO BEDTIME 30 Days Qty: 30 1RF Referrals: [facility] [place] [facility] [Provider Group] Stanley Grewal PA-C [Primary Care Provider] - Print Language: Belarusian
[2024-05-14 07:10] VITALS: RESP 20
[2024-05-14] MEDS: predniSONE 10 MG TABLET 50 MG PO (07:10)
[2024-05-14] MEDS: Ketorolac Tromethamine 30 MG/ML VIAL IM (07:11)
[2024-05-14 08:09] VITALS: BP 124/85; PULSE 83; RESP 16; TEMP 36.8; O2SAT 95
[2024-05-14] MEDS: Acetaminophen 325 MG TABLET 975 MG PO (08:11)
[2024-05-14] MEDS: oxyCODONE HCl Immed Release 5 MG TABLET PO (08:11)
[2024-05-14 09:19] VITALS: BP 124/85; PULSE 83; RESP 16; TEMP 36.8; O2SAT 95
== END 2024-05-14 09:20 | disposition home or self-care (01) ==
PROVIDERS: Emergency Provider Emergency Medicine; PCP Physician Assistant
DX: M1A.0620 Idiopathic chronic gout, left knee, without tophus (tophi) (principal); I10 Essential (primary) hypertension; Z79.899 Other long term (current) drug therapy
CPT/HCPCS: 96372; 99284; J1885

== ENCOUNTER 2024-06-02 15:45 | Emergency (ER) | payer OTHER, SELFPAY ==
[2024-06-02 16:30] VITALS: BP 152/90; PULSE 92; RESP 18; TEMP 36.8; O2SAT 97; BMI 28.1
--- NOTE | 2024-06-02 16:33 | ED.GENADULT ---
HPI - General Adult General Chief complaint: Extremity Injury, Upper Stated complaint: rt elbow flare up Time Seen by Provider: 06/02/24 16:32 Source: patient, RN notes reviewed and old records reviewed Mode of arrival: ambulatory Limitations: no limitations History of Present Illness ED Provider: Chi HPI narrative: 33-year-old male presents for evaluation of right elbow pain Patient reports the pain started last night. He has long history of gout which is usually in his knee He feels as though he is having a gout flare to his right elbow. He does state that over the weekend he was drinking alcohol and eating seafood He reports decreased ability of the right elbow. Denies any injury, wounds pain He denies any fevers, chills Related Data Previous Rx's ?Medication ?Instructions ?Recorded blood pressure test kit-large #1 ea 12/21/21 pantoprazole 20 mg tablet,delayed 20 mg PO DAILY #30 tabs 12/25/23 release doxepin 10 mg capsule 10 mg PO BEDTIME 30 days #30 caps 01/07/24 allopurinol 100 mg tablet 200 mg (2 x 100 mg) PO DAILY 90 01/27/24 days #180 tabs colchicine 0.6 mg tablet 1.2 mg (2 x 0.6 mg) PO DAILY PRN 01/27/24 acute gout flares 30 days #60 tabs disulfiram 500 mg tablet 500 mg PO DAILY 21 days #21 tabs 02/04/24 disulfiram 250 mg tablet 500 mg (2 x 250 mg) PO DAILY 30 02/11/24 days #60 tabs indomethacin 50 mg capsule 50 mg PO QID #30 caps 02/17/24 prednisone 20 mg tablet 40 mg (2 x 20 mg) PO DAILY #10 tabs 02/17/24 colchicine 0.6 mg tablet 0.6 mg PO BID #10 tabs 03/14/24 naproxen 500 mg tablet (Naprosyn) 500 mg PO BID PRN pain #20 tabs 03/14/24 oxycodone 5 mg tablet 5 mg PO Q4-6H PRN pain 3 days #14 03/14/24 tabs prednisone 20 mg tablet 60 mg (3 x 20 mg) PO DAILY 5 days 03/14/24 #15 tabs oxycodone 5 mg tablet 5 mg PO Q6H pain 5 days #7 tabs 04/20/24 prednisone 20 mg tablet 40 mg (2 x 20 mg) PO DAILY 4 days 04/20/24 #8 tabs prednisone 10 mg tablets in a dose See Rx Instructions .Route 05/14/24 pack .COMPLEX #48 ea prednisone 20 mg tablet 40 mg (2 x 20 mg) PO DAILY #10 tabs 06/02/24 Allergies Allergy/AdvReac Type Severity Reaction Status Date / Time No Known Allergies Allergy Verified 06/02/24 16:33 [No Known Allergies*] Review of Systems Constitutional: Constitutional: Denies body ache(s), Denies chills, Denies fever(s) and Denies frequent falls Cardiovascular: Cardiovascular: Denies chest pain and Denies dyspnea Respiratory: Respiratory: Denies cough and Denies dyspnea Gastrointestinal: Gastrointestinal: Denies abdominal pain, Denies nausea and Denies vomiting Musculoskeletal: Musculoskeletal: Reports arthralgias, Reports joint swelling and Reports limited range of motion Integumentary/Breasts: Skin/Breast: Denies erythema Neurologic: Denies frequent falls [facility] Past Medical History Medical History Screening for hypercholesterolemia Screening for diabetes mellitus (DM) Community acquired pneumonia Transaminitis Alcohol use disorder, moderate, dependence Alcohol use disorder HTN (hypertension) Surgical History History of appendectomy Social History Social History Household Members: Family Housing: House Do you presently have visiting nurse or other home services: No Alcohol intake: current Alcohol intake frequency: 3 or more drinks per day Alcohol type: hard liquor Patient Tobacco Use Status: Never used Tobacco e-Cigarette/Vaping Use: Currently Using Second Hand Smoke Exposure: No Substance Use Type: Marijuana Do you have a plan to hurt others: No Plan service: No Current occupational status: employed Current occupational exposures/hazards: No Cognitive needs: No Hearing needs: No Vision needs: Yes (contact/glasses) Physical Exam ED Vital Signs: Vital Signs - 24 hr 06/02/24 16:30 Temperature 98.2 F Pulse Rate 92 Respiratory Rate 18 Blood Pressure 152/90 H Pulse Oximetry 97 Oxygen Delivery Method Room Air BMI result Body Mass Index 28.1 Const General: healthy appearing, comfortable, no acute distress, alert and awake Nutritional Appearance: well nourished Orientation/consciousness: patient oriented x3 HENMT Head: Yes normocephalic and Yes atraumatic Eyes Eyelids: Yes eyelids normal Conjunctivae: conjunctivae normal Sclerae: sclerae normal Corneas: corneas normal Pupils: Equal, round and reactive pupils present EOM: EOMs intact bilaterally Neck Neck: Yes full ROM Resp Effort & Inspection: normal respiratory effort, able to speak in complete sentences and not labored Skin General skin exam: elasticity normal Neuro General: patient oriented x3 Cranial nerves: Yes Equal, round and reactive pupils present and Yes Bilaterally intact EOM present Cognition (Neuro): normal cognition Extrem Other: Mild edema to the right elbow with apparent joint effusion. There was no overlying erythema or increased warmth this area is tender to palpation. The patient has slightly reduced range of motion is unable to completely extend the right elbow. Medical Decision Making Medical Decision Making MDM Narrative: 33-year-old male presents for evaluation of atraumatic right elbow pain. He has no fevers or erythema to suggest infectious cause. He has a long history of gout and reports being noncompliant with recommended diet. We will treat as gout. He reports having colchicine and allopurinol at home. He is requesting Toradol for pain which we will administer. I will send him home with a short prescription of prednisone Differential Diagnosis Differential Diagnoses: The differential diagnosis associated with the presentation includes Acute gouty arthritis Septic joint less likely Contusion Elbow fracture Discharge Plan Discharge Clinical Impression: Acute gout of right elbow Patient Disposition: Home, Self-Care Instructions: Low Purine Diet (ED), Gout (ED) Additional Instructions: You are being treated for gout. Take your colchicine and allopurinol as directed. Take prednisone 40 mg daily for the next 5 days Prescriptions: New prednisone 20 mg tablet 40 mg PO DAILY Qty: 10 0RF No Action colchicine 0.6 mg tablet 1.2 mg PO DAILY PRN (Reason: acute gout flares) 30 Days Qty: 60 1RF Rx Instructions: To use during acute flares allopurinol 100 mg tablet 200 mg PO DAILY 90 Days Qty: 180 1RF disulfiram 250 mg tablet 500 mg PO DAILY 30 Days Qty: 60 0RF prednisone 20 mg tablet 40 mg PO DAILY Qty: 10 0RF indomethacin 50 mg capsule 50 mg PO QID Qty: 30 0RF Rx Instructions: administer with food or milk prednisone 10 mg tablets,dose pack See Rx Instructions .ROUTE .COMPLEX Qty: 48 0RF Taper: Prednisone 40 mg daily for 3 Days and 0 Hour 30 mg daily for 3 Days and 0 Hour 20 mg daily for 3 Days and 0 Hour 10 mg daily for 3 Days and 0 Hour Rx Instructions: See Taper orally pantoprazole 20 mg tablet,delayed release (DR/EC) 20 mg PO DAILY Qty: 30 0RF colchicine 0.6 mg tablet 0.6 mg PO BID Qty: 10 0RF oxycodone 5 mg tablet 5 mg PO Q4-6H PRN (Reason: pain) 3 Days Qty: 14 0RF Rx Instructions: Partial Fill upon patient request. naproxen [Naprosyn] 500 mg tablet 500 mg PO BID PRN (Reason: pain) Qty: 20 0RF prednisone 20 mg tablet 60 mg PO DAILY 5 Days Qty: 15 0RF prednisone 20 mg tablet 40 mg PO DAILY 4 Days Qty: 8 0RF oxycodone 5 mg tablet 5 mg PO Q6H 5 Days Qty: 7 0RF Rx Instructions: Partial Fill upon patient request. (DME) blood pressure test kit-large Kit See Rx Instructions .Route Qty: 1 0RF Rx Instructions: As directed disulfiram 500 mg tablet 500 mg PO DAILY 21 Days Qty: 21 0RF doxepin 10 mg capsule 10 mg PO BEDTIME 30 Days Qty: 30 1RF Print Language: Belarusian
[2024-06-02] MEDS: Ketorolac Tromethamine 30 MG/ML VIAL IM (17:19)
--- NOTE | 2024-06-02 17:21 | PC.NURSE ---
Eval by RME, medicated per MAR and sling applied ro right arm, tolerated well. Cleared for dc home.
[2024-06-02 17:22] VITALS: BP 152/90; PULSE 92; RESP 18; TEMP 36.8; O2SAT 97
== END 2024-06-02 17:22 | disposition home or self-care (01) ==
PROVIDERS: Emergency Provider Emergency Medicine; PCP Physician Assistant
DX: M10.021 Idiopathic gout, right elbow (principal)
CPT/HCPCS: 96372; 99283; 99284; J1885

== ENCOUNTER 2024-06-03 07:01 | Emergency (ER) | payer OTHER, SELFPAY ==
--- NOTE | ~2024-06-03 | XR_ITS ---
EXAMINATION: XR ELBOW, RIGHT CLINICAL INFORMATION: Pain in the right elbow COMPARISON: None available. TECHNIQUE: AP, lateral, and oblique views of the right elbow. FINDINGS: The bones and soft tissues are normal. No fracture or joint effusion. Alignment is anatomic. Joint spaces are maintained. XR/XR elbow RT min 3V IMPRESSION: Normal right elbow. Electronically signed by: Blanche Rodríguez MD 06/03/2024 02:44 PM EDT
[2024-06-03 07:31] VITALS: BP 141/92; PULSE 83; RESP 18; TEMP 36.6; O2SAT 96; BMI 29.2
[2024-06-03 07:46] LABS: MANUAL DIFF FLAG NO
[2024-06-03 07:48] LABS: Basophils Absolute Auto 0.1 X10*3/uL (0.0-0.2); Basophils Percent Auto 0.8 % (0-2); Eosinophils Absolute Auto 0.2 X10*3/uL (0.0-0.4); Eosinophils Percent Auto 4.1 % (0-4); Hemoglobin 14.9 g/dl (14.0-18.0); Imm Gran Abs Auto 0.02 X10*3/uL (0.00-0.03); Imm Gran Pct Auto 0.3 % (0.0-0.4); Lymphocytes Absolute Auto 1.7 X10*3/uL (1.2-4.9); Lymphocytes Percent Auto 28.6 % (20-40); Mean Corpuscular HGB Conc 34.7 g/dl (31.0-36.0); Mean Corpuscular Hemoglobin 32.7 pg (27.0-33.0); Mean Corpuscular Volume 94.5 fL (80.0-98.0); Mean Platelet Volume 9.1 fL (9.4-12.4); Monocytes Absolute Auto 0.7 X10*3/uL (0.1-1.2); Monocytes Percent Auto 11.5 % (2-11); Neutrophils Absolute Auto 3.2 x10*3/uL (2.0-8.3); Neutrophils Percent Auto 54.7 % (45-73); Platelet Count 197 X10*3/uL (160-400); Red Blood Count 4.55 X10*6/uL (4.60-5.80); Red Cell Distribution Width 12.7 % (11.0-16.0); White Blood Count 5.9 X10*3/uL (4.8-10.8)
[2024-06-03 08:05] LABS: Alanine Aminotransferase 52 U/L (0-40); Alkaline Phosphatase 73 U/L (39-117); Anion Gap 11 (12-20); Aspartate Amino Transferase 58 U/L (5-37); Bilirubin Total 1.2 mg/dL (0.0-1.0); Blood Urea Nitrogen 7 mg/dL (9-16); Calcium 9.3 mg/dL (8.4-10.2); Carbon Dioxide 25 mmol/L (22-29); Chloride 108 mmol/L (96-108); Creatinine Clr Calc Pharmacy 220.3; Estimated Glomerular Filt Rate > 60; Glucose Random 117 mg/dL (60-115); Potassium 3.6 mmol/L (3.3-5.1); Sodium 140 mmol/L (135-145); Total Protein 6.8 g/dL (6.5-8.0); Uric Acid 8.4 mg/dL (3.4-7.0)
--- NOTE | 2024-06-03 09:52 | ED_ITS ---
HPI - Extremity Problem General Chief complaint: Extremity Injury, Upper Stated complaint: elbow pain Time Seen by Provider: 06/03/24 09:51 Source: patient Mode of arrival: ambulatory Limitations: no limitations History of Present Illness ED Provider: Tika Garcia PA-C HPI Narrative: Patient is a 33 year old assigned male at with a history of gout and alcohol use presenting to the emergency department today with continued right elbow pain. Patient states that over the last 2 days he has had right elbow pain. Patient states that he was seen yesterday in the ER thinking it was a gout flare. Patient states that he was given Toradol and Prednisone with a sling. Patient states that he woke up this morning and the pain was worse, now unable to fully extend his right elbow. Patient denies any dizziness, lightheadedness, abdominal pain, nausea, vomiting, fever, chills, blurry vision, double vision, loss of vision, chest pain, difficulty breathing, shortness of breath, back pain, night sweats, pain with urination, increased urinary frequency, increased urinary urgency, blood in his urine or stool, syncope or a near syncopal episode, recent trauma or falls, bowel incontinence, bladder incontinence, or any other complaints at this time. MD Complaint: extremity pain Onset (ago): day(s) (2) Pain Consistency: constant Location: right and upper extremity Relieving factors: nothing Exacerbating factors: range of motion Associated symptoms: denies other symptoms Related Data Previous Rx's ?Medication ?Instructions ?Recorded blood pressure test kit-large #1 ea 12/21/21 pantoprazole 20 mg tablet,delayed 20 mg PO DAILY #30 tabs 12/25/23 release doxepin 10 mg capsule 10 mg PO BEDTIME 30 days #30 caps 01/07/24 allopurinol 100 mg tablet 200 mg (2 x 100 mg) PO DAILY 90 01/27/24 days #180 tabs colchicine 0.6 mg tablet 1.2 mg (2 x 0.6 mg) PO DAILY PRN 01/27/24 acute gout flares 30 days #60 tabs disulfiram 500 mg tablet 500 mg PO DAILY 21 days #21 tabs 02/04/24 disulfiram 250 mg tablet 500 mg (2 x 250 mg) PO DAILY 30 02/11/24 days #60 tabs indomethacin 50 mg capsule 50 mg PO QID #30 caps 02/17/24 prednisone 20 mg tablet 40 mg (2 x 20 mg) PO DAILY #10 tabs 02/17/24 colchicine 0.6 mg tablet 0.6 mg PO BID #10 tabs 03/14/24 naproxen 500 mg tablet (Naprosyn) 500 mg PO BID PRN pain #20 tabs 03/14/24 oxycodone 5 mg tablet 5 mg PO Q4-6H PRN pain 3 days #14 03/14/24 tabs prednisone 20 mg tablet 60 mg (3 x 20 mg) PO DAILY 5 days 03/14/24 #15 tabs oxycodone 5 mg tablet 5 mg PO Q6H pain 5 days #7 tabs 04/20/24 prednisone 20 mg tablet 40 mg (2 x 20 mg) PO DAILY 4 days 04/20/24 #8 tabs prednisone 10 mg tablets in a dose See Rx Instructions .Route 05/14/24 pack .COMPLEX #48 ea prednisone 20 mg tablet 40 mg (2 x 20 mg) PO DAILY #10 tabs 06/02/24 naproxen 500 mg tablet 500 mg PO BID 7 days #14 tabs 06/03/24 Allergies Allergy/AdvReac Type Severity Reaction Status Date / Time No Known Allergies Allergy Verified 06/03/24 07:33 [No Known Allergies*] Review of Systems 2 Constitutional: Constitutional: Reports no additional constitutional complaints, Denies chills, Denies fever(s) and Denies night sweats Eyes: Eyes: Reports no additional eye complaints, Denies blurry vision, Denies change in vision, Denies diplopia, Denies eye discharge, Denies loss of vision and Denies eye pain ENT: Denies dizziness Cardiovascular: Cardiovascular: Reports no additional cardiovascular complaints, Denies chest pain, Denies lightheadedness, Denies Loss of Consciousness and Denies dyspnea Respiratory: Respiratory: Reports no additional respiratory complaints and Denies dyspnea Gastrointestinal: Gastrointestinal: Reports no additional gastrointestinal complaints, Denies abdominal pain, Denies melena, Denies hematochezia, Denies change in bowel habits and Denies change in stool character Genitourinary: Genitourinary: Reports no additional male genitourinary complaints, Denies hematuria, Denies oliguria, Denies difficulty urinating, Denies dysuria, Denies urinary frequency, Denies urinary hesitancy, Denies urinary incontinence and Denies urinary urgency Musculoskeletal: Musculoskeletal: Reports no additional musculoskeletal complaints, Denies numbness and Denies tingling Comments: right elbow pain Neurologic: Denies dizziness, Denies loss of vision, Denies numbness and Denies tingling Psychiatric: Psychiatric: Reports no additional psychiatric complaints Endocrine: Endocrine: Reports no additional endocrine complaints Hematologic/Lymphatic: Hematologic/Lymphatic: Reports no additional hematologic/lymphatic complaints Allergic/Immunologic: Allergic/Immunologic: Reports no additional allergic/immunologic complaints PMFSH Past Medical History Attestation statement: The following information was validated with the patient. Source: old records reviewed and nursing notes reviewed Medical History Screening for hypercholesterolemia Screening for diabetes mellitus (DM) Community acquired pneumonia Transaminitis Alcohol use disorder, moderate, dependence Alcohol use disorder HTN (hypertension) Surgical History History of appendectomy Social History Social History Household Members: Family Housing: House Do you presently have visiting nurse or other home services: No Alcohol intake: current Alcohol intake frequency: 3 or more drinks per day Alcohol type: hard liquor Patient Tobacco Use Status: Never used Tobacco e-Cigarette/Vaping Use: Currently Using Second Hand Smoke Exposure: No Substance Use Type: Marijuana Advance Directives: No Advance Directives Information Provided: No Do you have a plan to hurt others: No Plan service: No Current occupational status: employed Current occupational exposures/hazards: No Cognitive needs: No Hearing needs: No Vision needs: Yes (contact/glasses) Physical Exam 2 Vital Signs: Vital Signs: Last Vital Signs Temp 98.8 F 06/03/24 11:49 Pulse 82 06/03/24 11:49 Resp 20 06/03/24 11:49 BP 132/85 06/03/24 11:49 Pulse Ox 99 06/03/24 11:49 O2 Del Method Room Air 06/03/24 11:49 BMI result Body Mass Index 29.2 Const: General: cooperative, no acute distress, alert and awake Nutritional Appearance: well nourished Orientation/consciousness: patient oriented x3 Limitations: no limitations HEENT: Head: Yes normal to inspection and Yes atraumatic Ears: hearing grossly normal bilaterally and external ears normal General nose exam: Normal external nose present, no nasal discharge noted and no epistaxis Face and sinus: Yes normal facial exam, No abrasion and No laceration Mouth: Normal oral and palatal mucosa present, no drooling and no muffled voice Eyes: General: appearance normal, both eyes and all related structures P eriorbital: periorbital findings normal Eyelids: Yes eyelids normal C onjunctivae: conjunctivae normal Pupils: Equal, round and reactive pupils present EOM: EOMs intact bilaterally Neck: Neck: Yes normal visual inspection, Yes full ROM and Yes no lymphadenopathy Chest: Chest palpation & inspection: normal inspection of the chest Resp: Effort & Inspection: normal respiratory effort and able to speak in complete sentences GI: Inspection: Yes normal to inspection Neuro: General: patient oriented x3 and moves all extremities Cranial nerves: Yes Equal, round and reactive pupils present Cognition (Neuro): n ormal cognition Extrem: Other: limited ROM of the right elbow secondary to pain pain with palpation of the medial epicondyle of the right elbow no erythema, no swelling, and no warmth of the right elbow General: Yes normal to inspection and Yes capillary refill normal Psych: Appearance: grossly normal Mental Status: mental status grossly normal Affect: normal affect Attitude: cooperative Thought process: N ormal thought process present Thought content: Normal thought content present Insight: Good insight present (Psych) Medications Administered Discontinued Medications Generic Name Dose Route Start Last Admin Trade Name Freq PRN Reason Stop Dose Admin Ketorolac Tromethamine 15 mg 06/03/24 09:56 06/03/24 10:16 Ketorolac Tromethamine 15 Mg/Ml Vial IM 06/03/24 09:57 15 mg ONCE ONE Administration Oxycodone HCl 10 mg 06/03/24 11:08 06/03/24 11:10 Oxycodone Hcl Immed Release 5 Mg Tablet PO 06/03/24 11:09 10 mg ONCE ONE Administration Medical Decision Making Medical Decision Making MDM Narrative: Patient is a 33 year old assigned male at with a history of gout and alcohol use presenting to the emergency department today with right elbow pain. Patient's physical exam was as noted in the physical exam portion of this note. Patient's blood work was consistent with his baseline. Patient's right elbow x- ray showed no acute process. Given the patient's presentation being questionable of gout vs. a tendon or ligament injury, I consulted with the orthopedic team. They agreed with my plan to keep the patient in the sling he was given previously, continue him on NSAIDs and have him follow up with their office on an outpatient basis. I explained my physical exam findings as well as all test results to the patient. I answered all questions asked by the patient. I stressed the importance of the patient taking his medication as directed (either prescribed or as the over the counter packaging recommends). I stressed the importance of the patient following up with his primary care provider and an orthopedic provider. I stressed the importance of the patient returning to the emergency department immediately if his symptoms were to worsen or if he were to develop any dizziness, shortness of breath, difficulty breathing, chest pain, blurry vision, loss of vision, nausea, vomiting, abdominal pain, fever, chills, back pain, or any other complaints. Patient verbalized agreement and understanding with this treatment plan and discharge. Differential Diagnosis Differential Diagnoses: The differential diagnosis associated with the presentation includes Elbow pain Elbow sprain Elbow strain Elbow fracture Tendonitis Bursitis Gout Admission/Observation Consideration of admission/observation: Escalation of care including admission/observation considered Patient would have been admitted to the hospital had his work up had any findings where hospital admission was appropriate and his clinical presentation warranted hospital admission. Consult Healthcare Provider Management of the patient was discussed with: Macroeconomics Professor (spoke to the orthopedic team as noted in the MDM Rationale portion of this note.) Lab Data [facility] Lab Attestation statement: I reviewed the patient's lab results. My interpretation of these results are in the MDM Rationale portion of this note. 06/03/24 07:43 06/03/24 07:43 Labs: Lab Results 06/03/24 Range/Units 07:43 WBC 5.9 (4.8-10.8) X10*3/uL RBC 4.55 L (4.60-5.80) X10*6/uL Hgb 14.9 (14.0-18.0) g/dl Hct 43.0 (42.0-52.0) % MCV 94.5 (80.0-98.0) fL MCH 32.7 (27.0-33.0) pg MCHC 34.7 (31.0-36.0) g/dl RDW 12.7 (11.0-16.0) % Plt Count 197 (160-400) X10*3/uL MPV 9.1 L (9.4-12.4) fL Immature Gran % (Auto) 0.3 (0.0-0.4) % Neut % (Auto) 54.7 (45-73) % Lymph % (Auto) 28.6 (20-40) % [place] % (Auto) 11.5 H (2-11) % Eos % (Auto) 4.1 H (0-4) % Baso % (Auto) 0.8 (0-2) % Lymph # (Auto) 1.7 (1.2-4.9) X10*3/uL [place] # (Auto) 0.7 (0.1-1.2) X10*3/uL Eos # (Auto) 0.2 (0.0-0.4) X10*3/uL Baso # (Auto) 0.1 (0.0-0.2) X10*3/uL Abs Immat Gran (auto) 0.02 (0.00-0.03) X10*3/uL Absolute Neuts (auto) 3.2 (2.0-8.3) x10*3/uL Absolute Nucleated RBC 0.000 (0.0-0.012) X10*3/uL Nucleated RBC % (auto) 0.0 (0.0-0.2) /100WBC Sodium 140 (135-145) mmol/L Potassium 3.6 (3.3-5.1) mmol/L Chloride 108 (96-108) mmol/L Carbon Dioxide 25 (22-29) mmol/L Anion Gap 11 L (12-20) BUN 7 L (9-16) mg/dL Creatinine 0.64 (0.5-1.4) mg/dL Estim Creat Clear Calc 220.3 Estimated GFR > 60 Random Glucose 117 H (60-115) mg/dL Uric Acid 8.4 H (3.4-7.0) mg/dL Calcium 9.3 D (8.4-10.2) mg/dL Total Bilirubin 1.2 H (0.0-1.0) mg/dL AST 58 H (5-37) U/L ALT 52 H (0-40) U/L Alkaline Phosphatase 73 (39-117) U/L Total Protein 6.8 (6.5-8.0) g/dL Albumin 4.0 (3.5-5.0) g/dL Independent Interpretation I performed an independent interpretation of an: Plain X-Ray Interpretation: My interpretation is in agreement with the radiologist's impression of this imaging study. - EXAMINATION: XR ELBOW, RIGHT CLINICAL INFORMATION: Pain in the right elbow COMPARISON: None available. TECHNIQUE: AP, lateral, and oblique views of the right elbow. FINDINGS: The bones and soft tissues are normal. No fracture or joint effusion. Alignment is anatomic. Joint spaces are maintained. XR/XR elbow RT min 3V IMPRESSION: Normal right elbow. Electronically signed by: Blanche Rodríguez MD 06/03/2024 02:44 PM EDT RP Dictated By: Blanche Rodríguez MD Signed By: Electronically signed by Blanche Rodríguez MD 06/03/24 1444 Radiology Impression Discussion of test interpretation with radiology: I have reviewed the radiologist's reading. Prescription Management I considered prescription management with: Pain Medication (patient prescribed pain medication) Discharge Plan Discharge Clinical Impression: Elbow pain Patient Disposition: Home, Self-Care Instructions: Arthralgia (ED) Additional Instructions: Follow up with your primary care provider and an orthopedic provider. Continue using your sling. Return to the emergency department immediately if your symptoms worsen or if you develop any dizziness, shortness of breath, difficulty breathing, chest pain, blurry vision, loss of vision, nausea, vomiting, abdominal pain, fever, chills, back pain, or any other complaints. Prescriptions: New naproxen 500 mg tablet 500 mg PO BID 7 Days Qty: 14 0RF No Action colchicine 0.6 mg tablet 1.2 mg PO DAILY PRN (Reason: acute gout flares) 30 Days Qty: 60 1RF Rx Instructions: To use during acute flares allopurinol 100 mg tablet 200 mg PO DAILY 90 Days Qty: 180 1RF disulfiram 250 mg tablet 500 mg PO DAILY 30 Days Qty: 60 0RF prednisone 20 mg tablet 40 mg PO DAILY Qty: 10 0RF indomethacin 50 mg capsule 50 mg PO QID Qty: 30 0RF Rx Instructions: administer with food or milk prednisone 10 mg tablets,dose pack See Rx Instructions .ROUTE .COMPLEX Qty: 48 0RF Taper: Prednisone 40 mg daily for 3 Days and 0 Hour 30 mg daily for 3 Days and 0 Hour 20 mg daily for 3 Days and 0 Hour 10 mg daily for 3 Days and 0 Hour Rx Instructions: See Taper orally pantoprazole 20 mg tablet,delayed release (DR/EC) 20 mg PO DAILY Qty: 30 0RF colchicine 0.6 mg tablet 0.6 mg PO BID Qty: 10 0RF oxycodone 5 mg tablet 5 mg PO Q4-6H PRN (Reason: pain) 3 Days Qty: 14 0RF Rx Instructions: Partial Fill upon patient request. naproxen [Naprosyn] 500 mg tablet 500 mg PO BID PRN (Reason: pain) Qty: 20 0RF prednisone 20 mg tablet 60 mg PO DAILY 5 Days Qty: 15 0RF prednisone 20 mg tablet 40 mg PO DAILY 4 Days Qty: 8 0RF oxycodone 5 mg tablet 5 mg PO Q6H 5 Days Qty: 7 0RF Rx Instructions: Partial Fill upon patient request. prednisone 20 mg tablet 40 mg PO DAILY Qty: 10 0RF (DME) blood pressure test kit-large Kit See Rx Instructions .Route Qty: 1 0RF Rx Instructions: As directed disulfiram 500 mg tablet 500 mg PO DAILY 21 Days Qty: 21 0RF doxepin 10 mg capsule 10 mg PO BEDTIME 30 Days Qty: 30 1RF Ref[place]: [facility] [place] [facility] [place] (Call to establish and follow up with a primary care provider. If you already have a primary care provider, please follow up with them.) [facility] [place] [facility] [Provider Group] (Call to establish and follow up with a primary care provider. If you already have a primary care provider, please follow up with them.) [facility] [place] [facility] [Provider Group] (Call to establish and follow up with a primary care provider. If you already have a primary care provider, please follow up with them.) [facility] [place] [facility] [Provider Group] (Call to establish and follow up with an orthopedic provider. If you already have an orthopedic provider, please follow up with them.) Stand Alone Forms: Work/School Release Interventions: ED Discharge Assessment Last Done: 06/03/24 11:49 Discharge Date/Time: 06/03/24 11:49 Print Language: Cymraes
[2024-06-03] MEDS: Ketorolac Tromethamine 15 MG/ML VIAL IM (10:16)
[2024-06-03] MEDS: oxyCODONE HCl Immed Release 5 MG TABLET 10 MG PO (11:10)
[2024-06-03 11:48] VITALS: BP 132/85; PULSE 82; RESP 20; TEMP 37.1; O2SAT 99
[2024-06-03 11:49] VITALS: BP 132/85; PULSE 82; RESP 20; TEMP 37.1; O2SAT 99
== END 2024-06-03 11:49 | disposition home or self-care (01) ==
PROVIDERS: Emergency Provider Emergency Medicine
DX: M25.521 Pain in right elbow (principal); I10 Essential (primary) hypertension; M10.9 Gout, unspecified
CPT/HCPCS: 36415; 73080; 80053; 84550; 85025; 96372; 99284; J1885

== ENCOUNTER 2024-06-27 12:23 | Emergency (ER) | payer OTHER, SELFPAY ==
[2024-06-27 12:29] VITALS: BP 159/92; PULSE 77; RESP 16; TEMP 36.7; O2SAT 98; BMI 28.1
--- NOTE | 2024-06-27 12:29 | ED_ITS ---
HPI - General Adult General Chief complaint: Nausea/Vomiting/Diarrhea Stated complaint: vomiting blood Time Seen by Provider: 06/27/24 15:26 History of Present Illness ED Provider: Lm DAVIS narrative: The patient is a 33-year-old with a history of gout and fairly heavy alcohol use. He says that he attended a 2 weeks ago of a friend's mother. He says that he had a lot of alcohol yesterday evening. This morning at around 7 or 08:00 o'clock he had abdominal discomfort and nausea and vomited several times. He thought there was blood in the vomit. He comes to the emergency room because of concern about blood in the vomit. His last bowel movement was this morning. It was not black. He feels mildly tremulous. The patient says he has never had severe alcohol withdrawal symptoms in the past. Related Data Previous Rx's ?Medication ?Instructions ?Recorded blood pressure test kit-large #1 ea 12/21/21 pantoprazole 20 mg tablet,delayed 20 mg PO DAILY #30 tabs 12/25/23 release doxepin 10 mg capsule 10 mg PO BEDTIME 30 days #30 caps 01/07/24 allopurinol 100 mg tablet 200 mg (2 x 100 mg) PO DAILY 90 01/27/24 days #180 tabs colchicine 0.6 mg tablet 1.2 mg (2 x 0.6 mg) PO DAILY PRN 01/27/24 acute gout flares 30 days #60 tabs disulfiram 500 mg tablet 500 mg PO DAILY 21 days #21 tabs 02/04/24 disulfiram 250 mg tablet 500 mg (2 x 250 mg) PO DAILY 30 02/11/24 days #60 tabs indomethacin 50 mg capsule 50 mg PO QID #30 caps 02/17/24 prednisone 20 mg tablet 40 mg (2 x 20 mg) PO DAILY #10 tabs 02/17/24 colchicine 0.6 mg tablet 0.6 mg PO BID #10 tabs 03/14/24 naproxen 500 mg tablet (Naprosyn) 500 mg PO BID PRN pain #20 tabs 03/14/24 oxycodone 5 mg tablet 5 mg PO Q4-6H PRN pain 3 days #14 03/14/24 tabs prednisone 20 mg tablet 60 mg (3 x 20 mg) PO DAILY 5 days 03/14/24 #15 tabs oxycodone 5 mg tablet 5 mg PO Q6H pain 5 days #7 tabs 04/20/24 prednisone 20 mg tablet 40 mg (2 x 20 mg) PO DAILY 4 days 04/20/24 #8 tabs prednisone 10 mg tablets in a dose See Rx Instructions .Route 05/14/24 pack .COMPLEX #48 ea prednisone 20 mg tablet 40 mg (2 x 20 mg) PO DAILY #10 tabs 06/02/24 naproxen 500 mg tablet 500 mg PO BID 7 days #14 tabs 06/03/24 omeprazole 40 mg capsule,delayed 40 mg PO DAILY #30 caps 06/27/24 release sucralfate 1 gram tablet 1 g PO TID PRN upper abdominal 06/27/24 pain #40 tabs Allergies Allergy/AdvReac Type Severity Reaction Status Date / Time No Known Allergies Allergy Verified 06/27/24 12:33 [No Known Allergies*] Review of Systems 2 Review of Systems: Yes all other systems are reviewed and are negative FOR[facility]LY [facility] Past Medical History Medical History Screening for hypercholesterolemia Screening for diabetes mellitus (DM) Community acquired pneumonia Transaminitis Alcohol use disorder, moderate, dependence Alcohol use disorder HTN (hypertension) Surgical History History of appendectomy Social History Social History Household Members: Family Housing: House Do you presently have visiting nurse or other home services: No Alcohol intake: current Alcohol intake frequency: 3 or more drinks per day Alcohol type: hard liquor Patient Tobacco Use Status: Never used Tobacco Smoked in Last 30 Days: No e-Cigarette/Vaping Use: Currently Using Second Hand Smoke Exposure: No Use of substances other than those prescribed or required for medical reasons: Yes Substance Use Type: Marijuana Substance Use Frequency: Daily Advance Directives: No Advance Directives Information Provided: No Do you have a plan to hurt others: No Plan service: No Current occupational status: employed Current occupational exposures/hazards: No Cognitive needs: No Hearing needs: No Vision needs: Yes (contact/glasses) Physical Exam ED Vital Signs: Vital Signs - 24 hr 06/27/24 12:29 06/27/24 15:20 06/27/24 17:06 Temperature 98.0 F 98.4 F Pulse Rate 77 74 74 Respiratory Rate 16 18 18 Blood Pressure 159/92 H 135/84 117/72 Pulse Oximetry 98 97 99 Oxygen Delivery Method Room Air Room Air 06/27/24 17:11 Temperature 98 F Pulse Rate 74 Respiratory Rate 18 Blood Pressure 117/72 Pulse Oximetry 99 Oxygen Delivery Method BMI result Body Mass Index 28.1 Const Other: The patient is a somewhat chronically ill-appearing 33-year-old. He looks mildly tremulous. He did not appear in obvious respiratory distress or obvious pain. HENMT Other: Face is symmetrical. Mucous membranes moist. Eyes General: appearance normal, both eyes and all related structures Conjunctivae: conjunctivae normal Sclerae: sclerae normal Pupils: Equal, round and reactive pupils present EOM: EOMs intact bilaterally Neck Neck: Yes full ROM and Yes supple Resp Effort & Inspection: normal respiratory effort Auscultation: clear to auscultation bilaterally Cardio Rate: regular rate Rhythm: regular rhythm Heart sounds: S1 normal heart sound present and S2 normal heart sound present GI Other: Mild epigastric tenderness. The abdomen is otherwise benign. The patient refused a rectal exam. Skin Other: Skin is pale and dry Neuro Other: The patient is awake and alert with a normal mental status. Cranial nerves are grossly intact. He moves his extremities normally. Cranial nerves: Yes Equal, round and reactive pupils present Extrem Other: No peripheral edema Course Course Course Narrative: This is an RME performed by Esdras Gibbons CNP: Additional HPI, ROS, PE not included below will be deferred to primary provider. Patient is a 33-year-old male presents emergency department for evaluation of vomiting blood. Reports that this morning at approximately 08:00 started with small flecks of blood in his emesis which has progressed to larger amounts. Reports it is dark red. Has associated upper abdominal pain. Denies diarrhea, hematochezia, melena. Reports he has been drinking ?for a week and a half straight? approximately 6-8 nips of hard alcohol daily. He has a history of gout, he states he has not been taking any NSAIDs or prednisone recently, having compliance with his allopurinol and colchicine. Endorses associated chills no vomiting. Plan: Serum labs Medications Administered Discontinued Medications Generic Name Dose Route Start Last Admin Trade Name Freq PRN Reason Stop Dose Admin Sodium Chloride 1,000 mls @ 999 mls/hr 06/27/24 15:45 06/27/24 16:58 Ns IV 06/27/24 16:45 Infused .Q1H1M TODD Infusion Lorazepam 1 mg 06/27/24 15:33 06/27/24 15:46 Lorazepam 2 Mg/Ml Vial IVPUSH 06/27/24 15:34 1 mg ONCE ONE Administration Lorazepam 2 mg 06/27/24 16:45 06/27/24 17:05 Lorazepam 1 Mg Tablet PO 06/27/24 16:46 2 mg ONCE ONE Administration Ondansetron HCl 4 mg 06/27/24 15:44 06/27/24 15:51 Ondansetron Hcl 4 Mg/2 Ml Vial IVPUSH 06/27/24 15:45 4 mg ONCE ONE Administration Pantoprazole Sodium 80 mg 06/27/24 15:33 06/27/24 15:47 Pantoprazole Sodium 40 Mg/10 Ml Vial IVPUSH 06/27/24 15:34 80 mg ONCE ONE Administration Sucralfate 1 gm 06/27/24 15:35 06/27/24 15:47 Sucralfate Oral Suspension 1 Gm/10 Ml Oral.Susp PO 06/27/24 15:36 1 gm ONCE ONE Administration Medical Decision Making Medical Decision Making [facility] Narrative: The patient is a 33-year-old who has a history of fairly significant chronic alcohol use who has been using alcohol more frequently over the last week and a half. This morning he had nausea, vomiting, and he was concerned that there was blood in his emesis this morning. His hemoglobin is stable. He has no elevation of his BUN. His vital signs are reasonably good. My overall suspicion for significant GI bleed in his patient is low. His lipase is normal. I suspect that he probably has some degree of alcoholic gastritis with mild bleeding, alternatively he may have had some bleeding from Jazz-Joy tears. The patient was treated symptomatically with pantoprazole, lorazepam, ondansetron, and oral sucralfate. He was given a L of IV fluid. He felt considerably better. He continued to refuse a rectal exam. He will be discharged with a prescription for omeprazole and sucralfate. He is advised that he needs to stop drinking. He says that he feels he can do this. He should return if worse, especially if he develops any black stools. Lab Data 06/27/24 12:41 06/27/24 12:41 Labs: Lab Results 06/27/24 06/27/24 06/27/24 Range/Units 12:41 15:53 15:54 WBC 5.3 (4.8-10.8) X10*3/uL RBC 4.62 (4.60-5.80) X10*6/uL Hgb 15.3 (14.0-18.0) g/dl Hct 42.8 (42.0-52.0) % MCV 92.6 (80.0-98.0) fL MCH 33.1 H (27.0-33.0) pg MCHC 35.7 (31.0-36.0) g/dl RDW 12.7 (11.0-16.0) % Plt Count 216 (160-400) X10*3/uL MPV 9.1 L (9.4-12.4) fL Immature Gran % (Auto) 0.0 (0.0-0.4) % Neut % (Auto) 59.9 (45-73) % Lymph % (Auto) 28.2 (20-40) % Reynolds % (Auto) 8.3 (2-11) % Eos % (Auto) 2.3 (0-4) % Baso % (Auto) 1.3 (0-2) % Lymph # (Auto) 1.5 (1.2-4.9) X10*3/uL Reynolds # (Auto) 0.4 (0.1-1.2) X10*3/uL Eos # (Auto) 0.1 (0.0-0.4) X10*3/uL Baso # (Auto) 0.1 (0.0-0.2) X10*3/uL Abs Immat Gran (auto) 0.00 (0.00-0.03) X10*3/uL Absolute Neuts (auto) 3.2 (2.0-8.3) x10*3/uL Absolute Nucleated RBC 0.000 (0.0-0.012) X10*3/uL Nucleated RBC % (auto) 0.0 (0.0-0.2) /100WBC PT 13.6 H (11.1-13.3) SEC INR 1.1 (0.9-1.1) Sodium 141 (135-145) mmol/L Potassium 3.9 (3.3-5.1) mmol/L Chloride 107 (96-108) mmol/L Carbon Dioxide 23 (22-29) mmol/L Anion Gap 15 (12-20) BUN 5 L (9-16) mg/dL Creatinine 0.74 (0.5-1.4) mg/dL Estim Creat Clear Calc 187.2 Estimated GFR > 60 Random Glucose 129 H (60-115) mg/dL Calcium 9.3 (8.4-10.2) mg/dL Magnesium 2.0 (1.6-2.6) mg/dL Total Bilirubin 1.1 H (0.0-1.0) mg/dL AST 97 H (5-37) U/L ALT 48 H (0-40) U/L Alkaline Phosphatase 81 (39-117) U/L Total Protein 7.8 (6.5-8.0) g/dL Albumin 4.5 (3.5-5.0) g/dL Lipase 15 (8-78) U/L Urine Color Dark Yellow Urine Appearance Clear Urine pH 5.5 (5.0-9.0) Ur Specific [place] 1.025 (1.005-1.025) Urine Protein 30 (1+) H (Neg-Trace) mg/dL Urine Glucose (UA) Negative (Negative) mg/dL Urine Ketones Trace (Negative) mg/dL Urine Blood Negative (Negative) Urine Nitrite Negative (Negative) Ur Leukocyte Esterase Trace H (Negative) Urine RBC 0-2 (0-2) /HPF Urine WBC 0-5 (0-5) /HPF Ur Squamous Epith Cells 0-2 (0-2) /HPF Urine Bacteria None Seen (None Seen) Hyaline Casts 0-2 (0-2) /LPF Blood Type B Negative Antibody Screen NEGATIVE Discharge Plan Discharge Clinical Impression: Alcoholic gastritis Patient Disposition: Home, Self-Care Instructions: Gastritis (ED) Additional Instructions: I suspect that you may have had a small amount of bleeding from your stomach related to irritation of the stomach lining called gastritis. Since this seems to have been related to increase use of alcohol I think this is probably appropriately called alcoholic gastritis. Your blood testing today is not showing any significant amount of bleeding. I have sent a prescription for medication called omeprazole. This is an acid reducing medication that should help ease the symptoms of gastritis. Take this medication once a day. I have also sent a prescription for a medication called sucralfate. This is a medication you may use on an as-needed basis for discomfort in your upper abdomen. You may take this up to 3 times a day. The most important thing you need to do for your health is to stop drinking alcohol. This is especially important in the next few days to help reduce the irritation of your stomach. Therefore please try not to drink at all for the next few days. Please contact your regular doctor's office on Saturday for a follow up appointment this week to discuss how you are doing. If at any point you feel you are significantly worse, especially if you develop any black stools, return to the emergency room for further evaluation. Prescriptions: New omeprazole 40 mg capsule,delayed release(DR/EC) 40 mg PO DAILY Qty: 30 0RF sucralfate 1 gram tablet 1 g PO TID PRN (Reason: upper abdominal pain) Qty: 40 0RF No Action colchicine 0.6 mg tablet 1.2 mg PO DAILY PRN (Reason: acute gout flares) 30 Days Qty: 60 1RF Rx Instructions: To use during acute flares allopurinol 100 mg tablet 200 mg PO DAILY 90 Days Qty: 180 1RF disulfiram 250 mg tablet 500 mg PO DAILY 30 Days Qty: 60 0RF prednisone 20 mg tablet 40 mg PO DAILY Qty: 10 0RF indomethacin 50 mg capsule 50 mg PO QID Qty: 30 0RF Rx Instructions: administer with food or milk prednisone 10 mg tablets,dose pack See Rx Instructions .ROUTE .COMPLEX Qty: 48 0RF Taper: Prednisone 40 mg daily for 3 Days and 0 Hour 30 mg daily for 3 Days and 0 Hour 20 mg daily for 3 Days and 0 Hour 10 mg daily for 3 Days and 0 Hour Rx Instructions: See Taper orally pantoprazole 20 mg tablet,delayed release (DR/EC) 20 mg PO DAILY Qty: 30 0RF colchicine 0.6 mg tablet 0.6 mg PO BID Qty: 10 0RF oxycodone 5 mg tablet 5 mg PO Q4-6H PRN (Reason: pain) 3 Days Qty: 14 0RF Rx Instructions: Partial Fill upon patient request. naproxen [Naprosyn] 500 mg tablet 500 mg PO BID PRN (Reason: pain) Qty: 20 0RF prednisone 20 mg tablet 60 mg PO DAILY 5 Days Qty: 15 0RF prednisone 20 mg tablet 40 mg PO DAILY 4 Days Qty: 8 0RF oxycodone 5 mg tablet 5 mg PO Q6H 5 Days Qty: 7 0RF Rx Instructions: Partial Fill upon patient request. prednisone 20 mg tablet 40 mg PO DAILY Qty: 10 0RF naproxen 500 mg tablet 500 mg PO BID 7 Days Qty: 14 0RF (DME) blood pressure test kit-large Kit See Rx Instructions .Route Qty: 1 0RF Rx Instructions: As directed disulfiram 500 mg tablet 500 mg PO DAILY 21 Days Qty: 21 0RF doxepin 10 mg capsule 10 mg PO BEDTIME 30 Days Qty: 30 1RF Interventions: ED Discharge Assessment Last Done: 06/27/24 17:11 Discharge Date/Time: 06/27/24 17:12 Print Language: Greenlandic
[2024-06-27 12:46] LABS: MANUAL DIFF FLAG NO
[2024-06-27 12:47] LABS: Basophils Absolute Auto 0.1 X10*3/uL (0.0-0.2); Basophils Percent Auto 1.3 % (0-2); Eosinophils Absolute Auto 0.1 X10*3/uL (0.0-0.4); Eosinophils Percent Auto 2.3 % (0-4); Hematocrit 42.8 % (42.0-52.0); Hemoglobin 15.3 g/dl (14.0-18.0); Lymphocytes Absolute Auto 1.5 X10*3/uL (1.2-4.9); Lymphocytes Percent Auto 28.2 % (20-40); Mean Corpuscular HGB Conc 35.7 g/dl (31.0-36.0); Mean Corpuscular Hemoglobin 33.1 pg (27.0-33.0); Mean Corpuscular Volume 92.6 fL (80.0-98.0); Mean Platelet Volume 9.1 fL (9.4-12.4); Monocytes Absolute Auto 0.4 X10*3/uL (0.1-1.2); Monocytes Percent Auto 8.3 % (2-11); Neutrophils Absolute Auto 3.2 x10*3/uL (2.0-8.3); Neutrophils Percent Auto 59.9 % (45-73); Platelet Count 216 X10*3/uL (160-400); Red Blood Count 4.62 X10*6/uL (4.60-5.80); Red Cell Distribution Width 12.7 % (11.0-16.0); White Blood Count 5.3 X10*3/uL (4.8-10.8)
[2024-06-27 12:57] LABS: INTERNATIONAL NORM RATIO 1.1 (0.9-1.1); Prothrombin Time 13.6 SEC (11.1-13.3)
[2024-06-27 13:10] LABS: Alanine Aminotransferase 48 U/L (0-40); Albumin Level 4.5 g/dL (3.5-5.0); Alkaline Phosphatase 81 U/L (39-117); Anion Gap 15 (12-20); Aspartate Amino Transferase 97 U/L (5-37); Bilirubin Total 1.1 mg/dL (0.0-1.0); Blood Urea Nitrogen 5 mg/dL (9-16); Calcium 9.3 mg/dL (8.4-10.2); Carbon Dioxide 23 mmol/L (22-29); Chloride 107 mmol/L (96-108); Creatinine Clr Calc Pharmacy 187.2; Estimated Glomerular Filt Rate > 60; Glucose Random 129 mg/dL (60-115); Lipase 15 U/L (8-78); Potassium 3.9 mmol/L (3.3-5.1); Sodium 141 mmol/L (135-145); Total Protein 7.8 g/dL (6.5-8.0)
[2024-06-27 15:20] VITALS: BP 135/84; PULSE 74; RESP 18; TEMP 36.9; O2SAT 97
[2024-06-27] MEDS: LORazepam 2 MG/ML VIAL 1 MG IVPUSH (15:46)
[2024-06-27] MEDS: 0.9 % Sodium Chloride 1,000 ML 999 ML IV (15:46)
[2024-06-27] MEDS: Sucralfate Oral Suspension 1 GM/10 ML ORAL.SUSP PO (15:47)
[2024-06-27] MEDS: Pantoprazole Sodium 40 MG/10 ML VIAL 80 MG IVPUSH (15:47)
[2024-06-27] MEDS: ondansetron HCL 4 MG/2 ML VIAL IVPUSH (15:51)
[2024-06-27 16:26] LABS: Appearance Urine Clear; Color Urine Dark Yellow; Glucose Urine UA Negative (Negative); Leukocyte Esterase Urine Trace (Negative); Nitrite Urine Negative (Negative); PH 5.5 (5.0-9.0); Specific Gravity - Urine 1.025 (1.005-1.025); UMIC TRIGGER UACC YES; Urine Blood Negative (Negative); Urine Ketones Trace mg/dL (Negative); Urine Protein 30 (1+) mg/dL (Neg-Trace)
[2024-06-27 16:31] LABS: Bacteria Urine None Seen (None Seen); Hyaline Casts Urine 0-2 /LPF (0-2); RBC Urine 0-2 /HPF (0-2); Squamous Epithelial Cell Urine 0-2 /HPF (0-2); WBC Urine 0-5 /HPF (0-5)
[2024-06-27] MEDS: LORazepam 1 MG TABLET 2 MG PO (17:05)
[2024-06-27 17:06] VITALS: BP 117/72; PULSE 74; RESP 18; O2SAT 99
[2024-06-27 17:11] VITALS: BP 117/72; PULSE 74; RESP 18; TEMP 36.6; O2SAT 99
== END 2024-06-27 17:12 | disposition home or self-care (01) ==
PROVIDERS: Nurse Practitioner Family; Emergency Provider Emergency Medicine; PCP Physician Assistant
DX: F10.288 Alcohol dependence with other alcohol-induced disorder (principal); K29.20 Alcoholic gastritis without bleeding; Y90.9 Presence of alcohol in blood, level not specified; R11.2 Nausea with vomiting, unspecified; I10 Essential (primary) hypertension; Z79.899 Other long term (current) drug therapy
CPT/HCPCS: 36415; 80053; 81001; 81003; 83690; 83735; 85025; 85610; 86850; 86900; 86901; 96361; 96374; 96375; 99284; 99285; J2060; J2405; J2470

== ENCOUNTER 2024-07-29 11:22 | Inpatient (IN) | payer OTHER, SELFPAY ==
--- NOTE | ~2024-07-29 | CT_ITS ---
EXAMINATION: CT CHEST WITHOUT IV CONTRAST ABDOMEN AND PELVIS WITH CONTRAST CLINICAL INFORMATION: Left lower lobe linear opacity seen on chest radiograph earlier today along with abdominal pain COMPARISON: Chest radiograph 07/29/2024, CT chest abdomen and pelvis 10/16/2023 TECHNIQUE: Initial CT scan of the chest was performed without IV contrast. Multidetector volumetric imaging was then performed through the top of the liver to the pubic symphysis after administration of 85 mL of Omnipaque 350. Sagittal and coronal reformatted images were obtained on the technologist's workstation. This CT examination was performed using dose optimization techniques as appropriate, variously including the following: *Automated exposure control *Adjustment of mA and/or kV according to patient size (this includes techniques or standardized protocols for targeted exams where dose is matched to indication/reason for exam; i.e. extremities or head) *Use of iterative reconstruction technique DLP: 371 and 786 mGy-cm FINDINGS: CHEST: Lung: The lungs are clear without focal opacity or nodule. Again seen is linear atelectasis in the lingula and left lower lobe. Mediastinum: The mediastinum is normal. The central vascular structures are unremarkable. No hilar or mediastinal lymphadenopathy. Coronary Artery Calcium: None seen Pericardium/Pleura: No significant effusion. No pleural mass or thickening. Chest Wall/Axilla: Unremarkable ABDOMEN/PELVIS: Peritoneal Space: No significant free air or free fluid identified. Liver, Gallbladder, Biliary Tree: The liver is enlarged measuring 24.6 cm in greatest length. In size, shape, and attenuation. No focal hepatic lesion or biliary ductal dilatation is present. The gallbladder is unremarkable with no evidence of radiopaque gallstones, gallbladder wall thickening, or obvious pericholecystic inflammatory changes. Pancreas: There is mild soft tissue stranding seen around the pancreas with a sliver of fluid in the anterior pararenal space (13:38). No pancreatic mass, calcification or ductal dilatation is seen. Spleen: The spleen is enlarged measuring 14.6 cm. Adrenal Glands: Unremarkable Kidneys and Ureters: The kidneys are normal in size, shape, and attenuation. No hydronephrosis, hydroureter, or calculi seen. No perinephric stranding. Bladder: Unremarkable Gastrointestinal Tract: The small and large bowel are unremarkable. No evidence of appendicitis. Abdominal Wall: No significant hernia is appreciated. Lymph Nodes: Multiple small nodes are seen in the periceliac region and just above the pancreatic head, the largest measuring only 0.9 cm in short axis dimension (13:25). Vascular: The aorta appears normal.. The IVC appears unremarkable. PELVIC VISCERA: The prostate and seminal vesicles are unremarkable. OSSEUS STRUCTURES: Mild degenerative changes are noted in the spine. No bony destructive lesions are seen. CT/CT abdomen pelvis w IV con IMPRESSION: 1. No significant abnormality is seen in the chest. 2. There is mild soft tissue stranding around the pancreas with a tiny amount of surrounding fluid. Findings are suggestive of acute pancreatitis. Please correlate with serum lipase. 3. Hepatosplenomegaly. 4. Other incidental findings as described above. Fleischner guidelines were followed. Electronically signed by: Lenny Haynes MD 07/29/2024 07:57 PM EDT
--- NOTE | ~2024-07-29 | XR_ITS ---
EXAMINATION: XR CHEST CLINICAL INFORMATION: Central chest pain COMPARISON: 12/25/2023 TECHNIQUE: 2 views of the chest were obtained. FINDINGS: The right lung is clear. Linear atelectasis or scar is evident in the left lower lobe. There are no pleural effusions. The cardiomediastinal silhouette is not enlarged. XR/XR chest 2V IMPRESSION: Linear atelectasis or scar in the left lower lobe. Electronically signed by: Petey Beverly MD 07/29/2024 01:04 PM EDT
--- NOTE | 2024-07-29 11:24 | ECG_ITS ---
Test Reason : chest pain Blood Pressure : / mmHG Vent. Rate : 083 BPM Atrial Rate : 083 BPM P-R Int : 144 ms QRS Dur : 084 ms QT Int : 372 ms P-R-T Axes : 065 049 066 degrees QTc Int : 437 ms Normal sinus rhythm Normal ECG When compared with ECG of 25-DEC-2023 10:39, No significant change was found Referred By: Parul Murray Electronically Signed By:MALGORZATA FIGUEROA
[2024-07-29 11:51] VITALS: BP 144/94; PULSE 93; RESP 19; TEMP 36.6; O2SAT 97; BMI 28.1
--- NOTE | 2024-07-29 11:52 | ED_ITS ---
HPI - Abdominal Pain General Chief Complaint: Abdominal Pain Stated Complaint: cp Time Seen by Provider: 07/29/24 15:58 Source: patient Mode of arrival: ambulatory Limitations: no limitations History of Present Illness HPI narrative: This is a 33-year-old man with a past medical history of alcohol abuse disorder complicated by pancreatitis who presents for evaluation of abdominal pain. The patient states that he was recently on vacation at the [facility] and reports drinking whiskey while on vacation. Patient reports that his last 2 days prior to presentation. Patient reports onset of abdominal pain last night while at rest. Patient reports pain is located in his upper abdomen radiates to his back. He states no associated nausea or vomiting. Patient reports sleeping and being able to go to work today. 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 The patient states that pain has been waxing and waning in severity throughout the day. Patient states no exertional symptoms. He states no fevers, chills, cough or hemoptysis. Patient states no recent trauma or falls. History reports no history of complicated alcohol withdrawal or need for intensive care. Patient reports recreational marijuana use and states no other illicit or recreational drugs. He states no urinary symptoms or changes in bowel habits. He states no melena or hematochezia. Related Data Previous Rx's ?Medication ?Instructions ?Recorded blood pressure test kit-large #1 ea 12/21/21 pantoprazole 20 mg tablet,delayed 20 mg PO DAILY #30 tabs 12/25/23 release doxepin 10 mg capsule 10 mg PO BEDTIME 30 days #30 caps 01/07/24 allopurinol 100 mg tablet 200 mg (2 x 100 mg) PO DAILY 90 01/27/24 days #180 tabs colchicine 0.6 mg tablet 1.2 mg (2 x 0.6 mg) PO DAILY PRN 01/27/24 acute gout flares 30 days #60 tabs disulfiram 500 mg tablet 500 mg PO DAILY 21 days #21 tabs 02/04/24 disulfiram 250 mg tablet 500 mg (2 x 250 mg) PO DAILY 30 02/11/24 days #60 tabs indomethacin 50 mg capsule 50 mg PO QID #30 caps 02/17/24 prednisone 20 mg tablet 40 mg (2 x 20 mg) PO DAILY #10 tabs 02/17/24 colchicine 0.6 mg tablet 0.6 mg PO BID #10 tabs 03/14/24 naproxen 500 mg tablet (Naprosyn) 500 mg PO BID PRN pain #20 tabs 03/14/24 oxycodone 5 mg tablet 5 mg PO Q4-6H PRN pain 3 days #14 03/14/24 tabs prednisone 20 mg tablet 60 mg (3 x 20 mg) PO DAILY 5 days 03/14/24 #15 tabs oxycodone 5 mg tablet 5 mg PO Q6H pain 5 days #7 tabs 04/20/24 prednisone 20 mg tablet 40 mg (2 x 20 mg) PO DAILY 4 days 04/20/24 #8 tabs prednisone 10 mg tablets in a dose See Rx Instructions .Route 05/14/24 pack .COMPLEX #48 ea prednisone 20 mg tablet 40 mg (2 x 20 mg) PO DAILY #10 tabs 06/02/24 naproxen 500 mg tablet 500 mg PO BID 7 days #14 tabs 06/03/24 omeprazole 40 mg capsule,delayed 40 mg PO DAILY #30 caps 06/27/24 release sucralfate 1 gram tablet 1 g PO TID PRN upper abdominal 06/27/24 pain #40 tabs Allergies Allergy/AdvReac Type Severity Reaction Status Date / Time No Known Allergies Allergy Verified 07/29/24 11:53 [No Known Allergies*] Review of Systems Review of Systems ROS as per [facility] Past Medical History Medical History Screening for hypercholesterolemia Screening for diabetes mellitus (DM) Community acquired pneumonia Transaminitis Alcohol use disorder, moderate, dependence Alcohol use disorder HTN (hypertension) Surgical History History of appendectomy Social History Social History Household Members: Family Housing: House Do you presently have visiting nurse or other home services: No Alcohol intake: current Alcohol intake frequency: a few times a week Alcohol type: hard liquor and other Patient Tobacco Use Status: Never used Tobacco Smoked in Last 30 Days: No e-Cigarette/Vaping Use: Currently Using Second Hand Smoke Exposure: No Use of substances other than those prescribed or required for medical reasons: No Substance Use Type: Marijuana Advance Directives: No Advance Directives Information Provided: No Do you have a plan to hurt others: No Plan service: No Current occupational status: employed Current occupational exposures/hazards: No Cognitive needs: No Hearing needs: No Vision needs: Yes (contact/glasses) Physical Exam ED Vital Signs: Vital Signs - 24 hr 07/29/24 11:51 07/29/24 15:57 07/29/24 16:42 Temperature 98 F 98.0 F Pulse Rate 93 81 Respiratory Rate 19 20 25 H Blood Pressure 144/94 H 140/80 H Pulse Oximetry 97 98 Oxygen Delivery Method Room Air Room Air 07/29/24 18:08 07/29/24 19:01 Temperature 98.6 F 98.3 F Pulse Rate 82 90 Respiratory Rate 16 16 Blood Pressure 130/89 138/85 Pulse Oximetry 97 96 Oxygen Delivery Method Room Air Room Air BMI result Body Mass Index 28.1 Gen: NAD, base uncomfortable, AOx3 HEENT: NCAT, EOMI, normal conjunctiva, anicteric sclera CV: RRR Pulm: CTAB, no increased work of breathing GI: Soft, positive epigastric tenderness to palpation, nondistended abdomen, no rebound, guarding or rigidity, negative Germán's sign, negative returns I Neuro: Grossly non focal Course Course Course Narrative: This is a Rapid Medical Examination (RME) performed by Karin Murray PA-C in triage. Full HPI, ROS, assessment and treatment plan per primary provider in the Main ED. 33 yo male hx of gout, HTN, etoh use disorder, etoh induced pancreatitis here for eval of epigastric abd pain/ substernal chest pain since last night. radiation to back. hx of similar, diagnosed w/ etoh induced pancreatitis. reports last etoh drink on saturday (5 days ago), had about 7 mixed drinks. felt fine sun/mon/tu. + ttp of epigastric region w/ voluntary guarding. no rebound. Plan: labs, ekg, cxr Medical Decision Making Medical Decision Making MDM Narrative: Differential diagnosis includes, but is not limited to viral illness, gastroenteritis, gastritis, pancreatitis. Patient is afebrile and hemodynamically stable on room air. Exam is benign and reassuring albeit with a tender to palpation to the epigastric. I reviewed and interpreted labs as below. Given patient's history will obtain CT imaging for further evaluation of acute intra-abdominal pathology. Given history and exam as above, will treat supportively here in the emergency room with IV fluids, Protonix, Zofran and morphine. On re-examination, patient requiring ongoing analgesia I reviewed CT images as below concerning for acute pancreatitis. Patient is provided additional analgesia and have encouraged oral intake the bedside. Patient is not clinically an alcohol withdrawal albeit of course given his history will benefit from continued assessment for alcohol withdrawal (i.e. CIWA) during his hospitalization. I have discussed case and management with admitting hospitalist, Dr. Diana, and patient is accepted for admission. We have specifically discussed the need for phenobarbital and at this time patient does not demonstrate any signs of severe alcohol withdrawal necessitating phenobarbital load. Hospitalist stating understanding of patient's clinical condition this time. Admission/Observation Consideration of admission/observation: Escalation of care including admission/observation considered Consult Healthcare Provider Management of the patient was discussed with: Hospitalist Lab Data MDM Lab Attestation statement: I reviewed the patient's lab results. I independently reviewed and interpreted the patient's labs including CBC, coagulation studies metabolic panel, troponin and lipase, which are benign and reassuring. Troponin is undetectable effectively ruling out ACS in this low risk patient. There is mild transaminitis with AST of 86 and ALT of 79 and INR 1.2 - these findings are likely secondary to alcohol abuse. Ethanol 110. 07/29/24 12:39 07/29/24 12:39 Labs: Lab Results 07/29/24 Range/Units 12:39 WBC 7.2 (4.8-10.8) X10*3/uL RBC 4.63 (4.60-5.80) X10*6/uL Hgb 15.1 (14.0-18.0) g/dl Hct 42.7 (42.0-52.0) % MCV 92.2 (80.0-98.0) fL MCH 32.6 (27.0-33.0) pg MCHC 35.4 (31.0-36.0) g/dl RDW 13.5 (11.0-16.0) % Plt Count 239 (160-400) X10*3/uL MPV 9.5 (9.4-12.4) fL Immature Gran % (Auto) 0.3 (0.0-0.4) % Neut % (Auto) 67.6 (45-73) % Lymph % (Auto) 22.1 (20-40) % [place] % (Auto) 5.9 (2-11) % Eos % (Auto) 3.0 (0-4) % Baso % (Auto) 1.1 (0-2) % Lymph # (Auto) 1.6 (1.2-4.9) X10*3/uL [place] # (Auto) 0.4 (0.1-1.2) X10*3/uL Eos # (Auto) 0.2 (0.0-0.4) X10*3/uL Baso # (Auto) 0.1 (0.0-0.2) X10*3/uL Abs Immat Gran (auto) 0.02 (0.00-0.03) X10*3/uL Absolute Neuts (auto) 4.9 (2.0-8.3) x10*3/uL Absolute Nucleated RBC 0.000 (0.0-0.012) X10*3/uL Nucleated RBC % (auto) 0.0 (0.0-0.2) /100WBC PT 14.1 H (10.9-12.4) SEC INR 1.2 H (0.9-1.1) Sodium 142 (135-145) mmol/L Potassium 3.5 (3.3-5.1) mmol/L Chloride 105 (96-108) mmol/L Carbon Dioxide 25 (22-29) mmol/L Anion Gap 16 (12-20) BUN 5 L (9-16) mg/dL Creatinine 0.79 (0.5-1.4) mg/dL Estim Creat Clear Calc 175.3 Estimated GFR > 60 Random Glucose 152 H (60-115) mg/dL Calcium 9.5 (8.4-10.2) mg/dL Magnesium 1.9 (1.6-2.6) mg/dL Total Bilirubin 1.0 (0.0-1.0) mg/dL AST 86 H (5-37) U/L ALT 79 H (0-40) U/L Alkaline Phosphatase 84 (39-117) U/L Troponin I High Sens < 2.7 (<3.5-35.0) ng/L Total Protein 7.7 (6.5-8.0) g/dL Albumin 4.6 (3.5-5.0) g/dL Lipase 44 (8-78) U/L Ethyl Alcohol 110 mg/dL Independent Interpretation I performed an independent interpretation of an: Plain X-Ray Interpretation: I independently reviewed and interpreted the patient's chest x-ray, which demonstrates no pleural effusion, pneumothorax or focal consolidation Radiology Impression Discussion of test interpretation with radiology: I have reviewed the radiologist's reading. Radiologist Impression: XR/XR chest 2V IMPRESSION: Linear atelectasis or scar in the left lower lobe. Electronically signed by: Petey Beverly MD 07/29/2024 01:04 PM EDT RP Dictated By: Petey Beverly MD Signed By: <Electronically signed by Petey Beverly MD in OV> 07/29/[address]/CT chest wo IV con IMPRESSION: 1. No significant abnormality is seen in the chest. 2. There is mild soft tissue stranding around the pancreas with a tiny amount of surrounding fluid. Findings are suggestive of acute pancreatitis. Please correlate with serum lipase. 3. Hepatosplenomegaly. 4. Other incidental findings as described above. Fleischner guidelines were followed. Electronically signed by: Lenny Haynes MD 07/29/2024 07:57 PM EDT RP Dictated By: Lenny Haynes MD Signed By: <Electronically signed by Lenny Haynes MD in OV> 07/29/241956 Medications Administered Discontinued Medications Generic Name Dose Route Start Last Admin Trade Name Freq PRN Reason Stop Dose Admin Sodium Chloride 1,000 mls @ 999 mls/hr 07/29/24 16:30 07/29/24 18:20 Ns IV 07/29/24 17:30 Infused .Q1H1M TODD Infusion Iohexol 100 ml 07/29/24 17:27 07/29/24 17:27 Iohexol 350 Mg/Ml 100 Ml Infus..Btl IV 07/29/24 17:28 85 ml ONCE ONE Administration Morphine Sulfate 4 mg 07/29/24 16:20 07/29/24 16:42 Morphine Sulfate 4 Mg/Ml Cartridge IVPUSH 07/29/24 16:21 4 mg ONCE ONE Administration Protocol Morphine Sulfate 4 mg 07/29/24 19:02 07/29/24 19:21 Morphine Sulfate 4 Mg/Ml Cartridge IVPUSH 07/29/24 19:03 4 mg ONCE ONE Administration Protocol Ondansetron HCl 4 mg 07/29/24 16:22 07/29/24 16:42 Ondansetron Hcl 4 Mg/2 Ml Vial IVPUSH 07/29/24 16:23 4 mg ONCE ONE Administration Pantoprazole Sodium 40 mg 07/29/24 16:22 07/29/24 16:42 Pantoprazole Sodium 40 Mg/10 Ml Vial IVPUSH 07/29/24 16:23 40 mg ONCE ONE Administration Discharge Plan Discharge Clinical Impression: Acute pancreatitis, Alcohol use disorder Patient Disposition: Admitted As Inpatient Prescriptions: No Action colchicine 0.6 mg tablet 1.2 mg PO DAILY PRN (Reason: acute gout flares) 30 Days Qty: 60 1RF Rx Instructions: To use during acute flares allopurinol 100 mg tablet 200 mg PO DAILY 90 Days Qty: 180 1RF disulfiram 250 mg tablet 500 mg PO DAILY 30 Days Qty: 60 0RF prednisone 20 mg tablet 40 mg PO DAILY Qty: 10 0RF indomethacin 50 mg capsule 50 mg PO QID Qty: 30 0RF Rx Instructions: administer with food or milk prednisone 10 mg tablets,dose pack See Rx Instructions .ROUTE .COMPLEX Qty: 48 0RF Taper: Prednisone 40 mg daily for 3 Days and 0 Hour 30 mg daily for 3 Days and 0 Hour 20 mg daily for 3 Days and 0 Hour 10 mg daily for 3 Days and 0 Hour Rx Instructions: See Taper orally omeprazole 40 mg capsule,delayed release(DR/EC) 40 mg PO DAILY Qty: 30 0RF sucralfate 1 gram tablet 1 g PO TID PRN (Reason: upper abdominal pain) Qty: 40 0RF pantoprazole 20 mg tablet,delayed release (DR/EC) 20 mg PO DAILY Qty: 30 0RF colchicine 0.6 mg tablet 0.6 mg PO BID Qty: 10 0RF oxycodone 5 mg tablet 5 mg PO Q4-6H PRN (Reason: pain) 3 Days Qty: 14 0RF Rx Instructions: Partial Fill upon patient request. naproxen [Naprosyn] 500 mg tablet 500 mg PO BID PRN (Reason: pain) Qty: 20 0RF prednisone 20 mg tablet 60 mg PO DAILY 5 Days Qty: 15 0RF prednisone 20 mg tablet 40 mg PO DAILY 4 Days Qty: 8 0RF oxycodone 5 mg tablet 5 mg PO Q6H 5 Days Qty: 7 0RF Rx Instructions: Partial Fill upon patient request. prednisone 20 mg tablet 40 mg PO DAILY Qty: 10 0RF naproxen 500 mg tablet 500 mg PO BID 7 Days Qty: 14 0RF (DME) blood pressure test kit-large Kit See Rx Instructions .Route Qty: 1 0RF Rx Instructions: As directed disulfiram 500 mg tablet 500 mg PO DAILY 21 Days Qty: 21 0RF doxepin 10 mg capsule 10 mg PO BEDTIME 30 Days Qty: 30 1RF Print Language: Sami
[2024-07-29 12:45] LABS: MANUAL DIFF FLAG NO
[2024-07-29 12:46] LABS: Basophils Absolute Auto 0.1 X10*3/uL (0.0-0.2); Basophils Percent Auto 1.1 % (0-2); Eosinophils Absolute Auto 0.2 X10*3/uL (0.0-0.4); Hematocrit 42.7 % (42.0-52.0); Hemoglobin 15.1 g/dl (14.0-18.0); Imm Gran Abs Auto 0.02 X10*3/uL (0.00-0.03); Imm Gran Pct Auto 0.3 % (0.0-0.4); Lymphocytes Absolute Auto 1.6 X10*3/uL (1.2-4.9); Lymphocytes Percent Auto 22.1 % (20-40); Mean Corpuscular HGB Conc 35.4 g/dl (31.0-36.0); Mean Corpuscular Hemoglobin 32.6 pg (27.0-33.0); Mean Corpuscular Volume 92.2 fL (80.0-98.0); Mean Platelet Volume 9.5 fL (9.4-12.4); Monocytes Absolute Auto 0.4 X10*3/uL (0.1-1.2); Monocytes Percent Auto 5.9 % (2-11); Neutrophils Absolute Auto 4.9 x10*3/uL (2.0-8.3); Neutrophils Percent Auto 67.6 % (45-73); Platelet Count 239 X10*3/uL (160-400); Red Blood Count 4.63 X10*6/uL (4.60-5.80); Red Cell Distribution Width 13.5 % (11.0-16.0); White Blood Count 7.2 X10*3/uL (4.8-10.8)
[2024-07-29 12:58] LABS: INTERNATIONAL NORM RATIO 1.2 (0.9-1.1); Prothrombin Time 14.1 SEC (10.9-12.4)
[2024-07-29 13:03] LABS: Alanine Aminotransferase 79 U/L (0-40); Albumin Level 4.6 g/dL (3.5-5.0); Alkaline Phosphatase 84 U/L (39-117); Anion Gap 16 (12-20); Aspartate Amino Transferase 86 U/L (5-37); Blood Urea Nitrogen 5 mg/dL (9-16); Calcium 9.5 mg/dL (8.4-10.2); Carbon Dioxide 25 mmol/L (22-29); Chloride 105 mmol/L (96-108); Creatinine Clr Calc Pharmacy 175.3; Estimated Glomerular Filt Rate > 60; Glucose Random 152 mg/dL (60-115); Lipase 44 U/L (8-78); Magnesium 1.9 mg/dL (1.6-2.6); Potassium 3.5 mmol/L (3.3-5.1); Sodium 142 mmol/L (135-145); Total Protein 7.7 g/dL (6.5-8.0)
[2024-07-29 13:11] LABS: Troponin-I High Sensitivity < 2.7 ng/L (<3.5-35.0)
[2024-07-29 15:57] VITALS: BP 140/80; PULSE 81; RESP 20; TEMP 36.7; O2SAT 98
--- NOTE | 2024-07-29 16:03 | PC.NURSE ---
Pt comes from home for right upper abdomina pain, pt states he was recently on a trip to [facility] and drank too much alcohol, felt ok over the weekend then abdominal pain and chest pain started last night. Pt has hx of pancreatitis induced by ETOH. Last drink saturday night, states he had about 7 mixed drinks. No hx of withdrawal, no tremors/n/v. A/ox4, no increased wob/sob noted, respirations even and unlabored, lung sounds cta bilaterally, s1 and s2 heard, placed on director of cardiac rehabilitation for safety, HR- 80s, abdomen tender on palpation, c/o 7/10 right upper abdominal pain. 20g IV placed in left AC, vital signs updated, call marques within reach, all needs met at this time.
--- NOTE | 2024-07-29 16:08 | ED_ITS ---
HPI - General Adult General Chief complaint: Abdominal Pain Stated complaint: cp Time Seen by Provider: 07/29/24 15:58 Source: patient Mode of arrival: ambulatory Limitations: no limitations Related Data Home Medications ?Medication ?Instructions ?Recorded ?Confirmed omeprazole 40 mg capsule,delayed 40 mg PO DAILY PRN Acid Reflux 07/29/24 07/29/24 release Previous Rx's ?Medication ?Instructions ?Recorded blood pressure test kit-large #1 ea 12/21/21 allopurinol 100 mg tablet 200 mg (2 x 100 mg) PO DAILY 90 01/27/24 days #180 tabs colchicine 0.6 mg tablet 1.2 mg (2 x 0.6 mg) PO DAILY PRN 01/27/24 acute gout flares 30 days #60 tabs Allergies Allergy/AdvReac Type Severity Reaction Status Date / Time No Known Allergies Allergy Verified 07/29/24 11:53 [No Known Allergies*] Review of Systems 2 Review of Systems: ROS as per HPI [facility] Past Medical History Medical History Screening for hypercholesterolemia Screening for diabetes mellitus (DM) Community acquired pneumonia Transaminitis Alcohol use disorder, moderate, dependence Alcohol use disorder HTN (hypertension) Surgical History History of appendectomy Social History Social History Household Members: Significant Other Housing: House Do you presently have visiting nurse or other home services: No Alcohol intake: current Alcohol intake frequency: a few times a week Alcohol type: hard liquor and other Patient Tobacco Use Status: Never used Tobacco e-Cigarette/Vaping Use: Currently Using Second Hand Smoke Exposure: No Substance Use Type: Marijuana service: No Current occupational status: employed Current occupational exposures/hazards: No Cognitive needs: No Hearing needs: No Vision needs: Yes (contact/glasses) Physical Exam ED Vital Signs: Vital Signs - 24 hr 07/29/24 11:51 07/29/24 15:57 07/29/24 16:42 Temperature 98 F 98.0 F Pulse Rate 93 81 Respiratory Rate 19 20 25 H Blood Pressure 144/94 H 140/80 H Pulse Oximetry 97 98 Oxygen Delivery Method Room Air Room Air 07/29/24 18:08 07/29/24 19:01 Temperature 98.6 F 98.3 F Pulse Rate 82 90 Respiratory Rate 16 16 Blood Pressure 130/89 138/85 Pulse Oximetry 97 96 Oxygen Delivery Method Room Air Room Air BMI result Body Mass Index 28.1 Medications Administered Discontinued Medications Generic Name Dose Route Start Last Admin Trade Name Freq PRN Reason Stop Dose Admin Allopurinol 200 mg 07/30/24 09:00 07/31/24 07:57 Allopurinol 100 Mg Tablet PO 200 mg DAILY TODD Administration Colchicine 1.2 mg 07/31/24 08:57 07/31/24 09:53 Colchicine 0.6 Mg Tablet PO 07/31/24 08:58 1.2 mg ONCE ONE Administration Enoxaparin Sodium 40 mg 07/29/24 20:15 07/30/24 20:03 Enoxaparin Sodium 40 Mg/0.4 Ml Syringe SUBCUT 40 mg Q24H TODD Administration Sodium Chloride 1,000 mls @ 999 mls/hr 07/29/24 16:30 07/29/24 18:20 Ns IV 07/29/24 17:30 Infused .Q1H1M TODD Infusion Lactated Ringer's 1,000 mls @ 125 mls/hr 07/29/24 20:15 07/31/24 03:21 Lr IVCONT 125 mls/hr .Q8H TODD Administration Thiamine HCl 200 mg/ Sodium 102 mls @ 204 mls/hr 07/29/24 20:13 07/29/24 22:37 Chloride IV 07/29/24 20:42 Infused ONCE ONE Infusion Iohexol 100 ml 07/29/24 17:27 07/29/24 17:27 Iohexol 350 Mg/Ml 100 Ml Infus..Btl IV 07/29/24 17:28 85 ml ONCE ONE Administration Ketorolac Tromethamine 30 mg 07/31/24 08:57 07/31/24 09:53 Ketorolac Tromethamine 30 Mg/Ml Vial IVPUSH 07/31/24 08:58 30 mg ONCE ONE Administration Melatonin 6 mg 07/29/24 20:13 07/29/24 23:36 Melatonin 3 Mg Tablet PO 6 mg BEDTIME PRN Administration Insomnia Morphine Sulfate 4 mg 07/29/24 16:20 07/29/24 16:42 Morphine Sulfate 4 Mg/Ml Cartridge IVPUSH 07/29/24 16:21 4 mg ONCE ONE Administration Protocol Morphine Sulfate 4 mg 07/29/24 19:02 07/29/24 19:21 Morphine Sulfate 4 Mg/Ml Cartridge IVPUSH 07/29/24 19:03 4 mg ONCE ONE Administration Protocol Morphine Sulfate 8 mg 07/29/24 20:11 07/29/24 20:27 Morphine Sulfate 10 Mg/Ml Cartridge IVPUSH 07/29/24 20:12 8 mg ONCE ONE Administration Protocol Morphine Sulfate 4 mg 07/29/24 20:13 07/31/24 07:57 Morphine Sulfate 4 Mg/Ml Cartridge IVPUSH 4 mg Q4H PRN Administration Pain, Severe (Pain Scale 7-10) Protocol Ondansetron HCl 4 mg 07/29/24 16:22 07/29/24 16:42 Ondansetron Hcl 4 Mg/2 Ml Vial IVPUSH 07/29/24 16:23 4 mg ONCE ONE Administration Ondansetron HCl 4 mg 07/29/24 20:13 07/30/24 04:13 Ondansetron Hcl 4 Mg/2 Ml Vial IVPUSH 4 mg Q8H PRN Administration Nausea and Vomiting Pantoprazole Sodium 40 mg 07/29/24 16:22 07/29/24 16:42 Pantoprazole Sodium 40 Mg/10 Ml Vial IVPUSH 07/29/24 16:23 40 mg ONCE ONE Administration Phenobarbital 200 mg 07/30/24 15:00 07/30/24 16:24 Phenobarbital 200 Mg Po Once PO 07/30/24 15:01 200 mg ONCE ONE Administration Phenobarbital 60 mg 07/31/24 09:00 07/31/24 07:57 Phenobarbital 30 Mg Tablet PO 08/01/24 21:01 60 mg BID TODD Administration Phenobarbital 100 mg/ 145 mg 07/30/24 20:00 07/30/24 22:57 Phenobarbital 30 mg/ PO 07/30/24 23:01 145 mg Phenobarbital 15 mg Q3H TODD Administration Sodium Chloride 3 ml 07/30/24 00:00 07/31/24 07:26 0.9 % Sodium Chloride Flush 3 Ml Syringe IVFLUSH Not Given QSHIFT [facility] Medical Decision Making Admission/Observation Consideration of admission/observation: Escalation of care including admission/observation considered Lab Data MDM Lab Attestation statement: I reviewed the patient's lab results. I reviewed and interpreted the patient's labs including CBC, 07/30/24 04:23 07/30/24 04:23 Labs: Lab Results 07/29/24 Range/Units 12:39 WBC 7.2 (4.8-10.8) X10*3/uL RBC 4.63 (4.60-5.80) X10*6/uL Hgb 15.1 (14.0-18.0) g/dl Hct 42.7 (42.0-52.0) % MCV 92.2 (80.0-98.0) fL MCH 32.6 (27.0-33.0) pg MCHC 35.4 (31.0-36.0) g/dl RDW 13.5 (11.0-16.0) % Plt Count 239 (160-400) X10*3/uL MPV 9.5 (9.4-12.4) fL Immature Gran % (Auto) 0.3 (0.0-0.4) % Neut % (Auto) 67.6 (45-73) % Lymph % (Auto) 22.1 (20-40) % [place] % (Auto) 5.9 (2-11) % Eos % (Auto) 3.0 (0-4) % Baso % (Auto) 1.1 (0-2) % Lymph # (Auto) 1.6 (1.2-4.9) X10*3/uL [place] # (Auto) 0.4 (0.1-1.2) X10*3/uL Eos # (Auto) 0.2 (0.0-0.4) X10*3/uL Baso # (Auto) 0.1 (0.0-0.2) X10*3/uL Abs Immat Gran (auto) 0.02 (0.00-0.03) X10*3/uL Absolute Neuts (auto) 4.9 (2.0-8.3) x10*3/uL Absolute Nucleated RBC 0.000 (0.0-0.012) X10*3/uL Nucleated RBC % (auto) 0.0 (0.0-0.2) /100WBC PT 14.1 H (10.9-12.4) SEC INR 1.2 H (0.9-1.1) Sodium 142 (135-145) mmol/L Potassium 3.5 (3.3-5.1) mmol/L Chloride 105 (96-108) mmol/L Carbon Dioxide 25 (22-29) mmol/L Anion Gap 16 (12-20) BUN 5 L (9-16) mg/dL Creatinine 0.79 (0.5-1.4) mg/dL Estim Creat Clear Calc 175.3 Estimated GFR > 60 Random Glucose 152 H (60-115) mg/dL Calcium 9.5 (8.4-10.2) mg/dL Magnesium 1.9 (1.6-2.6) mg/dL Total Bilirubin 1.0 (0.0-1.0) mg/dL AST 86 H (5-37) U/L ALT 79 H (0-40) U/L Alkaline Phosphatase 84 (39-117) U/L Troponin I High Sens < 2.7 (<3.5-35.0) ng/L Total Protein 7.7 (6.5-8.0) g/dL Albumin 4.6 (3.5-5.0) g/dL Lipase 44 (8-78) U/L Ethyl Alcohol 110 mg/dL Independent Interpretation I performed an independent interpretation of an: CT Scan Interpretation: CT/CT chest wo IV con IMPRESSION: 1. No significant abnormality is seen in the chest. 2. There is mild soft tissue stranding around the pancreas with a tiny amount of surrounding fluid. Findings are suggestive of acute pancreatitis. Please correlate with serum lipase. 3. Hepatosplenomegaly. 4. Other incidental findings as described above. Fleischner guidelines were followed. Electronically signed by: Lenny Haynes MD 07/29/2024 07:57 PM EDT Dictated By: Lenny Haynes MD Signed By: <Electronically signed by Lenny Haynes MD in OV> 07/29/241956 Discharge Plan Discharge Clinical Impression: Acute pancreatitis, Alcohol use disorder Patient Disposition: Admitted As Inpatient Interventions: Admission Worksheet (ED) Last Done: 07/30/24 13:43 Discharge Date/Time: 07/30/24 14:17
[2024-07-29 16:37] LABS: Ethanol 110 mg/dL
[2024-07-29] MEDS: 0.9 % Sodium Chloride 1,000 ML 999 ML IV (16:41)
[2024-07-29 16:42] VITALS: RESP 25
[2024-07-29] MEDS: Morphine Sulfate 4 MG/ML CARTRIDGE IVPUSH ×2 (16:42→19:21)
[2024-07-29] MEDS: ondansetron HCL 4 MG/2 ML VIAL IVPUSH (16:42)
[2024-07-29] MEDS: Pantoprazole Sodium 40 MG/10 ML VIAL IVPUSH (16:42)
[2024-07-29] MEDS: iohexoL 350 MG/ML 100 ML INFUS..BTL IV (17:27)
[2024-07-29 18:08] VITALS: BP 130/89; PULSE 82; RESP 16; TEMP 37; O2SAT 97
[2024-07-29 19:01] VITALS: BP 138/85; PULSE 90; RESP 16; TEMP 36.8; O2SAT 96
--- NOTE | 2024-07-29 19:26 | PC.NURSE ---
pt reports 10/ abd pain not relieved by med given previously. MD made aware and pt medicated per dec. resting comfortably. vss. call marques within reach.
[2024-07-29] MEDS: Morphine Sulfate 10 MG/ML CARTRIDGE 8 MG IVPUSH (20:27)
--- NOTE | 2024-07-29 20:27 | PM.IMHP ---
History of Present Illness Date of Service: 07/29/24 Attending physician on admission: Donita Diana Chief Complaint: Abdominal pain Pt is a 33-year-old male with a PMH significant for?alcohol use disorder, alcoholic pancreatitis, alcoholic gastritis, and gout who presents to the ED with?severe epigastric abdominal pain radiating to his back since last night, worse this morning. Patient reports he went on vacation last week and was drinking heavily each day. States symptoms feel similar to when he previously had pancreatitis 3 years before. Reports last drink on Saturday. No nausea or vomiting, but reports some loose stool earlier today. Denies history of alcohol withdrawal. Denies increased anxiety, auditory or visual hallucinations, headache, or diaphoresis. No chest pain/pressure, palpitations. Denies shortness or breath or difficulty breathing. Denies fever, chills. Previous to binge drinking on vacation, pt reports mostly drinks only on weekends. In the ED pt was tachycardic up to 93, tachypneic up to 25 and initially hypertensive at 144/94. Labs were significant for chronic transaminitis of AST 86 and ALT 79. Lipase WNL at 44. No leukocytosis. Stable H& H. No significant electrolyte abnormalities. Renal function baseline. Troponin negative. Ethyl alcohol level 110. CXR showed linear atelectasis or scar in left lower lobe. CTA of chest negative for acute abnormality. CT of abdomen/pelvis found mild soft tissue stranding around pancreas with small amount of surrounding fluid suggestive of acute pancreatitis. Also found hepatosplenomegaly. EKG demonstrated normal sinus rhythm without significant ST elevations or depressions. Pt was treated with IVF, morphine, ondansetron, and Protonix. Pt will be admitted to the hospital for treatment and further evaluation of acute alcoholic pancreatitis. Review of Systems Review of Systems: Epigastric abdominal pain radiating to back 1 episode of loose stool Yes all other systems are reviewed and are negative [facility] Medical History Screening for hypercholesterolemia Screening for diabetes mellitus (DM) Community acquired pneumonia Transaminitis Alcohol use disorder, moderate, dependence Alcohol use disorder HTN (hypertension) Surgical History History of appendectomy Social History Household Members: Family Housing: House Do you presently have visiting nurse or other home services: No Alcohol intake: current Alcohol intake frequency: a few times a week Alcohol type: hard liquor and other Patient Tobacco Use Status: Never used Tobacco Smoked in Last 30 Days: No e-Cigarette/Vaping Use: Currently Using Second Hand Smoke Exposure: No Use of substances other than those prescribed or required for medical reasons: No Substance Use Type: Marijuana Advance Directives: No Advance Directives Information Provided: No Do you have a plan to hurt others: No Plan service: No Current occupational status: employed Current occupational exposures/hazards: No Cognitive needs: No Hearing needs: No Vision needs: Yes (contact/glasses) Meds Allergies Allergy/AdvReac Type Severity Reaction Status Date / Time No Known Allergies Allergy Verified 07/29/24 11:53 [No Known Allergies*] Active Medications: Current Medications Acetaminophen (Acetaminophen 325 Mg Tablet) 650 mg PO Q6H PRN PRN Reason: Pain, Mild (Pain Scale 1-3), fever or headache Calcium Carbonate (Calcium Carbonate 750 Mg Tab.Chew) 750 mg PO Q4H PRN PRN Reason: Heartburn Enoxaparin Sodium (Enoxaparin Sodium 40 Mg/0.4 Ml Syringe) 40 mg SUBCUT Q24H [facility] Lactated Ringer's (Lr) 1,000 mls @ 125 mls/hr IVCONT .Q8H TODD Thiamine HCl 200 mg/ Sodium (Chloride) 102 mls @ 204 mls/hr IV ONCE ONE Stop: 07/29/24 20:42 Magnesium Hydroxide (Milk Of Magnesia 30 Ml Oral.Susp) 30 ml PO DAILY PRN PRN Reason: Constipation Melatonin (Melatonin 3 Mg Tablet) 6 mg PO BEDTIME PRN PRN Reason: Insomnia Morphine Sulfate (Morphine Sulfate 4 Mg/Ml Cartridge) 4 mg IVPUSH Q4H PRN; Protocol PRN Reason: Pain, Severe (Pain Scale 7-10) Ondansetron HCl (Ondansetron Hcl 4 Mg/2 Ml Vial) 4 mg IVPUSH Q8H PRN PRN Reason: Nausea and Vomiting Sodium Chloride (0.9 % Sodium Chloride Flush 3 Ml Syringe) 3 ml IVFLUSH QSHIFT [facility] Home Medications ?Medication ?Instructions ?Recorded ?Confirmed ?Last Taken ?Type omeprazole 40 mg capsule,delayed 40 mg PO DAILY PRN Acid Reflux 07/29/24 07/29/24 07/28/24 History release Physical Exam Vital Signs and Narrative: Vital Signs: Last Vital Signs Temp 98.3 F 07/29/24 19:01 Pulse 90 07/29/24 19:01 Resp 16 07/29/24 19:01 BP 138/85 07/29/24 19:01 Pulse Ox 96 07/29/24 19:01 O2 Del Method Room Air 07/29/24 19:01 BMI result Body Mass Index 28.1 General: AOx3, no acute distress Resp: CTA bilaterally CVS: S1, S2, RRR GI: +BS, no distention, epigastric and left-sided abd tenderness Skin: Warm, dry Neuro: Cranial nerves II-XII grossly intact bilaterally. Motor grossly intact bilaterally. No upper extremity tremors noted Extremities: No edema Psych: Appropriate affect Results Labs 07/29/24 12:39 07/29/24 12:39 Labs: Laboratory Results - last 24 hr 07/29/24 12:39 MCV 92.2 MCH 32.6 MCHC 35.4 RDW 13.5 Plt Count 239 MPV 9.5 Immature Gran % (Auto) 0.3 Neut % (Auto) 67.6 Lymph % (Auto) 22.1 [place] % (Auto) 5.9 Eos % (Auto) 3.0 Baso % (Auto) 1.1 Lymph # (Auto) 1.6 [place] # (Auto) 0.4 Eos # (Auto) 0.2 Baso # (Auto) 0.1 Abs Immat Gran (auto) 0.02 Absolute Neuts (auto) 4.9 Absolute Nucleated RBC 0.000 Nucleated RBC % (auto) 0.0 PT 14.1 H INR 1.2 H Anion Gap 16 Estim Creat Clear Calc 175.3 Estimated GFR > 60 Random Glucose 152 H Calcium 9.5 Magnesium 1.9 Total Bilirubin 1.0 AST 86 H ALT 79 H Alkaline Phosphatase 84 Troponin I High Sens < 2.7 Total Protein 7.7 Albumin 4.6 Lipase 44 Ethyl Alcohol 110 Imaging Radiologist's Impressions: Impressions Chest X-Ray 07/29/24 11:52 IMPRESSION: Linear atelectasis or scar in the left lower lobe. Electronically signed by: Petey Beverly MD 07/29/2024 01:04 PM EDT RP Abdomen/Pelvis CT 07/29/24 17:18 IMPRESSION: 1. No significant abnormality is seen in the chest. 2. There is mild soft tissue stranding around the pancreas with a tiny amount of surrounding fluid. Findings are suggestive of acute pancreatitis. Please correlate with serum lipase. 3. Hepatosplenomegaly. 4. Other incidental findings as described above. Fleischner guidelines were followed. Electronically signed by: Lenny Haynes MD 07/29/2024 07:57 PM EDT RP Chest CT 07/29/24 17:18 IMPRESSION: 1. No significant abnormality is seen in the chest. 2. There is mild soft tissue stranding around the pancreas with a tiny amount of surrounding fluid. Findings are suggestive of acute pancreatitis. Please correlate with serum lipase. 3. Hepatosplenomegaly. 4. Other incidental findings as described above. Fleischner guidelines were followed. Electronically signed by: Lenny Haynes MD 07/29/2024 07:57 PM EDT RP Assessment and Plan (1) Pancreatitis, alcoholic, acute: Status: Resolved Plan Pt is a 33-year-old male with a PMH significant for?alcohol use disorder, alcoholic pancreatitis, alcoholic gastritis, and gout who presents to the ED with?severe epigastric abdominal pain radiating to his back since last night, worse this morning. Pt will be admitted to the hospital for treatment and further evaluation of acute alcoholic pancreatitis. Alcoholic pancreatitis Epigastric pain radiating to back, CT showing likely acute pancreatitis, recent prlonged heavy alcohol use; lipase WNL at Bowel rest, IVF, pain management NPO for now, advance as tolerated Alcohol use disorder Reports normally only drinks on weekends Otoniel hx of withdrawal [facility]itor on [facility] Addiction medicine consult Gout Continue allopurinol GERD Contiue PPI Full Code Attending:?Dr. Diana DVT Prophylaxis: Lovenox Pt will require a hospitalization of at least two nights for treatment of?acute alcoholic pancreatitis that requires bowel rest, IVF, and IV analgesics. Quality Stroke Does the patient have a stroke diagnosis?: No VTE Prior VTE?: No VTE Risk Level:: Medical - moderate - high VTE Device Contraindication: Treatment Not Indicated VTE Drug Contraindication: N/A - Med Ordered
[2024-07-29] MEDS: Enoxaparin Sodium 40 MG/0.4 ML SYRINGE SUBCUT (20:28)
[2024-07-29] MEDS: Thiamine HCL 200 MG in 0.9 % Sodium Chloride 100 ML 204 MG IV (20:28)
[2024-07-29] MEDS: Lactated Ringers 1,000 ML 125 ML IVCONT (20:30)
--- NOTE | 2024-07-29 20:58 | PHA.MEDREC ---
Addendum entered by Ruba Crenshaw mikala 07/29/24 21:05: REVIEWED Original Note: Pharmacy Consult ? Medication Reconciliation Pharmacy has completed the medication reconciliation. Confirmed medications with patient. Patient stated he is still taking Allopurinol 100mg tabs 2 tabs daily and Colchicine 0.6mg tabs one tab daily and stated he fills them at [facility] on [address] I called [facility] on [address] before they closed and they confirmed with me that he that he has not picked up the Allopurinol 100mg tabs since 01/19/24 for 90 days and the Colchicine 0.6mg tabs 03/20/24. He also confirmed he is taking Omeprazole 40mg tabs as needed for acid reflux but states he has not had to take them in a while .
--- NOTE | 2024-07-29 21:12 | PC.NURSE ---
pt from Main Ed, assume care of pt at this time. Pt asked for ice chips, informed pt, NPO, pt given swabs for mouth, and cold packs, pt states he is very hot
[2024-07-29] MEDS: Melatonin 3 MG TABLET 6 MG PO (23:36)
[2024-07-29 23:38] VITALS: BP 143/79; PULSE 75; RESP 16; TEMP 36.9; O2SAT 97
[2024-07-30] MEDS: Morphine Sulfate 4 MG/ML CARTRIDGE IVPUSH ×5 (00:28→21:03)
[2024-07-30] MEDS: Lactated Ringers 1,000 ML 125 ML IVCONT ×3 (04:12→20:05)
[2024-07-30] MEDS: ondansetron HCL 4 MG/2 ML VIAL IVPUSH (04:13)
--- NOTE | 2024-07-30 04:18 | PC.NURSE ---
pt states his stomach is hurting and he is nausea, medicated as requested
[2024-07-30 04:54] LABS: MANUAL DIFF FLAG NO
[2024-07-30 04:56] LABS: Basophils Absolute Auto 0.1 X10*3/uL (0.0-0.2); Basophils Percent Auto 1.1 % (0-2); Eosinophils Absolute Auto 0.2 X10*3/uL (0.0-0.4); Hematocrit 40.2 % (42.0-52.0); Hemoglobin 13.8 g/dl (14.0-18.0); Imm Gran Abs Auto 0.01 X10*3/uL (0.00-0.03); Imm Gran Pct Auto 0.2 % (0.0-0.4); Lymphocytes Absolute Auto 1.5 X10*3/uL (1.2-4.9); Lymphocytes Percent Auto 23.6 % (20-40); Mean Corpuscular HGB Conc 34.3 g/dl (31.0-36.0); Mean Corpuscular Hemoglobin 32.8 pg (27.0-33.0); Mean Corpuscular Volume 95.5 fL (80.0-98.0); Mean Platelet Volume 9.9 fL (9.4-12.4); Monocytes Absolute Auto 0.5 X10*3/uL (0.1-1.2); Monocytes Percent Auto 8.4 % (2-11); Neutrophils Percent Auto 63.7 % (45-73); Platelet Count 188 X10*3/uL (160-400); Red Blood Count 4.21 X10*6/uL (4.60-5.80); Red Cell Distribution Width 13.2 % (11.0-16.0); White Blood Count 6.3 X10*3/uL (4.8-10.8)
[2024-07-30 05:12] LABS: Anion Gap 12 (12-20); Blood Urea Nitrogen 4 mg/dL (9-16); Calcium 8.6 mg/dL (8.4-10.2); Carbon Dioxide 28 mmol/L (22-29); Chloride 103 mmol/L (96-108); Creatinine Clr Calc Pharmacy 200.7; Estimated Glomerular Filt Rate > 60; Glucose Random 106 mg/dL (60-115); Potassium 3.5 mmol/L (3.3-5.1); Sodium 139 mmol/L (135-145)
--- NOTE | 2024-07-30 07:18 | PC.NURSE ---
report given to Tanisha CONTRERAS
--- NOTE | 2024-07-30 08:06 | MHC.EDTECH ---
this tech assumed care of pt at 0645, pt is resting and comfortable. pt remains NPO at this time, clear liquids only. Pt has sponge at bedside to wet mouth.
[2024-07-30 08:32] VITALS: BP 131/82; PULSE 82; RESP 18; TEMP 36.7; O2SAT 94
[2024-07-30] MEDS: allopurinoL 100 MG TABLET 200 MG PO (10:06)
--- NOTE | 2024-07-30 11:01 | MHC.CM.PN ---
Pt lives with family, he is indepedent, no home health services or DME. HCP discussed, he declined to complete one. PCP confirmed: Pascual Grewal. Pt. can arrange transpot home at [place]. DCP: home, self care. CM to follow for DC needs.
[2024-07-30 12:11] VITALS: RESP 18
--- NOTE | 2024-07-30 12:13 | MHC.EDTECH ---
this tech provided patient a cup of cold water for use with oral sponge for dry mouth, pt resting quietly
--- NOTE | 2024-07-30 13:50 | HO.PM.IMPN ---
Subjective Subjective Date of Service: 07/31/24 Interval History: Alcoholic pancreatitis Review of Systems has left upper abd pain some nausea Physical Exam Vital Signs: Vital Signs: Last Vital Signs Temp 98.1 F 07/30/24 08:32 Pulse 82 07/30/24 08:32 Resp 18 07/30/24 12:11 BP 131/82 07/30/24 08:32 Pulse Ox 94 07/30/24 08:32 O2 Del Method Room Air 07/30/24 08:32 BMI result Body Mass Index 28.1 Appearance: Alert.? Oriented X3. . cvs: rrr, [id number] , no murmur res: clear to auscultation ,no rhonchii or wheezing abd: no rebound or guarding ,epigastric and left-sided abd tenderness, bs present. ext pulses present , no cyanosis . neuro: axo3 , nonfocal. Objective Data Active Medications Acetaminophen (Acetaminophen 325 Mg Tablet) 650 mg PO Q6H PRN PRN Reason: Pain, Mild (Pain Scale 1-3), fever or headache Allopurinol (Allopurinol 100 Mg Tablet) 200 mg PO DAILY [facility] Last Admin: 07/30/24 10:06 Dose: 200 mg Documented By: SHANTHI Calcium Carbonate (Calcium Carbonate 750 Mg Tab.Chew) 750 mg PO Q4H PRN PRN Reason: Heartburn Enoxaparin Sodium (Enoxaparin Sodium 40 Mg/0.4 Ml Syringe) 40 mg SUBCUT Q24H [facility] Last Admin: 07/29/24 20:28 Dose: 40 mg Documented By: PATRICIA Lactated Ringer's (Lr) 1,000 mls @ 125 mls/hr IVCONT .Q8H [facility] Last Admin: 07/30/24 12:12 Dose: 125 mls/hr Documented By: SHANTHI Magnesium Hydroxide (Milk Of Magnesia 30 Ml Oral.Susp) 30 ml PO DAILY PRN PRN Reason: Constipation Melatonin (Melatonin 3 Mg Tablet) 6 mg PO BEDTIME PRN PRN Reason: Insomnia Last Admin: 07/29/24 23:36 Dose: 6 mg Documented By: ROBERTH Morphine Sulfate (Morphine Sulfate 4 Mg/Ml Cartridge) 4 mg IVPUSH Q4H PRN; Protocol PRN Reason: Pain, Severe (Pain Scale 7-10) Last Admin: 07/30/24 12:11 Dose: 4 mg Documented By: SHANTHI Omeprazole (Omeprazole 40 Mg Capsule.Dr) 40 mg PO DAILY PRN PRN Reason: Acid Reflux Ondansetron HCl (Ondansetron Hcl 4 Mg/2 Ml Vial) 4 mg IVPUSH Q8H PRN PRN Reason: Nausea and Vomiting Last Admin: 07/30/24 04:13 Dose: 4 mg Documented By: ROBERTH Sodium Chloride (0.9 % Sodium Chloride Flush 3 Ml Syringe) 3 ml IVFLUSH QSHIFT [facility] Last Admin: 07/30/24 07:45 Dose: Not Given Documented By: SHANTHI Non-Admin Reason: Previously Administered Labs 07/30/24 04:23 07/30/24 04:23 Labs: Laboratory Results - last 24 hr 07/29/24 07/30/24 12:39 04:23 MCV 95.5 MCH 32.8 MCHC 34.3 RDW 13.2 Plt Count 188 MPV 9.9 Immature Gran % (Auto) 0.2 Neut % (Auto) 63.7 Lymph % (Auto) 23.6 [place] % (Auto) 8.4 Eos % (Auto) 3.0 Baso % (Auto) 1.1 Lymph # (Auto) 1.5 [place] # (Auto) 0.5 Eos # (Auto) 0.2 Baso # (Auto) 0.1 Abs Immat Gran (auto) 0.01 Absolute Neuts (auto) 4.0 Absolute Nucleated RBC 0.000 Nucleated RBC % (auto) 0.0 Anion Gap 12 Estim Creat Clear Calc 200.7 Estimated GFR > 60 Random Glucose 106 Calcium 8.6 D Ethyl Alcohol 110 Assessment and Plan (1) Pancreatitis, alcoholic, acute: Status: Resolved Plan 33-year-old male with a PMH significant for?alcohol use disorder, alcoholic pancreatitis, alcoholic gastritis, and gout who presents to the ED with?severe epigastric abdominal pain radiating to his back since last night, worse this morning. Pt will be admitted to the hospital for treatment and further evaluation of acute alcoholic pancreatitis. Alcoholic pancreatitis Epigastric pain radiating to back, CT showing likely acute pancreatitis, recent prlonged heavy alcohol use; lipase WNL IVF, pain management,advance to clear liquid diet, advance as tolerated Alcohol use disorder Reports normally only drinks on weekends Otoniel hx of withdrawal last CIWA-2 will add po pheno Addiction medicine consult Gout Continue allopurinol GERD Contiue PPI Full Code DVT Prophylaxis: Lovenox ongoing need for hospitalization treatment of?acute alcoholic pancreatitis that requires bowel rest, IVF, and IV analgesics. Quality Stroke Does the patient have a stroke diagnosis?: No VTE Prior VTE?: No VTE Risk Level:: Medical - moderate - high VTE Device Contraindication: Treatment Not Indicated VTE Drug Contraindication: N/A - Med Ordered
[2024-07-30 14:26] VITALS: BP 139/92; PULSE 73; RESP 20; TEMP 36.6; O2SAT 97
[2024-07-30 15:50] VITALS: BP 131/78; PULSE 74; RESP 16; TEMP 36.4; O2SAT 94
[2024-07-30 16:00] VITALS: BP 131/78; PULSE 74; RESP 16; TEMP 36.4; O2SAT 94
[2024-07-30 16:15] VITALS: BMI 28.8
[2024-07-30] MEDS: PHENobarbitaL 200 MG PO ONCE PO (16:24)
[2024-07-30 19:43] VITALS: BP 134/85; PULSE 86; RESP 20; TEMP 36.9; O2SAT 95
[2024-07-30] MEDS: PHENobarbitaL 100 MG, PHENobarbitaL 30 MG, PHENobarbitaL 15 MG 145 MG PO ×2 (20:03→22:57)
[2024-07-30] MEDS: Enoxaparin Sodium 40 MG/0.4 ML SYRINGE SUBCUT (20:03)
[2024-07-30] MEDS: 0.9 % Sodium Chloride Flush 3 ML SYRINGE IVFLUSH (22:58)
[2024-07-31 03:09] VITALS: BP 150/65; PULSE 72; RESP 20; TEMP 36.3; O2SAT 95
[2024-07-31] MEDS: Morphine Sulfate 4 MG/ML CARTRIDGE IVPUSH ×2 (03:11→07:57)
[2024-07-31] MEDS: Lactated Ringers 1,000 ML 125 ML IVCONT (03:21)
[2024-07-31] MEDS: PHENobarbitaL 30 MG TABLET 60 MG PO (07:57)
[2024-07-31] MEDS: allopurinoL 100 MG TABLET 200 MG PO (07:57)
[2024-07-31 08:00] VITALS: BP 120/71; PULSE 78; RESP 16; TEMP 36.5; O2SAT 96
--- NOTE | 2024-07-31 08:16 | MHC.RECOVRN ---
AUDIT-C Brief Intervention Pt had positive screen for unhealthy alcohol use on admission. Attempted to meet with pt to discuss alcohol use and offer resources, pt declined.
[2024-07-31] MEDS: Colchicine 0.6 MG TABLET 1.2 MG PO (09:53)
[2024-07-31] MEDS: Ketorolac Tromethamine 30 MG/ML VIAL IVPUSH (09:53)
--- NOTE | 2024-07-31 10:35 | PM.DS ---
DS: Providers Provider Date of Service: 07/31/24 Date of admission: 07/29/24 20:13 Date of discharge: 07/31/24 Primary care physician: Stanley Grewal PA-C Consults: 07/29/24 20:16 Addiction Medicine Routine Consulting Provider: Addiction Covering Reason for consultation: alcohol use disorder Attending physician on discharge: Oren Ramos Discharging clinician: Oren Ramos DS: Diagnosis Discharge Diagnosis (1) Pancreatitis, alcoholic, acute: Status: Resolved DS: Summary Hospital Course Hospital Course: Hpi: 33-year-old male with a PMH significant for?alcohol use disorder, alcoholic pancreatitis, alcoholic gastritis, and gout who presents to the ED with?severe epigastric abdominal pain radiating to his back since last night, worse this morning. Patient reports he went on vacation last week and was drinking heavily each day. States symptoms feel similar to when he previously had pancreatitis 3 years before. Reports last drink on Saturday. No nausea or vomiting, but reports some loose stool earlier today. Denies history of alcohol withdrawal. Denies increased anxiety, auditory or visual hallucinations, headache, or diaphoresis. No chest pain/pressure, palpitations. Denies shortness or breath or difficulty breathing. Denies fever, chills. Previous to binge drinking on vacation, pt reports mostly drinks only on weekends. In the ED pt was tachycardic up to 93, tachypneic up to 25 and initially hypertensive at 144/94. Labs were significant for chronic transaminitis of AST 86 and ALT 79. Lipase WNL at 44. No leukocytosis. Stable H& H. No significant electrolyte abnormalities. Renal function baseline. Troponin negative. Ethyl alcohol level 110. CXR showed linear atelectasis or scar in left lower lobe. CTA of chest negative for acute abnormality. CT of abdomen/pelvis found mild soft tissue stranding around pancreas with small amount of surrounding fluid suggestive of acute pancreatitis. Also found hepatosplenomegaly. EKG demonstrated normal sinus rhythm without significant ST elevations or depressions. Pt was treated with IVF, morphine, ondansetron, and Protonix. Pt will be admitted to the hospital for treatment and further evaluation of acute alcoholic pancreatitis. hospital course: patient was admitted for acute pancreatitis sec to alcohol -started on bowel rest , iv hydration , pian management .in addition also received phenobarabital for mild alcohol withdrawals.mild elevated lft -possible sec to alcohol. (right knee)gout flare also in setting of alcohol -received colchicine, toradol. with above supportive care patient seems improved ,tolerating diet . plan: strongly advisded to abstain from alcohol. continue home gout meds. Above management discussed with the patient in detail length she understand and in agreement with the above plan, time spent 40 minutes and 50% time spent on counseling. Time Attestation Total time managing care of this patient today: 40 mintues. Discharge Coordination Time (in mins): 40 min Quality: Safe Use of Opioids Does Pt have an Active Cancer Diagnosis on the Problem List?: No Quality: Stroke Does the patient have a stroke diagnosis?: No Physical Exam Vital Signs: Vital Signs: Last Vital Signs Temp 97.7 F 07/31/24 08:00 Pulse 78 07/31/24 08:00 Resp 16 07/31/24 08:00 BP 120/71 07/31/24 08:00 Pulse Ox 96 07/31/24 08:00 O2 Del Method Room Air 07/31/24 08:00 BMI result Body Mass Index 28.8 Appearance: Alert.? Oriented X3. . cvs: rrr, [id number] . res: clear to auscultation ,no rhonchii or wheezing abd: no rebound or guarding ,nt , bs present. ext pulses present , no cyanosis . neuro: axo3 , nonfocal. DS: Data Data Completed and Pending Completed studies during hospitalization [Text1]: Procedures Detoxification Services for Substance Abuse Treatment (06/28/21) Imaging Chest x-ray: Radiologist's impression: ITS Impressions Chest X-Ray 07/29/24 11:52 IMPRESSION: Linear atelectasis or scar in the left lower lobe. Electronically signed by: Petey Beverly MD 07/29/2024 01:04 PM EDT Abdomen/Pelvis CT 07/29/24 17:18 IMPRESSION: 1. No significant abnormality is seen in the chest. 2. There is mild soft tissue stranding around the pancreas with a tiny amount of surrounding fluid. Findings are suggestive of acute pancreatitis. Please correlate with serum lipase. 3. Hepatosplenomegaly. 4. Other incidental findings as described above. Fleischner guidelines were followed. Electronically signed by: Lenny Haynes MD 07/29/2024 07:57 PM EDT RP Chest CT 07/29/24 17:18 IMPRESSION: 1. No significant abnormality is seen in the chest. 2. There is mild soft tissue stranding around the pancreas with a tiny amount of surrounding fluid. Findings are suggestive of acute pancreatitis. Please correlate with serum lipase. 3. Hepatosplenomegaly. 4. Other incidental findings as described above. Fleischner guidelines were followed. Electronically signed by: Lenny Haynes MD 07/29/2024 07:57 PM EDT RP Discharge Plan Discharge Anticipated Discharge Date/Time: 07/31/24 10:29 Patient Disposition: Home, Self-Care Discharge Diagnosis: possible acute pancreatitis sec to alcohol. Referrals: Stanley Grewal PA-C [Primary Care Provider] - 1 Week Discharge Medications: Continued colchicine 0.6 mg tablet 1.2 mg PO DAILY PRN (Reason: acute gout flares) 30 Days Qty: 60 1RF Rx Instructions: To use during acute flares allopurinol 100 mg tablet 200 mg PO DAILY 90 Days Qty: 180 1RF omeprazole 40 mg capsule,delayed release(DR/EC) 40 mg PO DAILY PRN (Reason: Acid Reflux ) (DME) blood pressure test kit-large Kit See Rx Instructions .Route Qty: 1 0RF Rx Instructions: As directed Discharge Orders: Discharge Order (Routine); Ordered 07/31/24 Ordered By: Oren Ramos Diet: Advance to usual diet Activity on Discharge: As tolerated Stand Alone Forms: Patient Portal Discharge page Print Language: Beninese Care Plan Goals: patient was admitted for acute pancreatitis sec to alcohol -started on bowel rest , iv hydration , pian management .in addition also received phenobarabital for mild alcohol withdrawals.mild elevated lft -possible sec to alcohol. gout flare also in setting of alcohol -received colchicine, toradol. with above supportive care patient seems improved ,tolerating diet . Health Concerns: strongly advisded to abstain from alcohol. continue home gout meds. Plan of Treatment: as above. Assessment: as above.
--- NOTE | 2024-07-31 10:41 | MHC.CM.PN ---
DP: PT HAS BEEN MEDICALLY CLEARED FOR DC HOME, NO SERVICES. PT HAS OWN RIDE HOME.
== END 2024-07-31 14:18 | disposition home or self-care (01) | DRG 282 ==
LOC: HO.ED 20:19 → HO.EDOVER 20:35 → HO.S3 07-30 13:19
PROVIDERS: Physician Assistant Medical; Admitting Provider Student in an Organized Health Care Education/Training Program; Emergency Provider Emergency Medicine; PCP Physician Assistant; Visit Provider Internal Medicine
DX: K85.20 Alcohol induced acute pancreatitis without necrosis or infection (principal); F10.239 Alcohol dependence with withdrawal, unspecified; F17.210 Nicotine dependence, cigarettes, uncomplicated; Y90.5 Blood alcohol level of 100-119 mg/100 ml; M10.9 Gout, unspecified; K21.9 Gastro-esophageal reflux disease without esophagitis; Z71.6 Tobacco abuse counseling; Z79.899 Other long term (current) drug therapy
CPT/HCPCS: 36415; 71046; 71250; 74177; 80048; 80053; 80307; 83690; 83735; 84484; 85025; 85610; 93005; 96361; 96365; 96366; 96372; 96375; 96376; 99221; 99285; J1650; J1885; J2270; J2405; J2470; J3411; J7120; Q9967

== ENCOUNTER → 2024-07-29 11:24 | Outpatient (BNV) | payer OTHER, SELFPAY | PROVIDERS: Emergency Provider Emergency Medicine; PCP Physician Assistant; Visit Provider Internal Medicine | DX: R07.9 Chest pain, unspecified (principal) | CPT/HCPCS: 93010 ==

== ENCOUNTER → 2024-07-29 20:13 | Outpatient (BNV) | payer OTHER, SELFPAY | PROVIDERS: Admitting Provider Student in an Organized Health Care Education/Training Program; Emergency Provider Emergency Medicine; PCP Physician Assistant; Visit Provider Student in an Organized Health Care Education/Training Program | DX: K85.20 Alcohol induced acute pancreatitis without necrosis or infection (principal) | CPT/HCPCS: 99223; 99232; 99239 ==

== ENCOUNTER 2024-09-07 16:14 | Emergency (ER) | payer OTHER, SELFPAY ==
[2024-09-07 16:22] VITALS: BP 148/92; PULSE 116; RESP 18; TEMP 36.8; O2SAT 96; BMI 28.0
--- NOTE | 2024-09-07 16:30 | ED_ITS ---
HPI - General Adult General Chief complaint: General Medical Stated complaint: Gout L foot Time Seen by Provider: 09/07/24 21:01 Source: patient and old records reviewed Mode of arrival: ambulatory Limitations: no limitations History of Present Illness ED Provider: DIRK DAVIS narrative: 34 yo male with PMH of recurrent gout, ETOH use, pancreatitis, HTN here with c/o L foot pain and gout flair after ETOH use yesterday. No rash, fevers, redness, swelling. Has has this multiple times - asking for toradol and naproxen MD complaint: gout flair Onset (ago): day(s) (1) Location: left and lower extremity Radiation: non-radiation Severity: moderate Quality: aching Pain Consistency: constant Relieving factors: none Exacerbating factors: movement Associated symptoms: denies other symptoms Treatments prior to arrival: none Related Data Home Medications ?Medication ?Instructions ?Recorded ?Confirmed omeprazole 40 mg capsule,delayed 40 mg PO DAILY PRN Acid Reflux 07/29/24 07/29/24 release Previous Rx's ?Medication ?Instructions ?Recorded blood pressure test kit-large #1 ea 12/21/21 allopurinol 100 mg tablet 200 mg (2 x 100 mg) PO DAILY 90 01/27/24 days #180 tabs colchicine 0.6 mg tablet 1.2 mg (2 x 0.6 mg) PO DAILY PRN 01/27/24 acute gout flares 30 days #60 tabs naproxen 500 mg tablet 500 mg PO BID PRN pain #20 tabs 09/07/24 Allergies Allergy/AdvReac Type Severity Reaction Status Date / Time No Known Allergies Allergy Verified 09/07/24 16:23 [No Known Allergies*] Review of Systems Review of Systems: Constitutional : No Fever, No Chills ENT/Mouth : No Ear Pain, No Hoarseness, No sore throat Eyes: No Eye Pain, No Swelling, No Redness, No Foreign Body Cardiovascular : No Chest Pain, No SOB Respiratory : No Cough, No Dyspnea Gastrointestinal : No Nausea, No Vomiting, No Diarrhea, No abdominal Pain Genitourinary : No Dysuria, No Hematuria Musculoskeletal : positive joint pain, No Myalgias, No Joint Swelling Skin : No Skin lacerations, No rash Neuro : No Weakness, No Numbness All other systems reviewed and are negative PMFSH Past Medical History Attestation statement: The following information was validated with the patient. Source: old records reviewed Medical History Screening for hypercholesterolemia Screening for diabetes mellitus (DM) Community acquired pneumonia Transaminitis Alcohol use disorder, moderate, dependence Alcohol use disorder HTN (hypertension) Surgical History History of appendectomy Social History Social History Household Members: Significant Other Housing: House Do you presently have visiting nurse or other home services: No Alcohol intake: current Alcohol intake frequency: a few times a week Alcohol type: hard liquor and other Patient Tobacco Use Status: Never used Tobacco e-Cigarette/Vaping Use: Currently Using Second Hand Smoke Exposure: No Substance Use Type: Marijuana Advance Directives: No Advance Directives Information Provided: No Do you have a plan to hurt others: No Plan service: No Current occupational status: employed Current occupational exposures/hazards: No Cognitive needs: No Hearing needs: No Vision needs: Yes (contact/glasses) Physical Exam ED Vital Signs: Vital Signs - 24 hr 09/07/24 16:22 09/07/24 18:46 Temperature 98.2 F 98.1 F Pulse Rate 116 H 110 H Respiratory Rate 18 16 Blood Pressure 148/92 H 144/80 H Pulse Oximetry 96 98 Oxygen Delivery Method Room Air Room Air BMI result Body Mass Index 28.0 Appearance: Alert. Oriented X3. No acute distress. Eyes: Pupils equal, round and reactive to light. ENT: Pharynx normal. Neck: Normal inspection. Neck supple. CVS: Normal heart rate and rhythm. Pulses normal. Respiratory: No respiratory distress. Breath sounds normal. Abdomen: Soft and nontender. Skin: Skin warm and dry. Normal skin color. Normal skin turgor. Extremities: No lower extremity edema. L foot ttp along L dorsum - no redness, swelling, SILT intact, DP pulse intact, normal ROM of toes Neuro: Oriented X 3. No motor deficit. No sensory deficit. Course Course Course Narrative: RME performed by Tika Garcia PA-C. Patient is a 34 year old assigned male at presenting to the emergency department with left foot pain. Patient states that he went out drinking last night and now has gout in his foot. Detailed physical exam and review of systems are deferred to the senior sales compensation analyst. Patient placed back in the waiting room pending room availability. Medications Administered Discontinued Medications Generic Name Dose Route Start Last Admin Trade Name Brisa PRN Reason Stop Dose Admin Ketorolac Tromethamine 30 mg 09/07/24 21:06 09/07/24 21:11 Ketorolac Tromethamine 30 Mg/Ml Vial IM 09/07/24 21:07 30 mg ONCE ONE Administration Medical Decision Making Medical Decision Making MDM Narrative: 34 yo male with PMH of recurrent gout, ETOH use, pancreatitis, HTN here with c/o L foot pain no signs of infeciton he is NV intact at this time will treat with NSAIDs which has historically helped him in the past. Differential Diagnosis Differential Diagnoses: The differential diagnosis associated with the pr esentation includes gout Admission/Observation Consideration of admission/observation: Escalation of care including admission/o bservation considered ambulating not toxic stable for DC External Record Review External record reviewed: Outpatient record Prescription Management I considered prescription management with: Pain Medication Discharge Plan Discharge Clinical Impression: Gout Qualifiers: Gout site: foot Gout etiology: idiopathic Chronicity: chronic Laterality: left Presence of tophus: without tophus Qualified Code(s): M1A.0720 - Idiopathic chronic gout, left ankle and foot, without tophus (tophi) Patient Disposition: Home, Self-Care Instructions: Gout (ED) Additional Instructions: no naproxen for 8 hours return for any worsening symptoms or concerns monitor for redness, swelling, fevers, calf pain Prescriptions: New naproxen 500 mg tablet 500 mg PO BID PRN (Reason: pain) Qty: 20 0RF No Action colchicine 0.6 mg tablet 1.2 mg PO DAILY PRN (Reason: acute gout flares) 30 Days Qty: 60 1RF Rx Instructions: To use during acute flares allopurinol 100 mg tablet 200 mg PO DAILY 90 Days Qty: 180 1RF omeprazole 40 mg capsule,delayed release(DR/EC) 40 mg PO DAILY PRN (Reason: Acid Reflux ) (DME) blood pressure test kit-large Kit See Rx Instructions .Route Qty: 1 0RF Rx Instructions: As directed Print Language: Azerbaijani
[2024-09-07 18:46] VITALS: BP 144/80; PULSE 110; RESP 16; TEMP 36.7; O2SAT 98
[2024-09-07] MEDS: Ketorolac Tromethamine 30 MG/ML VIAL IM (21:11)
[2024-09-07 21:37] VITALS: BP 144/80; PULSE 110; RESP 16; TEMP 36.7; O2SAT 98
== END 2024-09-07 21:38 | disposition home or self-care (01) ==
PROVIDERS: Emergency Provider Emergency Medicine; PCP Physician Assistant
DX: M1A.0720 Idiopathic chronic gout, left ankle and foot, without tophus (tophi) (principal); M79.672 Pain in left foot; I10 Essential (primary) hypertension; Z79.899 Other long term (current) drug therapy
CPT/HCPCS: 96372; 99283; 99284; J1885

== ENCOUNTER 2024-10-01 09:19 | Emergency (ER) | payer OTHER, SELFPAY ==
[2024-10-01 09:22] VITALS: BP 136/93; PULSE 100; RESP 20; TEMP 36.2; O2SAT 96; BMI 27.2
--- NOTE | 2024-10-01 09:41 | ED_ITS ---
HPI - General Adult General Chief complaint: Extremity Injury, Lower Stated complaint: Gout flare up Time Seen by Provider: 10/01/24 09:29 Source: patient Mode of arrival: ambulatory Limitations: no limitations History of Present Illness ED Provider: Karyn Engle PA-C HPI narrative: This is a 34 year old male, with a history of gout who presents to the emergency department with complaints of right knee pain since Saturday. Patient reports that he left his allopurinol and colchicine at his brother's house and has not taken this in several days and believes that he started to have a gout flare-up starting his right knee on Saturday. He has a history of gout in symptoms feel similar. He denies any recent trauma or injury to his knee. Denies any fevers or chills. Pain worsens with weight-bearing, and movement of the knee. No other complaints or concerns at this time. MD complaint: Right knee pain Onset (ago): day(s) Pain Consistency: constant Relieving factors: immobilization Exacerbating factors: movement Associated symptoms: denies other symptoms Treatments prior to arrival: none Related Data Home Medications ?Medication ?Instructions ?Recorded ?Confirmed omeprazole 40 mg capsule,delayed 40 mg PO DAILY PRN Acid Reflux 07/29/24 07/29/24 release Previous Rx's ?Medication ?Instructions ?Recorded blood pressure test kit-large #1 ea 12/21/21 allopurinol 100 mg tablet 200 mg (2 x 100 mg) PO DAILY 90 01/27/24 days #180 tabs colchicine 0.6 mg tablet 1.2 mg (2 x 0.6 mg) PO DAILY PRN 01/27/24 acute gout flares 30 days #60 tabs naproxen 500 mg tablet 500 mg PO BID PRN pain #20 tabs 09/07/24 prednisone 20 mg tablet 40 mg (2 x 20 mg) PO DAILY 5 days 10/01/24 #10 tabs Allergies Allergy/AdvReac Type Severity Reaction Status Date / Time No Known Allergies Allergy Verified 10/01/24 09:25 [No Known Allergies*] Review of Systems Review of Systems: Yes all other systems are reviewed and are negative PMFSH Past Medical History Medical History Screening for hypercholesterolemia Screening for diabetes mellitus (DM) Community acquired pneumonia Transaminitis Alcohol use disorder, moderate, dependence Alcohol use disorder HTN (hypertension) Surgical History History of appendectomy Social History Social History Household Members: Significant Other Housing: House Do you presently have visiting nurse or other home services: No Alcohol intake: current Alcohol intake frequency: a few times a week Alcohol type: hard liquor and other Patient Tobacco Use Status: Never used Tobacco e-Cigarette/Vaping Use: Currently Using Second Hand Smoke Exposure: No Substance Use Type: Marijuana Advance Directives: No Advance Directives Information Provided: Yes Do you have a plan to hurt others: No Plan service: No Current occupational status: employed Current occupational exposures/hazards: No Cognitive needs: No Hearing needs: No Vision needs: Yes (contact/glasses) Physical Exam ED Vital Signs: Vital Signs - 24 hr 10/01/24 09:22 10/01/24 09:49 Temperature 97.2 F 97.2 F Pulse Rate 100 100 Respiratory Rate 20 20 Blood Pressure 136/93 H 136/93 H Pulse Oximetry 96 96 Oxygen Delivery Method Room Air Room Air BMI result Body Mass Index 27.2 Const Other: General: Awake, alert, and oriented X3. No acute distress. HEENT: Normal inspection CVS: Normal heart rate and rhythm. Pulses normal. Respiratory: No respiratory distress Skin: Warm, dry, no rashes noted to exposed skin. Normal skin color. Normal skin turgor. Extremities: Right knee anterior aspect with moderate edema noted, no surrounding erythema, warmth. Full flexion and extension of the knee without difficulty. Tender throughout. No calf tenderness. Strong DP pulse. Patient ambulatory Neuro: Oriented X 3. No motor deficit. No sensory deficit. Medications Administered Discontinued Medications Generic Name Dose Route Start Last Admin Trade Name Freq PRN Reason Stop Dose Admin Ketorolac Tromethamine 30 mg 10/01/24 09:40 10/01/24 09:46 Ketorolac Tromethamine 30 Mg/Ml Vial IM 10/01/24 09:41 30 mg ONCE ONE Administration Medical Decision Making Medical Decision Making MDM Narrative: This is a 34-year-old male who presents emergency department for evaluation of right knee pain. Patient has a history of gout and states that this is typically where he gets his gout flare-ups. He states that his gout typically responds well to Toradol injection that he received in the emergency room and typically resolves after several days of prednisone. He states that he forgot his colchicine and allopurinol at his brother's house and believes that this triggered him. He also reports that he does drink beer, I advised him that this can cause gout flare-ups to occur. He was given strict return precautions. Patient stable for discharge Differential Diagnosis Differential Diagnoses: The differential diagnosis associated with the presentation includes Gout flare-up, knee strain, septic arthritis-unlikely, sprain Discharge Plan Discharge Clinical Impression: Gout Qualifiers: Gout site: foot Gout etiology: idiopathic Chronicity: chronic Laterality: left Presence of tophus: without tophus Qualified Code(s): M1A.0720 - Idiopathic chronic gout, left ankle and foot, without tophus (tophi) Patient Disposition: Home, Self-Care Instructions: Low Purine Diet (ED), Gout (ED) Additional Instructions: You were seen in the emergency department due to a gout flare-up in your right knee. You medicated you with Toradol. Please take prescribed prednisone as directed, finish the entire course even if your symptoms improve. Follow-up with your primary care physician regarding this visit. See low purine diet techniques. This can help offset gout flare-ups. If any new or worsening symptoms occur including but not limited to increased redness, increased swelling, inability to bend knee, severe calf pain, please seek emergent care. Prescriptions: New prednisone 20 mg tablet 40 mg PO DAILY 5 Days Qty: 10 0RF No Action colchicine 0.6 mg tablet 1.2 mg PO DAILY PRN (Reason: acute gout flares) 30 Days Qty: 60 1RF Rx Instructions: To use during acute flares allopurinol 100 mg tablet 200 mg PO DAILY 90 Days Qty: 180 1RF omeprazole 40 mg capsule,delayed release(DR/EC) 40 mg PO DAILY PRN (Reason: Acid Reflux ) naproxen 500 mg tablet 500 mg PO BID PRN (Reason: pain) Qty: 20 0RF (DME) blood pressure test kit-large Kit See Rx Instructions .Route Qty: 1 0RF Rx Instructions: As directed Stand Alone Forms: Work/School Release Interventions: ED Discharge Assessment Last Done: 10/01/24 09:49 Discharge Date/Time: 10/01/24 09:49 Print Language: Scottish
[2024-10-01] MEDS: Ketorolac Tromethamine 30 MG/ML VIAL IM (09:46)
[2024-10-01 09:49] VITALS: BP 136/93; PULSE 100; RESP 20; TEMP 36.2; O2SAT 96
== END 2024-10-01 09:49 | disposition home or self-care (01) ==
PROVIDERS: Emergency Provider Emergency Medicine Emergency Medical Services; PCP Physician Assistant
DX: M1A.0720 Idiopathic chronic gout, left ankle and foot, without tophus (tophi) (principal); M25.561 Pain in right knee; I10 Essential (primary) hypertension
CPT/HCPCS: 96372; 99283; 99284; J1885

== ENCOUNTER 2024-10-30 16:28 | Emergency (ER) | payer OTHER, SELFPAY ==
[2024-10-30 16:43] VITALS: BP 150/85; PULSE 110; RESP 18; TEMP 37; O2SAT 96; BMI 27.5
--- NOTE | 2024-10-30 16:51 | ED_ITS ---
HPI - General Adult General Chief complaint: Extremity Problem Stated complaint: gout flare up Time Seen by Provider: 10/30/24 16:48 Source: patient, RN notes reviewed and old records reviewed Mode of arrival: ambulatory Limitations: no limitations History of Present Illness ED Provider: Chi HPI narrative: 34-year-old male presents for evaluation of left foot pain and left knee pain. Patient reports a long history of gout pain He frequently visits this hospital for gout flares. He reports that he ran out of his allopurinol and colchicine 2 days ago. He was able to get his refills today including prednisone However he reports severe pain to his left foot and knee over last 2 days without any injury Denies any fevers or chills He is requesting ?an injection of Toradol. That usually treats his pain well Related Data Home Medications ?Medication ?Instructions ?Recorded ?Confirmed omeprazole 40 mg capsule,delayed 40 mg PO DAILY PRN Acid Reflux 07/29/24 07/29/24 release Previous Rx's ?Medication ?Instructions ?Recorded blood pressure test kit-large #1 ea 12/21/21 allopurinol 100 mg tablet 200 mg (2 x 100 mg) PO DAILY 90 01/27/24 days #180 tabs colchicine 0.6 mg tablet 1.2 mg (2 x 0.6 mg) PO DAILY PRN 01/27/24 acute gout flares 30 days #60 tabs naproxen 500 mg tablet 500 mg PO BID PRN pain #20 tabs 09/07/24 prednisone 20 mg tablet 40 mg (2 x 20 mg) PO DAILY 5 days 10/01/24 #10 tabs Allergies Allergy/AdvReac Type Severity Reaction Status Date / Time No Known Allergies Allergy Verified 10/30/24 16:47 [No Known Allergies*] Review of Systems Constitutional: Constitutional: Denies body ache(s), Denies chills and Denies headache(s) ENT: Denies vertigo, Denies dizziness and Denies headache(s) Cardiovascular: Cardiovascular: Denies chest pain Musculoskeletal: Musculoskeletal: Reports arthralgias, Reports joint swelling and Reports limited range of motion Integumentary/Breasts: Skin/Breast: Denies rash Neurologic: Denies vertigo, Denies dizziness and Denies headache(s) [facility] Past Medical History Medical History Screening for hypercholesterolemia Screening for diabetes mellitus (DM) Community acquired pneumonia Transaminitis Alcohol use disorder, moderate, dependence Alcohol use disorder HTN (hypertension) Surgical History History of appendectomy Social History Social History Household Members: Significant Other Housing: House Do you presently have visiting nurse or other home services: No Alcohol intake: current Alcohol intake frequency: a few times a week Alcohol type: hard liquor and other Patient Tobacco Use Status: Never used Tobacco e-Cigarette/Vaping Use: Currently Using Second Hand Smoke Exposure: No Substance Use Type: Marijuana Advance Directives: No Advance Directives Information Provided: No service: No Current occupational status: employed Current occupational exposures/hazards: No Cognitive needs: No Hearing needs: No Vision needs: Yes (contact/glasses) Physical Exam ED Vital Signs: Vital Signs - 24 hr 10/30/24 16:43 10/30/24 17:39 Temperature 98.6 F 98.6 F Pulse Rate 110 H 110 H Respiratory Rate 18 18 Blood Pressure 150/85 H 150/85 H Pulse Oximetry 96 96 Oxygen Delivery Method Room Air Room Air BMI result Body Mass Index 27.5 Const General: healthy appearing, comfortable, no acute distress, alert and awake Nutritional Appearance: well nourished Orientation/consciousness: patient oriented x3 HENMT Head: Yes normocephalic and Yes atraumatic Eyes Eyelids: Yes eyelids normal Conjunctivae: conjunctivae normal Sclerae: sclerae normal Corneas: corneas normal Pupils: Equal, round and reactive pupils present EOM: EOMs intact bilaterally Neck Neck: Yes full ROM Resp Effort & Inspection: normal respiratory effort, able to speak in complete sentences and not labored Cardio Rate: regular rate Rhythm: regular rhythm Skin General skin exam: elasticity normal Neuro General: patient oriented x3 Cranial nerves: Yes Equal, round and reactive pupils present and Yes Bilaterally intact EOM present Cognition (Neuro): normal cognition Medications Administered Discontinued Medications Generic Name Dose Route Start Last Admin Trade Name Freq PRN Reason Stop Dose Admin Ketorolac Tromethamine 30 mg 10/30/24 16:48 10/30/24 17:33 Ketorolac Tromethamine 30 Mg/Ml Vial IM 10/30/24 16:49 30 mg ONCE ONE Administration Medical Decision Making Medical Decision Making [facility] Narrative: 34-year-old male presents for evaluation of left foot and knee pain. He has a long history of gout and reports this feels similar, there was no injury, he is afebrile. Low suspicion for infectious process. We will treat his symptoms with Toradol. He reports that he was able to refill all of his medications including colchicine, allopurinol and prednisone. He will follow up with his outpatient providers Differential Diagnosis Differential Diagnoses: The differential diagnosis associated with the presentation includes Gouty arthritis Pseudo gout Arthritis Contusion Knee sprain Discharge Plan Discharge Clinical Impression: Acute pain of left foot Patient Disposition: Home, Self-Care Instructions: Gout (ED) Additional Instructions: You were treated with Toradol injection for gout. Take all your other medication as prescribed Return for new or worsening symptoms Prescriptions: No Action colchicine 0.6 mg tablet 1.2 mg PO DAILY PRN (Reason: acute gout flares) 30 Days Qty: 60 1RF Rx Instructions: To use during acute flares allopurinol 100 mg tablet 200 mg PO DAILY 90 Days Qty: 180 1RF omeprazole 40 mg capsule,delayed release(DR/EC) 40 mg PO DAILY PRN (Reason: Acid Reflux ) naproxen 500 mg tablet 500 mg PO BID PRN (Reason: pain) Qty: 20 0RF prednisone 20 mg tablet 40 mg PO DAILY 5 Days Qty: 10 0RF (DME) blood pressure test kit-large Kit See Rx Instructions .Route Qty: 1 0RF Rx Instructions: As directed Interventions: ED Discharge Assessment Last Done: 10/30/24 17:39 Discharge Date/Time: 10/30/24 17:39 Print Language: Slovak
[2024-10-30] MEDS: Ketorolac Tromethamine 30 MG/ML VIAL IM (17:33)
[2024-10-30 17:39] VITALS: BP 150/85; PULSE 110; RESP 18; TEMP 37; O2SAT 96
== END 2024-10-30 17:39 | disposition home or self-care (01) ==
PROVIDERS: Emergency Provider Emergency Medicine; PCP Physician Assistant
DX: M79.672 Pain in left foot (principal); M25.562 Pain in left knee; I10 Essential (primary) hypertension
CPT/HCPCS: 96372; 99283; 99284; J1885

== ENCOUNTER 2024-11-09 00:43 | Emergency (ER) | payer OTHER, SELFPAY ==
--- NOTE | 2024-11-09 | ECG_ITS ---
Test Reason : TACHYCARDIA Blood Pressure : */* mmHG Vent. Rate : 116 BPM Atrial Rate : 116 BPM P-R Int : 134 ms QRS Dur : 90 ms QT Int : 326 ms P-R-T Axes : 71 48 60 degrees QTcB Int : 453 ms Sinus tachycardia Otherwise normal ECG When compared with ECG of 29-Jul-2024 11:25, No significant change was found Referred By: Generic ED Physician Electronically Signed By: MALGORZATA FIGUEROA
[2024-11-09 00:47] VITALS: BP 123/84; PULSE 122; RESP 18; TEMP 36.8; O2SAT 96; BMI 27.5
--- NOTE | 2024-11-09 01:23 | ED.EXTPRO ---
HPI - Extremity Problem General Chief complaint: Extremity Problem Stated complaint: r foot gout flare up Time Seen by Provider: 11/09/24 01:17 Source: patient Mode of arrival: ambulatory Limitations: no limitations History of Present Illness ED Provider: Dr. Jose A Warner HPI Narrative: 34-year-old male with a history of gout, pancreatitis, elevated liver enzymes, hypertension, alcohol use disorder who presents emergency department gout in his right foot. Patient states that he was had pain in his right foot over the last 24 hours which is gotten progressively worse. He states the pain is consistent with his gout pain in the past. He states that when he gets a flare-up of gout he gets treated with Toradol IM and then gets a prescription for Colcrys. The patient denies fever, chills, nausea, vomiting. He states that he has been drinking alcohol and he believes that this is what caused he was gout flare-up. Related Data Home Medications ?Medication ?Instructions ?Recorded ?Confirmed omeprazole 40 mg capsule,delayed 40 mg PO DAILY PRN Acid Reflux 07/29/24 07/29/24 release Previous Rx's ?Medication ?Instructions ?Recorded blood pressure test kit-large #1 ea 12/21/21 colchicine 0.6 mg tablet 1.2 mg (2 x 0.6 mg) PO DAILY PRN 01/27/24 acute gout flares 30 days #60 tabs naproxen 500 mg tablet 500 mg PO BID PRN pain #20 tabs 09/07/24 prednisone 20 mg tablet 40 mg (2 x 20 mg) PO DAILY 5 days 10/01/24 #10 tabs allopurinol 100 mg tablet 200 mg (2 x 100 mg) PO DAILY 90 11/07/24 days #180 tabs colchicine 0.6 mg tablet (Colcrys) 0.6 mg PO ONCE #6 tabs 11/09/24 Allergies Allergy/AdvReac Type Severity Reaction Status Date / Time No Known Allergies Allergy Verified 11/09/24 00:48 [No Known Allergies*] Review of Systems Review of Systems: Yes all other systems are reviewed and are negative PMFSH Past Medical History Medical History Screening for hypercholesterolemia Screening for diabetes mellitus (DM) Community acquired pneumonia Transaminitis Alcohol use disorder, moderate, dependence Alcohol use disorder HTN (hypertension) Surgical History History of appendectomy Social History Social History Household Members: Significant Other Housing: House Do you presently have visiting nurse or other home services: No Alcohol intake: current Alcohol intake frequency: a few times a week Alcohol type: hard liquor and other Patient Tobacco Use Status: Never used Tobacco e-Cigarette/Vaping Use: Currently Using Second Hand Smoke Exposure: No Substance Use Type: Marijuana Advance Directives: No Advance Directives Information Provided: Yes Do you have a plan to hurt others: No Plan service: No Current occupational status: employed Current occupational exposures/hazards: No Cognitive needs: No Hearing needs: No Vision needs: Yes (contact/glasses) Physical Exam Vital Signs: Vital Signs: Last Vital Signs Temp 98.2 F 11/09/24 00:47 Pulse 122 H 11/09/24 00:47 Resp 18 11/09/24 00:47 BP 123/84 11/09/24 00:47 Pulse Ox 96 11/09/24 00:47 BMI result Body Mass Index 27.5 Vital signs were normal Exam: Right foot: Patient has tenderness palpation over the MTP joints of the right foot with increased tenderness with palpation over the 1st and 2nd MTP joints. There is some increased warmth and erythema over these joints. Patient has no tenderness right ankle Medical Decision Making Medical Decision Making MDM Narrative: 34-year-old male with a history of gout, pancreatitis, elevated liver enzymes, hypertension, alcohol use disorder who presents emergency department gout in his right foot times 24 hours. Vital signs were normal. Physical examination did reveal increased tenderness erythema and warmth over the right foot MTP joints with increased tenderness over the 1st and 2nd and MTP joints Differential diagnosis: ?Includes but is not limited to gout, cellulitis Course: : Patient was presentation is consistent with acute gout of the right foot MTP joints. Patient was given Toradol 60 mg IM. Patient was discharged with a prescription for Colcrys 0.6 mg, 2 pills once then 1 pill 1 hour later, may be repeated in 3 days. He was given 1 refill on this medication as well. He was given printed and verbal instructions and discharged home. Admission/Observation Consideration of admission/observation: Escalation of care including admission/observation considered (No) Chronic Conditions Patient?s care impacted by: Hypertension and Other (Alcohol use disorder) Discharge Plan Discharge Clinical Impression: Acute gout of right foot Patient Disposition: Home, Self-Care Additional Instructions: Gout of your right foot You received Toradol 60 mg IM Take Colcrys (colchicine) 0.6 mg pills, 1 pill and then 1 hour later take 2 pills, this medication will last for 3 days. If you still having pain 3 days later you can repeat this dose. Follow-up with your doctor in 2 days. Please return to the emergency department if your symptoms get worse or if you develop any symptoms that are concerning to you. Prescriptions: New colchicine [Colcrys] 0.6 mg tablet 0.6 mg PO ONCE Qty: 6 1RF Rx Instructions: 1.2 mg orally, then 1 hour later take 0.6 mg orally, may repeat in 3 days No Action colchicine 0.6 mg tablet 1.2 mg PO DAILY PRN (Reason: acute gout flares) 30 Days Qty: 60 1RF Rx Instructions: To use during acute flares allopurinol 100 mg tablet 200 mg PO DAILY 90 Days Qty: 180 0RF omeprazole 40 mg capsule,delayed release(DR/EC) 40 mg PO DAILY PRN (Reason: Acid Reflux ) naproxen 500 mg tablet 500 mg PO BID PRN (Reason: pain) Qty: 20 0RF prednisone 20 mg tablet 40 mg PO DAILY 5 Days Qty: 10 0RF (DME) blood pressure test kit-large Kit See Rx Instructions .Route Qty: 1 0RF Rx Instructions: As directed Print Language: Mongolian
[2024-11-09] MEDS: Ketorolac Tromethamine 60 MG/2 ML VIAL IM (01:36)
[2024-11-09 01:47] VITALS: BP 136/75; PULSE 100; RESP 18; TEMP 36.7; O2SAT 96
== END 2024-11-09 01:48 | disposition home or self-care (01) ==
PROVIDERS: Emergency Provider Emergency Medicine Emergency Medical Services; PCP Physician Assistant
DX: M10.9 Gout, unspecified (principal); M79.671 Pain in right foot; I10 Essential (primary) hypertension; F17.200 Nicotine dependence, unspecified, uncomplicated; F12.90 Cannabis use, unspecified, uncomplicated; Z79.899 Other long term (current) drug therapy
CPT/HCPCS: 93005; 96372; 99283; 99284; J1885

== ENCOUNTER → 2024-11-09 00:52 | Outpatient (BNV) | payer OTHER, SELFPAY | PROVIDERS: Emergency Provider Emergency Medicine Emergency Medical Services; PCP Physician Assistant; Visit Provider Internal Medicine | DX: R00.0 Tachycardia, unspecified (principal) | CPT/HCPCS: 93010 ==

== ENCOUNTER 2024-11-17 06:46 | Emergency (ER) | payer OTHER, SELFPAY ==
[2024-11-17 06:53] VITALS: BP 149/87; PULSE 93; RESP 18; TEMP 36.8; O2SAT 97; BMI 27.5
--- OUTSIDE RECORDS SUMMARY | 2024-11-17 08:36 | XMS_ITS | Clinical Summary ---
Author Organization [facility] Address [address] [place], [place] [id number] Phone Care Team Providers Care Hospice Superintendent Name Role Phone Unavailable Primary Care Provider Unavailabl e Active Problems Patient Care Coordination No te Formatting of this note is d ifferent from the original. [facility] mailed transition letter #2 (inactivated, age 24+, not seen in 3 years) - mailed 04/15/18 No additional problems on file Immunizations Name Administration Dates Next Due DTaP 09/29/1996, 4,02/27/1993, 993,1992 Hep B, ped/adol 06/20/1993,1992,1992 Hib (PRP-T) 03/01/1994, 3,1992, 993 Influenza 06/08/2009 Influenza, injectable, trivalent 2010 MMR 09/29/1996,03/01/1994 Meningococcal Conj (Menactra) MCV4P 01/14/2008 OPV 09/29/1996, 4,1992, 993 Tdap 01/14/2008 Varicella 10/14/1993 Social History Tobacco Use Types Packs/Day Years Used Date Smoking Tobacco: Never Assessed Sex and Gender Information Value Date Recorded Sex Assigned at Not on file Legal Sex Male 2:45 PM EDT Gender Identity Not on file Sexual Orientation Not on file Last Filed Vital Signs Vital Sign Reading Time Taken Comments Blood Pressure - - Pulse - - Temperature 37.3 ??C (99.2 ??F) 2010 1 2:00 AM EDT Respiratory Rate - - Oxygen Saturation - - Inhaled Oxygen Concentration - - Weight 84.7 kg (186 lb 12.7 oz) 010 12:00 AM EDT Height - - Body Mass Index - - Plan of Treatment Health Maintenance Due Date Last Done Comments Varicella Vaccines (2 of 2 - 2-dose childhood series) 10/27/1996 10/14/1993 DTaP,Tdap,and Td Vaccines (7 - Td or Tdap) 01/13/2018 01/14/2008, 09/29/1996, 03/01/1994, Additional history exists Influenza Vaccines (#1) 2024 2010, 06/08 COVID-19 Vaccine ( season) 2024 Hepatitis B Vaccines Completed 06/20/1993, 1992, 1992 HIB Vaccines Completed 03/01/1994, 02/11, 1992, Additional history exists IPV Vaccines Completed 09/29/1996, 02/11, 1992, Additional history exists MMR Vaccines Completed 09/29/1996, 03/01/1994 Meningococcal Vaccine Aged Out 01/14/2008 No jace matt eligible based on patient's age to complete this topic HPV Vaccines Aged Out No longer eligi ble based on patient's age to complete this topic Hepatitis A Vaccines Aged Out No long er eligible based on patient's age to complete this topic Men B Vaccine Aged Out No longer elig ible based on patient's age to complete this topic Pneumococcal Vaccine Aged Out No long er eligible based on patient's age to complete this topic
--- NOTE | 2024-11-17 09:14 | ED.GENADULT ---
HPI - General Adult General Chief complaint: Extremity Problem Stated complaint: right foot pain Time Seen by Provider: 11/17/24 09:09 Source: patient Mode of arrival: ambulatory Limitations: no limitations History of Present Illness ED Provider: Tika Garcia PA-C HPI narrative: Patient is a 34 year old assigned male at with a gout, pancreatitis, elevated liver enzymes, hypertension, alcohol use disorder who presents to the emergency department complaining of a gout flare in his right foot. Patient states that he was recently seen for this but he is out of [facility] emergency department. Patient states that he has an appointment with his PCP next week. Patient denies any dizziness, lightheadedness, abdominal pain, nausea, vomiting, fever, chills, blurry vision, double vision, loss of vision, chest pain, difficulty breathing, shortness of breath, back pain, night sweats, pain with urination, increased urinary frequency, increased urinary urgency, blood in his urine or stool, syncope or a near syncopal episode, recent trauma or falls, bowel incontinence, bladder incontinence, or any other complaints at this time. Exacerbating factors: movement Associated symptoms: denies other symptoms Treatments prior to arrival: none Related Data Home Medications ?Medication ?Instructions ?Recorded ?Confirmed omeprazole 40 mg capsule,delayed 40 mg PO DAILY PRN Acid Reflux 07/29/24 07/29/24 release Previous Rx's ?Medication ?Instructions ?Recorded blood pressure test kit-large #1 ea 12/21/21 colchicine 0.6 mg tablet 1.2 mg (2 x 0.6 mg) PO DAILY PRN 01/27/24 acute gout flares 30 days #60 tabs naproxen 500 mg tablet 500 mg PO BID PRN pain #20 tabs 09/07/24 prednisone 20 mg tablet 40 mg (2 x 20 mg) PO DAILY 5 days 10/01/24 #10 tabs allopurinol 100 mg tablet 200 mg (2 x 100 mg) PO DAILY 90 11/07/24 days #180 tabs colchicine 0.6 mg tablet (Colcrys) 0.6 mg PO ONCE #6 tabs 11/09/24 colchicine 0.6 mg capsule 0.6 mg PO DAILY PRN gout flare #30 11/17/24 caps Allergies Allergy/AdvReac Type Severity Reaction Status Date / Time No Known Allergies Allergy Verified 11/17/24 06:56 [No Known Allergies*] Review of Systems Constitutional: Constitutional: Reports no additional constitutional complaints, Denies chills, Denies fever(s) and Denies night sweats Eyes: Eyes: Reports no additional eye complaints, Denies blurry vision, Denies change in vision, Denies diplopia, Denies eye discharge, Denies loss of vision and Denies eye pain ENT: Denies dizziness Cardiovascular: Cardiovascular: Reports no additional cardiovascular complaints, Denies chest pain, Denies lightheadedness, Denies Loss of Consciousness and Denies dyspnea Respiratory: Respiratory: Reports no additional respiratory complaints and Denies dyspnea Gastrointestinal: Gastrointestinal: Reports no additional gastrointestinal complaints, Denies abdominal pain, Denies melena, Denies hematochezia, Denies change in bowel habits and Denies change in stool character Genitourinary: Genitourinary: Reports no additional male genitourinary complaints, Denies hematuria, Denies oliguria, Denies difficulty urinating, Denies dysuria, Denies urinary frequency, Denies urinary hesitancy, Denies urinary incontinence and Denies urinary urgency Musculoskeletal: Musculoskeletal: Reports no additional musculoskeletal complaints, Denies numbness and Denies tingling Comments: right foot pain Neurologic: Denies dizziness, Denies loss of vision, Denies numbness and Denies tingling Psychiatric: Psychiatric: Reports no additional psychiatric complaints Endocrine: Endocrine: Reports no additional endocrine complaints Hematologic/Lymphatic: Hematologic/Lymphatic: Reports no additional hematologic/lymphatic complaints Allergic/Immunologic: Allergic/Immunologic: Reports no additional allergic/immunologic complaints PMFSH Past Medical History Attestation statement: The following information was validated with the patient. Source: old records reviewed and nursing notes reviewed Medical History Screening for hypercholesterolemia Screening for diabetes mellitus (DM) Community acquired pneumonia Transaminitis Alcohol use disorder, moderate, dependence Alcohol use disorder HTN (hypertension) Surgical History History of appendectomy Social History Social History Household Members: Significant Other Housing: House Do you presently have visiting nurse or other home services: No Alcohol intake: current Alcohol intake frequency: a few times a week Alcohol type: hard liquor and other Patient Tobacco Use Status: Never used Tobacco e-Cigarette/Vaping Use: Currently Using Second Hand Smoke Exposure: No Substance Use Type: Marijuana Advance Directives: No Advance Directives Information Provided: No service: No Current occupational status: employed Current occupational exposures/hazards: No Cognitive needs: No Hearing needs: No Vision needs: Yes (contact/glasses) Physical Exam ED Vital Signs: Vital Signs - 24 hr 11/17/24 06:53 11/17/24 09:24 Temperature 98.2 F 98.2 F Pulse Rate 93 93 Respiratory Rate 18 18 Blood Pressure 149/87 H 149/87 H Pulse Oximetry 97 97 Oxygen Delivery Method Room Air Room Air BMI result Body Mass Index 27.5 Const General: cooperative, no acute distress, alert and awake Nutritional Appearance: well nourished Orientation/consciousness: patient oriented x3 Limitations: no limitations HENMT Head: Yes normal to inspection and Yes atraumatic Ears: hearing grossly normal bilaterally and external ears normal General nose exam: Normal external nose present, no nasal discharge noted and no epistaxis Face and sinus: Yes normal facial exam, No abrasion and No laceration Mouth: Normal oral and palatal mucosa present, no drooling and no muffled voice Eyes General: appearance normal, both eyes and all related structures Periorbital: periorbital findings normal Eyelids: Yes eyelids normal Conjunctivae: conjunctivae normal Pupils: Equal, round and reactive pupils present EOM: EOMs intact bilaterally Neck Neck: Yes normal visual inspection, Yes full ROM and Yes no lymphadenopathy Chest Chest palpation & inspection: normal inspection of the chest Resp Effort & Inspection: normal respiratory effort and able to speak in complete sentences GI Inspection: Yes normal to inspection Neuro General: patient oriented x3 and moves all extremities Cranial nerves: Yes Equal, round and reactive pupils present Cognition (Neuro): normal cognition Extrem General: Yes normal to inspection, Yes full ROM and Yes capillary refill normal Psych Appearance: grossly normal Mental Status: mental status grossly normal Affect: normal affect Attitude: cooperative Thought process: Normal thought process present Thought content: Normal thought content present Insight: Good insight present (Psych) Medications Administered Discontinued Medications Generic Name Dose Route Start Last Admin Trade Name Freq PRN Reason Stop Dose Admin Ketorolac Tromethamine 15 mg 11/17/24 09:20 11/17/24 09:29 Ketorolac Tromethamine 15 Mg/Ml Vial IM 11/17/24 09:21 15 mg ONCE ONE Administration Medical Decision Making Medical Decision Making MDM Narrative: Patient is a 34 year old assigned male at with a gout, pancreatitis, elevated liver enzymes, hypertension, alcohol use disorder who presents to the emergency department complaining of a gout flare in his right foot. Patient's physical exam was unremarkable. I explained my physical exam findings to the patient. I answered all questions asked by the patient. I stressed the importance of the patient taking his medication as directed (either prescribed or as the over the counter packaging recommends). I stressed the importance of the patient following up with his primary care provider. I stressed the importance of the patient returning to the emergency department immediately if his symptoms were to worsen or if he were to develop any dizziness, shortness of breath, difficulty breathing, chest pain, blurry vision, loss of vision, nausea, vomiting, abdominal pain, fever, chills, back pain, or any other complaints. Patient verbalized agreement and understanding with this treatment plan and discharge. Differential Diagnosis Differential Diagnoses: The differential diagnosis associated with the presentation includes Right foot pain Right foot gout flare Chronic gout flare Admission/Observation Consideration of admission/observation: Escalation of care including admission/observation considered Patient would have been admitted to the hospital had his work up had any findings where hospital admission was appropriate and his clinical presentation warranted hospital admission. Discharge Plan Discharge Clinical Impression: Gout flare Patient Disposition: Home, Self-Care Instructions: Low Purine Diet (ED), Gout (ED) Additional Instructions: PLEASE keep your appointment with your PCP. Follow up with your primary care provider. Return to the emergency department immediately if your symptoms worsen or if you develop any dizziness, shortness of breath, difficulty breathing, chest pain, blurry vision, loss of vision, nausea, vomiting, abdominal pain, fever, chills, back pain, or any other complaints. Prescriptions: New colchicine 0.6 mg capsule 0.6 mg PO DAILY PRN (Reason: gout flare) Qty: 30 0RF No Action colchicine 0.6 mg tablet 1.2 mg PO DAILY PRN (Reason: acute gout flares) 30 Days Qty: 60 1RF Rx Instructions: To use during acute flares allopurinol 100 mg tablet 200 mg PO DAILY 90 Days Qty: 180 0RF omeprazole 40 mg capsule,delayed release(DR/EC) 40 mg PO DAILY PRN (Reason: Acid Reflux ) naproxen 500 mg tablet 500 mg PO BID PRN (Reason: pain) Qty: 20 0RF prednisone 20 mg tablet 40 mg PO DAILY 5 Days Qty: 10 0RF colchicine [Colcrys] 0.6 mg tablet 0.6 mg PO ONCE Qty: 6 1RF Rx Instructions: 1.2 mg orally, then 1 hour later take 0.6 mg orally, may repeat in 3 days (DME) blood pressure test kit-large Kit See Rx Instructions .Route Qty: 1 0RF Rx Instructions: As directed Referrals: Stanley Grewal PA-C [Primary Care Provider] - Stand Alone Forms: Work/School Release Interventions: ED Discharge Assessment Last Done: 11/17/24 09:24 Discharge Date/Time: 11/17/24 09:31 Print Language: Slovak
[2024-11-17 09:24] VITALS: BP 149/87; PULSE 93; RESP 18; TEMP 36.8; O2SAT 97
[2024-11-17] MEDS: Ketorolac Tromethamine 15 MG/ML VIAL IM (09:29)
== END 2024-11-17 09:31 | disposition home or self-care (01) ==
PROVIDERS: Emergency Provider Emergency Medicine; PCP Physician Assistant
DX: M10.071 Idiopathic gout, right ankle and foot (principal); Z79.899 Other long term (current) drug therapy
CPT/HCPCS: 96372; 99283; 99284; J1885

== ENCOUNTER 2024-11-28 17:18 | Inpatient (IN) | payer OTHER, SELFPAY ==
--- NOTE | ~2024-11-28 | CT_ITS ---
CLINICAL HISTORY: epigastric pain, hx pancreatitis CT abdomen and pelvis with contrast Comparison: CT/CA/SR - CT ABDOMEN PELVIS W IV CON - 07/29/2024 05:18 PM EDT Findings: The lung bases are clear. The liver is enlarged and low in attenuation. The pancreas, gallbladder, spleen, adrenal glands, kidneys, ureters and bladder are within normal limits. No bowel obstruction. Diverticulosis without evidence of diverticulitis. No acute osseous finding. Normal prostate. Impression: Hepatomegaly and hepatic steatosis. No convincing CT evidence of pancreatitis. Diverticulosis without evidence of diverticulitis. This document has been electronically signed by: Torres Barriga MD on 11/28/2024 20:38:52
--- NOTE | ~2024-11-28 | US_ITS ---
CLINICAL HISTORY: RUQ abd pain, elevated liver enzymes bilirubin US abdomen limited Comparison: 06/29/2021 Findings: The visualized pancreas is normal. The aorta and inferior vena cava are normal caliber. The liver is enlarged and echogenic. The liver measures 22 cm. There is no intrahepatic bile duct dilatation. The common duct is 3 mm in diameter. The gallbladder is normal. There is reportedly a positive sonographic Huddleston's. The main portal vein is antegrade. The right kidney is not imaged. No ascites. IMPRESSION: Hepatic steatosis and hepatomegaly. Although the gallbladder appears normal, there is reportedly a positive sonographic Huddleston's. This is of doubtful clinical significance. This document has been electronically signed by: Torres Barriga MD on 11/28/2024 19:41:56
--- NOTE | 2024-11-28 17:19 | ECG_ITS ---
Test Reason : CHEST PAIN Blood Pressure : */* mmHG Vent. Rate : 77 BPM Atrial Rate : 77 BPM P-R Int : 142 ms QRS Dur : 96 ms QT Int : 376 ms P-R-T Axes : 58 46 67 degrees QTcB Int : 425 ms Sinus rhythm with marked sinus arrhythmia Otherwise normal ECG When compared with ECG of 09-Nov-2024 00:52, Vent. rate has decreased by 39 bpm Referred By: Tika Garcia Electronically Signed By: JESE SHEPHERD MD
--- NOTE | 2024-11-28 17:25 | ED.GENADULT ---
HPI - General Adult General Chief complaint: ETOH/Substance Use Stated complaint: chest, abd pain, nausea Time Seen by Provider: 11/28/24 18:17 Source: patient Mode of arrival: ambulatory Limitations: no limitations History of Present Illness ED Provider: PARUL MURRAY PA-C HPI narrative: 34 year old male with pmhx significant for HTN, alcohol use disorder, acute pancreatitis, gout presents to the ED today for evaluation of nausea, vomiting, and epigastric abdominal pain which began this morning. Abdominal pain begins in his epigastric region and radiates to his back. Admits to going on an alcohol binge over the last two weeks after the of a family member. Reports consuming approximately 14 nips daily. His last drink was around 1030 last night. He feels like his is in alcohol withdrawal. He denies any history of etoh withdrawal seizures. Denies AH/VH. Denies illicit substance use. Denies fever, chills, diarrhea, constipation. He is not seeking detox. Related Data Home Medications ?Medication ?Instructions ?Recorded ?Confirmed allopurinol 100 mg tablet 200 mg PO DAILY 11/29/24 11/29/24 colchicine 0.6 mg capsule 0.6 mg PO DAILY gout flare 11/29/24 11/29/24 Previous Rx's ?Medication ?Instructions ?Recorded blood pressure test kit-large #1 ea 12/21/21 colchicine 0.6 mg tablet 1.2 mg (2 x 0.6 mg) PO DAILY PRN 01/27/24 acute gout flares 30 days #60 tabs Allergies Allergy/AdvReac Type Severity Reaction Status Date / Time No Known Allergies Allergy Verified 11/28/24 17:30 [No Known Allergies*] Review of Systems Review of Systems: Constitutional: No fever, chills, fatigue, night sweats, weight changes ENT/Mouth: No ear pain, hearing loss, nasal congestion, sinus pain, rhinorrhea, sore throat Eyes: No eye pain, swelling, redness, vision changes, discharge Cardio: No chest pain, palpitations, MC, orthopnea, peripheral edema Pulm: No SOB, cough, sputum, wheezing, dyspnea, hemoptysis GI: No hematemesis, diarrhea, constipation, hematochezia, melena, +epigastric pain, +nausea, +vomiting : No irregular bleeding, dysuria, frequency, urgency, hesitancy, hematuria, flank pain, urinary flow changes, urinary incontinence or retention MSK: No back pain, neck pain, joint pain, myalgias Skin: No lesions, rashes Neuro: No weakness, numbness, paresthesias, LOC, dizziness, headache Psych: No anxiety/panic, depression, SI/HI, AH/VH All other systems reviewed and are negative. [facility] Past Medical History Attestation statement: The following information was validated with the patient. Source: old records reviewed and nursing notes reviewed Medical History Screening for hypercholesterolemia Screening for diabetes mellitus (DM) Community acquired pneumonia Transaminitis Alcohol use disorder, moderate, dependence Alcohol use disorder HTN (hypertension) Surgical History History of appendectomy Social History Social History Household Members: Significant Other Housing: House Do you presently have visiting nurse or other home services: No Alcohol intake: current Alcohol intake frequency: 3 or more drinks per day Alcohol type: hard liquor Patient Tobacco Use Status: Never used Tobacco Smoked in Last 30 Days: No e-Cigarette/Vaping Use: Currently Using Second Hand Smoke Exposure: No Use of substances other than those prescribed or required for medical reasons: Yes Substance Use Type: Marijuana Substance Use Frequency: Daily Advance Directives: No Advance Directives Information Provided: Yes Do you have a plan to hurt others: No Plan Nutrition Risks: No Nutritional Risk service: No Current occupational status: employed Current occupational exposures/hazards: No Cognitive needs: No Hearing needs: No Vision needs: Yes (contact/glasses) Physical Exam ED Vital Signs: Vital Signs - 24 hr 11/28/24 17:28 11/28/24 18:50 Temperature 98.2 F 97 F Pulse Rate 96 74 Respiratory Rate 24 H 20 Blood Pressure 151/91 H 150/88 H Pulse Oximetry 94 97 Oxygen Delivery Method Room Air Room Air BMI result Body Mass Index 26.6 Tachycardic, hypertensive General: diaphoretic, tremulous, ill appearing Skin: Warm, dry, intact. No rashes or lesions. Head: Normocephalic, atraumatic. EENT: Hearing is intact b/l. Conjunctiva clear. PERRLA. EOM intact. Moist mucous membranes.? Neck: Supple without LAD Cardiac: Chest wall symmetric. RRR. Lungs: Normal respiratory effort without accessory muscle use. CTA bilaterally Abdomen: soft, mildly distended, ttp of epigastric region with guarding, normoactive bs x4. no cvat. Back: No midline spinous or paraspinal tenderness. No step off deformity. Ext: Upper and lower extremities atraumatic, without tenderness, deformity, swelling or erythema. Full ROM throughout. Neuro: AOx3. Normal speech. Ambulating with steady gait Psych: Appropriate mood and affect. Responds appropriately to questions. Course Course Course Narrative: RME performed by Tika Garcia PA-C. Patient is a 34 year old assigned male at presenting to the emergency department with nausea, vomiting, and abdominal pain in alcohol withdrawal. Detailed physical exam and review of systems are deferred to the day treatment clinician/art therapist. EKG and labs ordered. abstract searcher made aware. Reevaluation(s) Reevaluation #1: CBC showing leukopenia at 3.9. Total bili 2.3, AST 215, ALT 83 and triglycerides 253. H&H stable and above transfusion threshold. No acute electrolyte abnormalities requiring intervention. No TASIA. Troponin undetectable. Lipase WNL. CT scan abdomen/pelvis showing hepatomegaly and hepatic steatosis however no convincing evidence of pancreatitis. Abdominal ultrasound found hepatic steatosis and hepatomegaly with normal gallbladder and no convincing evidence of cholecystitis. EKG showing sinus rhythm with sinus arrhythmia. No acute ischemic changes or ST elevations. Patient received IV Ativan and Zofran for alcohol withdrawal. Eventually started on phenobarb with CIWA of 19. Received Toradol for pain control. I discussed case with Dr. Diana (hospitalist) who will admit patient to the medical floor for treatment of acute alcohol withdrawal setting of acute alcohol gastritis. dr. diana to place admission orders. Medications Administered Generic Name Dose Route Start Last Admin Trade Name Freq PRN Reason Stop Dose Admin Enoxaparin Sodium 40 mg 11/28/24 21:15 11/28/24 22:41 Enoxaparin Sodium 40 Mg/0.4 Ml Syringe SUBCUT Not Given Q24H TODD Folic Acid 1 mg 11/29/24 09:00 11/29/24 08:33 Folic Acid 1 Mg Tablet PO 12/02/24 08:59 1 mg DAILY TODD Administration Multivitamins/Vitamin C 1 tab 11/29/24 09:00 11/29/24 08:33 Multivitamin Tablet PO 12/02/24 08:59 1 tab DAILY TODD Administration Omeprazole 40 mg 11/29/24 06:30 11/29/24 06:52 Omeprazole 40 Mg Capsule.Dr PO 40 mg DAILY@0630 TODD Administration Ondansetron HCl 4 mg 11/28/24 21:06 11/29/24 02:47 Ondansetron Hcl 4 Mg/2 Ml Vial IVPUSH 4 mg Q8H PRN Administration Nausea and Vomiting Phenobarbital 60 mg 11/29/24 09:00 11/29/24 08:33 Phenobarbital 30 Mg Tablet PO 11/30/24 21:01 60 mg BID TODD Administration Sodium Chloride 3 ml 11/29/24 00:00 11/29/24 07:43 0.9 % Sodium Chloride Flush 3 Ml Syringe IVFLUSH 3 ml QSHIFT TODD Administration Thiamine HCl 100 mg 11/29/24 09:00 11/29/24 08:32 Thiamine Hcl 100 Mg Tablet PO 100 mg DAILY TODD Administration Tramadol HCl 50 mg 11/29/24 02:08 11/29/24 02:47 Tramadol Hcl 50 Mg Tablet PO 50 mg Q6H PRN Administration Pain, Severe (Pain Scale 7-10) Discontinued Medications Generic Name Dose Route Start Last Admin Trade Name Freq PRN Reason Stop Dose Admin Sodium Chloride 1,000 mls @ 999 mls/hr 11/28/24 18:30 11/28/24 20:31 Ns IV 11/28/24 19:30 Infused .Q1H1M TODD Infusion Thiamine HCl 200 mg/ Sodium 102 mls @ 204 mls/hr 11/28/24 19:41 11/28/24 21:00 Chloride IV 11/28/24 20:10 Infused ONCE ONE Infusion Iohexol 100 ml 11/28/24 19:49 11/28/24 19:49 Iohexol 350 Mg/Ml 100 Ml Infus..Btl IV 11/28/24 19:50 85 ml ONCE ONE Administration Ketorolac Tromethamine 30 mg 11/28/24 18:27 11/28/24 18:47 Ketorolac Tromethamine 30 Mg/Ml Vial IVPUSH 11/28/24 18:28 30 mg ONCE ONE Administration Lorazepam 1 mg 11/28/24 18:27 11/28/24 18:47 Lorazepam 2 Mg/Ml Vial IVPUSH 11/28/24 18:28 1 mg ONCE ONE Administration Ondansetron HCl 4 mg 11/28/24 18:27 11/28/24 18:47 Ondansetron Hcl 4 Mg/2 Ml Vial IVPUSH 11/28/24 18:28 4 mg ONCE ONE Administration Ondansetron HCl 4 mg 11/29/24 06:40 11/29/24 06:52 Ondansetron Hcl 4 Mg/2 Ml Vial IVPUSH 11/29/24 06:41 4 mg ONCE ONE Administration Pantoprazole Sodium 40 mg 11/28/24 21:27 11/28/24 22:41 Pantoprazole Sodium 40 Mg/10 Ml Vial IVPUSH 11/28/24 21:28 40 mg ONCE ONE Administration Phenobarbital Sodium 340 mg 11/28/24 18:45 11/28/24 19:29 Phenobarbital Sodium 130 Mg/Ml Im Once IM 11/28/24 18:46 340 mg ONCE ONE Administration Phenobarbital Sodium 260 mg 11/28/24 22:00 11/29/24 01:06 Phenobarbital Sodium 130 Mg/Ml Vial Im Q3hx2 IM 11/29/24 01:01 260 mg Q3H TODD Administration Tramadol HCl 25 mg 11/28/24 22:49 11/28/24 23:18 Tramadol Hcl 50 Mg Tablet PO 11/28/24 22:50 25 mg ONCE ONE Administration Tramadol HCl 25 mg 11/29/24 06:40 11/29/24 06:52 Tramadol Hcl 50 Mg Tablet PO 11/29/24 06:41 25 mg ONCE ONE Administration Medical Decision Making Medical Decision Making [facility] Narrative: 34 year old male with pmhx significant for HTN, alcohol use disorder, acute pancreatitis, gout presents to the ED today for evaluation of nausea, vomiting, and epigastric abdominal pain which began this morning. Tachypneic to 24, hypertensive to 150/88. he is ill appearing, diaphoretic, tremulos. CIWA 19. abdomen is soft, mildly distended, ttp of epigastric region with guarding. no rebound. normoactive bsx4. negative huddleston sign. Differential diagnosis includes anemia, electrolyte abnormality, dehydration, etoh intoxication, etoh withdrawal, alcohol gastritis, pancreatitis, cholecytitis Plan for labs, imaging, CIWA, pain control, ativan, serial re-evaluation. Differential Diagnosis Differential Diagnoses: The differential diagnosis associated with the presentation includes as above. Admission/Observation Consideration of admission/observation: Escalation of care including admission/observation considered Patient admitted to medicine for alcohol withdrawal Consult Healthcare Provider Management of the patient was discussed with: Hospitalist (Dr. Diana) Lab Data MDM Lab Attestation statement: I reviewed the patient's lab results. as above. 11/29/24 08:03 11/29/24 08:03 Labs: Lab Results 11/28/24 Range/Units 18:11 WBC 3.9 L (4.8-10.8) X10*3/uL RBC 4.40 L (4.60-5.80) X10*6/uL Hgb 14.1 (14.0-18.0) g/dl Hct 40.3 L (42.0-52.0) % MCV 91.6 (80.0-98.0) fL MCH 32.0 (27.0-33.0) pg MCHC 35.0 (31.0-36.0) g/dl RDW 13.2 (11.0-16.0) % Plt Count 158 L (160-400) X10*3/uL MPV 9.5 (9.4-12.4) fL Immature Gran % (Auto) 0.3 (0.0-0.4) % Neut % (Auto) 57.9 (45-73) % Lymph % (Auto) 28.7 (20-40) % [place] % (Auto) 9.0 (2-11) % Eos % (Auto) 2.8 (0-4) % Baso % (Auto) 1.3 (0-2) % Lymph # (Auto) 1.1 L (1.2-4.9) X10*3/uL [place] # (Auto) 0.4 (0.1-1.2) X10*3/uL Eos # (Auto) 0.1 (0.0-0.4) X10*3/uL Baso # (Auto) 0.1 (0.0-0.2) X10*3/uL Abs Immat Gran (auto) 0.01 (0.00-0.03) X10*3/uL Absolute Neuts (auto) 2.2 (2.0-8.3) x10*3/uL Absolute Nucleated RBC 0.000 (0.0-0.012) X10*3/uL Nucleated RBC % (auto) 0.0 (0.0-0.2) /100WBC Sodium 140 (135-145) mmol/L Potassium 3.5 (3.3-5.1) mmol/L Chloride 107 (96-108) mmol/L Carbon Dioxide 19 L (22-29) mmol/L Anion Gap 18 (12-20) BUN 4 L (9-16) mg/dL Creatinine 0.64 (0.5-1.4) mg/dL Estim Creat Clear Calc 198.0 Estimated GFR > 60 Random Glucose 104 (60-115) mg/dL Calcium 8.8 (8.4-10.2) mg/dL Magnesium 1.6 (1.6-2.6) mg/dL Total Bilirubin 2.3 H (0.0-1.0) mg/dL AST 215 H (5-37) U/L ALT 83 H (0-40) U/L Alkaline Phosphatase 84 (39-117) U/L Total Creatine Kinase 179 H (38-174) U/L Troponin I High Sens < 2.7 (<3.5-35.0) ng/L Total Protein 7.7 (6.5-8.0) g/dL Albumin 4.3 (3.5-5.0) g/dL Triglycerides 253 H (<150) mg/dL Lipase 21 (8-78) U/L Independent Interpretation I performed an independent interpretation of an: EKG, Ultrasound and CT Scan Interpretation: Abdominal ultrasound without thickening of the GB wall Abdominal CT scan without stranding around pancreas EKG showing sinus rhythm with marked sinus arrhythmia, rate 77, no acute ischemic changes or ST elevation Radiology Impression Discussion of test interpretation with radiology: I have reviewed the radiologist's reading. Radiologist Impression: Procedure(s): CT abdomen pelvis w IV con Accession Number(s): [id number] cc: Stanley Grewal PA-C; Parul Murray~ Report Number: [id number]: Total DLP = 735.00 mGy-cm CLINICAL HISTORY: epigastric pain, hx pancreatitis CT abdomen and pelvis with contrast Comparison: CT/DE/SR - CT ABDOMEN PELVIS W IV CON - 07/29/2024 05:18 PM EDT Findings: The lung bases are clear. The liver is enlarged and low in attenuation. The pancreas, gallbladder, spleen, adrenal glands, kidneys, ureters and bladder are within normal limits. No bowel obstruction. Diverticulosis without evidence of diverticulitis. No acute osseous finding. Normal prostate. Impression: Hepatomegaly and hepatic steatosis. No convincing CT evidence of pancreatitis. Diverticulosis without evidence of diverticulitis. This document has been electronically signed by: Torres Barriga MD on 11/28/2024 20:38:52 Procedure(s): US abdomen limited Accession Number(s): [id number] cc: Stanley Grewal PA-C; Parul Murray CLINICAL HISTORY: RUQ abd pain, elevated liver enzymes bilirubin US abdomen limited Comparison: 06/29/2021 Findings: The visualized pancreas is normal. The aorta and inferior vena cava are normal caliber. The liver is enlarged and echogenic. The liver measures 22 cm. There is no intrahepatic bile duct dilatation. The common duct is 3 mm in diameter. The gallbladder is normal. There is reportedly a positive sonographic Huddleston's. The main portal vein is antegrade. The right kidney is not imaged. No ascites. IMPRESSION: Hepatic steatosis and hepatomegaly. Although the gallbladder appears normal, there is reportedly a positive sonographic Huddleston's. This is of doubtful clinical significance. This document has been electronically signed by: Torres Barriga MD on 11/28/2024 19:41:56 External Record Review External record reviewed: Inpatient record Prescription Management I considered prescription management with: Pain Medication and Other (ativan) Chronic Conditions Patient?s care impacted by: Hypertension and Other (etoh abuse) Social Determinants Patient?s care significantly limited by Social Determinants of Health including: Alcoholism and drug addiction in family and Other Social Determinant of Health Critical Care Time Critical Care Time Critical Care Time: Yes Total Critical Care Time: 35 Attestation: Critical care time in the amount of 35 minutes has been provided to the patient in terms of direct patient care, frequent reevaluation, consultation with hospitalist, review and interpretation of medical data and results, and management of potentially life-threatening conditions. This is all outside of any medical procedures. Discharge Plan Discharge Clinical Impression: Acute alcoholic gastritis Alcohol withdrawal Qualifiers: Complication of substance-induced condition: uncomplicated Qualified Code(s): F10.930 - Alcohol use, unspecified with withdrawal, uncomplicated Patient Disposition: Admitted As Inpatient
[2024-11-28 17:28] VITALS: BP 151/91; PULSE 96; RESP 24; TEMP 36.8; O2SAT 94; BMI 26.6
--- NOTE | 2024-11-28 18:15 | PC.NURSE ---
Addendum entered by Catrina Broderick RN 11/28/24 18:22: patient denies hx of withdrawl seizures/DTs, CIWA 19. #20 IV placed in the left hand Original Note: patient presents to the ED with alcohol withdrawl symptoms. patient states he has been drinking 10-15 nips of whiskey a day f7ytmer after the loss of a family member, patient states he was prior sober for aprox 8mo. patient states his last drink was last night around 1030pm. patient is awake and alert, resp even and unlabored. patient tremulous, goose bumps and actively dry heaving. patient describes pain in his mid to upper abd
[2024-11-28 18:18] LABS: MANUAL DIFF FLAG NO
[2024-11-28 18:20] LABS: Basophils Absolute Auto 0.1 X10*3/uL (0.0-0.2); Basophils Percent Auto 1.3 % (0-2); Eosinophils Absolute Auto 0.1 X10*3/uL (0.0-0.4); Eosinophils Percent Auto 2.8 % (0-4); Hematocrit 40.3 % (42.0-52.0); Hemoglobin 14.1 g/dl (14.0-18.0); Imm Gran Abs Auto 0.01 X10*3/uL (0.00-0.03); Imm Gran Pct Auto 0.3 % (0.0-0.4); Lymphocytes Absolute Auto 1.1 X10*3/uL (1.2-4.9); Lymphocytes Percent Auto 28.7 % (20-40); Mean Corpuscular Volume 91.6 fL (80.0-98.0); Mean Platelet Volume 9.5 fL (9.4-12.4); Monocytes Absolute Auto 0.4 X10*3/uL (0.1-1.2); Neutrophils Absolute Auto 2.2 x10*3/uL (2.0-8.3); Neutrophils Percent Auto 57.9 % (45-73); Platelet Count 158 X10*3/uL (160-400); Red Cell Distribution Width 13.2 % (11.0-16.0); White Blood Count 3.9 X10*3/uL (4.8-10.8)
[2024-11-28 18:32] LABS: Alanine Aminotransferase 83 U/L (0-40); Albumin Level 4.3 g/dL (3.5-5.0); Alkaline Phosphatase 84 U/L (39-117); Anion Gap 18 (12-20); Aspartate Amino Transferase 215 U/L (5-37); Bilirubin Total 2.3 mg/dL (0.0-1.0); Blood Urea Nitrogen 4 mg/dL (9-16); Calcium 8.8 mg/dL (8.4-10.2); Carbon Dioxide 19 mmol/L (22-29); Chloride 107 mmol/L (96-108); Estimated Glomerular Filt Rate > 60; Glucose Random 104 mg/dL (60-115); Lipase 21 U/L (8-78); Magnesium 1.6 mg/dL (1.6-2.6); Potassium 3.5 mmol/L (3.3-5.1); Sodium 140 mmol/L (135-145); Total Protein 7.7 g/dL (6.5-8.0)
[2024-11-28 18:40] LABS: Troponin-I High Sensitivity < 2.7 ng/L (<3.5-35.0)
[2024-11-28] MEDS: Ketorolac Tromethamine 30 MG/ML VIAL IVPUSH (18:47)
[2024-11-28] MEDS: LORazepam 2 MG/ML VIAL 1 MG IVPUSH (18:47)
[2024-11-28] MEDS: ondansetron HCL 4 MG/2 ML VIAL IVPUSH (18:47)
[2024-11-28] MEDS: 0.9 % Sodium Chloride 1,000 ML 999 ML IV (18:47)
[2024-11-28 18:50] VITALS: BP 150/88; PULSE 74; RESP 20; TEMP 36.1; O2SAT 97
[2024-11-28] MEDS: PHENobarbitaL sodium 130 MG/ML IM ONCE 340 MG IM (19:29)
[2024-11-28] MEDS: iohexoL 350 MG/ML 100 ML INFUS..BTL IV (19:49)
[2024-11-28 20:02] LABS: Triglycerides 253 mg/dL (<150)
[2024-11-28] MEDS: Thiamine HCL 200 MG in 0.9 % Sodium Chloride 100 ML 204 MG IV (20:27)
--- NOTE | 2024-11-28 21:15 | P.HPHOSP_ITS ---
History of Present Illness Date of Service: 11/28/24 Attending physician on admission: Donita Diana Chief Complaint: N/V and abd pain Pt is a 34-year-old male with a PMH significant for?alcohol use disorder, alcoholic pancreatitis, alcoholic gastritis, and gout who presents to the ED with?nausea, vomiting, abdominal pain, and tremors since earlier this afternoon. Pt with a long hx of alcohol use disorder including alcohol withdrawal. Reports has been drinking daily for the past week due to life stressors including the passing away of his aunt. States has been drinking 15+ nips daily. Stopped drinking last night at 22:30. This afternoon pt reports feeling lightheaded, dizzy, hot and cold, as well as had nausea, vomiting, abdominal pain, and upper extremity tremors. Pt has previously experienced these symptoms before after stopping drinking, and thought he was going through alcohol withdrawal and thus brought himself to the ED for further treatment and evaluation. Denies auditory, visual, or tactile hallucinations. No increased anxiety. Denies chest pressure/pain, or palpitations. No SOB or difficulty breathing. In the ED pt was tachypneic up to 24 and hypertensive 150/88. Labs were significant for leukopenia 3.9, T bili 2.3, AST 215, ALT 83, and triglycerides 253. Stable H&H. No significant electrolyte abnormalities. Renal function baseline. Troponin WNL. Lipase WNL. CT of abdomen and pelvis found hepatomegaly and hepatic steatosis, but no convincing evidence of pancreatitis. Abdominal ultrasound found hepatic steatosis and hepatomegaly, but normal gallbladder without evidence of cholecystitis. EKG demonstrated sinus rhythm with sinus arrhythmia and normal QTC, and no evidence of significant ST elevations or depressions. Pt was treated with Ativan, ondansetron, ketorolac, IVF, thiamine, and started on phenobarb protocol. Pt will be admitted to the hospital for treatment and further evaluation of acute alcohol withdrawal in the setting of acute alcohol gastritis. Review of Systems 2 Review of Systems: Negative except for that which is stated in the [facility] Medical History Screening for hypercholesterolemia Screening for diabetes mellitus (DM) Community acquired pneumonia Transaminitis Alcohol use disorder, moderate, dependence Alcohol use disorder HTN (hypertension) Surgical History History of appendectomy Social History Household Members: Significant Other Housing: House Do you presently have visiting nurse or other home services: No Alcohol intake: current Alcohol intake frequency: 3 or more drinks per day Alcohol type: hard liquor Patient Tobacco Use Status: Never used Tobacco Smoked in Last 30 Days: No e-Cigarette/Vaping Use: Currently Using Second Hand Smoke Exposure: No Use of substances other than those prescribed or required for medical reasons: Yes Substance Use Type: Marijuana Substance Use Frequency: Daily Advance Directives: No Advance Directives Information Provided: Yes Do you have a plan to hurt others: No Plan service: No Current occupational status: employed Current occupational exposures/hazards: No Cognitive needs: No Hearing needs: No Vision needs: Yes (contact/glasses) Meds Allergies Allergy/AdvReac Type Severity Reaction Status Date / Time No Known Allergies Allergy Verified 11/28/24 17:30 [No Known Allergies*] Active Medications: Current Medications Acetaminophen (Acetaminophen 325 Mg Tablet) 650 mg PO Q6H PRN PRN Reason: Pain, Mild 1-3,fever,headache Calcium Carbonate (Calcium Carbonate 750 Mg Tab.Chew) 750 mg PO Q4H PRN PRN Reason: Heartburn Enoxaparin Sodium (Enoxaparin Sodium 40 Mg/0.4 Ml Syringe) 40 mg SUBCUT Q24H TODD Magnesium Hydroxide (Milk Of Magnesia 30 Ml Oral.Susp) 30 ml PO DAILY PRN PRN Reason: Constipation Melatonin (Melatonin 3 Mg Tablet) 6 mg PO BEDTIME PRN PRN Reason: Insomnia Ondansetron HCl (Ondansetron Hcl 4 Mg/2 Ml Vial) 4 mg IVPUSH Q8H PRN PRN Reason: Nausea and Vomiting Pharmacy Consult (Consult Rx Etoh Phenob Im/Po) 1 each MISCELLANE ONCE PRN; Protocol PRN Reason: Consult order Phenobarbital (Phenobarbital 30 Mg Tablet) 60 mg PO BID [facility] Stop: 11/30/24 21:01 Phenobarbital (Phenobarbital 30 Mg Tablet) 30 mg PO BID [facility] Stop: 12/02/24 21:01 Phenobarbital (Phenobarbital 30 Mg Tablet) 30 mg PO DAILY [facility] Stop: 12/04/24 09:01 Phenobarbital Sodium (Phenobarbital Sodium 130 Mg/Ml Vial Im Q3hx2) 260 mg IM Q3H TODD Stop: 11/29/24 01:01 Sodium Chloride (0.9 % Sodium Chloride Flush 3 Ml Syringe) 3 ml IVFLUSH QSHIFT [facility] Thiamine HCl (Thiamine Hcl 100 Mg Tablet) 100 mg PO DAILY [facility] Home Medications ?Medication ?Instructions ?Recorded ?Confirmed ?Last Taken ?Type omeprazole 40 mg capsule,delayed 40 mg PO DAILY PRN Acid Reflux 07/29/24 07/29/24 07/28/24 History release Physical Exam 2 Vital Signs and Narrative: Vital Signs: Last Vital Signs Temp 97 F 11/28/24 18:50 Pulse 74 11/28/24 18:50 Resp 20 11/28/24 18:50 BP 150/88 H 11/28/24 18:50 Pulse Ox 97 11/28/24 18:50 O2 Del Method Room Air 11/28/24 18:50 BMI result Body Mass Index 26.6 General: AOx3, no acute distress Resp: CTA bilaterally CVS: S1, S2, RRR GI: +BS, NT, no distention Skin: Warm, dry Neuro: Cranial nerves II-XII grossly intact bilaterally. Motor grossly intact bilaterally. Mild upper extremity tremors Extremities: No edema Psych: Appropriate affect Results Labs 11/28/24 18:11 11/28/24 18:11 Labs: Laboratory Results - last 24 hr 11/28/24 18:11 MCV 91.6 MCH 32.0 MCHC 35.0 RDW 13.2 Plt Count 158 L MPV 9.5 Immature Gran % (Auto) 0.3 Neut % (Auto) 57.9 Lymph % (Auto) 28.7 [place] % (Auto) 9.0 Eos % (Auto) 2.8 Baso % (Auto) 1.3 Lymph # (Auto) 1.1 L [place] # (Auto) 0.4 Eos # (Auto) 0.1 Baso # (Auto) 0.1 Abs Immat Gran (auto) 0.01 Absolute Neuts (auto) 2.2 Absolute Nucleated RBC 0.000 Nucleated RBC % (auto) 0.0 Anion Gap 18 Estim Creat Clear Calc 198.0 Estimated GFR > 60 Random Glucose 104 Calcium 8.8 Magnesium 1.6 Total Bilirubin 2.3 H AST 215 H ALT 83 H Alkaline Phosphatase 84 Total Protein 7.7 Albumin 4.3 Triglycerides 253 H Lipase 21 Assessment and Plan (1) Acute alcoholic gastritis: Qualifiers: Gastritis bleeding: without bleeding Qualified Code(s): K29.20 - Alcoholic gastritis without bleeding Status: Acute (2) Alcohol withdrawal: Qualifiers: Complication of substance-induced condition: uncomplicated Qualified Code(s): F10.930 - Alcohol use, unspecified with withdrawal, uncomplicated Status: Acute Plan Pt is a 34-year-old male with a PMH significant for?alcohol use disorder, alcoholic pancreatitis, alcoholic gastritis, and gout who presents to the ED with?nausea, vomiting, abdominal pain, and tremors since earlier this afternoon. Pt will be admitted to the hospital for treatment and further evaluation of acute alcohol withdrawal in the setting of acute alcohol gastritis. Acute alcohol withdrawal in the setting of acute alcoholic gastritis Pt with nausea, vomiting, abdominal pain CT and abdominal ultrasound negative for pancreatitis, lipase WNL Pt has been drinking 15+ nips daily x1 week Continue phenobarb protocol Thiamine, folic acid, daily multivitamin Protonix IV daily CIWA Addiction medicine consult Monitor on telemetry Transaminitis Likely secondary to alcohol use disorder Gout Continue allopurinol Full Code Attending:?Dr. Diana DVT Prophylaxis: Lovenox Pt will require a hospitalization of at least two nights for treatment of?acute alcohol withdrawal and setting of acute alcoholic gastritis. Pt will require hospital level care for administration of phenobarb protocol and close cardiac monitoring. Quality Stroke Does the patient have a stroke diagnosis?: No VTE Prior VTE?: No VTE Risk Level:: Medical - moderate - high VTE Device Contraindication: Treatment Not Indicated VTE Drug Contraindication: N/A - Med Ordered
--- NOTE | 2024-11-28 22:40 | PC.NURSE ---
pt refuses lovenox. educated on effect of med and risks of not receiving medication. pt verbalizes understanding. pt medicated per dec. reports 05/23 abd pain, MD iDana and primary RN Tanisha made aware. call marques within reach.
[2024-11-28] MEDS: Pantoprazole Sodium 40 MG/10 ML VIAL IVPUSH (22:41)
[2024-11-28] MEDS: PHENobarbitaL sodium 130 MG/ML VIAL IM Q3Hx2 260 MG IM (22:42)
[2024-11-28 22:46] VITALS: BP 115/69; PULSE 78; RESP 16; O2SAT 98
[2024-11-28] MEDS: traMADoL HCL 50 MG TABLET 25 MG PO (23:18)
[2024-11-29] MEDS: 0.9 % Sodium Chloride Flush 3 ML SYRINGE IVFLUSH ×3 (01:06→15:46)
[2024-11-29] MEDS: PHENobarbitaL sodium 130 MG/ML VIAL IM Q3Hx2 260 MG IM (01:06)
--- NOTE | 2024-11-29 02:00 | PC.NURSE ---
pt allowed to sleep, respirations even and unlabored. vss.
[2024-11-29] MEDS: traMADoL HCL 50 MG TABLET PO (02:47)
[2024-11-29] MEDS: ondansetron HCL 4 MG/2 ML VIAL IVPUSH ×3 (02:47→13:43)
[2024-11-29 03:03] LABS: Appearance Urine Clear; Color Urine Dark Yellow; Glucose Urine UA Negative (Negative); Leukocyte Esterase Urine Trace (Negative); Nitrite Urine Positive (Negative); Specific Gravity - Urine >= 1.030 (1.005-1.025); UMIC TRIGGER UACC YES; Urine Blood Negative (Negative); Urine Ketones 15 mg/dL (Negative); Urine Protein 30 (1+) mg/dL (Neg-Trace)
[2024-11-29 03:08] LABS: Bacteria Urine None Seen (None Seen); Hyaline Casts Urine 0-2 /LPF (0-2); RBC Urine 0-2 /HPF (0-2); Squamous Epithelial Cell Urine 0-2 /HPF (0-2); UACC Culture Trigger YES; WBC Urine 0-5 /HPF (0-5)
[2024-11-29 03:15] LABS: Amphetamine Screen Urine Not Detected (Not Detect); Barbiturates, Urine POSITIVE (Not Detect); Benzodiazepines Screen Urine Not Detected (Not Detect); Buprenorphine Scr Not Detected (Not Detect); Cannabinoid Screen Urine POSITIVE (Not Detect); Cocaine Screen Urine Not Detected (Not Detect); Fentanyl, urine Not Detected (Not Detect); Methadone Screen, Urine Not Detected (Not Detect); Opiate Screen Urine Not Detected (Not Detect); Oxycodone Screen Urine Not Detected (Not Detect); Phencyclidine Screen Urine Not Detected (Not Detect)
--- NOTE | 2024-11-29 03:28 | PC.NURSE ---
pt urinated 200ml of orange/red tinged urine at this time, provider aware, ua sent at this time.
--- NOTE | 2024-11-29 06:20 | PC.NURSE ---
pt ambulatory to bathroom with steady gait at this time. denies dizziness and sob.
[2024-11-29 06:35] VITALS: BP 132/82; PULSE 85; RESP 15; TEMP 36.4; O2SAT 98
--- NOTE | 2024-11-29 06:37 | PC.NURSE ---
at this time pt is reporting increased nausea and abdominal pain, provider aware, orders as follows.
[2024-11-29] MEDS: Omeprazole 40 MG CAPSULE.DR PO (06:52)
[2024-11-29] MEDS: traMADoL HCL 50 MG TABLET 25 MG PO (06:52)
[2024-11-29 07:42] VITALS: BP 140/84; PULSE 85; RESP 18; TEMP 36.9; O2SAT 97
--- NOTE | 2024-11-29 07:46 | PC.NURSE ---
a&ox4. vss and up to date. 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 updated CIWA = 6. belongings list created by [employer]. pt provided w/ breakfast tray. pending bed assignment. on RA w/o difficulty - no sob/wob noted. respirations even/unlabored. plan of care ongoing. call marques placed within reach.
[2024-11-29] MEDS: Thiamine HCL 100 MG TABLET PO (08:32)
[2024-11-29] MEDS: PHENobarbitaL 30 MG TABLET 60 MG PO ×2 (08:33→20:53)
[2024-11-29] MEDS: Folic Acid 1 MG TABLET PO (08:33)
[2024-11-29] MEDS: Multivitamin TABLET 1 TAB PO (08:33)
[2024-11-29 08:36] LABS: MANUAL DIFF FLAG NO
--- NOTE | 2024-11-29 08:38 | PC.NURSE ---
pt medicated per provider order.
[2024-11-29 08:41] LABS: Basophils Absolute Auto 0.1 X10*3/uL (0.0-0.2); Basophils Percent Auto 1.4 % (0-2); Eosinophils Absolute Auto 0.2 X10*3/uL (0.0-0.4); Eosinophils Percent Auto 6.2 % (0-4); Hematocrit 39.7 % (42.0-52.0); Hemoglobin 13.7 g/dl (14.0-18.0); Imm Gran Abs Auto 0.01 X10*3/uL (0.00-0.03); Imm Gran Pct Auto 0.3 % (0.0-0.4); Lymphocytes Absolute Auto 1.1 X10*3/uL (1.2-4.9); Lymphocytes Percent Auto 30.5 % (20-40); Mean Corpuscular HGB Conc 34.5 g/dl (31.0-36.0); Mean Corpuscular Hemoglobin 32.2 pg (27.0-33.0); Mean Corpuscular Volume 93.2 fL (80.0-98.0); Mean Platelet Volume 9.8 fL (9.4-12.4); Monocytes Absolute Auto 0.3 X10*3/uL (0.1-1.2); Monocytes Percent Auto 9.2 % (2-11); Neutrophils Absolute Auto 1.9 x10*3/uL (2.0-8.3); Neutrophils Percent Auto 52.4 % (45-73); Platelet Count 148 X10*3/uL (160-400); Red Blood Count 4.26 X10*6/uL (4.60-5.80); Red Cell Distribution Width 13.2 % (11.0-16.0); White Blood Count 3.6 X10*3/uL (4.8-10.8)
[2024-11-29 08:58] LABS: Anion Gap 15 (12-20); Blood Urea Nitrogen 3 mg/dL (9-16); Calcium 8.6 mg/dL (8.4-10.2); Carbon Dioxide 23 mmol/L (22-29); Chloride 106 mmol/L (96-108); Estimated Glomerular Filt Rate > 60; Glucose Random 111 mg/dL (60-115); Potassium 3.6 mmol/L (3.3-5.1); Sodium 140 mmol/L (135-145)
--- NOTE | 2024-11-29 10:23 | MHC.CM.PN ---
PT LIVES WITH MOTHER IS INDEPEDENT AND WORKING HAS OWN TRANSPORT WHEN DCD WILL NEED A CARE TEAM REFERRAL DC PLAN HOME N/S
--- NOTE | 2024-11-29 10:41 | P.PNIM_ITS ---
Subjective Subjective Date of Service: 11/29/24 Interval History: Still with withdrawal symptoms Physical Exam 2 Vital Signs: Vital Signs: Last Vital Signs Temp 98.4 F 11/29/24 07:42 Pulse 85 11/29/24 07:42 Resp 18 11/29/24 07:42 BP 140/84 H 11/29/24 07:42 Pulse Ox 97 11/29/24 07:42 O2 Del Method Room Air 11/29/24 07:42 BMI result Body Mass Index 26.6 Alert oriented x3, tremulous, anxious Objective Data Active Medications Acetaminophen (Acetaminophen 325 Mg Tablet) 650 mg PO Q6H PRN PRN Reason: Pain, Mild 1-3,fever,headache Calcium Carbonate (Calcium Carbonate 750 Mg Tab.Chew) 750 mg PO Q4H PRN PRN Reason: Heartburn Enoxaparin Sodium (Enoxaparin Sodium 40 Mg/0.4 Ml Syringe) 40 mg SUBCUT Q24H [facility] Last Admin: 11/28/24 22:41 Dose: Not Given Documented By: PATRICIA Non-Admin Reason: Patient Refused Folic Acid (Folic Acid 1 Mg Tablet) 1 mg PO DAILY [facility] Stop: 12/02/24 08:59 Last Admin: 11/29/24 08:33 Dose: 1 mg Documented By: JACK Magnesium Hydroxide (Milk Of Magnesia 30 Ml Oral.Susp) 30 ml PO DAILY PRN PRN Reason: Constipation Melatonin (Melatonin 3 Mg Tablet) 6 mg PO BEDTIME PRN PRN Reason: Insomnia Multivitamins/Vitamin C (Multivitamin Tablet) 1 tab PO DAILY [facility] Stop: 12/02/24 08:59 Last Admin: 11/29/24 08:33 Dose: 1 tab Documented By: JACK Omeprazole (Omeprazole 40 Mg Capsule.Dr) 40 mg PO DAILY@0630 [facility] Last Admin: 11/29/24 06:52 Dose: 40 mg Documented By: MC Ondansetron HCl (Ondansetron Hcl 4 Mg/2 Ml Vial) 4 mg IVPUSH Q8H PRN PRN Reason: Nausea and Vomiting Last Admin: 11/29/24 02:47 Dose: 4 mg Documented By: MC Pharmacy Consult (Consult Rx Etoh Phenob Im/Po) 1 each MISCELLANE ONCE PRN; Protocol PRN Reason: Consult order Phenobarbital (Phenobarbital 30 Mg Tablet) 60 mg PO BID [facility] Stop: 11/30/24 21:01 Last Admin: 11/29/24 08:33 Dose: 60 mg Documented By: JACK Phenobarbital (Phenobarbital 30 Mg Tablet) 30 mg PO BID [facility] Stop: 12/02/24 21:01 Phenobarbital (Phenobarbital 30 Mg Tablet) 30 mg PO DAILY [facility] Stop: 12/04/24 09:01 Sodium Chloride (0.9 % Sodium Chloride Flush 3 Ml Syringe) 3 ml IVFLUSH QSHIFT [facility] Last Admin: 11/29/24 07:43 Dose: 3 ml Documented By: JACK Thiamine HCl (Thiamine Hcl 100 Mg Tablet) 100 mg PO DAILY [facility] Last Admin: 11/29/24 08:32 Dose: 100 mg Documented By: JACK Tramadol HCl (Tramadol Hcl 50 Mg Tablet) 50 mg PO Q6H PRN PRN Reason: Pain, Severe (Pain Scale 7-10) Last Admin: 11/29/24 02:47 Dose: 50 mg Documented By: MC Labs 11/29/24 08:03 11/29/24 08:03 Labs: Laboratory Results - last 24 hr 11/28/24 11/29/24 11/29/24 18:11 02:55 08:03 MCV 91.6 93.2 MCH 32.0 32.2 MCHC 35.0 34.5 RDW 13.2 13.2 Plt Count 158 L 148 L MPV 9.5 9.8 Immature Gran % (Auto) 0.3 0.3 Neut % (Auto) 57.9 52.4 Lymph % (Auto) 28.7 30.5 [place] % (Auto) 9.0 9.2 Eos % (Auto) 2.8 6.2 H Baso % (Auto) 1.3 1.4 Lymph # (Auto) 1.1 L 1.1 L [place] # (Auto) 0.4 0.3 Eos # (Auto) 0.1 0.2 Baso # (Auto) 0.1 0.1 Abs Immat Gran (auto) 0.01 0.01 Absolute Neuts (auto) 2.2 1.9 L Absolute Nucleated RBC 0.000 0.000 Nucleated RBC % (auto) 0.0 0.0 Anion Gap 18 15 Estim Creat Clear Calc 198.0 192.0 Estimated GFR > 60 > 60 Random Glucose 104 111 Calcium 8.8 8.6 Magnesium 1.6 Total Bilirubin 2.3 H AST 215 H ALT 83 H Alkaline Phosphatase 84 Total Creatine Kinase 179 H Total Protein 7.7 Albumin 4.3 Triglycerides 253 H Lipase 21 Urine Color Dark Yellow Urine Appearance Clear Urine pH 6.0 Ur Specific [place] >= 1.030 H Urine Protein 30 (1+) H Urine Glucose (UA) Negative Urine Ketones 15 Urine Blood Negative Urine Nitrite Positive H Ur Leukocyte Esterase Trace H Urine RBC 0-2 Urine WBC 0-5 Ur Squamous Epith Cells 0-2 Urine Bacteria None Seen Hyaline Casts 0-2 Urine Opiates Screen Not Detected Ur Buprenorphine Scrn Not Detected Ur Oxycodone Screen Not Detected Urine Methadone Screen Not Detected Urine Fentanyl Screen Not Detected Ur Barbiturates Screen POSITIVE H Ur Phencyclidine Scrn Not Detected Ur Amphetamines Screen Not Detected U Benzodiazepines Scrn Not Detected Urine Cocaine Screen Not Detected U Marijuana (THC) Screen POSITIVE H Assessment and Plan (1) Alcohol withdrawal: Status: Acute Plan 34M PMH alcohol dependence, gout presented with withdrawal symptoms Alcohol dependence with withdrawal and acute alcoholic hepatitis Phenobarbital protocol, ppi, thiamine, folic acid Monitor CIWA Monitor LFTs Gout Allopurinol DVT prophylaxis with Lovenox Full Code reason for continued hospitalization: Still with withdrawal Quality Stroke Does the patient have a stroke diagnosis?: No VTE Prior VTE?: No VTE Risk Level:: Medical - moderate - high VTE Device Contraindication: Treatment Not Indicated VTE Drug Contraindication: N/A - Med Ordered
--- NOTE | 2024-11-29 11:11 | PHA.MEDREC ---
Addendum entered by Maribeth Chauhan RPh 11/29/24 11:17: reviewed by [facility]. Original Note: Pharmacy Consult ? Medication Reconciliation Pharmacy has completed the medication reconciliation. Spoke with patient to confirm medications. He does not take pantoprazole. He rarely uses naproxen as he feels it does not help. He reports using 2 tabs of allopurinol once daily. He has been using colchicine daily for ~ 1 week. Last took meds day before yesterday.
--- NOTE | 2024-11-29 13:09 | PC.NURSE ---
report given to DIANE Montoya in overflow.
[2024-11-29 13:27] VITALS: BP 143/84; PULSE 81; RESP 14; TEMP 37.2; O2SAT 96
--- NOTE | 2024-11-29 13:40 | PC.NURSE ---
pt verbalizing increase in withdrawal sx. updated CIWA = 10. prn medication as well as an additional dose of IM phenobarb administered per provider order. effectiveness pending.
[2024-11-29] MEDS: Acetaminophen 325 MG TABLET 650 MG PO (13:43)
[2024-11-29] MEDS: PHENobarbitaL sodium 130 MG/ML VIAL IM (13:43)
--- NOTE | 2024-11-29 14:43 | PC.NURSE ---
Pt brought over from ER; pt A+OX3, vss, CIWA score of 2; pt denies any concerns/complaints at this time; will cont to monitor/tx per orders
[2024-11-29] MEDS: allopurinoL 100 MG TABLET 200 MG PO (15:28)
[2024-11-29] MEDS: HYDROmorphone HCl 0.5 MG/0.5 ML SYRINGE IVPUSH ×2 (15:46→21:32)
[2024-11-29 20:45] VITALS: BP 149/81; PULSE 85; RESP 18; TEMP 36.4; O2SAT 95
[2024-11-29] MEDS: Melatonin 3 MG TABLET 6 MG PO (20:53)
[2024-11-29] MEDS: Enoxaparin Sodium 40 MG/0.4 ML SYRINGE SUBCUT (20:53)
--- NOTE | 2024-11-29 21:34 | PC.NURSE ---
pt c/o pain. states the dilaudid he had earlier had helped but the pain was coming back. also requesting melatonin for sleep. pt medicated per MAR
[2024-11-30] MEDS: 0.9 % Sodium Chloride Flush 3 ML SYRINGE IVFLUSH ×2 (02:31→08:45)
[2024-11-30] MEDS: HYDROmorphone HCl 0.5 MG/0.5 ML SYRINGE IVPUSH ×4 (02:35→20:45)
[2024-11-30 04:00] LABS: Hematocrit 36.7 % (42.0-52.0); Hemoglobin 13.2 g/dl (14.0-18.0); Mean Corpuscular Hemoglobin 32.7 pg (27.0-33.0); Mean Corpuscular Volume 90.8 fL (80.0-98.0); Mean Platelet Volume 9.8 fL (9.4-12.4); Platelet Count 141 X10*3/uL (160-400); Red Blood Count 4.04 X10*6/uL (4.60-5.80); Red Cell Distribution Width 13.2 % (11.0-16.0); White Blood Count 4.1 X10*3/uL (4.8-10.8)
[2024-11-30 04:12] LABS: INTERNATIONAL NORM RATIO 1.1 (0.9-1.1); Prothrombin Time 12.7 SEC (10.9-12.4)
[2024-11-30 04:16] LABS: Alanine Aminotransferase 66 U/L (0-40); Albumin Level 3.8 g/dL (3.5-5.0); Alkaline Phosphatase 83 U/L (39-117); Anion Gap 15 (12-20); Aspartate Amino Transferase 131 U/L (5-37); Bilirubin Direct 0.4 mg/dL (0.0-0.5); Bilirubin Total 1.1 mg/dL (0.0-1.0); Blood Urea Nitrogen < 3 mg/dL (9-16); Calcium 8.4 mg/dL (8.4-10.2); Carbon Dioxide 22 mmol/L (22-29); Chloride 105 mmol/L (96-108); Estimated Glomerular Filt Rate > 60; Glucose Random 116 mg/dL (60-115); Magnesium 1.6 mg/dL (1.6-2.6); Potassium 3.5 mmol/L (3.3-5.1); Sodium 138 mmol/L (135-145); Total Protein 7.1 g/dL (6.5-8.0)
--- NOTE | 2024-11-30 05:41 | PC.NURSE ---
pt requested toradol for his gout fare up, L knee. pt not able to given d/t gastritis
[2024-11-30] MEDS: Omeprazole 40 MG CAPSULE.DR PO (06:04)
[2024-11-30 06:13] VITALS: BP 130/80; PULSE 94; RESP 19; TEMP 36.8; O2SAT 96
[2024-11-30] MEDS: Thiamine HCL 100 MG TABLET PO (08:41)
[2024-11-30] MEDS: Multivitamin TABLET 1 TAB PO (08:41)
[2024-11-30] MEDS: PHENobarbitaL 30 MG TABLET 60 MG PO ×2 (08:41→20:45)
[2024-11-30] MEDS: Folic Acid 1 MG TABLET PO (08:41)
[2024-11-30] MEDS: allopurinoL 100 MG TABLET 200 MG PO (08:44)
--- NOTE | 2024-11-30 08:44 | PC.NURSE ---
medication administered per provider order. pt verbalizing 10/10 right knee pain d/t gout flare up. pt requesting medication. prn medication utilized at this time. effectiveness pending. pt seen by admitting provider/aware of plan of care at this time. pt otherwise remains on RA w/o difficulty. no sob/wob noted. respirations even/unlabored. pending bed assignment. plan of care ongoing. call marques placed within reach.
--- NOTE | 2024-11-30 09:17 | PC.NURSE ---
pt verbalizing little to no effect s/p previous medication administration. one time dose of toradol administered per provider order at this time. effectiveness pending.
[2024-11-30] MEDS: Ketorolac Tromethamine 30 MG/ML VIAL IVPUSH (09:18)
--- NOTE | 2024-11-30 09:22 | MHC.RECOVRN ---
AUDIT-C Brief Intervention Pt had positive screen for unhealthy alcohol use on admission. Attempted to meet with pt to discuss alcohol use and offer resources, pt declined.
--- NOTE | 2024-11-30 11:04 | HO.PM.IMPN ---
Subjective Subjective Date of Service: 11/30/24 Interval History: Still with withdrawal symptoms, left knee pain Physical Exam Vital Signs: Vital Signs: Last Vital Signs Temp 98.3 F 11/30/24 06:13 Pulse 94 11/30/24 06:13 Resp 19 11/30/24 06:13 BP 130/80 11/30/24 06:13 Pulse Ox 96 11/30/24 06:13 O2 Del Method Room Air 11/29/24 20:45 BMI result Body Mass Index 26.6 Alert oriented x3, tremulous, anxious Objective Data Active Medications Acetaminophen (Acetaminophen 325 Mg Tablet) 650 mg PO Q6H PRN PRN Reason: Pain, Mild 1-3,fever,headache Last Admin: 11/29/24 13:43 Dose: 650 mg Documented By: JACK Allopurinol (Allopurinol 100 Mg Tablet) 200 mg PO DAILY [facility] Last Admin: 11/30/24 08:44 Dose: 200 mg Documented By: JACK Calcium Carbonate (Calcium Carbonate 750 Mg Tab.Chew) 750 mg PO Q4H PRN PRN Reason: Heartburn Enoxaparin Sodium (Enoxaparin Sodium 40 Mg/0.4 Ml Syringe) 40 mg SUBCUT Q24H [facility] Last Admin: 11/29/24 20:53 Dose: 40 mg Documented By: HANG Folic Acid (Folic Acid 1 Mg Tablet) 1 mg PO DAILY [facility] Stop: 12/02/24 08:59 Last Admin: 11/30/24 08:41 Dose: 1 mg Documented By: JACK Hydromorphone HCl (Hydromorphone Hcl 0.5 Mg/0.5 Ml Syringe) 0.5 mg IVPUSH Q4H PRN; Protocol PRN Reason: Pain, Severe (Pain Scale 7-10) Last Admin: 11/30/24 08:44 Dose: 0.5 mg Documented By: JACK Magnesium Hydroxide (Milk Of Magnesia 30 Ml Oral.Susp) 30 ml PO DAILY PRN PRN Reason: Constipation Melatonin (Melatonin 3 Mg Tablet) 6 mg PO BEDTIME PRN PRN Reason: Insomnia Last Admin: 11/29/24 20:53 Dose: 6 mg Documented By: HANG Multivitamins/Vitamin C (Multivitamin Tablet) 1 tab PO DAILY [facility] Stop: 12/02/24 08:59 Last Admin: 11/30/24 08:41 Dose: 1 tab Documented By: JACK Omeprazole (Omeprazole 40 Mg Capsule.Dr) 40 mg PO DAILY@0630 [facility] Last Admin: 11/30/24 06:04 Dose: 40 mg Documented By: HANG Ondansetron HCl (Ondansetron Hcl 4 Mg/2 Ml Vial) 4 mg IVPUSH Q8H PRN PRN Reason: Nausea and Vomiting Last Admin: 11/29/24 13:43 Dose: 4 mg Documented By: JACK Pharmacy Consult (Consult Rx Etoh Phenob Im/Po) 1 each MISCELLANE ONCE PRN; Protocol PRN Reason: Consult order Phenobarbital (Phenobarbital 30 Mg Tablet) 60 mg PO BID [facility] Stop: 11/30/24 21:01 Last Admin: 11/30/24 08:41 Dose: 60 mg Documented By: JACK Phenobarbital (Phenobarbital 30 Mg Tablet) 30 mg PO BID [facility] Stop: 12/02/24 21:01 Phenobarbital (Phenobarbital 30 Mg Tablet) 30 mg PO DAILY [facility] Stop: 12/04/24 09:01 Sodium Chloride (0.9 % Sodium Chloride Flush 3 Ml Syringe) 3 ml IVFLUSH QSHIFT [facility] Last Admin: 11/30/24 08:45 Dose: 3 ml Documented By: JACK Thiamine HCl (Thiamine Hcl 100 Mg Tablet) 100 mg PO DAILY [facility] Last Admin: 11/30/24 08:41 Dose: 100 mg Documented By: JACK Tramadol HCl (Tramadol Hcl 50 Mg Tablet) 50 mg PO Q6H PRN PRN Reason: Pain, Moderate(Pain Scale 4-6) Labs 11/30/24 03:49 11/30/24 03:49 Labs: Laboratory Results - last 24 hr 11/30/24 03:49 MCV 90.8 MCH 32.7 MCHC 36.0 RDW 13.2 Plt Count 141 L MPV 9.8 Absolute Nucleated RBC 0.000 Nucleated RBC % (auto) 0.0 PT 12.7 H INR 1.1 Anion Gap 15 Estim Creat Clear Calc 198.0 Estimated GFR > 60 Random Glucose 116 H Calcium 8.4 Magnesium 1.6 Total Bilirubin 1.1 H Direct Bilirubin 0.4 AST 131 H ALT 66 H Alkaline Phosphatase 83 Total Protein 7.1 Albumin 3.8 Assessment and Plan (1) Alcohol withdrawal: Status: Acute Plan 34M PMH alcohol dependence, gout presented with withdrawal symptoms Alcohol dependence with withdrawal and acute alcoholic hepatitis Phenobarbital protocol, ppi, thiamine, folic acid Monitor CIWA Monitor LFTs Gout with acute flare will give toradol Allopurinol DVT prophylaxis with Lovenox Full Code reason for continued hospitalization: Still with withdrawal Quality Stroke Does the patient have a stroke diagnosis?: No VTE Prior VTE?: No VTE Risk Level:: Medical - moderate - high VTE Device Contraindication: Treatment Not Indicated VTE Drug Contraindication: N/A - Med Ordered
[2024-11-30] MEDS: Magnesium Oxide 400 MG TABLET 800 MG PO ×2 (11:13→16:31)
[2024-11-30] MEDS: ondansetron HCL 4 MG/2 ML VIAL IVPUSH (16:31)
--- NOTE | 2024-11-30 16:43 | PC.NURSE ---
pt verbalizing increase in nausea/generalized abd pain. prn medications utilized. updated CIWA = 2. pt otherwise continues to rest in no apparent distress. no sob/wob noted. respirations remain even/unlabored. plan of care ongoing. call marques placed within reach.
[2024-11-30] MEDS: predniSONE 20 MG TABLET 40 MG PO (18:29)
[2024-11-30] MEDS: Ibuprofen 600 MG TABLET PO (18:29)
--- NOTE | 2024-11-30 18:30 | PC.NURSE ---
pt requesting more toradol d/t increased knee pain. per admitting provider, pt is unable to receive another dose of toradol d/t gastritis. pt notified/aware. pt medicated w/ ibuprofen and prednisone in replacement of toradol at this time. effectiveness pending.
[2024-11-30 18:51] VITALS: BP 135/73; PULSE 93; RESP 20; TEMP 36.8; O2SAT 93
[2024-11-30] MEDS: Zolpidem Tartrate 5 MG TABLET PO (20:45)
[2024-11-30] MEDS: Enoxaparin Sodium 40 MG/0.4 ML SYRINGE SUBCUT (20:45)
--- NOTE | 2024-11-30 20:48 | PC.NURSE ---
assumed care of pt at 20:00. pt resting comfortably watching tv, no apparent distress noted. pt reporting 7/10 pain to abdomen, requesting dilaudid. also requesting something to help him sleep as they gave melatonin last night but it did not work. MD Diana aware, ordered Ambien. medicated per dec. call marques within reach, plan of care ongoing
[2024-12-01] MEDS: HYDROmorphone HCl 0.5 MG/0.5 ML SYRINGE IVPUSH ×2 (00:54→06:13)
--- NOTE | 2024-12-01 00:59 | PC.NURSE ---
pt medicated per dec for 04/22 pain, given pudding as requested.
[2024-12-01] MEDS: Melatonin 3 MG TABLET 6 MG PO (02:07)
[2024-12-01 02:08] VITALS: BP 146/75; PULSE 97; RESP 18; TEMP 36.6; O2SAT 92
[2024-12-01 06:00] LABS: Hematocrit 39.5 % (42.0-52.0); Mean Corpuscular HGB Conc 35.4 g/dl (31.0-36.0); Mean Corpuscular Hemoglobin 32.5 pg (27.0-33.0); Mean Corpuscular Volume 91.6 fL (80.0-98.0); Mean Platelet Volume 10.1 fL (9.4-12.4); Platelet Count 170 X10*3/uL (160-400); Red Blood Count 4.31 X10*6/uL (4.60-5.80); Red Cell Distribution Width 13.4 % (11.0-16.0); White Blood Count 5.9 X10*3/uL (4.8-10.8)
[2024-12-01] MEDS: Omeprazole 40 MG CAPSULE.DR PO (06:15)
[2024-12-01 06:28] LABS: Alanine Aminotransferase 68 U/L (0-40); Albumin Level 4.2 g/dL (3.5-5.0); Alkaline Phosphatase 79 U/L (39-117); Anion Gap 15 (12-20); Aspartate Amino Transferase 110 U/L (5-37); Bilirubin Direct 0.6 mg/dL (0.0-0.5); Blood Urea Nitrogen 3 mg/dL (9-16); Calcium 9.4 mg/dL (8.4-10.2); Carbon Dioxide 21 mmol/L (22-29); Chloride 105 mmol/L (96-108); Estimated Glomerular Filt Rate > 60; Glucose Random 196 mg/dL (60-115); Magnesium 1.9 mg/dL (1.6-2.6); Sodium 137 mmol/L (135-145); Total Protein 7.7 g/dL (6.5-8.0)
--- NOTE | 2024-12-01 09:14 | PM.DS ---
DS: Providers Provider Date of Service: 12/01/24 Date of admission: 11/28/24 21:06 Date of discharge: 12/01/24 Primary care physician: Stanley Grewal PA-C Consults: 11/28/24 19:41 Addiction Medicine Routine Consulting Provider: Addiction Covering Reason for consultation: alcohol use disorder DS: Diagnosis Discharge Diagnosis (1) Alcohol withdrawal: Status: Acute DS: Summary Hospital Course Hospital Course: From initial hpi: 34-year-old male with a PMH significant for alcohol use disorder, alcoholic pancreatitis, alcoholic gastritis, and gout who presents to the ED with nausea, vomiting, abdominal pain, and tremors since earlier this afternoon. Pt with a long hx of alcohol use disorder including alcohol withdrawal. Reports has been drinking daily for the past week due to life stressors including the passing away of his aunt. States has been drinking 15+ nips daily. Stopped drinking last night at 22:30. This afternoon pt reports feeling lightheaded, dizzy, hot and cold, as well as had nausea, vomiting, abdominal pain, and upper extremity tremors. Pt has previously experienced these symptoms before after stopping drinking, and thought he was going through alcohol withdrawal and thus brought himself to the ED for further treatment and evaluation. Denies auditory, visual, or tactile hallucinations. No increased anxiety. Denies chest pressure/pain, or palpitations. No SOB or difficulty breathing. In the ED pt was tachypneic up to 24 and hypertensive 150/88. Labs were significant for leukopenia 3.9, T bili 2.3, AST 215, ALT 83, and triglycerides 253. Stable H&H. No significant electrolyte abnormalities. Renal function baseline. Troponin WNL. Lipase WNL. CT of abdomen and pelvis found hepatomegaly and hepatic steatosis, but no convincing evidence of pancreatitis. Abdominal ultrasound found hepatic steatosis and hepatomegaly, but normal gallbladder without evidence of cholecystitis. EKG demonstrated sinus rhythm with sinus arrhythmia and normal QTC, and no evidence of significant ST elevations or depressions. Pt was treated with Ativan, ondansetron, ketorolac, IVF, thiamine, and started on phenobarb protocol. Pt will be admitted to the hospital for treatment and further evaluation of acute alcohol withdrawal in the setting of acute alcohol gastritis. Hospital course: Patient was admitted for alcohol dependence with withdrawal and acute alcoholic hepatitis and acute alcoholic gastritis. Was treated with phenobarbital protocol, ppi, thiamine, folic acid. Withdrawal symptoms resolved. LFTs improve. Course complicated by gout with acute flare. Was treated with Toradol and prednisone and will be discharged on 3 more days of prednisone. We will also continue allopurinol for prevention. Time Attestation Discharge Coordination Time (in mins): 33 Quality: Safe Use of Opioids Does Pt have an Active Cancer Diagnosis on the Problem List?: No Quality: Stroke Does the patient have a stroke diagnosis?: No Physical Exam Vital Signs: Vital Signs: Last Vital Signs Temp 97.9 F 12/01/24 02:08 Pulse 97 12/01/24 02:08 Resp 18 12/01/24 02:08 BP 146/75 H 12/01/24 02:08 Pulse Ox 92 12/01/24 02:08 O2 Del Method Room Air 12/01/24 02:08 BMI result Body Mass Index 26.6 Alert oriented x3, no acute distress, tremors resolved DS: Data Data Completed and Pending Completed studies during hospitalization [Text1]: Procedures Detoxification Services for Substance Abuse Treatment (07/29/24) Labs on day of discharge: Laboratory Results - last 24 hr 12/01/24 05:45 WBC 5.9 RBC 4.31 L Hgb 14.0 Hct 39.5 L MCV 91.6 MCH 32.5 MCHC 35.4 RDW 13.4 Plt Count 170 MPV 10.1 Absolute Nucleated RBC 0.000 Nucleated RBC % (auto) 0.0 Sodium 137 Potassium 4.0 Chloride 105 Carbon Dioxide 21 L Anion Gap 15 BUN 3 L Creatinine 0.66 Estim Creat Clear Calc 192.0 Estimated GFR > 60 Random Glucose 196 H Calcium 9.4 D Magnesium 1.9 Total Bilirubin 1.0 Direct Bilirubin 0.6 H AST 110 H ALT 68 H Alkaline Phosphatase 79 Total Protein 7.7 Albumin 4.2 Discharge Plan Discharge Anticipated Discharge Date/Time: 12/01/24 09:13 Patient Disposition: Home, Self-Care Discharge Diagnosis: Alcohol withdrawal, acute gout, alcoholic gastritis Referrals: Stanley Grewal PA-C [Primary Care Provider] - 1 Week Discharge Medications: New prednisone 20 mg Tablet 40 mg PO DAILY Qty: 6 0RF omeprazole 20 mg capsule,delayed release(DR/EC) 20 mg PO DAILY Qty: 30 0RF Continued colchicine 0.6 mg tablet 1.2 mg PO DAILY PRN (Reason: acute gout flares) 30 Days Qty: 60 1RF Rx Instructions: To use during acute flares allopurinol 100 mg tablet 200 mg PO DAILY colchicine 0.6 mg capsule 0.6 mg PO DAILY Patient Comments: Patient has been using daily for ~1 week (11/29/24) (DME) blood pressure test kit-large Kit See Rx Instructions .Route Qty: 1 0RF Rx Instructions: As directed Discharge Orders: Discharge Order (Routine); Ordered 12/01/24 Ordered By: Freddy Vidal Diet: Advance to usual diet Activity on Discharge: As tolerated Stand Alone Forms: Patient Portal Discharge page Print Language: [place] Citizen Care Plan Goals: Recovery Health Concerns: Alcohol dependence, acute gout, alcoholic gastritis Plan of Treatment: Avoid all alcohol, 3 more days of prednisone, PPI for 1 month Assessment: See above
--- NOTE | 2024-12-01 09:35 | MHC.CM.PN ---
PT DCD HOME SELF CARE
[2024-12-01] MEDS: Thiamine HCL 100 MG TABLET PO (09:41)
[2024-12-01] MEDS: Magnesium Oxide 400 MG TABLET 800 MG PO (09:41)
[2024-12-01] MEDS: Multivitamin TABLET 1 TAB PO (09:41)
[2024-12-01] MEDS: PHENobarbitaL 30 MG TABLET PO (09:41)
[2024-12-01] MEDS: predniSONE 20 MG TABLET 40 MG PO (09:41)
[2024-12-01] MEDS: Folic Acid 1 MG TABLET PO (09:41)
[2024-12-01] MEDS: allopurinoL 100 MG TABLET 200 MG PO (09:41)
[2024-12-01] MEDS: 0.9 % Sodium Chloride Flush 3 ML SYRINGE IVFLUSH (09:44)
[2024-12-01 10:00] VITALS: BP 130/73; PULSE 95; RESP 18; TEMP 36.6; O2SAT 95
--- NOTE | 2024-12-01 12:09 | PC.NURSE ---
late entry: pt medicated w/ prn tylenol on 11/30 w/ a documented pain level of 4/10 per pt request.
[2024-12-01] MEDS: Ketorolac Tromethamine 30 MG/ML VIAL IVPUSH (12:23)
--- NOTE | 2024-12-01 12:25 | PC.NURSE ---
Discharge instructions reviewed with patient who verbalized understanding. Walked to ED waiting room
[2024-12-01 12:34] VITALS: BP 130/73; PULSE 95; RESP 18; TEMP 36.6; O2SAT 95
== END 2024-12-01 12:15 | disposition home or self-care (01) | DRG 241 ==
LOC: HO.ED 18:28 → HO.EDOVER 21:13
PROVIDERS: Physician Assistant Medical; Admitting Provider Student in an Organized Health Care Education/Training Program; Emergency Provider Emergency Medicine Emergency Medical Services; PCP Physician Assistant; Visit Provider Internal Medicine
DX: K29.20 Alcoholic gastritis without bleeding (principal); F10.239 Alcohol dependence with withdrawal, unspecified; K70.10 Alcoholic hepatitis without ascites; M10.9 Gout, unspecified; Z79.899 Other long term (current) drug therapy
CPT/HCPCS: 36415; 74177; 76705; 80048; 80053; 80076; 80307; 81001; 82550; 83690; 83735; 84478; 84484; 85025; 85027; 85610; 87086; 93005; 99285; J1171; J1650; J1885; J2060; J2405; J2470; J2560; J3411; Q9967

== ENCOUNTER → 2024-11-28 17:19 | Outpatient (BNV) | payer OTHER, SELFPAY | PROVIDERS: Admitting Provider Student in an Organized Health Care Education/Training Program; Emergency Provider Emergency Medicine Emergency Medical Services; PCP Physician Assistant; Visit Provider Internal Medicine Cardiovascular Disease | DX: R07.9 Chest pain, unspecified (principal); I49.8 Other specified cardiac arrhythmias | CPT/HCPCS: 93010 ==

== ENCOUNTER → 2024-11-28 18:36 | Outpatient (BNV) | payer OTHER, SELFPAY | PROVIDERS: Emergency Provider Emergency Medicine Emergency Medical Services; PCP Physician Assistant; Visit Provider Radiology Vascular & Interventional Radiology | DX: K76.0 Fatty (change of) liver, not elsewhere classified (principal); K57.90 Diverticulosis of intestine, part unspecified, without perforation or abscess without bleeding; R16.0 Hepatomegaly, not elsewhere classified | CPT/HCPCS: 74177; 76705 ==

== ENCOUNTER → 2024-11-28 21:06 | Outpatient (BNV) | payer OTHER, SELFPAY | PROVIDERS: Admitting Provider Student in an Organized Health Care Education/Training Program; Emergency Provider Emergency Medicine Emergency Medical Services; PCP Physician Assistant; Visit Provider Student in an Organized Health Care Education/Training Program | DX: F10.930 Alcohol use, unspecified with withdrawal, uncomplicated (principal); K70.10 Alcoholic hepatitis without ascites | CPT/HCPCS: 99223; 99232; 99239 ==

== ENCOUNTER 2025-03-24 15:19 | Emergency (ER) | payer OTHER, SELFPAY | END 2025-03-24 18:54 | disposition left against medical advice (07) | LOC: HO.ED 18:46 | PROVIDERS: Emergency Provider Emergency Medicine; PCP Physician Assistant | DX: Z53.21 Procedure and treatment not carried out due to patient leaving prior to being seen by health care provider (principal); M10.9 Gout, unspecified ==

== ENCOUNTER 2025-04-19 10:14 | Emergency (ER) | payer OTHER, SELFPAY ==
[2025-04-19 10:26] VITALS: BP 140/86; PULSE 90; RESP 18; TEMP 36.8; O2SAT 95; BMI 28.1
--- NOTE | 2025-04-19 11:43 | ED_ITS ---
HPI - Extremity Problem General Chief complaint: Extremity Problem Stated complaint: Gout flare up Time Seen by Provider: 04/19/25 11:34 Source: patient Mode of arrival: wheelchair Limitations: no limitations History of Present Illness ED Provider: Anju Alvarado PA-C HPI Narrative: 34-year-old male with a history of alcohol use disorder, alcoholic gastritis, alcohol withdrawal, pancreatitis, history of gout who presents to the ER for evaluation of left knee pain for the last 2 days. Patient reports the left knee has become very swollen, very painful to palpation and he is unable to range it or bear weight. He denies any fever or chills. He states he recently was on vacation where he drank excessive amounts of alcohol and forgot to take his allopurinol with him. He states he has had several bouts of knee gout in the past. He has had his knee drained when it was swollen like this. He denies any history of infected joints or septic arthritis. He does not use intravenous drugs. MD Complaint: joint swelling and joint pain Onset (ago): day(s) Pain Consistency: constant Location: left and knee Severity scale (1-10): 10 Quality: aching and sharp Radiation: none Relieving factors: immobilization Exacerbating factors: range of motion, weight bearing and palpation Associated symptoms: denies other symptoms Related Data Home Medications ?Medication ?Instructions ?Recorded ?Confirmed colchicine 0.6 mg capsule 0.6 mg PO DAILY gout flare 0 11/29/24 11/29/24 Previous Rx's ?Medication ?Instructions ?Recorded blood pressure test kit-large #1 ea 12/21/21 colchicine 0.6 mg tablet 1.2 mg (2 x 0.6 mg) PO DAILY PRN 01/27/24 acute gout flares 30 days #60 tabs omeprazole 20 mg capsule,delayed 20 mg PO DAILY #30 ca ps 12/01/24 release prednisone 20 mg tablet 40 mg (2 x 20 mg) PO DAILY # 6 tabs 12/01/24 allopurinol 100 mg tablet 200 mg (2 x 100 mg) PO DAILY 90 02/01/25 days #180 tabs prednisone 50 mg tablet 50 mg PO DAILY #5 tabs 04/19 Allergies Allergy/AdvReac Type Severity Reaction Status Date / Time No Known Allergies (No Known Allergy Verified 04/19/25 10:31 Allergies*) Review of Systems 2 Review of Systems: Yes all other systems are reviewed and are negative [facility] Past Medical History Medical History Screening for hypercholesterolemia Screening for diabetes mellitus (DM) Community acquired pneumonia Transaminitis Alcohol use disorder, moderate, dependence Alcohol use disorder HTN (hypertension) Surgical History History of appendectomy Social History Social History Household Members: Significant Other Housing: House Do you presently have visiting nurse or other home services: No Alcohol intake: current Alcohol intake frequency: a few times a week Alcohol type: hard liquor Patient Tobacco Use Status: Never used Tobacco Smoked in Last 30 Days: No e-Cigarette/Vaping Use: Currently Using Second Hand Smoke Exposure: No Use of substances other than those prescribed or required for medical reasons: Yes Substance Use Type: Marijuana Substance Use Frequency: Occasionally Advance Directives: No Advance Directives Information Provided: Yes service: No Current occupational status: employed Current occupational exposures/hazards: No Cognitive needs: No Hearing needs: No Vision needs: Yes (contact/glasses) Physical Exam 2 Vital Signs: Vital Signs: Last Vital Signs Temp 98.5 F 04/19/25 13:03 Pulse 84 04/19/25 13:03 Resp 16 04/19/25 13:03 BP 125/74 04/19/25 13:03 Pulse Ox 95 04/19/25 13:03 O2 Del Method Room Air 04/19/25 13:03 BMI result Body Mass Index 28.1 Appearance: Alert. Oriented X3. No acute distress. HEENT: normal inspection CVS: Normal heart rate and rhythm. Pulses normal. Respiratory: No respiratory distress. Skin: Skin warm and dry. Normal skin color. Normal skin turgor. No rashes. Extremities: Left knee with severe swelling, moderate warmth, no erythema. Significantly limited range of motion due to swelling and pain. Palpable effusion. No calf tenderness on the left. Normal inspection of the right knee Neuro: Oriented X 3. Grossly normal, nonfocal. Gait not tested due to pain Medications Administered Discontinued Medications Generic Name Dose Route Start Last Admin Trade Name Freq PRN Reason Stop Dose Admin Acetaminophen 975 mg 04/19/25 11:57 04/19/25 12:07 Acetaminophen 325 Mg Tablet PO 04/19/25 11:58 975 mg ONCE ONE Administration Ketorolac Tromethamine 30 mg 04/19/25 11:57 04/19/25 12:07 Ketorolac Tromethamine 30 Mg/Ml Vial IM 04/19/25 11:58 30 mg ONCE ONE Administration Oxycodone HCl 5 mg 04/19/25 11:57 04/19/25 12:07 Oxycodone Hcl Immed Release 5 Mg Tablet PO 04/19/25 11:58 5 mg ONCE ONE Administration Prednisone 60 mg 04/19/25 11:57 04/19/25 12:08 Prednisone 20 Mg Tablet PO 04/19/25 11:58 60 mg ONCE ONE Administration Medical Decision Making Medical Decision Making [facility] Narrative: 34-year-old male with history of alcohol use disorder, gout who presents to the ER for evaluation of left knee pain and swelling without any recent trauma, after going on vacation and drinking excessive amounts of alcohol and forgetting to take his allopurinol. His exam and clinical presentation are consistent with gout recurrence. Low suspicion for septic arthritis. He is asking for arthrocentesis today as this has helped him significantly in the past. Arthrocentesis was performed with over 70 cc of clear yellow fluid drained. Synovial fluid reviewed, 29wbc with 89 neutrophils. case d/w kelly from orthopedics - culture still pending. difficult to diagnosis on infection on synovial fluid alone. clinically picture is more c/w gout. will defer abx and wait for culture. Patient given Toradol, prednisone and oxycodone. Pain is improved. Wrapped in an [place] wrap and he has crutches. Will discharge with prednisone. Differential Diagnosis Differential Diagnoses: The differential diagnosis associated with the presentation includes gout flare, septic arthritis, inflammatory arthritis, hemarthosis Consult Healthcare Provider Management of the patient was discussed with: [facility] Lab Data [facility] Lab Attestation statement: I reviewed the patient's lab results. 04/19/25 11:59 04/19/25 11:59 Labs: Lab Results 04/19/25 04/19/25 Range/Units 11:59 12:30 WBC 6.2 (4.8-10.8) X10*3/uL RBC 4.18 L (4.60-5.80) X10*6/uL Hgb 13.5 L (14.0-18.0) g/dl Hct 37.9 L (42.0-52.0) % MCV 90.7 (80.0-98.0) fL MCH 32.3 (27.0-33.0) pg MCHC 35.6 (31.0-36.0) g/dl RDW 13.2 (11.0-16.0) % Plt Count 152 L (160-400) X10*3/uL MPV 9.3 L (9.4-12.4) fL Immature Gran % (Auto) 0.2 (0.0-0.4) % Neut % (Auto) 68.5 (45-73) % Lymph % (Auto) 18.9 L (20-40) % [place] % (Auto) 10.0 (2-11) % Eos % (Auto) 1.6 (0-4) % Baso % (Auto) 0.8 (0-2) % Lymph # (Auto) 1.2 (1.2-4.9) X10*3/uL [place] # (Auto) 0.6 (0.1-1.2) X10*3/uL Eos # (Auto) 0.1 (0.0-0.4) X10*3/uL Baso # (Auto) 0.1 (0.0-0.2) X10*3/uL Abs Immat Gran (auto) 0.01 (0.00-0.03) X10*3/uL Absolute Neuts (auto) 4.3 (2.0-8.3) x10*3/uL Absolute Nucleated RBC 0.000 (0.0-0.012) X10*3/uL Nucleated RBC % (auto) 0.0 (0.0-0.2) /100WBC Sodium 139 (135-145) mmol/L Potassium 3.8 (3.3-5.1) mmol/L Chloride 105 (96-108) mmol/L Carbon Dioxide 24 (22-29) mmol/L Anion Gap 14 (12-20) BUN 6 L (9-16) mg/dL Creatinine 0.62 (0.5-1.4) mg/dL Estim Creat Clear Calc 221.4 Estimated GFR > 60 Random Glucose 93 (60-115) mg/dL Uric Acid 9.8 H (3.4-7.0) mg/dL Calcium 9.3 (8.4-10.2) mg/dL Total Bilirubin 3.2 H (0.0-1.0) mg/dL AST 79 H (5-37) U/L ALT 55 H (0-40) U/L Alkaline Phosphatase 74 (39-117) U/L Total Protein 7.6 (6.5-8.0) g/dL Albumin 4.8 (3.5-5.0) g/dL Synovial Source Left knee Synovial WBC 29.544 X10*3/uL Synovial RBC < 0.002 X10*6/uL Synovial Neutrophils 89 % Synovial Lymphocytes 1 % Synovial Monocytes 10 % External Record Review External record reviewed: Prior outpatient labs Tests considered The following testing was considered but not selected: considered x-ray knee Prescription Management I considered prescription management with: Pain Medication and Antibiotic Chronic Conditions Patient?s care impacted by: Other (hx recurrent gout) Procedures Joint Aspiration/Injection Joint Asp./Inject. 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 complete the entire course elevate and ice your knee as much as possible follow up with your doctor If you develop new or worsening symptoms call 911 or come back to the ER for further evaluation. Prescriptions: New prednisone 50 mg tablet 50 mg PO DAILY Qty: 5 0RF No Action colchicine 0.6 mg tablet 1.2 mg PO DAILY PRN (Reason: acute gout flares) 30 Days Qty: 60 1RF Rx Instructions: To use during acute flares allopurinol 100 mg tablet 200 mg PO DAILY 90 Days Qty: 180 1RF colchicine 0.6 mg capsule 0.6 mg PO DAILY Patient Comments: Patient has been using daily for ~1 week (11/29/24) prednisone 20 mg Tablet 40 mg PO DAILY Qty: 6 0RF omeprazole 20 mg capsule,delayed release(DR/EC) 20 mg PO DAILY Qty: 30 0RF (DME) blood pressure test kit-large Kit See Rx Instructions .Route Qty: 1 0RF Rx Instructions: As directed Stand Alone Forms: Work/School Release Print Language: Pashto
[2025-04-19 12:05] LABS: Hematocrit 37.9 % (42.0-52.0); Hemoglobin 13.5 g/dl (14.0-18.0); Imm Gran Abs Auto 0.01 X10*3/uL (0.00-0.03); Imm Gran Pct Auto 0.2 % (0.0-0.4); Lymphocytes Absolute Auto 1.2 X10*3/uL (1.2-4.9); MANUAL DIFF FLAG NO; Mean Corpuscular HGB Conc 35.6 g/dl (31.0-36.0); Mean Corpuscular Hemoglobin 32.3 pg (27.0-33.0); Mean Corpuscular Volume 90.7 fL (80.0-98.0); NRBC Abs Auto 0.000 X10*3/uL (0.0-0.012); NRBC Pct Auto 0.0 /100WBC (0.0-0.2); Platelet Count 152 X10*3/uL (160-400); Red Blood Count 4.18 X10*6/uL (4.60-5.80); White Blood Count 6.2 X10*3/uL (4.8-10.8)
[2025-04-19] MEDS: oxyCODONE HCl Immed Release 5 MG TABLET PO (12:07)
[2025-04-19 12:26] LABS: Alanine Aminotransferase 55 U/L (0-40); Albumin Level 4.8 g/dL (3.5-5.0); Alkaline Phosphatase 74 U/L (39-117); Anion Gap 14 (12-20); Aspartate Amino Transferase 79 U/L (5-37); Blood Urea Nitrogen 6 mg/dL (9-16); Calcium 9.3 mg/dL (8.4-10.2); Carbon Dioxide 24 mmol/L (22-29); Chloride 105 mmol/L (96-108); Creatinine Clr Calc Pharmacy 221.4; Estimated Glomerular Filt Rate > 60; Potassium 3.8 mmol/L (3.3-5.1); Sodium 139 mmol/L (135-145); Total Protein 7.6 g/dL (6.5-8.0); Uric Acid 9.8 mg/dL (3.4-7.0)
--- OUTSIDE RECORDS SUMMARY | 2025-04-19 12:34 | XMS_ITS | Clinical Summary ---
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 [facility] mailed transition letter #2 (inactivated, age 24+, not seen in 3 years) - mailed 04/15/18 No additional problems on file Immunizations Immunization Administration Dates Next Due DTaP 09/29/1996, 4,02/27/1993, [...] - - Pulse - - Temperature 37.3 C (99.2 F) 2010 12:00 AM EDT Respiratory Rate - - Oxygen [...] 01/13/2018 01/14/2008, 09/29/1996, 03/01/1994, Additional history exists COVID-19 Vaccine ( season) 2024 Influenza Vaccines (#1) 2025 2010, 06/08 Hepatitis B Vaccines Completed 06/20/1993, 1992, 1992 [...]
--- OUTSIDE RECORDS SUMMARY | 2025-04-19 12:34 | XMS_ITS | Clinical Summary ---
Author Organization [facility] Address [address] [place] [address] Phone Care Team Providers Care Funeral Location Manager Name Role Phone Physician, No Pcp Primary Care Provider Unavaila ble Allergies No known active allergies Medications ondansetron ODT (ZOFRAN-ODT) 4 mg disintegrating tablet Let 1 tablet dissolve under the tongue three times daily as needed for nausea or vomiting. 10 tablet 5 03/30/20 25 famotidine (PEPCID) 20 mg tablet Take 1 tablet (20 mg total) by mouth 2 (two) times a day for 15 days. 30 tablet 5 04/07/20 25 Active Problems No known active problems Encounters Date Type Department Care Team Description 03/23/2025 12:11 PM EDT - 03/23/2025 5:43 PM EDT Emergency [facility] Emergency [address] [place] [address] Keron Najera MD Vomiting, unspecified vomiting type, unspecified whether nausea present (Primary Dx); Alcohol-induced acute pancreatitis, unspecified complication status; Alcoholic hepatitis, unspecified whether ascites present (CMS/HCC V28) Discharge Disposition: Home or Self Care from Last 3 Months Social History Tobacco Use Types Packs/Day Years Used Date Smoking Tobacco: Never Assessed Sex and Gender Information Value Date Recorded Sex Assigned at Not on file Legal Sex Male 11:15 AM EDT Gender Identity Not on file Sexual Orientation Not on file Obstetrics History Last Filed Vital Signs Vital Sign Reading Time Taken Comments Blood Pressure 138/80 03/23/2025 4:26 PM EDT Pulse 78 03/23/2025 4:26 PM EDT Temperature 37 C (98.6 F) 03/23/2025 4:26 PM EDT Respiratory Rate 20 03/23/2025 4:26 PM EDT Oxygen Saturation 98% 03/23/2025 4:26 PM EDT Inhaled Oxygen Concentration - - Weight 99.8 kg (220 lb) 03/23/2025 11:23 AM EDT Height 190.5 cm (6' 3 ) 03/23/2025 11:23 AM EDT Body Mass Index 27.5 03/23/2025 11:23 AM EDT Plan of Treatment Health Maintenance Due Date Last Done Comments Hepatitis A Vaccines (1 of 2 - Risk 2-dose series) 2011 Pneumococcal Vaccine: Pediatrics (0 to 5 Years) and At-Risk Patients (6 to 64 Years) (1 of 2 - PCV) 2011 COVID-19 Vaccine () 06/14/2024 11/06/2021, 02/26/2021, 02/05/2021 Depression Screening 03/24/2025 HIV Screening 03/24/2025 Social Influencers of Health Screening 03/24/2025 Influenza Vaccine (#1) 2025 2010, 2008 DTaP,Tdap,and Td Vaccines (8 - Td or Tdap) 04/28/2030 04/28/2020, 01/14/2008, 09/29/1996, Additional history exists Hepatitis B Vaccines Completed 06/20/1993, 1992, 1992 Varicella Vaccines Aged Out 10/14/1993 No longer eligible based on patient's age to complete this topic HIB Vaccines Completed 03/01/1994, 02/11, 1992, Additional history exists IPV Vaccines Completed 09/29/1996, 02/11, 1992, Additional history exists MMR Vaccines Completed 09/29/1996, 03/01/1994 Meningococcal ACWY Vaccine Aged Out 01/14/2008 N o longer eligible based on patient's age to complete this topic Hepatitis C Screening Completed 12/04/2021 HPV Vaccines Aged Out No longer eligi ble based on patient's age to complete this topic Meningococcal B Vaccine Aged Out No l onger eligible based on patient's age to complete this topic RSV Immunization Patients Under 20 months Aged Out No longer eligible based on patient's age to complete this topic Procedures Procedure Name Priority Date/Time Associated Diagnosis Comments ECG ANNOTATED 03/24/2025 CT ABDOMEN PELVIS W CONTRAST STAT 03/23/2025 2:06 PM EDT METHADONE SCREEN, URINE STAT 03/23/2025 12:08 PM EDT PHENCYCLIDINE, URINE STAT 03/23/2025 12:08 PM EDT BUPRENORPHINE SCREEN, URINE STAT 03/23/2025 12:08 PM EDT DRUG ABUSE SCREEN 8A PANEL, URINE STAT 03/23/2025 12:08 PM EDT ECG 12-LEAD STAT 03/23/2025 12:04 PM EDT CBC WITH AUTO DIFFERENTIAL STAT 03/23/2025 12:01 PM EDT CBC AND DIFFERENTIAL STAT 03/23/2025 12:01 PM EDT COMPREHENSIVE METABOLIC PANEL STAT 03/23/2025 12:01 PM EDT LIPASE STAT 03/23/2025 12:01 PM EDT MAGNESIUM STAT 03/23/2025 12:01 PM EDT ETHANOL STAT 03/23/2025 12:01 PM EDT from Last 3 Months Results * ECG-Annotated (03/24/2025) us Provider Onbase MD ECG ORDERABLES Final Result * CT Abdomen Pelvis w Contrast (03/23/2025 2:06 PM EDT) Anatomical Region Laterality Modality Body Computed Tomogra phy 03/23/2025 2:39 PM EDT Impressions 03/23/2025 2:[address] for acute infectious or inflammatory process. -------- FINAL REPORT -------- Dictated By: Norman Ramos Dictated Date: 03/23/2025 14:39 ET Assigned Physician: Norman Ramos Reviewed and Electronically Signed By: Norman Ramos Signed Date: 03/23/2025 14:43 ET Workstation ID: [id number] Transcribed By: Self Edit Transcribed Date: 03/23/2025 14:39 ET Narrative 03/23/2025 2:43 PM EDT PROCEDURE: CT ABDOMEN/PELVIS WITH CONTRAST INDICATION: Abdominal pain, acute, nonlocalized TECHNIQUE: CT of the abdomen and pelvis following the intravenous administration of 90cc Isovue 370. Multiplanar reformats. The examination was performed utilizing dose reduction techniques. Total DLP 1309 COMPARISON: No priors available. FINDINGS: LOWER THORAX: Lung bases are clear. HEPATOBILIARY: Diffuse hepatic steatosis. No cholelithiasis or biliary duct dilatation. SPLEEN: Mild splenomegaly. PANCREAS: No focal mass or ductal dilatation. No peripancreatic inflammatory change or fluid is evident on CT. ADRENALS: No nodules. KIDNEYS/URETERS: Circumferential thickening of the bladder presumably related to underdistention. PELVIC ORGANS/BLADDER: Unremarkable. PERITONEUM / RETROPERITONEUM: There are numerous subcentimeter lymph nodes in the upper abdomen. VESSELS: Scattered atherosclerotic calcifications throughout the aorta and its major branches. No aneurysm. GI TRACT: Diverticulosis without evidence for acute diverticulitis. Thickening of the descending and sigmoid colon is presumably related to underdistention. There is no bowel obstruction or acute infectious or inflammatory process otherwise. BONES AND SOFT TISSUES: Mild degenerative changes. Disc bulge at L5-S1 resulting in spinal stenosis and neural foraminal narrowing. Soft tissues are unremarkable. Procedure Note Norman Ramos MD - 03/23/2025 PROCEDURE: CT ABDOMEN/PELVIS WITH CONTRAST INDICATION: Abdominal pain, acute, nonlocalized TECHNIQUE: CT of the abdomen and pelvis following the intravenousadministration of 90cc Isovue 370. Multiplanar reformats. The examinationwas performed utilizing dose reduction techniques. Total DLP 1309 COMPARISON: No priors available. FINDINGS: LOWER THORAX: Lung bases are clear. HEPATOBILIARY: Diffuse hepatic steatosis. No cholelithiasis or biliaryduct dilatation. SPLEEN: Mild splenomegaly. PANCREAS: No focal mass or ductal dilatation. No peripancreaticinflammatory change or fluid is evident on CT. ADRENALS: No nodules. KIDNEYS/URETERS: Circumferential thickening of the bladder presumablyrelated to underdistention. PELVIC ORGANS/BLADDER: Unremarkable. PERITONEUM / RETROPERITONEUM: There are numerous subcentimeter lymph nodesin the upper abdomen. VESSELS: Scattered atherosclerotic calcifications throughout the aorta andits major branches. No aneurysm. GI TRACT: Diverticulosis without evidence for acute diverticulitis.Thickening of the descending and sigmoid colon is presumably related tounderdistention. There is no bowel obstruction or acute infectious orinflammatory process otherwise. BONES AND SOFT TISSUES: Mild degenerative changes. Disc bulge at L5-[id number] in spinal stenosis and neural foraminal narrowing. Soft tissuesare unremarkable. IMPRESSION: Negative CT for acute infectious or inflammatory process. -------- FINAL REPORT -------- Dictated By: Norman Ramos Dictated Date: 03/23/2025 14:39 ET Assigned Physician: Norman Ramos Reviewed and Electronically Signed By: Norman Ramos Signed Date: 03/23/2025 14:43 ET Workstation ID: [id number] Transcribed By: Self Edit Transcribed Date: 03/23/2025 14:39 ET us Keron Najera MD IM CT PROCEDURES Final Res ult * (ABNORMAL) Drug abuse screen 8a panel, urine (03/23/2025 12:08 PM EDT) Amphetamine Screen, Ur Negative Negative LAB CHEMISTRY METHOD 5 1:26 PM EDT [facility] Comment:Certain OTC medicati ons containing ephedrine, phenylephrine, pseudoephedrine and phenylpropanolamine can cause false positive results. Barbiturate Screen, Ur Negative Negative LAB CHEMISTRY METHOD 5 1:26 PM EDT [facility] Benzodiazepine Screen, Ur Negative Negative LAB CHEMISTRY METHOD 5 1:26 PM EDT [facility] Cocaine Screen, Ur Negative Negative LAB CHEMISTRY METHOD 5 1:26 PM EDT [facility] Opiate Screen, Ur Negative Negative LAB CHEMISTRY METHOD 5 1:26 PM EDT [facility] Cannabinoid (THC) Screen, Ur Positive(A ) Negative LAB CHEMISTRY METHOD 1:26 PM EDT [facility] Comment:Specimens from patie nts taking pantoprazole sodium (Protonix) have been shown to produce false positive results. Oxycodone Screen, Ur Negative Negative LAB CHEMISTRY METHOD 1:26 PM EDT [facility] Fentanyl, Ur Negative Negative LAB CHEMISTRY METHOD 1:26 PM EDT [facility] Urine Urine specimen obtained by clean catch procedure / Unknown Non-blood Collection / Unknown 03/23/2025 12:08 PM EDT 03/23/2025 1:26 PM EDT [facility] - 03/23/2025 1:26 PM EDT Assay cutoffs: Amphetamines 1000 ng/mL Barbiturates 200 ng/mL Benzodiazepines 200 ng/mL Cocaine 300 ng/mL Fentanyl 1 ng/mL Opiates 300 ng/mL Oxycodone 100 ng/mL THC 50 ng/mL Semi-quantitative assay for screening purposes only. Unconfirmed screening result should not be used for non-medical purposes. *ALTERNATE METHOD CONFIRMATION DONE UPON REQUEST ONLY* us Keron Najera MD LAB URINE ORDERABLES Final Result [facility] [address] [place] [address], * Buprenorphine screen, urine (03/23/2025 12:08 PM EDT) Buprenorphine Screen Urine Negative Negative LAB CHEMISTRY METHOD 03/23/2025 1:26 PM EDT [facility] Urine Urine specimen obtained by clean catch procedure / Unknown Non-blood Collection / Unknown 03/23/2025 12:08 PM EDT 03/23/2025 1:26 PM EDT [facility] - 03/23/2025 1:26 PM EDT Assay cutoff 5 ng/mL Semi-quantitative assay for screening purposes only. Unconfirmed screening result should not be used for non-medical purposes. *ALTERNATE METHOD CONFIRMATION DONE UPON REQUEST ONLY* Keron Najera MD LAB URINE ORDERABLES Final Result Performing Organization Address [facility] Co de Phone Number [facility] [address] [place] [address], [place] [phone] * Methadone, urine (03/23/2025 12:08 PM EDT) Methadone Screen, Urine Negative Negative LAB CHEMISTRY METHOD 03/23/2025 1:26 PM EDT [facility] Comment: Assay cutoff 300 ng/mL Semi-quantitative assay for screening purposes only. Unconfirmed screening result should not be used for non-medical purposes. *ALTERNATE METHOD CONFIRMATION DONE UPON REQUEST ONLY* Urine Urine specimen obtained by clean catch procedure / Unknown Non-blood Collection / Unknown 03/23/2025 12:08 PM EDT 03/23/2025 1:26 PM EDT Keron Najera MD LAB URINE ORDERABLES Final Result Performing Organization Address [facility] de Phone Number [facility] [address] [place] [address], [place] [phone] * Phencyclidine, urine (03/23/2025 12:08 PM EDT) PCP Scrn, Ur Negative Negative LAB CHEMISTRY METHOD 03/23/2025 1:26 PM EDT [facility] Comment: Assay cutoff 25 ng/mL Semi-quantitative assay for screening purposes only. Unconfirmed screening result should not be used for non-medical purposes. *ALTERNATE METHOD CONFIRMATION DONE UPON REQUEST ONLY* Urine Urine specimen obtained by clean catch procedure / Unknown Non-blood Collection / Unknown 03/23/2025 12:08 PM EDT 03/23/2025 1:26 PM EDT Keron Najera MD LAB URINE ORDERABLES Final Result Performing Organization Address City/[facility]/ZIP Co de Phone Number [facility] [address] [place] [address], [place] [phone] * ECG 12 lead (03/23/2025 12:04 PM EDT) Ventricular Rate ECG 58 BPM GEMUSE Atrial Rate 58 BPM GEMUSE P-R Interval 136 ms GEMUSE QRS Duration 90 ms GEMUSE Q-T Interval 422 ms GEMUSE QTc 414 ms GEMUSE P Wave [place] 45 degrees GEMUSE R [place] 60 degrees GEMUSE T [place] 70 degrees GEMUSE ECG Interpretation Sinus bradycardia Otherwise normal ECG No previous ECGs available Confirmed by Steve ANNA JAMES ([id number]) on 03/23/2025 3:50:58 PM GEMUSE 03/23/2025 12:0 4 PM EDT 03/23/2025 3:50 PM EDT Keron Najera MD ECG ORDERABLES Final Resul t Performing Organization Address City/[facility]/ZIP Co de Phone Number GEMUSE * (ABNORMAL) CBC auto differential (03/23/2025 12:01 PM EDT) [facility] WBC 4.1(L) 4.8 - 10.8 K/mcL LAB HEMETOLOGY METHOD 03/23/2025 1:36 PM EDT [facility] RBC 4.60 4.50 - 5.50 M/mcL LAB HEMETOLOGY METHOD 03/23/2025 1:36 PM EDT [facility] Hemoglobin 15.0 13.5 - 17.5 g/dL LAB HEMETOLOGY METHOD 03/23/2025 1:36 PM EDT [facility] Hematocrit 44.9 42.0 - 54.0 % LAB HEMETOLOGY METHOD 03/23/2025 1:36 PM EDT [facility] MCV 97.8 79.0 - 98.0 FL LAB HEMETOLOGY METHOD 03/23/2025 1:36 PM EDT [facility] MCH 32.7(H) 27.0 - 32.0 pcg LAB [facility]OLOGY [facility] MCHC 33.4 32.0 - 37.0 g/dL LAB HEMETOLOGY METHOD 03/23/2025 1:36 PM EDT [facility] RDW 13.4 11.0 - 15.0 % LAB HEMETOLOGY METHOD 03/23/2025 1:36 PM [facility] Platelets 188 130 - 400 K/mcL LAB HEMETOLOGY METHOD 03/23/2025 1:36 PM [facility] MPV 9.5 7.0 - 11.0 FL LAB HEMETOLOGY METHOD 03/23/2025 1:36 PM [facility] NRBC 0.0 <1.0 % LAB HEMETOLOGY METHOD 03/23/2025 1:36 PM [facility] NRBC Absolute 0.00 <0.10 K/mcL LAB HEMETOLOGY METHOD 03/23/2025 1:36 PM [facility] Neutrophils Relative 62.6 % LAB HEMETOLOGY METHOD 03/23/2025 1:36 PM [facility] Lymphocytes Relative 26.3 % LAB HEMETOLOGY METHOD 03/23/2025 1:36 PM [facility] Monocytes Relative 7.0 % LAB HEMETOLOGY METHOD 03/23/2025 1:36 PM [facility] Eosinophils Relative 2.7 % LAB HEMETOLOGY METHOD 03/23/2025 1:36 PM [facility] Basophils Relative 1.2 % LAB HEMETOLOGY METHOD 03/23/2025 1:36 PM [facility] Immature Granulocytes Relative 0.2 % LAB HEMETOLOGY METHOD 03/23/2025 1:36 PM EDT [facility] Neutrophils Absolute 2.59 1.50 - 7.00 K/mcL LAB HEMETOLOGY METHOD 03/23/2025 1:36 PM EDT [facility] Lymphocytes Absolute 1.09 1.00 - 5.00 K/mcL LAB HEMETOLOGY METHOD 03/23/2025 1:36 PM EDT [facility] Monocytes Absolute 0.29 0.20 - 1.00 K/mcL LAB HEMETOLOGY METHOD 03/23/2025 1:36 PM EDT [facility] Eosinophils Absolute 0.11 0.00 - 0.50 K/mcL LAB HEMETOLOGY METHOD 03/23/2025 1:36 PM EDT [facility] Basophils Absolute 0.05 0.00 - 0.20 K/mcL LAB HEMETOLOGY METHOD 03/23/2025 1:36 PM EDT [facility] Immature Granulocytes Absolute 0.01 0.00 - 0.03 K/mcL LAB HEMETOLOGY METHOD 03/23/2025 1:36 PM EDT [facility] Blood Venous blood specimen / Unknown Venipuncture / Unknown 03/23/2025 12:01 PM EDT 03/23/2025 1:35 PM EDT us Keron Najera MD LAB BLOOD ORDERABLES Final Result [facility] [address] [place] [address], * Magnesium (03/23/2025 12:01 PM EDT) Magnesium 2.1 1.9 - 2.6 mg/dL LAB CHEMISTRY METHOD 03/23/2025 1:13 PM EDT [facility] Blood Venous blood specimen / Unknown Venipuncture / Unknown 03/23/2025 12:01 PM EDT 03/23/2025 1:13 PM EDT Keron Najera MD LAB BLOOD ORDERABLES Final Result Performing Organization Address [facility]/ZIP Co de Phone Number [facility] [address] [place] [address], [place] [phone] * Lipase (03/23/2025 12:01 PM EDT) Lipase 36 13 - 75 unit/L LAB CHEMISTRY METHOD 03/23/2025 1:13 PM EDT [facility] Blood Venous blood specimen / Unknown Venipuncture / Unknown 03/23/2025 12:01 PM EDT 03/23/2025 1:13 PM EDT Keron Najera MD LAB BLOOD ORDERABLES Final Result Performing Organization Address [facility] Co de Phone Number [facility] [address] [place] [address], [place] [phone] * Ethanol (03/23/2025 12:01 PM EDT) [facility] Ethanol Level <3 0 - 10 mg/dL LAB CHEMISTRY METHOD 03/23/2025 1:13 PM EDT [facility] Blood Venous blood specimen / Unknown Venipuncture / Unknown 03/23/2025 12:01 PM EDT 03/23/2025 1:13 PM EDT us Keron Najera MD LAB BLOOD ORDERABLES Final Result Performing Organization Address [facility]/ZIP Co de Phone Number [facility] [address] [place] [address], [place] [phone] * (ABNORMAL) Comprehensive metabolic panel (03/23/2025 12:01 PM EDT) Sodium 140 133 - 145 mmol/L LAB CHEMISTRY METHOD 03/23/2025 1:46 PM [facility] Potassium 4.4 3.5 - 5.5 mmol/L LAB CHEMISTRY METHOD 03/23/2025 1:46 PM [facility] Chloride 105 96 - 110 mmol/L LAB CHEMISTRY METHOD 03/23/2025 1:46 PM [facility] CO2 26 21 - 32 mmol/L LAB CHEMISTRY METHOD 03/23/2025 1:46 PM [facility] Anion Gap 9 3 - 11 LAB CHEMISTRY METHOD 03/23/2025 1:46 PM [facility] Glucose 107(H) 70 - 100 mg/dL LAB CHEMISTRY METHOD 03/23/2025 1:46 PM [facility] BUN 5 5 - 25 mg/dL LAB CHEMISTRY METHOD 03/23/2025 1:46 PM [facility] Creatinine 0.71 0.70 - 1.30 mg/dL LAB CHEMISTRY METHOD 03/23/2025 1:46 PM [facility] eGFR 125 >=60 mL/min/1. 73m2 LAB CHEMISTRY METHOD 03/23/2025 1:46 PM [facility] Comment:Calculation based on the Chronic Kidney Disease Epidemiology Collaboration (CKD-EPI) equation refit without adjustment for race. BUN/Creatinine Ratio 7.0 LAB CHEMISTRY METHOD 03/23/2025 1:46 PM [facility] Calcium 9.3 8.5 - 10.5 mg/dL LAB CHEMISTRY METHOD 03/23/2025 1:46 PM [facility] AST (SGOT) 151(H) 10 - 42 unit/L LAB CHEMISTRY METHOD 03/23/2025 1:46 PM [facility] Comment:Results verified by repeat testing ALT (SGPT) 90(H) 10 - 60 unit/L LAB CHEMISTRY METHOD 03/23/2025 1:46 PM EDT [facility] Alkaline Phosphatase 106 42 - 121 unit/L LAB CHEMISTRY METHOD 03/23/2025 1:46 PM EDT [facility] Total Protein 8.1(H) 6.0 - 8.0 g/dL LAB CHEMISTRY METHOD 03/23/2025 1:46 PM EDT [facility] Albumin 4.5 3.2 - 5.0 g/dL LAB CHEMISTRY METHOD 03/23/2025 1:46 PM EDT [facility] Total Bilirubin 3.0(H) 0.0 - 1.4 mg/dL LAB CHEMISTRY METHOD 03/23/2025 1:46 PM EDT [facility] Blood Venous blood specimen / Unknown Venipuncture / Unknown 03/23/2025 12:01 PM EDT 03/23/2025 1:13 PM EDT us Keron Najera MD LAB BLOOD ORDERABLES Final Result [facility] [address] [place] [address], from Last 3 Months Insurance [employer] Care Teams Funeral Location Manager Relationship Specialty Start Date End Date Physician, No Pcp PCP - General 03/23/25
[2025-04-19 12:39] VITALS: BP 140/86; PULSE 90; RESP 18; TEMP 36.8; O2SAT 95
--- NOTE | 2025-04-19 12:41 | PC.NURSE ---
Patient A&O x 3 presents to ED c/o left knee swelling and pain rated 10/10. PMH gout in same knee. Patient ambulated in on crutches, had drive him to hospital. Swelling and pain started on Saturday and has become increasingly worse. -SOB +CMS limited ROM in left leg. Blood collected/sent. Patient medicated for pain management, effective rated 7/10. Provider in to see patient removed yellow fluid from knee. Fluid sent for cultures. Knee iced and aced wrapped. VSS and up to date
[2025-04-19 12:49] LABS: Source Synovial Fluid Left knee
[2025-04-19 13:03] VITALS: BP 125/74; PULSE 84; RESP 16; TEMP 36.9; O2SAT 95
[2025-04-19 13:09] LABS: MN% 9.6 %; PMN% 90.4 %; RBC Synovial Fluid < 0.002 X10*6/uL
[2025-04-19 13:58] LABS: Lymphocytes Synovial Fluid 1 %; Neutrophils Synovial Fluid 89 %
[2025-04-19 13:59] LABS: BF Shift QC OK YES; Man Diluent Bkgrd OK YES; Monocytes Synovial Fluid 10 %
[2025-04-19 15:05] VITALS: BP 128/77; PULSE 86; RESP 18; TEMP 36.8; O2SAT 95
[2025-04-20 09:39] LABS: Glucose Synovial Fluid 78
[2025-04-20 09:40] LABS: Total Protein Synovial Fluid 5.1
== END 2025-04-19 15:06 | disposition home or self-care (01) ==
PROVIDERS: Emergency Medicine; Physician Assistant; Emergency Provider Emergency Medicine; PCP Physician Assistant
DX: M10.062 Idiopathic gout, left knee (principal); Z79.899 Other long term (current) drug therapy
CPT/HCPCS: 20610; 36415; 80053; 82945; 84157; 84550; 84560; 85025; 87070; 87073; 87077; 87205; 89051; 89060; 99284; J1885

== ENCOUNTER 2025-07-27 09:12 | Inpatient (IN) | payer OTHER, SELFPAY ==
--- OUTSIDE RECORDS SUMMARY | 2021-12-11 16:50 | XMS_ITS | Encounter Summary ---
Author Organization [facility] Address [address] [facility] [address] [place] [phone] Phone Care Team Providers Care Power System Operator Name Role Phone Stanley Grewal Primary Care Provider + Encounter Details Date Type Department Care Team (Late st Contact Info) Description 12/11/2021 3:50 PM EST Hospital Encounter [facility] [address] [place] [phone] Ofelia Espinal CNP [address] [place] [phone] Social History Tobacco Use Types Packs/Day Years [...] as food, clothing, or medical care? No 01/22/2025 In the past 12 months have y ou been in a relationship with a person who hurts, threatens, or tries to control you? No 01/22/2025 Are you denied basic needs s uch as food, clothing, or medical care? No 01/22/2025 In the past 12 months have y ou been in a relationship with a person who hurts, threatens, or tries to control you? No 01/22/2025 Sex and Gender Information Value Date Recorded Sex Assigned at Male 07/10/2020 9:27 PM EDT Legal Sex Male 8:58 PM EDT Gender Identity Male 07/10/2020 9:27 PM EDT Sexual Orientation Straight 07/10/2020 9: 27 PM EDT documented as of this encounter Functional Status * Calculated C-SSRS Risk Score (Lifetime/Recent) Answer Date of Assessment Author No Risk Indicated 04/18/2025 10:20 AM EDT Lianet Busby, RN * [place] Suicide Severity Rating Scale (Screener/Recent Self-Report) Question Answer Date of Assessment Author 1. Wish to be (Past 1 Month) No 025 10:20 AM EDT Lianet Busby, RN 2. Non-Specific Active Suici marilee Thoughts (Past 1 Month) No 04/18/2025 10:20 AM EDT Addie Busby RN 6. Suicidal Behavior (Lifetime) No 10:20 AM EDT Lianet Busby, RN documented as of this encounter Plan of [...] IMPRESSION: No fracture or dislocation. Ofelia Espinal SERVICE SPECIALIST IMG XR LOWER EXTREMITY Lashay l Result documented in this encounter Visit Diagnoses Not on filedocumented in this encounter Care Teams Power System Operator Relationship Specialty Start Date End Date Stanley Grewal PA [address] [place] [id number] PCP - General 07/10/20 documented as of this encounter Additional Source Comments The information contained in this document represents components of the legal health record. It is not the complete legal health record.[facility]
--- NOTE | ~2025-07-27 | CT_ITS ---
EXAMINATION: CT ABDOMEN AND PELVIS WITH CONTRAST CLINICAL INFORMATION: Abdominal pain. COMPARISON: 11/28/2024, 07/29/2024, 11/12/2023. TECHNIQUE: Multidetector volumetric images were obtained from the superior aspect of the liver through the pubic symphysis following administration 85 mL of Omnipaque 350 intravenous contrast. Sagittal and coronal reformatted images were obtained on the technologist's workstation. Oral contrast: No This CT examination was performed using dose optimization techniques as appropriate, variously including the following: *Automated exposure control *Adjustment of mA and/or kV according to patient size (this includes techniques or standardized protocols for targeted exams where dose is matched to indication/reason for exam; i.e. extremities or head) *Use of iterative reconstruction technique FINDINGS: LUNG BASES: The visualized lung bases are unremarkable. LIVER, GALLBLADDER, AND BILIARY TREE: Liver is diffusely fatty infiltrated and mildly enlarged. No suspicious focal lesion. No intrahepatic or extrahepatic biliary dilatation. The gallbladder is unremarkable with no evidence of radiopaque gallstones, gallbladder wall thickening, or obvious pericholecystic inflammatory changes. PANCREAS: Unremarkable. SPLEEN: Borderline splenomegaly. ADRENAL GLANDS: Unremarkable. KIDNEYS AND URETERS: The kidneys are normal in size, shape, and attenuation. No hydronephrosis, hydroureter, or calculi seen. No perinephric stranding. BLADDER: Decompressed. No gross abnormality. GASTROINTESTINAL TRACT: There is mild diverticulosis of the sigmoid colon. There is no evidence of wall thickening or inflammation of the colon. The appendix is not well seen. There are no CT features of appendicitis. The small bowel is normal in caliber and course. No wall thickening or inflammation. The stomach is decompressed. The duodenal sweep appears normal. No rectal abnormality. ABDOMINAL WALL: No significant hernia is appreciated. LYMPH NODES: No pathologic lymphadenopathy present. VASCULAR: Unremarkable. PELVIC VISCERA: The prostate and seminal vesicles are unremarkable. OSSEOUS STRUCTURES: No suspicious lytic or blastic bone lesions. CT/CT abdomen pelvis w IV con IMPRESSION: 1. Mild hepatomegaly with diffuse hepatic steatosis. No suspicious hepatic lesion. 2. Sigmoid diverticulosis without evidence of acute diverticulitis. Electronically signed by: Jesus Morales MD 07/27/2025 11:49 AM EDT
[2025-07-27 09:23] VITALS: BP 165/89; PULSE 87; RESP 18; TEMP 36.6; O2SAT 98; BMI 27.0
--- NOTE | 2025-07-27 09:26 | ECG_ITS ---
Test Reason : epigastric pain Blood Pressure : */* mmHG Vent. Rate : 90 BPM Atrial Rate : 90 BPM P-R Int : 138 ms QRS Dur : 90 ms QT Int : 348 ms P-R-T Axes : 76 57 75 degrees QTcB Int : 425 ms Normal sinus rhythm Normal ECG When compared with ECG of 28-Nov-2024 17:24, No significant change was found Referred By: Generic ED Physician Electronically Signed By: Mayco Mark
[2025-07-27 09:58] LABS: MANUAL DIFF FLAG NO
[2025-07-27 10:00] LABS: Appearance Urine Clear; Glucose Urine UA Negative (Negative); PH 6.0 (5.0-9.0); Specific Gravity - Urine 1.020 (1.005-1.025); UMIC TRIGGER UACC YES
[2025-07-27 10:07] LABS: Hematocrit 41.1 % (42.0-52.0); Hemoglobin 14.7 g/dl (14.0-18.0); Imm Gran Abs Auto 0.01 X10*3/uL (0.00-0.03); Imm Gran Pct Auto 0.3 % (0.0-0.4); Lymphocytes Absolute Auto 0.8 X10*3/uL (1.2-4.9); Mean Corpuscular HGB Conc 35.8 g/dl (31.0-36.0); Mean Corpuscular Hemoglobin 33.1 pg (27.0-33.0); Mean Corpuscular Volume 92.6 fL (80.0-98.0); NRBC Abs Auto 0.000 X10*3/uL (0.0-0.012); NRBC Pct Auto 0.0 /100WBC (0.0-0.2); Red Blood Count 4.44 X10*6/uL (4.60-5.80); White Blood Count 3.7 X10*3/uL (4.8-10.8)
[2025-07-27 10:13] LABS: Uric Acid 9.2 mg/dL (3.4-7.0)
[2025-07-27 10:18] LABS: Alanine Aminotransferase 83 U/L (0-40); Albumin Level 4.9 g/dL (3.5-5.0); Alkaline Phosphatase 92 U/L (39-117); Anion Gap 15 (12-20); Aspartate Amino Transferase 183 U/L (5-37); Blood Urea Nitrogen 5 mg/dL (9-16); Calcium 9.1 mg/dL (8.4-10.2); Carbon Dioxide 23 mmol/L (22-29); Chloride 106 mmol/L (96-108); Creatinine Clr Calc Pharmacy 226.3; Estimated Glomerular Filt Rate > 60; Lipase 39 U/L (8-78); Magnesium 1.2 mg/dL (1.6-2.6); Potassium 3.7 mmol/L (3.3-5.1); Sodium 140 mmol/L (135-145); Total Protein 7.7 g/dL (6.5-8.0)
--- NOTE | 2025-07-27 10:19 | ED_ITS ---
HPI - General Adult General Chief complaint: ETOH/Substance Use Stated complaint: gout flare R foot Time Seen by Provider: 07/27/25 10:19 Source: patient Mode of arrival: ambulatory Limitations: no limitations History of Present Illness ED Provider: Tika Garcia PA-C HPI narrative: This is a 34 year old male with a history of alcohol use disorder, gout, and pancreatitis that presents for evaluation of nausea and abdominal pain. He states that he was on vacation in [place] [facility] and he had his last drink yesterday around 15:00. Today he states that he feels shaky with tingling in his hands and face. He endorses nausea and vomiting, last episode of emesis was around 6:30 this morning. He currently has epigastric abdominal pain and states that this is his biggest concern. He is also having pain in his right foot due to gout. He states that he ran out of his colchicine while he was on vacation so he has started to flare. He states that he has hardly had water and feels very dehydrated. Related Data Home Medications ?Medication ?Instructions ?Recorded ?Confirmed colchicine 0.6 mg capsule 0.6 mg PO DAILY PRN gout fla re 11/29/24 11/29/24 Previous Rx's ?Medication ?Instructions ?Recorded blood pressure test kit-large #1 ea 12/21/21 Allergies Allergy/AdvReac Type Severity Reaction Status Date / Time No Known Allergies (No Known Allergy Verified 07/27/25 09:25 Allergies*) Review of Systems 2 Constitutional: Constitutional: Reports as per HPI Eyes: Eyes: Reports as per HPI ENT: Reports as per HPI Cardiovascular: Cardiovascular: Reports as per HPI Respiratory: Respiratory: Reports as per HPI Gastrointestinal: Gastrointestinal: Reports as per HPI Genitourinary: Genitourinary: Reports as per HPI Musculoskeletal: Musculoskeletal: Reports as per HPI Integumentary/Breasts: Skin/Breast: Reports as per HPI Neurologic: Reports as per HPI Psychiatric: Psychiatric: Reports as per HPI Endocrine: Endocrine: Reports as per HPI Hematologic/Lymphatic: Hematologic/Lymphatic: Reports as per HPI Allergic/Immunologic: Allergic/Immunologic: Reports as per HPI [facility] Past Medical History Attestation statement: The following information was validated with the patient. Source: old records reviewed and nursing notes reviewed Medical History Transaminitis Alcohol use disorder HTN (hypertension) Surgical History History of appendectomy Social History Social History Household Members: Significant Other Housing: House Do you presently have visiting nurse or other home services: No Alcohol intake: current Alcohol intake frequency: a few times a week Alcohol type: hard liquor Patient Tobacco Use Status: Never used Tobacco Smoked in Last 30 Days: No e-Cigarette/Vaping Use: Currently Using Second Hand Smoke Exposure: No Substance Use Type: Marijuana Advance Directives: No Advance Directives Information Provided: No Do you have a plan to hurt others: No Plan service: No Current occupational status: employed Current occupational exposures/hazards: No Cognitive needs: No Hearing needs: No Vision needs: Yes (contact/glasses) Physical Exam ED Vital Signs: Vital Signs - 24 hr 07/27/25 09:23 Temperature 98 F Pulse Rate 87 Respiratory Rate 18 Blood Pressure 165/89 H Pulse Oximetry 98 Oxygen Delivery Method Room Air BMI result Body Mass Index 27.0 Const General: cooperative, alert and awake Orientation/consciousness: patient oriented x3 HENMT Head: Yes normal to inspection and Yes atraumatic Ears: hearing grossly normal bilaterally and external ears normal General nose exam: Normal external nose present, no nasal discharge noted and no epistaxis Face and sinus: Yes normal facial exam, No abrasion and No laceration Mouth: no drooling and no muffled voice Eyes General: appearance normal, both eyes and all related structures Periorbital: periorbital findings normal Eyelids: Yes eyelids normal Conjunctivae: conjunctivae normal Pupils: Equal, round and reactive pupils present EOM: EOMs intact bilaterally Neck Neck: Yes normal visual inspection and Yes full ROM Resp Effort & Inspection: normal respiratory effort and able to speak in complete sentences GI Palpation (GI): Tenderness to palpation present (GI) in the epigastrum and no masses Auscultation: Hyperactive bowel sounds present Neuro General: patient oriented x3 and moves all extremities Cranial nerves: Yes Equal, round and reactive pupils present Cognition (Neuro): normal cognition Motor exam (neuro): Other motor observations present (Tremulous) Extrem General: Yes normal to inspection and Yes full ROM Psych Appearance: grossly normal Mental Status: mental status grossly normal Affect: normal affect Attitude: cooperative Thought process: Normal thought process present Thought content: Normal thought content present Insight: Good insight present (Psych) Medications Administered Generic Name Dose Route Start Last Admin Trade Name Brisa PRN Reason Stop Dose Admin Colchicine 0.6 mg 07/27/25 13:15 07/27/25 13:46 Colchicine 0.6 Mg Tablet PO 0.6 mg DAILY TODD Administration Enoxaparin Sodium 40 mg 07/27/25 13:00 07/27/25 13:02 Enoxaparin Sodium 40 Mg/0.4 Ml Syringe SUBCUT Not Given Q24H TODD Folic Acid 1 mg 07/27/25 12:15 07/27/25 13:00 Folic Acid 1 Mg Tablet PO 1 mg DAILY TODD Administration Multivitamins/Vitamin C 1 tab 07/27/25 12:15 07/27/25 13:00 Multivitamin Tablet PO 1 tab DAILY TODD Administration Pantoprazole Sodium 40 mg 07/27/25 13:05 07/27/25 13:46 Pantoprazole Sodium 40 Mg/10 Ml Vial IVPUSH 40 mg BID@0630,1630 TODD Administration Discontinued Medications Generic Name Dose Route Start Last Admin Trade Name Brisa PRN Reason Stop Dose Admin Magnesium Sulfate 2 gm in 50 mls @ 150 mls/hr 07/27/25 10:20 07/27/25 12:03 Magnesium Sulfate/H2o IV 07/27/25 10:39 Infused ONCE ONE Infusion Sodium Chloride 1,000 mls @ 999 mls/hr 07/27/25 10:45 07/27/25 12:04 Ns IV 07/27/25 11:45 Infused .Q1H1M TODD Infusion Thiamine HCl 200 mg/ Sodium 102 mls @ 204 mls/hr 07/27/25 12:10 07/27/25 13:52 Chloride IV 07/27/25 12:39 Infused ONCE ONE Infusion Iohexol 100 ml 07/27/25 11:35 07/27/25 11:35 Iohexol 350 Mg/Ml 100 Ml Infus..Btl IV 07/27/25 11:36 85 ml ONCE ONE Administration Ketorolac Tromethamine 15 mg 07/27/25 13:12 07/27/25 13:46 Ketorolac Tromethamine 15 Mg/Ml Vial IVPUSH 07/27/25 13:13 15 mg ONCE ONE Administration Morphine Sulfate 4 mg 07/27/25 10:50 07/27/25 10:57 Morphine Sulfate 4 Mg/Ml Cartridge IVPUSH 07/27/25 10:51 4 mg ONCE ONE Administration Protocol Morphine Sulfate 4 mg 07/27/25 12:43 07/27/25 13:00 Morphine Sulfate 4 Mg/Ml Cartridge IVPUSH 07/27/25 12:44 4 mg ONCE ONE Administration Protocol Ondansetron HCl 4 mg 07/27/25 10:36 07/27/25 10:43 Ondansetron Hcl 4 Mg/2 Ml Vial IVPUSH 07/27/25 10:37 4 mg ONCE ONE Administration Phenobarbital Sodium 338 mg 07/27/25 11:00 07/27/25 11:32 Phenobarbital Sodium 130 Mg/Ml Im Once IM 07/27/25 11:01 338 mg ONCE ONE Administration Protocol Medical Decision Making Medical Decision Making [facility] Narrative: Patient is a 34 year old assigned male at with a history of alcohol use disorder, gout, and pancreatitis presenting to the emergency department today with alcohol withdrawal. Patient's physical exam was as noted in the physical exam portion of this note. Patient's blood work showed a uric acid of 9.2, magnesium of 1.2, total bilirubin 2.0, direct bilirubin of 0.8, AST of 183, ALT of 83. Patient's urine showed no acute process. Patient's EKG was unremarkable. Patient's CT abd/pelvis showed mild hepatomegaly with diffuse hepatic steatosis and sigmoid diverticulosis without diverticulitis. I explained my physical exam findings as well as all test results to the patient. I answered all questions asked by the patient. Patient was given IV magnesium, fluids, and IM phenobarbital for his alcohol withdrawal. I spoke with the hospitalist team who agreed to admission for continued replacement of magnesium and alcohol withdrawal. Patient verbalized agreement and understanding with this treatment plan and admission. Differential Diagnosis Differential Diagnoses: The differential diagnosis associated with the presentation includes Alcohol withdrawal Nausea Vomiting Abdominal pain Admission/Observation Consideration of admission/observation: Escalation of care including admission/observation considered Patient admitted as noted in the MDM Rationale portion of this note. Consult Healthcare Provider Management of the patient was discussed with: Hospitalist (agreed to admission as noted in the MDM Rationale portion of this note. ) Lab Data [facility] Lab Attestation statement: I reviewed the patient's lab results. My interpretation of these results are in the MDM Rationale portion of this note. 07/27/25 09:51 07/27/25 09:51 Labs: Lab Results 07/27/25 07/27/25 Range/Units 09:48 09:51 WBC 3.7 L (4.8-10.8) X10*3/uL RBC 4.44 L (4.60-5.80) X10*6/uL Hgb 14.7 (14.0-18.0) g/dl Hct 41.1 L (42.0-52.0) % MCV 92.6 (80.0-98.0) fL MCH 33.1 H (27.0-33.0) pg MCHC 35.8 (31.0-36.0) g/dl RDW 13.6 (11.0-16.0) % Plt Count 82 L D (160-400) X10*3/uL MPV 10.0 (9.4-12.4) fL Immature Gran % (Auto) 0.3 (0.0-0.4) % Neut % (Auto) 66.9 (45-73) % Lymph % (Auto) 22.0 (20-40) % [place] % (Auto) 7.6 (2-11) % Eos % (Auto) 2.4 (0-4) % Baso % (Auto) 0.8 (0-2) % Lymph # (Auto) 0.8 L (1.2-4.9) X10*3/uL [place] # (Auto) 0.3 (0.1-1.2) X10*3/uL Eos # (Auto) 0.1 (0.0-0.4) X10*3/uL Baso # (Auto) 0.0 (0.0-0.2) X10*3/uL Abs Immat Gran (auto) 0.01 (0.00-0.03) X10*3/uL Absolute Neuts (auto) 2.5 (2.0-8.3) x10*3/uL Absolute Nucleated RBC 0.000 (0.0-0.012) X10*3/uL Nucleated RBC % (auto) 0.0 (0.0-0.2) /100WBC Sodium 140 (135-145) mmol/L Potassium 3.7 (3.3-5.1) mmol/L Chloride 106 (96-108) mmol/L Carbon Dioxide 23 (22-29) mmol/L Anion Gap 15 (12-20) BUN 5 L (9-16) mg/dL Creatinine 0.56 (0.5-1.4) mg/dL Estim Creat Clear Calc 226.3 Estimated GFR > 60 Random Glucose 129 H (60-115) mg/dL Uric Acid 9.2 H (3.4-7.0) mg/dL Calcium 9.1 (8.4-10.2) mg/dL Magnesium 1.2 L* (1.6-2.6) mg/dL Total Bilirubin 2.0 H (0.0-1.0) mg/dL Direct Bilirubin 0.8 H (0.0-0.5) mg/dL AST 183 H (5-37) U/L ALT 83 H (0-40) U/L Alkaline Phosphatase 92 (39-117) U/L Troponin I High Sens < 2.7 (<3.5-35.0) ng/L Total Protein 7.7 (6.5-8.0) g/dL Albumin 4.9 (3.5-5.0) g/dL Lipase 39 (8-78) U/L Urine Color Dark Yellow Urine Appearance Clear Urine pH 6.0 (5.0-9.0) Ur Specific [place] 1.020 (1.005-1.025) Urine Protein 100 (2+) H (Neg-Trace) mg/dL Urine Glucose (UA) Negative (Negative) mg/dL Urine Ketones Trace (Negative) mg/dL Urine Blood Negative (Negative) Urine Nitrite Negative (Negative) Ur Leukocyte Esterase Trace H (Negative) Urine RBC 0-2 (0-2) /HPF Urine WBC 0-5 (0-5) /HPF Ur Squamous Epith Cells 3-5 (0-2) /HPF Urine Bacteria None Seen (None Seen) Hyaline Casts 6-10 (0-2) /LPF Independent Interpretation I performed an independent interpretation of an: EKG and CT Scan Interpretation: My interpretation is in agreement with the radiologist's impression of this imaging study. L Report Number: [id number]: Total DLP = 516.00 mGy-cm Reason for Exam: abd pain EXAMINATION: CT ABDOMEN AND PELVIS WITH CONTRAST CLINICAL INFORMATION: Abdominal pain. COMPARISON: 11/28/2024, 07/29/2024, 11/12/2023. TECHNIQUE: Multidetector volumetric images were obtained from the superior aspect of the liver through the pubic symphysis following administration 85 mL of Omnipaque 350 intravenous contrast. Sagittal and coronal reformatted images were obtained on the technologist's workstation. Oral contrast: No This CT examination was performed using dose optimization techniques as appropriate, variously including the following: *Automated exposure control *Adjustment of mA and/or kV according to patient size (this includes techniques or standardized protocols for targeted exams where dose is matched to indication/reason for exam; i.e. extremities or head) *Use of iterative reconstruction technique FINDINGS: LUNG BASES: The visualized lung bases are unremarkable. LIVER, GALLBLADDER, AND BILIARY TREE: Liver is diffusely fatty infiltrated and mildly enlarged. No suspicious focal lesion. No intrahepatic or extrahepatic biliary dilatation. The gallbladder is unremarkable with no evidence of radiopaque gallstones, gallbladder wall thickening, or obvious pericholecystic inflammatory changes. PANCREAS: Unremarkable. SPLEEN: Borderline splenomegaly. ADRENAL GLANDS: Unremarkable. KIDNEYS AND URETERS: The kidneys are normal in size, shape, and attenuation. No hydronephrosis, hydroureter, or calculi seen. No perinephric stranding. BLADDER: Decompressed. No gross abnormality. GASTROINTESTINAL TRACT: There is mild diverticulosis of the sigmoid colon. There is no evidence of wall thickening or inflammation of the colon. The appendix is not well seen. There are no CT features of appendicitis. The small bowel is normal in caliber and course. No wall thickening or inflammation. The stomach is decompressed. The duodenal sweep appears normal. No rectal abnormality. ABDOMINAL WALL: No significant hernia is appreciated. LYMPH NODES: No pathologic lymphadenopathy present. VASCULAR: Unremarkable. PELVIC VISCERA: The prostate and seminal vesicles are unremarkable. OSSEOUS STRUCTURES: No suspicious lytic or blastic bone lesions. CT/CT abdomen pelvis w IV con IMPRESSION: 1. Mild hepatomegaly with diffuse hepatic steatosis. No suspicious hepatic lesion. 2. Sigmoid diverticulosis without evidence of acute diverticulitis. Electronically signed by: Jesus Morales MD 07/27/2025 11:49 AM EDT Dictated By: Jesus Morales MD Signed By: Electronically signed by Jesus Morales MD 07/27/25 1149 I independently interpreted this EKG and am in agreement with the below findings: Vent. Rate: 90 BPM Atrial Rate: 90 BPM P-R Int: 138 ms QRS Dur: 90 ms QT Int: 348 ms P-R-T Axes: 76 57 75 degrees QTcB Int: 425 ms Normal sinus rhythm When compared with ECG of 28-Nov-2024 17:24, No significant change was found DD/ [id number] Radiology Impression Discussion of test interpretation with radiology: I have reviewed the radiologist's reading. Critical Care Time Critical Care Time Critical Care Time: Yes Total Critical Care Time: 46 Attestation: I spent 46 minutes of Critical Care Time with this patient. This does not include time spent on separately reported billable procedures. Discharge Plan Discharge Clinical Impression: Hypomagnesemia, Alcohol withdrawal Patient Disposition: Admitted As Inpatient
[2025-07-27 10:30] LABS: Troponin-I High Sensitivity < 2.7 ng/L (<3.5-35.0)
[2025-07-27 10:38] LABS: Platelet Count 82 X10*3/uL (160-400)
--- NOTE | 2025-07-27 10:40 | PC.NURSE ---
IV placed at this time, pt placed on monitor at this time, primary RN aware
[2025-07-27] MEDS: Magnesium Sulfate/H2O 2 GM/50 ML PIGGYBACK IV (10:43)
[2025-07-27] MEDS: PHENobarbitaL sodium 130 MG/ML IM ONCE 338 MG IM (11:32)
[2025-07-27] MEDS: iohexoL 350 MG/ML 100 ML INFUS..BTL IV (11:35)
--- OUTSIDE RECORDS SUMMARY | 2025-07-27 11:39 | XMS_ITS | Encounter Summary ---
Author Organization [facility] Address [address] [place] [address] [place] [phone] Phone Care Team Providers Care Outbound Sales Specialist Name Role Phone Stanley Grewal Primary Care Provider + Encounter Details Date Type Department Care Team (Late st Contact Info) Description 12/03/2021 Procedure Pass [facility], Ct Scan - [address] [address] Social History Tobacco Use Types Packs/Day Years Used Date Smoking Tobacco: Never Smokeless Tobacco: Never Alcohol Use Standard Drinks/Week Comments Yes 0 (1 standard drink = 0.6 oz pure alcohol) Recently 7-8 shots per day over past 2 weeks Sex and Gender Information Value Date Recorded Sex Assigned at Male 07/10/2020 9:27 PM EDT Legal Sex Male 8:58 PM EDT Gender Identity Male 07/10/2020 9:27 PM EDT Sexual Orientation Straight 07/10/2020 9: 27 PM EDT documented as of this encounter Functional Status * Calculated C-SSRS Risk Score (Lifetime/Recent) Answer Date of Assessment Author No Risk Indicated 12/03/2021 1:56 PM Jasmin Seo RN * [place] Suicide Severity Rating Scale (Screener/Recent Self-Report) Question Answer Date of Assessment Author 1. Wish to be (Past 1 Month) No 12/03/2021 1:56 PM Jasmin Fortune RN 2. Non-Specific Active Suici marilee Thoughts (Past 1 Month) No 12/03/2021 1:56 PM Hortencia Fortune RN 6. Suicidal Behavior (Lifetime) No 02/20/202 2 1:56 PM Jasmin Fortune RN documented as of this encounter Plan of Treatment Not on file documented as of this encounter Visit Diagnoses Not on filedocumented in this encounter Care Teams Outbound Sales Specialist Relationship Specialty Start Date End Date Stanley Grewal PA [address] [place] [address] PCP - General 07/10/20 documented as of this encounter Additional Source Comments The information contained in this document represents components of the legal health record. It is not the complete legal health record.[facility]
--- OUTSIDE RECORDS SUMMARY | 2025-07-27 11:39 | XMS_ITS | Clinical Summary ---
Author Organization [facility] Address [address] [place] [address] Phone Care Team Providers Care Rug Measurer Name Role Phone Physician, No Pcp Primary Care Provider Unavaila ble Allergies No known active allergies Medications No known medications Active Problems No known active problems Social History Tobacco Use Types Packs/Day Years [...] of 2 - Risk 2-dose series) 2011 HPV Vaccines (1 - 3-dose SCDM series) 2019 Depression Screening 10/14/2024 HIV Screening 03/24/2025 Social Influencers of Health Screening 03/24/2025 COVID-19 Vaccine ( season) 2025 11/06/2021, 02/26/2021, 02/05/2021 Influenza Vaccine (#1) 2025 2010, 2008 DTaP,Tdap,and Td Vaccines (8 - Td or Tdap) 04/28/2030 04/28/2020, 01/14/2008, 09/29/1996, Additional history exists RSV Immunization Adult Patients (1 - 1-dose 75+ series) 2067 Hepatitis B Vaccines Completed 06/20/1993, 1992, 1992 [...] this topic Hepatitis C Screening Completed 12/04/2021 Meningococcal B Vaccine Aged Out No l onger eligible based on patient's age to complete this topic Pneumococcal Vaccine: Pediatrics (0 to 5 Years) and At-Risk Patients (6 to 49 Years) Aged Out No longer eligible based on patient's age to complete this topic RSV Immunization Patients Under 20 months Aged Out No longer eligible based on patient's age to complete this topic Insurance [facility] MEDICAID ADVANTAGE Care Teams Rug Measurer Relationship Specialty Start Date End Date Physician, No Pcp PCP - General 03/23/25
--- OUTSIDE RECORDS SUMMARY | 2025-07-27 11:39 | XMS_ITS | Encounter Summary ---
Author Organization [facility] Address [address] [facility] [address] [place] [phone] Phone Care Team Providers Care Senior Medical Director Name Role Phone Stanley Grewal Primary Care Provider + Encounter Details Date Type Department Care Team (Late st Contact Info) Description 01/22/2025 Procedure Pass [facility], Ct Scan - [address] [address] Social History Tobacco Use Types Packs/Day Years [...] your housing situation today? I have elsa josesito 01/22/2025 How many times have you moved in the past 12 mon ths? One time 01/22/2025 Paying for Meds [...] Date of Assessment Author No Risk Indicated 01/22/2025 7:10 PM EDT Cathy Pickard RN * [place] Suicide Severity Rating Scale (Screener/Recent Self-Report) Question Answer Date of Assessment Author 1. Wish to be (Past 1 Month) No 025 7:10 PM EDT Cathy Pickard RN 2. Non-Specific Active Suici marilee Thoughts (Past 1 Month) No 01/22/2025 7:10 PM EDT Waleska Pickard RN 6. Suicidal Behavior (Lifetime) No 7:10 PM EDT Cathy Pickard RN documented as of this encounter Plan of Treatment Not on file documented as of this encounter Visit Diagnoses Not on filedocumented in this encounter Care Teams Senior Medical Director Relationship Specialty Start Date End Date Stanley Grewal PA [address] [place] [id number] PCP - General 07/10/20 documented as of this encounter Additional Source Comments The information contained in this document represents components of the legal health record. It is not the complete legal health record.[facility]
--- OUTSIDE RECORDS SUMMARY | 2025-07-27 11:39 | XMS_ITS | Encounter Summary ---
Author Organization [facility] Address [address] [facility] [address] [place] [phone] Phone Care Team Providers Care Paste Up Artist Apprentice Name Role Phone Stanley Grewal Primary Care Provider + Encounter Details Date Type Department Care Team (Late st Contact Info) Description 07/10/2020 Procedure Pass [facility], Ct Scan - [address] [address] Social History Tobacco Use Types Packs/Day Years Used Date Smoking Tobacco: Never Smokeless Tobacco: Never Alcohol Use Standard Drinks/Week Comments Yes 0 (1 standard drink = 0.6 oz pur e alcohol) Sex and Gender Information Value Date Recorded Sex Assigned at Male 07/10/2020 9:27 PM EDT Legal Sex Male 8:58 PM EDT Gender Identity Male 07/10/2020 9:27 PM EDT Sexual Orientation Straight 07/10/2020 9: 27 PM EDT documented as of this encounter Plan of Treatment Not on file documented as of this encounter Visit Diagnoses Not on filedocumented in this encounter Care Teams Paste Up Artist Apprentice Relationship Specialty Start Date End Date Stanley Grewal PA [address] [place] [address] PCP - General 07/10/20 documented as of this encounter Additional Source Comments The information contained in this document represents components of the legal health record. It is not the complete legal health record.[facility]
--- OUTSIDE RECORDS SUMMARY | 2025-07-27 11:39 | XMS_ITS | Clinical Summary ---
Author Organization [facility] Address [address] [place] [phone] Phone Care Team Providers Care Brim Edge Trimmer Name Role Phone Stanley Grewal Primary Care Provider + Allergies No known active allergies Medications allopurinol (ZYLOPRIM) 100 MG tablet Take 100 mg by mouth daily. 4 Active famotidine (PEPCID) 20 MG tablet Take 1 tablet (20 mg total) by mouth 2 (two) times a day. 20 tablet 5 Active ondansetron (ZOFRAN-ODT) 4 MG disintegrating tablet Take 1 tablet (4 mg total) by mouth every 8 (eight) hours as needed for nausea. 15 tablet 5 Active chlordiazePOXIDE (LIBRIUM) 25 MG capsule Take 1 capsule (25 mg total) by mouth 3 (three) times a day as needed for anxiety (withdrawals ). 9 capsule 5 Active colchicine (COLCRYS) 0.6 mg tablet Take 1 tablet (0.6 mg total) by mouth 2 (two) times a day. 20 tablet 5 Active Active Problems Problem Noted Date Diagnosed Date Acute idiopathic gout of right knee 08/23/2024 Assessment & Plan (08/24/2024 8:39 AM EST): Hx gout normally on suppressive allopurinol Recently treated for a flare with colchicine approximately 2 weeks ago Now having marked pain in his right knee with swelling, warmth, prolonged- rec ortho consult/outpt ortho fu if not improving depending on course. Will give Toradol 15 mg every 8 hours for 5 doses and prednisone started to avoid nsaids. Both of these may aggravate his gastritis so we will monitor for worsening symptoms and continue aggressive treatment with twice daily PPI and Carafate in the interim Assessment & Plan (08/23/2024 9:26 AM EST): Has a history of gout normally on suppressive allopurinol Recently treated for a flare with colchicine approximately 2 weeks ago Now having marked pain in his right knee with swelling, warmth Will give Toradol 15 mg every 8 hours for 5 doses and begin prednisone today so that we can stop the Toradol tomorrow Both of these may aggravate his gastritis so we will monitor for worsening symptoms and continue aggressive treatment with twice daily PPI and Carafate in the interim Epigastric pain 08/21/2024 Assessment & Plan (08/24/2024 8:39 AM EST): presented with sudden onset of epigastric pain rating to the back with associated nausea but no vomiting. This is in the setting of binge drinking for the past week with 10-12 shots of whiskey per day, last drink yesterday. Suspected alcohol related pancreatitis, however labs and CT do not support. More likely gastritis vs possible PUD. Pain much better after 24 hours PPI and carafate supporting gastritis diagnosis. - advance diet -continue protonix 40 mg bid -continue carafate 1g qid -may have oxycodone prn -avoiding tylenol due to elevated LFTS - IV Zofran as needed for nausea -monitoring for worsening sx as gout now needs acute treatment Assessment & Plan (08/23/2024 9:26 AM EST): Patient presented with sudden onset of epigastric pain rating to the back with associated nausea but no vomiting. This is in the setting of binge drinking for the past week with 10-12 shots of whiskey per day, last drink yesterday. Suspected alcohol related pancreatitis, however labs and CT do not support. More likely gastritis vs possible PUD. Pain much better after 24 hours PPI and carafate supporting gastritis diagnosis. -Tolerating PO liquids--advance diet -continue protonix 40 mg bid -continue carafate 1g qid -DC morphine -may have oxycodone prn -avoiding tylenol due to elevated LFTS - IV Zofran as needed for nausea -monitoring for worsening sx as gout now needs acute treatment Assessment & Plan (08/22/2024 10:08 AM EST): Patient presented with sudden onset of epigastric pain rating to the back with associated nausea but no vomiting. This is in the setting of binge drinking for the past week with 10-12 shots of whiskey per day, last drink yesterday. Suspected alcohol related pancreatitis, however labs and CT do not support. More likely gastritis vs possible PUD. . -s/p 1 L LR at 150cc/hr, now tolerating PO liquids -protonix 40 mg bid -carafate 1g qid -if not better in 24 hours, GI consult for EGD -Continue IV morphine 4 mg every 4 hours as needed for severe pain -avoiding tylenol due to elevated LFTS - IV Zofran as needed for nausea Assessment & Plan (08/22/2024 1:40 AM EST): Patient presented with sudden onset of epigastric pain rating to the back with associated nausea but no vomiting. This is in the setting of binge drinking for the past week with 10-12 shots of whiskey per day, last drink yesterday. Suspect alcohol related pancreatitis. Although there is no significant lipase elevation or CT finding. Wonder if they may be an element of acute on chronic pancreatitis versus gastritis/PUD. No signs symptoms of infectious allergy. Remains afebrile hemodynamically stable. -Patient will be observed on MedSurg -Repeat CBC and CMP - Will give 1 L LR at 150cc/hr -Encourage oral intake with clears and advance as tolerated -Continue IV morphine 4 mg every 4 hours as needed for severe pain -Start IV Protonix along with Carafate - IV Zofran as needed for nausea -Consider discussion with GI to determine if upper endoscopy would be appropriate inpatient versus outpatient Acute hepatitis 12/03/2021 Assessment & Plan (08/24/2024 8:39 AM EST): 2/2 ETOH, mild with evidence of transaminitis Bili up but trending down. CT with hepatosplenomegaly and fatty liver Will check US but doubt cholestasis -Advised abstaining from alcohol; consider naltrexone -trend LFTs Assessment & Plan (08/23/2024 9:26 AM EST): Evidence of mild alcohol hepatitis with evidence of transaminitis Bili slightly up today CT with hepatosplenomegaly and fatty liver Will check US but doubt cholestasis -Advised abstaining from alcohol; may be interested in naltrexone -Continue to monitor repeat labs Assessment & Plan (08/22/2024 10:08 AM EST): Evidence of mild alcohol hepatitis with evidence of transaminitis with 2:1 AST/ALT. -Advised abstaining from alcohol -Continue to monitor repeat labs Assessment & Plan (08/22/2024 1:40 AM EST): Evidence of mild alcohol hepatitis with evidence of transaminitis with 2:1 AST/ALT. -Advised abstaining from alcohol -Continue to monitor repeat labs Assessment & Plan (12/05/2021 10:21 AM EST): Suspected this is secondary to excessive alcohol use. No family history of liver disease. US without evidence of stones or ductal dilation. Alcohol abuse 07/11/2020 Assessment & Plan (08/24/2024 8:39 AM EST): Binge/weekend drinking- Interestingly, patient was positive for barbiturates in the urine toxicology. Patient adamantly denies any illicit drug use or recent phenobarbital. CT abdomen shows fatty liver and enlarged spleen likely secondary to alcohol use. No evidence of pancreatitis. -Social work consult for substance use -Consider naltrexone -Continue alcohol withdrawal assessment, no evidence of JANA -Multivitamin, thiamine, folic acid Assessment & Plan (08/23/2024 9:26 AM EST): Patient is a binge drinker mostly on the weekends. States he binged this past week due to his birthday. Interestingly, patient was positive for barbiturates in the urine toxicology. Patient adamantly denies any illicit drug use or recent phenobarbital. CT abdomen shows fatty liver and enlarged spleen likely secondary to alcohol use. No evidence of pancreatitis. -Social work consult for substance use -Consider naltrexone -Continue alcohol withdrawal assessment, no evidence of JANA -Multivitamin, thiamine, folic acid Assessment & Plan (08/22/2024 10:08 AM EST): Patient is a binge drinker mostly on the weekends. States he binged this past week due to his birthday. Interestingly, patient was positive for barbiturates in the urine toxicology. Patient adamantly denies any illicit drug use or recent phenobarbital. CT abdomen shows fatty liver and enlarged spleen likely secondary to alcohol use. No evidence of pancreatitis. -Social work consult for substance use -Consider naloxone or Antabuse -Continue alcohol withdrawal assessment, consider IV phenobarbital if needed; no evidence of JANA this morning. -Multivitamin, thiamine, folic acid Assessment & Plan (08/22/2024 1:40 AM EST): Patient is a binge drinker mostly on the weekends. States he binged this past week due to his birthday. Interestingly, patient was positive for barbiturates in the urine toxicology. Patient adamantly denies any illicit drug use or recent phenobarbital. CT abdomen shows fatty liver and enlarged spleen likely secondary to alcohol use. -Social work consult for substance use -May discussed with patient regarding alcohol cessation medications such as naloxone or Antabuse -Continue alcohol withdrawal assessment, may consider IV phenobarbital if needed -Multivitamin, thiamine, folic acid Assessment & Plan (12/05/2021 10:23 AM EST): The patient's last alcoholic drink was almost 4 days ago. His blood pressure is elevated in the setting of pain. He did not have significant alcohol withdrawal on last admission in June 2020. Not feel that he is having any significant alcohol withdrawal signs. No anxiety or agitation no tremor, only pain. Start thiamine, folate, and multivitamin. Assessment & Plan (07/12/2020 11:24 AM EDT): The patient is not a daily drinker. CIWA low. Patient does have abnormal LFTs which will need to be followed. He is instructed to follow-up with his primary care provider this week and also with gastroenterology within 4 to 6 weeks for follow-up regarding abnormal LFTs and recurrent pancreatitis. Resolved Problems Problem Noted Date Diagnosed Date Resolved Date Acute recurrent pancreatitis 07/11/2020 08/23/2024 Assessment & Plan (12/05/2021 10:22 AM EST): suspect this is secondary to excessive alcohol use. No CT evidence of mass, but he does have an area in the pancreatic tail that could be indicative of necrosis. No evidence for biliary disease. Discussed with clive Hernandezay to advance diet as his pain is improving and he feels hungry. Low-fat. Decrease the fluid rate to 125 cc an hour and repeat labs in the morning. Assessment & Plan (07/12/2020 11:26 AM EDT): The patient presents with acute alcohol-related pancreatitis. It does not appear severe by laboratory studies nor CT scan though he is highly symptomatic. He is admitted for pain control and as he is unable to keep down even liquids. Patient states that this is his third episode this year. Each time there has been less alcohol needed to trigger the episode. No prescriptions or OTC medications. Given that he escalates to pancreatitis very quickly after drinking, he should have an MRCP as an outpatient to make sure there is not a divisum. MassPAT was negative Eating, no nausea or vomiting, no pain this morning. Total bilirubin is still abnormal at 1.6, transaminases mildly elevated, will need PCP follow-up. Concern for mild alcoholic hepatitis. Fatty liver seen on CT. Vital signs stable, no fever Immunizations Immunization Administration Dates Next Due COVID-19 (Pre-08/05) Pfizer Vaccine, mRNA, PF ,02/05/2021 Family History Medical History Relation Comments Asthma Maternal Grandmother Asthma Mother Hypertension Mother Asthma Sister Relation Status Comments Maternal Grandmother Mother Sister Social History Tobacco Use Types Packs/Day Years Used Date Smoking Tobacco: Never Smokeless Tobacco: Never Tobacco Cessation:Counseling Given: Not Answered Alcohol Use Standard Drinks/Week Comments Yes 0 [...] your housing situation today? I have elsa bellamy 01/22/2025 How many times have you moved [...] Orientation Straight 07/10/2020 9: 27 PM EDT Last Filed Vital Signs Vital Sign Reading Time Taken Comments Blood Pressure 132/80 04/18/2025 10:19 AM EDT Pulse 96 04/18/2025 10:19 AM EDT Temperature 36.9 C (98.4 F) 04/18/2025 10:19 AM EDT Respiratory Rate 18 04/18/2025 10:19 AM EDT Oxygen Saturation 99% 04/18/2025 11:28 AM EDT Inhaled Oxygen Concentration - - Weight 104.3 kg (230 lb) 04/18/2025 10:19 AM EDT Height 190.5 cm (6' 3 ) 04/18/2025 10:19 AM EDT Body Mass Index 28.75 04/18/2025 10:19 AM EDT Plan of Treatment Health Maintenance Due Date Last Done Comments DEPRESSION SCREENING 2004 HIV ONE-TIME SCREENING (18-65 YEARS) 2010 HEPATITIS A VACCINES (1 of 2 - Risk 2-dose series) 2011 PNEUMOCOCCAL VACCINES (0-49 years) (1 of 2 - PCV) 2011 INFLUENZA VACCINE (#1) 2025 COVID-19 VACCINE ( season) 2025 11/06/2021, 02/26/2021, 02/05/2021 CREATININE LEVEL 01/22/2026 01/22/2025, , 08/24/2024, Additional history exists Adult Td,Tdap Booster 04/28/2030 04/28/2020, 008 HEPATITIS C SCREENING Completed 12/04/2021 SMOKING STATUS SCREENING (Once After 26 Yrs) Completed 01/04/2025 HIB VACCINES Aged Out No longer eligi ble based on patient's age to complete this topic MENINGOCOCCAL VACCINES (ACWY) Aged Out No longer eligible based on patient's age to complete this topic MENINGOCOCCAL VACCINES (B) Aged Out N o longer eligible based on patient's age to complete this topic Medical Devices Not on file Procedures Procedure Name Priority Date/Time Associated Diagnosis Comments BASIC METABOLIC PANEL STAT 01/22/2025 7:59 PM EDT HEPATITIS C ANTIBODY, QUALITATIVE Routine 12/04/2021 5:56 AM EST from Last 3 Months or Most Recently Relevant to Health Maintenance Results * (ABNORMAL) Basic metabolic panel (01/22/2025 7:59 PM EDT) SODIUM 140 133 - 146 mmol/L [facility] CHLORIDE 102 96 - 108 mmol/L [facility] POTASSIUM 3.3 3.3 - 5.1 mmol/L [facility] CO2 25 21 - 35 mmol/L [facility] BUN 5(L) 6 - 19 mg/dL [facility] CREATININE 0.60 0.5 - 1.5 mg/dL [facility] GLUCOSE 103(H) 70 - 99 mg/dL [facility] CALCIUM 9.3 8.4 - 10.3 mg/dL [facility] EGFR >120 >59 mL/min/1.7 3m2 [facility] Comment:Estimated glomerular filtration rate calculated using the CKD-EPI refit equation. ANION GAP 16 10 - 20 mmol/L [facility] Blood 01/22/2025 7:59 PM EDT 01/22/2025 8:21 PM EDT us Crow Carrillo MD LAB BLOOD ORDERABLES Fin al Result Performing Organization Address City/[facility]/ZIP Co de Phone Number [address] [phone] * Hepatitis C antibody, qualitative (12/04/2021 5:56 AM EST) HCV NON-REACTIV E NON-REACTI VE [facility] Blood 12/04/2021 5:56 AM EST 12/04/2021 6:25 AM EST us Galindo Jones MD LAB BLOOD ORDERABLES Fin al Result Performing Organization Address City/[facility]/ZIP Co de Phone Number [address] [phone] from Last 3 Months or Most Recently Relevant to Health Maintenance Insurance HMO HE[employer] SAF[employer]Y NET PARTIAL Member Subscriber Plan / Payer (Ef fective 2025-Present) Name:Randall Aguilar Relation to Subscriber:Self Name:JeffRandall Payer ID:Not on file Group ID:Not on file Type:Medicaid Address: [place] [id number] [facility] [employer] NET PARTIAL [facility] [employer] NET PARTIAL [facility] HMO [facility] [employer] NET PARTIAL [facility] HMO [facility] NET PARTIAL Advance Directives For more information, please contact: [phone] (9AM - 5PM [place], Saturday-Saturday) * Full Code (Latest Code Status on File) Date Activated Date Inactivated Comments 08/22/2024 12:23 AM Question Answer Comments Code Status Confirmed With: Patient Code Status Communicated To: Inpatient Attending * Full Code Date Activated Date Inactivated Comments 12/03/2021 5:26 PM 08/22/2024 12:23 AM Question Answer Comments Code Status Confirmed With: Patient * Full Code Date Activated Date Inactivated Comments 07/11/2020 2:20 AM 12/03/2021 5:26 PM Question Answer Comments Code Status Confirmed With: Patient Care Teams Brim Edge Trimmer Relationship Specialty Start Date End Date Stanley Grewal PA [facility] [place] [address] PCP - General 07/10/20 Additional Source Comments The information contained in this document represents components of the legal health record. It is not the complete legal health record.[facility]
--- OUTSIDE RECORDS SUMMARY | 2025-07-27 11:39 | XMS_ITS | Encounter Summary ---
Author Organization [facility] Address [address] [facility] [address] [place] [phone] Phone Care Team Providers Care Automatic Lehr Operator Name Role Phone Stanley Grewal Primary Care Provider + Encounter Details Date Type Department Care Team (Late st Contact Info) Description 01/04/2025 Procedure Pass [facility], Ct Scan - [address] [address] Social History Tobacco Use Types Packs/Day Years [...] got money to buy more. Never True 08/24/2024 Within the past 6 months the food we bought just didn't last and we didn't have enough money to get more. Never True Residential Stability Answer Date Recor ded What is your housing situation today? I have elsa sing 08/24/2024 How many times have you move d in the past 12 months? Zero (I did not move) 08/24/2024 Paying for Meds Answer Date Recorded Do you have trouble paying for medicines? No 08/24/2024 Paying Utility Bills Answer Date Record ed Do you have trouble paying your heating or elect ricity bill? No 08/24/2024 Transportation Answer Date Recorded Has the lack of transportati on kept you from medical appointments or from getting medications? No 08/24/2024 Digital Access Answer Date Recorded No 08/24/2024 Yes 08/24/2024 Do you have reliable internet access at home? Ye s 08/24/2024 Do you have a device (e.g., phone, tablet, computer) with a working camera? Yes 08/24/2024 Intimate Partner Violence Answer Date R ecorded Are you denied basic needs s uch as food, clothing, or medical care? No 01/04/2025 In the past 12 months have y ou been in a relationship with a person who hurts, threatens, or tries to control you? No 01/04/2025 Are you denied basic needs s uch as food, clothing, or medical care? No 01/04/2025 In the past 12 months have y ou been in a relationship with a person who hurts, threatens, or tries to control you? No 01/04/2025 Sex and Gender Information Value Date Recorded Sex Assigned at Male 07/10/2020 9:27 PM EDT Legal Sex Male 8:58 PM EDT Gender Identity Male 07/10/2020 9:27 PM EDT Sexual Orientation Straight 07/10/2020 9: 27 PM EDT documented as of this encounter Functional Status * Calculated C-SSRS Risk Score (Lifetime/Recent) Answer Date of Assessment Author No Risk Indicated 01/04/2025 6:34 AM EDT Katina Lott RN * [place] Suicide Severity Rating Scale (Screener/Recent Self-Report) Question Answer Date of Assessment Author 1. Wish to be (Past 1 Month) No 01/04/2025 6:34 AM STANLEYT Katina Lott RN 2. Non-Specific Active Suicidal Thoughts (Past 1 Month) No 01/04/2025 6:34 AM STANLEYT Katina Lott RN 6. Suicidal Behavior (Lifetime) No 01/04/2025 6:34 AM STANLEYT Katina Lott RN documented as of this encounter Plan of Treatment Not on file documented as of this encounter Visit Diagnoses Not on filedocumented in this encounter Care Teams Automatic Lehr Operator Relationship Specialty Start Date End Date Stanley Grewal PA [address] [place] [id number] PCP - General 07/10/20 documented as of this encounter Additional Source Comments The information contained in this document represents components of the legal health record. It is not the complete legal health record.[facility]
--- OUTSIDE RECORDS SUMMARY | 2025-07-27 11:39 | XMS_ITS | Encounter Summary ---
Author Organization [facility] Address [address] [facility] [address] [place] [address] Phone Care Team Providers Care Rigging Foreman Name Role Phone Stanley Grewal Primary Care Provider + Encounter Details Date Type Department Care Team (Late st Contact Info) Description 08/21/2024 Procedure Pass [facility], Ct Scan - [address] [address] Social History Tobacco Use Types Packs/Day Years [...] as food, clothing, or medical care? No 08/21/2024 In the past 12 months have y ou been in a relationship with a person who hurts, threatens, or tries to control you? No 08/21/2024 Are you denied basic needs s uch as food, clothing, or medical care? No 08/21/2024 In the past 12 months have y ou been in a relationship with a person who hurts, threatens, or tries to control you? No 08/21/2024 Sex and Gender Information Value Date Recorded Sex Assigned at Male 07/10/2020 9:27 PM EDT Legal Sex Male 8:58 PM EDT Gender Identity Male 07/10/2020 9:27 PM EDT Sexual Orientation Straight 07/10/2020 9: 27 PM EDT documented as of this encounter Functional Status * Calculated C-SSRS Risk Score (Lifetime/Recent) Answer Date of Assessment Author No Risk Indicated 08/21/2024 4:43 PM Katina Ibarra RN * [place] Suicide Severity Rating Scale (Screener/Recent Self-Report) Question Answer Date of Assessment Author 1. Wish to be (Past 1 Month) No 08/21/2024 4:43 PM Katina Ibarra RN 2. Non-Specific Active Suicidal Thoughts (Past 1 Month) No 08/21/2024 4:43 PM Katina Ibarra RN 6. Suicidal Behavior (Lifetime) No 08/21/2024 4:43 PM Katina Ibarra RN documented as of this encounter Plan of Treatment Not on file documented as of this encounter Visit Diagnoses Not on filedocumented in this encounter Care Teams Rigging Foreman Relationship Specialty Start Date End Date Stanley Grewal PA [address] [place] [address] PCP - General 07/10/20 documented as of this encounter Additional Source Comments The information contained in this document represents components of the legal health record. It is not the complete legal health record.[facility]
--- NOTE | 2025-07-27 12:11 | PM.IMHP ---
History of Present Illness Date of Service: 07/27/25 Chief Complaint: Alcohol withdrawal 34-year-old man with a history of alcohol abuse, gout presented to the ER with complaints of nausea, vomiting and epigastric abdominal pain. He reports that he went to vacation to [place] and has been drinking at least 10-15 drinks of whiskey a day for the last 5 days. He stated that he felt shaky and tingling in his hands and face. He denied fever, chills, recent illness, properly cooked foods. He is cagey about how much alcohol he actually drinks and stated that he only drinks on the weekends. It is likely he drinks more alcohol than he is endorsing. He also reported pain to his right foot due to gout which he often gets and reported that when he went to get a dose because of this acute flare of gout he realized that he had no more medication. In the ER, he was noted to have magnesium of 1.2, total bilirubin 2.0, AST 183, ALT 83, abdominal pelvic CT showed mild hepatosplenomegaly with diffuse hepatic steatosis he was given IV magnesium, Zofran, IV fluid, morphine, phenobarbital, thiamine in the ER. He will be admitted for further management and treatment of acute alcohol withdrawal symptoms with gastritis and acute on chronic gout flare. Review of Systems Review of Systems: Denies any recent fever chills or decrease in appetite respiratory denies any shortness of breath or cough cardiovascular denied chest pain gastrointestinal see HPI genitourinary denies any dysuria frequency or hematuria musculoskeletal denies any joint pain or swelling neuropsych denies any weakness or seizures all other systems reviewed are negative [facility] Medical History Transaminitis Alcohol use disorder HTN (hypertension) Surgical History History of appendectomy Social History Household Members: Spouse Housing: House Do you presently have visiting nurse or other home services: No Alcohol intake: current Alcohol intake frequency: a few times a week Alcohol type: hard liquor Patient Tobacco Use Status: Never used Tobacco e-Cigarette/Vaping Use: Currently Using Second Hand Smoke Exposure: No Substance Use Type: Marijuana service: No Current occupational status: employed Current occupational exposures/hazards: No Cognitive needs: No Hearing needs: No Vision needs: Yes (contact/glasses) Meds Allergies Allergy/AdvReac Type Severity Reaction Status Date / Time No Known Allergies (No Known Allergy Verified 07/27/25 09:25 Allergies*) Active Medications: Current Medications Acetaminophen (Acetaminophen 325 Mg Tablet) 650 mg PO Q6H PRN PRN Reason: Pain, Mild 1-3,fever,headache Calcium Carbonate (Calcium Carbonate 750 Mg Tab.Chew) 750 mg PO Q4H PRN PRN Reason: Heartburn Enoxaparin Sodium (Enoxaparin Sodium 40 Mg/0.4 Ml Syringe) 40 mg SUBCUT Q24H TODD Magnesium Hydroxide (Milk Of Magnesia 30 Ml Oral.Susp) 30 ml PO DAILY PRN PRN Reason: Constipation Melatonin (Melatonin 3 Mg Tablet) 6 mg PO BEDTIME PRN PRN Reason: Insomnia Ondansetron HCl (Ondansetron Hcl 4 Mg/2 Ml Vial) 4 mg IVPUSH Q8H PRN PRN Reason: Nausea and Vomiting Pharmacy Consult (Consult Rx Etoh Phenob Im/Po) 1 each MISCELLANE ONCE PRN; Protocol PRN Reason: Consult order Phenobarbital (Phenobarbital 30 Mg Tablet) 60 mg PO BID TODD; Protocol Stop: 07/29/25 21:01 Phenobarbital (Phenobarbital 30 Mg Tablet) 30 mg PO BID TODD; Protocol Stop: 07/31/25 21:01 Phenobarbital (Phenobarbital 30 Mg Tablet) 30 mg PO DAILY TODD; Protocol Stop: 08/02/25 09:01 Phenobarbital Sodium (Phenobarbital Sodium 130 Mg/Ml Vial Im Q3hx2) 254 mg IM Q3H TODD; Protocol Stop: 07/27/25 17:01 Sodium Chloride (0.9 % Sodium Chloride Flush 3 Ml Syringe) 3 ml IVFLUSH QSHIFT COUNT INCLUDES THE [facility] Home Medications ?Medication ?Instructions ?Recorded ?Confirmed ?Last Taken ?Type colchicine 0.6 mg capsule 0.6 mg PO DAILY PRN gout flare 11/29/24 07/27/25 07/22/25 History Physical Exam Vital Signs and Narrative: Vital Signs: Last Vital Signs Temp 98 F 07/27/25 09:23 Pulse 87 07/27/25 09:23 Resp 18 07/27/25 09:23 BP 165/89 H 07/27/25 09:23 Pulse Ox 98 07/27/25 09:23 O2 Del Method Room Air 07/27/25 09:23 BMI result Body Mass Index 27.0 Appearing in no acute distress head is normocephalic atraumatic eyes pupils are PERRLA sclera is anicteric mouth throat mucous membranes are intact and moist neck is supple no lymphadenopathy, no JVD noted lung sounds are clear to auscultation heart regular rate rhythm, clear S1, S2 positive bowel sounds, abdomen is soft, nontender neuro patient is alert x3, no focal deficits right foot gout Results Labs 07/28/25 07:01 07/29/25 07:47 Labs: Laboratory Results - last 24 hr 07/27/25 07/27/25 09:48 09:51 MCV 92.6 MCH 33.1 H MCHC 35.8 RDW 13.6 Plt Count 82 L D MPV 10.0 Immature Gran % (Auto) 0.3 Neut % (Auto) 66.9 Lymph % (Auto) 22.0 [place] % (Auto) 7.6 Eos % (Auto) 2.4 Baso % (Auto) 0.8 Lymph # (Auto) 0.8 L [place] # (Auto) 0.3 Eos # (Auto) 0.1 Baso # (Auto) 0.0 Abs Immat Gran (auto) 0.01 Absolute Neuts (auto) 2.5 Absolute Nucleated RBC 0.000 Nucleated RBC % (auto) 0.0 Anion Gap 15 Estim Creat Clear Calc 226.3 Estimated GFR > 60 Random Glucose 129 H Uric Acid 9.2 H Calcium 9.1 Magnesium 1.2 L* Total Bilirubin 2.0 H Direct Bilirubin 0.8 H AST 183 H ALT 83 H Alkaline Phosphatase 92 Troponin I High Sens < 2.7 Total Protein 7.7 Albumin 4.9 Lipase 39 Urine Color Dark Yellow Urine Appearance Clear Urine pH 6.0 Ur Specific [place] 1.020 Urine Protein 100 (2+) H Urine Glucose (UA) Negative Urine Ketones Trace Urine Blood Negative Urine Nitrite Negative Ur Leukocyte Esterase Trace H Urine RBC 0-2 Urine WBC 0-5 Ur Squamous Epith Cells 3-5 Urine Bacteria None Seen Hyaline Casts 6-10 Imaging Radiologist's Impressions: Impressions Abdomen/Pelvis CT 07/27/25 11:16 IMPRESSION: 1. Mild hepatomegaly with diffuse hepatic steatosis. No suspicious hepatic lesion. 2. Sigmoid diverticulosis without evidence of acute diverticulitis. Electronically signed by: Jesus Morales MD 07/27/2025 11:49 AM EDT RP Assessment and Plan (1) Alcohol withdrawal: Qualifiers: Complication of substance-induced condition: uncomplicated Qualified Code(s): F10.930 - Alcohol use, unspecified with withdrawal, uncomplicated Status: Acute Plan 34-year-old man presenting with alcohol withdrawal, nausea, vomiting and abdominal pain. Reported that he went on vacation and drank for 5 days straight and started having epigastric pain. Gastritis Likely secondary to alcohol intake IV PPI Discussed the importance of avoiding alcohol If no improvement consider Gastroenterology consultation for possible EGD Alcohol abuse Reports that he only drinks on the weekends but is likely down playing the amount of alcohol he actually drinks Started on phenobarbital IV thiamine Folic acid and multivitamin IV fluids Add protein to diet Transaminitis Secondary to alcohol abuse Acute on chronic Gout flare History of gout in the past likely secondary to alcohol use start colchicine as patient reported that he ran out of home medication Pancytopenia Stable and likely secondary to alcohol abuse DVT prophylaxis Lovenox Full code Patient require at least 2 midnight for alcohol abuse and withdrawal requiring medication to control any withdrawal symptoms as well as gastritis from alcohol intake requiring IV medication. He is also noted to have a gout flare which requires pain management. Quality Stroke Does the patient have a stroke diagnosis?: No VTE Prior VTE?: No VTE Risk Level:: Medical - moderate - high VTE Device Contraindication: Treatment Not Indicated VTE Drug Contraindication: N/A - Med Ordered
[2025-07-27] MEDS: Thiamine HCL 200 MG in 0.9 % Sodium Chloride 100 ML 204 MG IV (13:00)
[2025-07-27 13:17] VITALS: BP 141/89; PULSE 77; RESP 15; TEMP 36.8; O2SAT 95
--- NOTE | 2025-07-27 14:21 | PHA.MEDREC ---
Addendum entered by Jason Suero RPh 07/27/25 14:30: Reviewed by [facility] Original Note: Pharmacy Consult ? Medication Reconciliation Pharmacy has completed the medication reconciliation. Patient states he is only taking Colchicine 0.6 mg daily prn, last dose was 07/23/25.
[2025-07-27] MEDS: PHENobarbitaL sodium 130 MG/ML VIAL IM Q3Hx2 254 MG IM ×2 (15:20→18:37)
[2025-07-27] MEDS: 0.9 % Sodium Chloride Flush 3 ML SYRINGE IVFLUSH (16:27)
[2025-07-27 16:28] VITALS: BP 143/92; PULSE 73; RESP 16; TEMP 36.8; O2SAT 96
--- NOTE | 2025-07-27 17:05 | HO.ADDICTCON ---
History of Present Illness Date of Service: 07/27/2025 Chief Complaint: alcohol withdrawal electrolyte abnormalities Reason for Consult: AUD HPI Narrative: Patient is a 34 year old male with history of AUD, who presented to [facility] ED c/o abdominal pain, n/v in the context of heavy drinking for several days. Found to have elevated liver enzymes, low magnesium and acute withdrawal sx--subsequently medically admitted. Patient seen in ED room 9. He is awake, alert, pleasant and engaged in interview. Reports withdrawal sx improving, but still experiencing abdominal pain--as well as pain in is foot from gout flare. He is mildly tremulous, with elevated BP. VS otherwise WNL. He reports long history with binge drinking-states he normally drinks only on the weekend or if he is away on vacation, which is where he was last week. He acknowledges that while on vacation, he tends to drink more than he plans (whiskey) and does not eat enough. He reports history of MAGGIE (naltrexone). Discussed taking naltrexone PRN or just on the weekends as he identifies this is when he tends to drink. Reviewed how alcohol is impacting other areas of health, such as exacerbating gout flare ups, gastritis, electrolyte imbalances, and overall well being. Review of Systems Constitutional: Reports as per HPI Diagnostics Vital Signs (24Hr): Vital Signs - 24 hr 07/27/25 09:23 07/27/25 13:17 07/27/25 16:28 Temperature 98 F 98.3 F 98.3 F Pulse Rate 87 77 73 Respiratory Rate 18 15 16 Blood Pressure 165/89 H 141/89 H 143/92 H Pulse Oximetry 98 95 96 Oxygen Delivery Method Room Air Room Air Room Air BMI result Body Mass Index 27.0 Labs 07/27/25 09:51 07/27/25 09:51 Labs: Laboratory Results - last 48 hr 07/27/25 07/27/25 09:48 09:51 WBC 3.7 L RBC 4.44 L Hgb 14.7 Hct 41.1 L MCV 92.6 MCH 33.1 H MCHC 35.8 RDW 13.6 Plt Count 82 L D MPV 10.0 Immature Gran % (Auto) 0.3 Neut % (Auto) 66.9 Lymph % (Auto) 22.0 [place] % (Auto) 7.6 Eos % (Auto) 2.4 Baso % (Auto) 0.8 Lymph # (Auto) 0.8 L [place] # (Auto) 0.3 Eos # (Auto) 0.1 Baso # (Auto) 0.0 Abs Immat Gran (auto) 0.01 Absolute Neuts (auto) 2.5 Absolute Nucleated RBC 0.000 Nucleated RBC % (auto) 0.0 Sodium 140 Potassium 3.7 Chloride 106 Carbon Dioxide 23 Anion Gap 15 BUN 5 L Creatinine 0.56 Estim Creat Clear Calc 226.3 Estimated GFR > 60 Random Glucose 129 H Uric Acid 9.2 H Calcium 9.1 Magnesium 1.2 L* Total Bilirubin 2.0 H Direct Bilirubin 0.8 H AST 183 H ALT 83 H Alkaline Phosphatase 92 Troponin I High Sens < 2.7 Total Protein 7.7 Albumin 4.9 Lipase 39 Urine Color Dark Yellow Urine Appearance Clear Urine pH 6.0 Ur Specific [place] 1.020 Urine Protein 100 (2+) H Urine Glucose (UA) Negative Urine Ketones Trace Urine Blood Negative Urine Nitrite Negative Ur Leukocyte Esterase Trace H Urine RBC 0-2 Urine WBC 0-5 Ur Squamous Epith Cells 3-5 Urine Bacteria None Seen Hyaline Casts 6-10 Imaging Radiology Impressions: ITS Impressions Abdomen/Pelvis CT 07/27/25 11:16 IMPRESSION: 1. Mild hepatomegaly with diffuse hepatic steatosis. No suspicious hepatic lesion. 2. Sigmoid diverticulosis without evidence of acute diverticulitis. Electronically signed by: Jesus Morales MD 07/27/2025 11:49 AM EDT Mental Status Exam Mental Status Exam Patient Appearance: Well Grooomed Patient Orientation: Person, Place, Time and Situation Level of Consciousness: Awake, Appropriate and Alert Patient Behavior: Appropriate and Talkative Affect Description: Calm Speech Pattern: Clear Thought Process: Intact Thought Content: positive for Intact Medications Medications Current Medications Acetaminophen (Acetaminophen 325 Mg Tablet) 650 mg PO Q6H PRN PRN Reason: Pain, Mild 1-3,fever,headache Calcium Carbonate (Calcium Carbonate 750 Mg Tab.Chew) 750 mg PO Q4H PRN PRN Reason: Heartburn Colchicine (Colchicine 0.6 Mg Tablet) 0.6 mg PO DAILY COUNT INCLUDES THE [facility] Last Admin: 07/27/25 13:46 Dose: 0.6 mg Enoxaparin Sodium (Enoxaparin Sodium 40 Mg/0.4 Ml Syringe) 40 mg SUBCUT Q24H COUNT INCLUDES THE [facility] Last Admin: 07/27/25 13:02 Dose: Not Given Folic Acid (Folic Acid 1 Mg Tablet) 1 mg PO DAILY COUNT INCLUDES THE [facility] Last Admin: 07/27/25 13:00 Dose: 1 mg Hydromorphone HCl (Hydromorphone Hcl 0.5 Mg/0.5 Ml Syringe) 0.5 mg IVPUSH Q4H PRN; Protocol PRN Reason: Pain, Severe (Pain Scale 7-10) Last Admin: 07/27/25 16:26 Dose: 0.5 mg Thiamine HCl 100 mg/ Sodium (Chloride) 101 mls @ 202 mls/hr IV DAILY COUNT INCLUDES THE [facility] Magnesium Hydroxide (Milk Of Magnesia 30 Ml Oral.Susp) 30 ml PO DAILY PRN PRN Reason: Constipation Melatonin (Melatonin 3 Mg Tablet) 6 mg PO BEDTIME PRN PRN Reason: Insomnia Multivitamins/Vitamin C (Multivitamin Tablet) 1 tab PO DAILY COUNT INCLUDES THE [facility] Last Admin: 07/27/25 13:00 Dose: 1 tab Ondansetron HCl (Ondansetron Hcl 4 Mg/2 Ml Vial) 4 mg IVPUSH Q8H PRN PRN Reason: Nausea and Vomiting Pantoprazole Sodium (Pantoprazole Sodium 40 Mg/10 Ml Vial) 40 mg IVPUSH BID@0630,1630 COUNT INCLUDES THE [facility] Last Admin: 07/27/25 16:27 Dose: 40 mg Pharmacy Consult (Consult Rx Etoh Phenob Im/Po) 1 each MISCELLANE ONCE PRN; Protocol PRN Reason: Consult order Phenobarbital (Phenobarbital 30 Mg Tablet) 60 mg PO BID COUNT INCLUDES THE [facility]; Protocol Stop: 07/29/25 21:01 Phenobarbital (Phenobarbital 30 Mg Tablet) 30 mg PO BID COUNT INCLUDES THE [facility]; Protocol Stop: 07/31/25 21:01 Phenobarbital (Phenobarbital 30 Mg Tablet) 30 mg PO DAILY COUNT INCLUDES THE [facility]; Protocol Stop: 08/02/25 09:01 Sodium Chloride (0.9 % Sodium Chloride Flush 3 Ml Syringe) 3 ml IVFLUSH QSHIFT COUNT INCLUDES THE [facility] Last Admin: 07/27/25 16:27 Dose: 3 ml Allergies Allergies Allergy/AdvReac Type Severity Reaction Status Date / Time No Known Allergies (No Known Allergy Verified 07/27/25 09:25 Allergies*) Assessment & Plan Assessment & Plan (1) Alcohol use disorder: Status: Acute Assessment and Plan: withdrawal improving with phenobarbital protocol-still mildly tremulous open to naltrexone PRN and on the weekends to reduce amount of alcohol intake during drinking episodes-rx to be sent to home pharmacy risk reduction discussion, including taking MVI /b complex once at home 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 PMFSH Past Medical History Medical History Transaminitis Alcohol use disorder HTN (hypertension) Surgical History Surgical History History of appendectomy Social History Social History Household Members: Significant Other Housing: House Do you presently have visiting nurse or other home services: No Alcohol intake: current Alcohol intake frequency: a few times a week Alcohol type: hard liquor Patient Tobacco Use Status: Never used Tobacco Smoked in Last 30 Days: No e-Cigarette/Vaping Use: Currently Using Second Hand Smoke Exposure: No Substance Use Type: Marijuana Advance Directives: No Advance Directives Information Provided: No Do you have a plan to hurt others: No Plan service: No Current occupational status: employed Current occupational exposures/hazards: No Cognitive needs: No Hearing needs: No Vision needs: Yes (contact/glasses)
[2025-07-27 19:59] VITALS: BP 134/84; PULSE 74; RESP 24; TEMP 36.9; O2SAT 95
[2025-07-28] VITALS (7 sets, daily range): BP systolic 132–143; BP diastolic 76–89; PULSE 65–82; RESP 11–20; TEMP 36.7–37.2; O2SAT 93–96; BMI 26.5
[2025-07-28 07:33] LABS: Hematocrit 36.9 % (42.0-52.0); Hemoglobin 12.7 g/dl (14.0-18.0); Mean Corpuscular HGB Conc 34.4 g/dl (31.0-36.0); Mean Corpuscular Hemoglobin 32.9 pg (27.0-33.0); Mean Corpuscular Volume 95.6 fL (80.0-98.0); NRBC Abs Auto 0.000 X10*3/uL (0.0-0.012); NRBC Pct Auto 0.0 /100WBC (0.0-0.2); Platelet Count 61 X10*3/uL (160-400); Red Blood Count 3.86 X10*6/uL (4.60-5.80); White Blood Count 2.8 X10*3/uL (4.8-10.8)
[2025-07-28] MEDS: Thiamine HCL 100 MG in 0.9 % Sodium Chloride 100 ML 202 MG IV (08:21)
--- NOTE | 2025-07-28 08:47 | MHC.CM.PN ---
CM met with Patient at bedside. Patient lives in a house with his Girlfriend in [facility]. Patient may benefit from a Recovery Team Consult to assist with disposition; CM has initiated and will follow for dc planning. PCP/PA is Stanley Grewal and Girlfriend, Mother or Brother will transport at dc.
[2025-07-28 11:33] LABS: Alanine Aminotransferase 60 U/L (0-40); Albumin Level 4.1 g/dL (3.5-5.0); Anion Gap 12 (12-20); Aspartate Amino Transferase 127 U/L (5-37); Blood Urea Nitrogen < 3 mg/dL (9-16); Calcium 8.1 mg/dL (8.4-10.2); Carbon Dioxide 26 mmol/L (22-29); Chloride 104 mmol/L (96-108); Creatinine Clr Calc Pharmacy 218.5; Estimated Glomerular Filt Rate > 60; Magnesium 1.6 mg/dL (1.6-2.6); Potassium 3.0 mmol/L (3.3-5.1); Sodium 139 mmol/L (135-145); Total Protein 6.5 g/dL (6.5-8.0)
[2025-07-28 12:02] LABS: Alkaline Phosphatase 62 U/L (39-117)
--- NOTE | 2025-07-28 14:24 | MHC.RECOVRN ---
Patient had a positive screen for unhealthy alcohol use on admission, subsequently, met with this entry writer to discuss alcohol use, recovery supports, and concerns related to increased risk of alcohol related problems.? On approach pt was sitting in bed, watching TV. He denies current withdrawal symptoms and states he is feeling ?a lot better??? Patient reports consuming ?about 5-6 drinks of whiskey, about ? glass each? on Saturday and Saturday. He also reports? when he is on vacation he will generally drink more. He states this past weekend he consumed at least ?10-15 drinks for like 5 days, but that?s not typical?. ?I drink after work, on the weekends, and if it gets out of hand my girlfriend will tell me, but it usually doesn't?? Pt states his mother has been abstinent from alcohol for 10 years and if he felt he had an issue he could speak with her about it. Discussed how alcohol use has impacted health, including negative impact on mental health and overall physical well being.? Discussed risk and reduction strategies including drinking below the recommended limit.? Provided pt with written resources including information on inpatient and outpatient treatment, MAGGIE, harm reduction and recovery coaching.?? Pt declines intervention, MAGGIE, or outpatient appt for treatment related to AUD at this time.? Pt was provided with TW?s contact information if questions or concerns arise. Pt denies further questions or concerns at this time.? Please see Recovery/ [place] for further information.
--- NOTE | 2025-07-28 16:41 | P.PNIM_ITS ---
Subjective Subjective Date of Service: 07/29/25 Interval History: Patient reports feeling comfortable with current medication regimen. Denies any tremulousness, hallucinations, anxiety, palpitations. Overall the patient feels by well as per his reports. He does endorse some mild epigastric pain and discomfort He is aware that his symptoms have improved due to medication regimen presenting symptoms of withdrawal at this time Review of Systems Review of Systems: Yes all other systems are reviewed and are negative Physical Exam 2 Exam: Exam: General: A&O x3, oriented to time place person and situation, comfortable, no pain Cardiac: S1, S2 auscultated with no S3/4, no MRG. Well perfused. Respiratory: Normal breath sounds auscultated throughout all lung zones, without wheezing, rales. Normal rate. GI/ : No abdominal pain on palpation, no masses or distentions. MSK: Normal ambulation without pain at bony prominences or musculature Neurological: Normal neurological examination on overview, without obvious CN II-XII abnormalities. Vital Signs: Vital Signs: Last Vital Signs Temp 99.0 F 07/28/25 15:10 Pulse 65 07/28/25 15:10 Resp 20 07/28/25 15:10 BP 143/87 H 07/28/25 15:10 Pulse Ox 95 07/28/25 15:10 O2 Del Method Room Air 07/28/25 15:10 BMI result Body Mass Index 26.5 Objective Data Active Medications Acetaminophen (Acetaminophen 325 Mg Tablet) 650 mg PO Q6H PRN PRN Reason: Pain, Mild 1-3,fever,headache Calcium Carbonate (Calcium Carbonate 750 Mg Tab.Chew) 750 mg PO Q4H PRN PRN Reason: Heartburn Colchicine (Colchicine 0.6 Mg Tablet) 0.6 mg PO DAILY [facility] Last Admin: 07/28/25 08:21 Dose: 0.6 mg Documented By: FLACO Enoxaparin Sodium (Enoxaparin Sodium 40 Mg/0.4 Ml Syringe) 40 mg SUBCUT Q24H [facility] Last Admin: 07/28/25 15:07 Dose: Not Given Documented By: FLACO Non-Admin Reason: Patient Refused Folic Acid (Folic Acid 1 Mg Tablet) 1 mg PO DAILY [facility] Last Admin: 07/28/25 08:22 Dose: 1 mg Documented By: FLACO Hydromorphone HCl (Hydromorphone Hcl 0.5 Mg/0.5 Ml Syringe) 0.5 mg IVPUSH Q4H PRN; Protocol PRN Reason: Pain, Severe (Pain Scale 7-10) Last Admin: 07/28/25 14:53 Dose: 0.5 mg Documented By: FLACO Thiamine HCl 100 mg/ Sodium (Chloride) 101 mls @ 202 mls/hr IV DAILY [facility] Last Infusion: 07/28/25 09:00 Dose: Infused Documented By: FLACO Sodium Chloride (Ns) 1,000 mls @ 125 mls/hr IVCONT .Q8H [facility] Last Admin: 07/28/25 14:54 Dose: 125 mls/hr Documented By: FLACO Magnesium Hydroxide (Milk Of Magnesia 30 Ml Oral.Susp) 30 ml PO DAILY PRN PRN Reason: Constipation Melatonin (Melatonin 3 Mg Tablet) 6 mg PO BEDTIME PRN PRN Reason: Insomnia Last Admin: 07/27/25 23:38 Dose: 6 mg Documented By: CHERI Multivitamins/Vitamin C (Multivitamin Tablet) 1 tab PO DAILY [facility] Last Admin: 07/28/25 08:22 Dose: 1 tab Documented By: FLACO Ondansetron HCl (Ondansetron Hcl 4 Mg/2 Ml Vial) 4 mg IVPUSH Q8H PRN PRN Reason: Nausea and Vomiting Pantoprazole Sodium (Pantoprazole Sodium 40 Mg/10 Ml Vial) 40 mg IVPUSH BID@0630,1630 [facility] Last Admin: 07/28/25 06:37 Dose: 40 mg Documented By: JACKELYN Pharmacy Consult (Consult Rx Etoh Phenob Im/Po) 1 each MISCELLANE ONCE PRN; Protocol PRN Reason: Consult order Phenobarbital (Phenobarbital 30 Mg Tablet) 60 mg PO BID [facility]; Protocol Stop: 07/29/25 21:01 Last Admin: 07/28/25 08:22 Dose: 60 mg Documented By: FLACO Phenobarbital (Phenobarbital 30 Mg Tablet) 30 mg PO BID [facility]; Protocol Stop: 07/31/25 21:01 Phenobarbital (Phenobarbital 30 Mg Tablet) 30 mg PO DAILY [facility]; Protocol Stop: 08/02/25 09:01 Sodium Chloride (0.9 % Sodium Chloride Flush 3 Ml Syringe) 3 ml IVFLUSH QSHIFT [facility] Last Admin: 07/28/25 08:23 Dose: Not Given Documented By: FLACO Non-Admin Reason: IV Running Labs 07/28/25 07:01 07/29/25 07:47 Labs: Laboratory Results - last 24 hr 07/28/25 07/28/25 07:01 08:30 MCV 95.6 MCH 32.9 MCHC 34.4 RDW 13.7 Plt Count 61 L D MPV 10.0 Absolute Nucleated RBC 0.000 Nucleated RBC % (auto) 0.0 Anion Gap 12 Estim Creat Clear Calc 218.5 Estimated GFR > 60 Random Glucose 106 Calcium 8.1 L D Magnesium 1.6 Total Bilirubin 2.0 H AST 127 H ALT 60 H Alkaline Phosphatase 62 Total Protein 6.5 Albumin 4.1 Urine Osmolality 442 Ur Random Sodium 130.0 Urine Creatinine 105.22 Assessment and Plan (1) Alcohol use disorder: Status: Acute (2) Alcohol withdrawal: Status: Acute (3) HTN (hypertension): Status: Acute (4) Acute alcoholic gastritis: Status: Acute (5) Elevated liver enzymes: Status: Acute (6) Acute pancreatitis: Status: Acute (7) Hypomagnesemia: Status: Acute (8) Insomnia: Status: Acute Plan 34-year-old male with a background history of alcohol abuse presents with complaints of nausea vomiting and epigastric abdominal pain, admitted with alcoholic gastritis, admitted for withdrawal. Gastritis Likely secondary to alcohol intake IV PPI Discussed the importance of avoiding alcohol If no improvement consider Gastroenterology consultation for possible EGD Alcohol abuse Reports that he only drinks on the weekends but is likely down playing the amount of alcohol he actually drinks Started on phenobarbital IV thiamine Folic acid and multivitamin IV fluids Add protein to diet Transaminitis Secondary to alcohol abuse Acute on chronic Gout flare History of gout in the past likely secondary to alcohol use start colchicine as patient reported that he ran out of home medication Pancytopenia Stable and likely secondary to alcohol abuse [facility] [employer] - VTE: Enoxaparin - CODE STATUS: Full code - DIET: Regular Total time managing care of this patient today: 35 minutes. Quality Stroke Does the patient have a stroke diagnosis?: No VTE Prior VTE?: No VTE Risk Level:: Medical - moderate - high VTE Device Contraindication: Treatment Not Indicated VTE Drug Contraindication: N/A - Med Ordered
[2025-07-28] MEDS: 0.9 % Sodium Chloride Flush 3 ML SYRINGE IVFLUSH (20:30)
[2025-07-28] MEDS: Potassium Chloride Packet 20 MEQ PACKET 40 MEQ PO (23:48)
[2025-07-29 03:16] VITALS: BP 136/79; PULSE 69; RESP 18; TEMP 36.3; O2SAT 97
[2025-07-29 07:01] VITALS: BP 138/82; PULSE 67; RESP 18; TEMP 36.4; O2SAT 94
[2025-07-29] MEDS: Thiamine HCL 100 MG in 0.9 % Sodium Chloride 100 ML 202 MG IV (08:08)
[2025-07-29 08:22] LABS: Anion Gap 12 (12-20); Blood Urea Nitrogen 3 mg/dL (9-16); Calcium 8.6 mg/dL (8.4-10.2); Carbon Dioxide 25 mmol/L (22-29); Chloride 107 mmol/L (96-108); Creatinine Clr Calc Pharmacy 234.7; Estimated Glomerular Filt Rate > 60; Magnesium 1.7 mg/dL (1.6-2.6); Potassium 3.5 mmol/L (3.3-5.1); Sodium 140 mmol/L (135-145)
[2025-07-29 11:06] VITALS: BP 145/87; PULSE 69; RESP 18; TEMP 36.7; O2SAT 95
--- NOTE | 2025-07-29 14:25 | HO.PM.IMPN ---
Subjective Subjective Date of Service: 07/29/25 Interval History: Abdominal pain has resolved and improved significantly compared to yesterday. Patient has no evidence of tremulousness, nystagmus, anxiety or palpitations. He is eager to be discharged. He received 60 mg phenobarbital this morning, and recommended the patient to remain overnight without further doses of phenobarbital to determine if he is at risk of further withdrawal. He is in agreement with plan. Holding phenobarbital dose tonight and tomorrow morning Review of Systems Review of Systems: Yes all other systems are reviewed and are negative Physical Exam Exam: Exam: General: A&O x3, oriented to time place person and situation, comfortable, no pain Cardiac: S1, S2 auscultated with no S3/4, no MRG. Well perfused. Respiratory: Normal breath sounds auscultated throughout all lung zones, without wheezing, rales. Normal rate. GI/ : No abdominal pain on palpation, no masses or distentions. MSK: Normal ambulation without pain at bony prominences or musculature Neurological: Normal neurological examination on overview, without obvious CN II-XII abnormalities. Vital Signs: Vital Signs: Last Vital Signs Temp 98.0 F 07/29/25 11:06 Pulse 69 07/29/25 11:06 Resp 18 07/29/25 11:06 BP 145/87 H 07/29/25 11:06 Pulse Ox 95 07/29/25 11:06 O2 Del Method Room Air 07/29/25 11:06 BMI result Body Mass Index 26.5 Objective Data Active Medications Acetaminophen (Acetaminophen 325 Mg Tablet) 650 mg PO Q6H PRN PRN Reason: Pain, Mild 1-3,fever,headache Calcium Carbonate (Calcium Carbonate 750 Mg Tab.Chew) 750 mg PO Q4H PRN PRN Reason: Heartburn Colchicine (Colchicine 0.6 Mg Tablet) 0.6 mg PO DAILY [facility] Last Admin: 07/29/25 08:08 Dose: 0.6 mg Documented By: FLACO Enoxaparin Sodium (Enoxaparin Sodium 40 Mg/0.4 Ml Syringe) 40 mg SUBCUT Q24H [facility] Last Admin: 07/29/25 12:34 Dose: Not Given Documented By: FLACO Non-Admin Reason: Patient Refused Folic Acid (Folic Acid 1 Mg Tablet) 1 mg PO DAILY [facility] Last Admin: 07/29/25 08:09 Dose: 1 mg Documented By: FLACO Hydromorphone HCl (Hydromorphone Hcl 0.5 Mg/0.5 Ml Syringe) 0.5 mg IVPUSH Q4H PRN; Protocol PRN Reason: Pain, Severe (Pain Scale 7-10) Last Admin: 07/29/25 12:34 Dose: 0.5 mg Documented By: FLACO Thiamine HCl 100 mg/ Sodium (Chloride) 101 mls @ 202 mls/hr IV DAILY [facility] Last Infusion: 07/29/25 08:30 Dose: Infused Documented By: FLACO Ibuprofen (Ibuprofen 400 Mg Tablet) 400 mg PO Q8H [facility] Last Admin: 07/29/25 08:08 Dose: 400 mg Documented By: FLACO Magnesium Hydroxide (Milk Of Magnesia 30 Ml Oral.Susp) 30 ml PO DAILY PRN PRN Reason: Constipation Melatonin (Melatonin 3 Mg Tablet) 6 mg PO BEDTIME PRN PRN Reason: Insomnia Last Admin: 07/28/25 23:48 Dose: 6 mg Documented By: JACKELYN Multivitamins/Vitamin C (Multivitamin Tablet) 1 tab PO DAILY [facility] Last Admin: 07/29/25 08:09 Dose: 1 tab Documented By: FLACO Ondansetron HCl (Ondansetron Hcl 4 Mg/2 Ml Vial) 4 mg IVPUSH Q8H PRN PRN Reason: Nausea and Vomiting Pantoprazole Sodium (Pantoprazole Sodium 40 Mg/10 Ml Vial) 40 mg IVPUSH BID@0630,1630 [facility] Last Admin: 07/29/25 05:59 Dose: 40 mg Documented By: JACKELYN Pharmacy Consult (Consult Rx Etoh Phenob Im/Po) 1 each MISCELLANE ONCE PRN; Protocol PRN Reason: Consult order Phenobarbital (Phenobarbital 30 Mg Tablet) 60 mg PO BID [facility]; Protocol Stop: 07/29/25 21:01 Last Admin: 07/29/25 08:09 Dose: 60 mg Documented By: FLACO Phenobarbital (Phenobarbital 30 Mg Tablet) 30 mg PO BID [facility]; Protocol Stop: 07/31/25 21:01 Phenobarbital (Phenobarbital 30 Mg Tablet) 30 mg PO DAILY [facility]; Protocol Stop: 08/02/25 09:01 Sodium Chloride (0.9 % Sodium Chloride Flush 3 Ml Syringe) 3 ml IVFLUSH QSHIFT [facility] Last Admin: 07/29/25 08:06 Dose: Not Given Documented By: FLACO Non-Admin Reason: IV Running Labs 07/28/25 07:01 07/29/25 07:47 Labs: Laboratory Results - last 24 hr 07/29/25 07:47 Anion Gap 12 Estim Creat Clear Calc 234.7 Estimated GFR > 60 Random Glucose 107 Calcium 8.6 D Magnesium 1.7 Assessment and Plan (1) Alcohol use disorder: Status: Acute (2) Alcohol withdrawal: Status: Acute (3) HTN (hypertension): Status: Acute (4) Acute alcoholic gastritis: Status: Acute (5) Elevated liver enzymes: Status: Acute (6) Hypomagnesemia: Status: Acute (7) Gout: Status: Acute Plan 34-year-old male with a background history of alcohol abuse presents with complaints of nausea vomiting and epigastric abdominal pain, admitted with alcoholic gastritis, admitted for withdrawal. Gastritis Likely secondary to alcohol intake IV PPI Discussed the importance of avoiding alcohol If no improvement consider Gastroenterology consultation for possible EGD Alcohol abuse Reports that he only drinks on the weekends but is likely down playing the amount of alcohol he actually drinks Started on phenobarbital taper. IV thiamine Folic acid and multivitamin IV fluids Add protein to diet Hold phenobarbital tonight and tomorrow morning Transaminitis Secondary to alcohol abuse Acute on chronic Gout flare History of gout in the past likely secondary to alcohol use Continue colchicine 0.6 mg OD p.o. Continue ibuprofen 400 mg t.i.d. Pancytopenia Stable and likely secondary to alcohol abuse [facility] [employer] - VTE: Enoxaparin - CODE STATUS: Full code - DIET: Regular Quality Stroke Does the patient have a stroke diagnosis?: No VTE Prior VTE?: No VTE Risk Level:: Medical - moderate - high VTE Device Contraindication: Treatment Not Indicated VTE Drug Contraindication: N/A - Med Ordered
[2025-07-29 15:26] VITALS: BP 147/87; PULSE 75; RESP 20; TEMP 36.4; O2SAT 94
[2025-07-29] MEDS: 0.9 % Sodium Chloride Flush 3 ML SYRINGE IVFLUSH (17:11)
[2025-07-29 20:00] VITALS: BP 155/93; PULSE 69; RESP 16; TEMP 36.8; O2SAT 97
[2025-07-29 23:21] VITALS: BP 144/90; PULSE 75; RESP 18; TEMP 36.6; O2SAT 95
[2025-07-30 03:07] VITALS: BP 130/79; PULSE 70; RESP 18; TEMP 36.2; O2SAT 96
[2025-07-30 07:23] VITALS: BP 139/85; PULSE 75; RESP 20; TEMP 36.6; O2SAT 94
[2025-07-30] MEDS: Thiamine HCL 100 MG in 0.9 % Sodium Chloride 100 ML 202 MG IV (08:56)
[2025-07-30] MEDS: 0.9 % Sodium Chloride Flush 3 ML SYRINGE IVFLUSH (08:59)
--- NOTE | 2025-07-30 09:07 | PM.DS ---
DS: Providers Provider Date of Service: 07/30/25 Date of admission: 07/27/25 12:08 Date of discharge: 07/30/25 Primary care physician: Stanley Grewal PA-C Consults: 07/27/25 12:08 Addiction Medicine Provider Routine Consulting Provider: Addiction Covering Reason for consultation: ETOH DS: Diagnosis Discharge Diagnosis (1) Alcohol withdrawal: Status: Acute DS: Summary Hospital Course Hospital Course: 34-year-old male with a background history of alcohol abuse presents with complaints of nausea vomiting and epigastric abdominal pain, admitted with alcoholic gastritis, admitted for withdrawal. PRESENTATION The patient reports that he was on vacation in [facility] and he had his last drink yesterday around 15:00. Today he states that he feels shaky with tingling in his hands and face. He endorses nausea and vomiting, last episode of emesis was around 6:30 this morning. He currently has epigastric abdominal pain and states that this is his biggest concern. He is also having pain in his right foot due to gout. He states that he ran out of his colchicine while he was on vacation so he has started to flare. He states that he has hardly had water and feels very dehydrated. Gastritis Possible mild alcoholic pancreatitis Secondary to alcohol intake IV PPI was started - continue in outpatient setting PO PPI Discussed the importance of avoiding alcohol Consider outpatient GI if EtOH cessation does not continue Alcohol abuse Reports that he only drinks on the weekends but is likely down playing the amount of alcohol he actually drinks Started on phenobarbital taper - successfully weaned off. IV thiamine -> PO Folic acid and multivitamin IV fluids were started and patient currently euvolemic Transaminitis Secondary to alcohol abuse Has been improving Acute on chronic Gout flare History of gout in the past likely secondary to alcohol use Continue colchicine 0.6 mg OD p.o. Continue ibuprofen 400 mg t.i.d. Pancytopenia Stable and likely secondary to alcohol abuse with BM suppression. FU in outpatient setting with labs as appropriate to ensure improvement. Thiamine, folic acid. No need for Iron currently unless evidence of DAR persists Status at Discharge Functional status at discharge: independent ambulation Overall status at discharge: patient is back to baseline Time Attestation Total time managing care of this patient today: 35 mintues. Discharge Coordination Time (in mins): 15 Quality: Safe Use of Opioids Does Pt have an Active Cancer Diagnosis on the Problem List?: No Quality: Stroke Does the patient have a stroke diagnosis?: No Physical Exam Exam: Exam: General: A&O x3, oriented to time place person and situation, comfortable, no pain Cardiac: S1, S2 auscultated with no S3/4, no MRG. Well perfused. Respiratory: Normal breath sounds auscultated throughout all lung zones, without wheezing, rales. Normal rate. GI/ : No abdominal pain on palpation, no masses or distentions. MSK: Normal ambulation without pain at bony prominences or musculature Neurological: Normal neurological examination on overview, without obvious CN II-XII abnormalities. Vital Signs: Vital Signs: Last Vital Signs Temp 97.9 F 07/30/25 07:23 Pulse 75 07/30/25 07:23 Resp 20 07/30/25 07:23 BP 139/85 07/30/25 07:23 Pulse Ox 94 07/30/25 07:23 O2 Del Method Room Air 07/30/25 07:23 BMI result Body Mass Index 26.5 DS: Data Data Completed and Pending Completed studies during hospitalization [Text1]: Procedures Detoxification Services for Substance Abuse Treatment (11/28/24) Discharge Plan Discharge Anticipated Discharge Date/Time: 07/30/25 09:10 Patient Disposition: Home, Self-Care Discharge Diagnosis: Acute alcohol withdrawal c/b gouty arthritis flare & acute alcoholic gastritis/ mild pancreatitis Referrals: Stanley Grewal PA-C [Primary Care Provider, Internal Medicine] - 1 Week Discharge Medications: New naltrexone 50 mg tablet 50 mg PO DAILY PRN (Reason: alcohol cravings ) 30 Days Qty: 30 0RF ibuprofen 400 mg Tablet 400 mg PO Q8H 14 Days Qty: 42 0RF folic acid 1 mg Tablet 1 mg PO DAILY 30 Days Qty: 30 0RF colchicine [Colcrys] 0.6 mg Tablet 0.6 mg PO DAILY 14 Days Qty: 14 0RF pantoprazole 40 mg tablet,delayed release (DR/EC) 40 mg PO DAILY Qty: 30 0RF thiamine HCl (vitamin B1) 100 mg tablet 100 mg PO DAILY Qty: 30 0RF Continued (DME) blood pressure test kit-large Kit See Rx Instructions .Route Qty: 1 0RF Rx Instructions: As directed Discontinued colchicine 0.6 mg capsule 0.6 mg PO DAILY PRN (Reason: gout flare) Patient Comments: Patient has been using daily for ~1 week (11/29/24) Discharge Orders: Discharge Order (Routine); Ordered 07/30/25 Ordered By: Shameka Odom Diet: Advance to usual diet Activity on Discharge: As tolerated Stand Alone Forms: Patient Portal Discharge page, Work/School Release Print Language: Greenlandic Care Plan Goals: as above Health Concerns: as above Plan of Treatment: - FU PCP within 1 week of discharge - FU outpatient addiction medicine service as appropriate - FU on pancytopenia in setting of BM suppression w/t EtOH use in 1-3 mo as appropriate - Continue colchecine & ibuprofen for 14 days ; take pantopraziole with these medications daily. - Continue pantoprazole for 30 days until ends Assessment: Haemodynamically stable for dischage
--- NOTE | 2025-07-30 09:26 | MHC.CM.PN ---
Patient has been medically cleared for dc to home today, self care.
== END 2025-07-30 13:18 | disposition home or self-care (01) | DRG 282 ==
LOC: HO.ED 11:57 → HO.EDOVER 12:21 → HO.IMC 07-28 01:50
PROVIDERS: Internal Medicine; Admitting Provider Nurse Practitioner Acute Care; Emergency Provider Emergency Medicine; PCP Physician Assistant; Visit Provider Hospitalist
DX: K85.20 Alcohol induced acute pancreatitis without necrosis or infection (principal); D61.818 Other pancytopenia; F10.139 Alcohol abuse with withdrawal, unspecified; E83.42 Hypomagnesemia; K29.20 Alcoholic gastritis without bleeding; M10.9 Gout, unspecified; Z79.899 Other long term (current) drug therapy
CPT/HCPCS: 36415; 74177; 80048; 80053; 80076; 81001; 81003; 82570; 83690; 83735; 83935; 84300; 84484; 84550; 85025; 85027; 93005; 99285; J1171; J1885; J2270; J2405; J2470; J2560; J3411; J3475; Q9967; S9485

== ENCOUNTER → 2025-07-27 09:26 | Outpatient (BNV) | payer OTHER, SELFPAY | PROVIDERS: Admitting Provider Nurse Practitioner Acute Care; Emergency Provider Emergency Medicine; PCP Physician Assistant; Visit Provider Internal Medicine Cardiovascular Disease | DX: R10.13 Epigastric pain (principal) | CPT/HCPCS: 93010 ==

== ENCOUNTER → 2025-07-27 10:35 | Outpatient (BNV) | payer OTHER, SELFPAY | PROVIDERS: Emergency Provider Emergency Medicine; PCP Physician Assistant; Visit Provider Radiology Diagnostic Radiology | DX: K57.30 Diverticulosis of large intestine without perforation or abscess without bleeding (principal); K76.0 Fatty (change of) liver, not elsewhere classified; R16.0 Hepatomegaly, not elsewhere classified | CPT/HCPCS: 74177 ==

== ENCOUNTER → 2025-07-27 12:08 | Outpatient (BNV) | payer OTHER, SELFPAY | PROVIDERS: Admitting Provider Nurse Practitioner Acute Care; Emergency Provider Emergency Medicine; PCP Physician Assistant; Visit Provider Hospitalist | DX: F10.930 Alcohol use, unspecified with withdrawal, uncomplicated (principal) | CPT/HCPCS: 99223; 99232; 99239 ==

== ENCOUNTER → 2025-07-27 12:08 | Outpatient (BNV) | payer OTHER, SELFPAY | PROVIDERS: Admitting Provider Nurse Practitioner Acute Care; Emergency Provider Emergency Medicine; PCP Physician Assistant; Visit Provider Nurse Practitioner Psychiatric/Mental Health | DX: F10.90 Alcohol use, unspecified, uncomplicated (principal) | CPT/HCPCS: 99222 ==

== ENCOUNTER → 2025-08-16 13:09 | Outpatient (BNVA) | payer OTHER, SELFPAY | PROVIDERS: PCP Physician Assistant; Visit Provider Emergency Medicine | DX: S06.0X0A Concussion without loss of consciousness, initial encounter (principal); S00.81XA Abrasion of other part of head, initial encounter; Y04.2XXA Assault by strike against or bumped into by another person, initial encounter; R51.9 Headache, unspecified | CPT/HCPCS: 99202 ==

== ENCOUNTER → 2025-08-20 12:46 | Outpatient (BNVA) | payer OTHER, SELFPAY | PROVIDERS: PCP Physician Assistant; Visit Provider Emergency Medicine | DX: S06.0X0A Concussion without loss of consciousness, initial encounter (principal); Y04.2XXA Assault by strike against or bumped into by another person, initial encounter | CPT/HCPCS: 99213 ==

== ENCOUNTER 2025-09-15 14:34 | Emergency (ER) | payer OTHER, SELFPAY ==
--- OUTSIDE RECORDS SUMMARY | 2021-12-11 15:50 | XMS_ITS | Encounter Summary ---
Author Organization [facility] Address [address] [facility] [address] [place] [phone] Phone Care Team Providers Care Senior Business Process Analyst Name Role Phone Stanley Grewal Primary Care Provider + Encounter Details Date Type Department Care Team (Late st Contact Info) Description 12/11/2021 3:50 PM EST Hospital Encounter [facility] [address] [place] [phone] Ofelia Espinal CNP [address] [place] [id number] [email or web address] Social History Tobacco Use Types Packs/Day Years Used Date Smoking Tobacco: Never Smokeless Tobacco: Never Alcohol Use Standard Drinks/Week Comments Yes 0 (1 standard drink = 0.6 oz pur e alcohol) Education Answer Date Recorded Are you interested in more education? Not on ba e 02/08/2023 Are you concerned about learning? Not on file 02/08/2023 No 02/08/2023 No 02/08/2023 Food Answer Date Recorded Within the past 6 months we worried whether our food would run out before we got money to buy more. Never True 01/22/2025 Within the past 6 months the food we bought just didn't last and we didn't have enough money to get more. Never True Residential Stability Answer Date Recor ded What is your housing situation today? I have elsa sing 01/22/2025 How many times have you moved in the past 12 sat ths? One time 01/22/2025 Paying for Meds Answer Date Recorded Do you have trouble paying for medicines? No 01/22/2025 Paying Utility Bills Answer Date Record ed Do you have trouble paying your heating or elect ricity bill? No 01/22/2025 Transportation Answer Date Recorded Has the lack of transportati on kept you from medical appointments or from getting medications? No 01/22/2025 Digital Access Answer Date Recorded No 01/22/2025 Yes 01/22/2025 Do you have reliable internet access at home? Ye s 01/22/2025 Do you have a device (e.g., phone, tablet, computer) with a working camera? Yes 01/22/2025 Intimate Partner Violence Answer Date R ecorded Are you denied basic needs s uch as food, clothing, or medical care? No 09/15/2025 In the past 12 months have y ou been in a relationship with a person who hurts, threatens, or tries to control you? No 09/15/2025 Are you denied basic needs s uch as food, clothing, or medical care? No 09/15/2025 In the past 12 months have y ou been in a relationship with a person who hurts, threatens, or tries to control you? No 09/15/2025 Sex and Gender Information Value Date Recorded Sex Assigned at Male 07/10/2020 9:27 PM EDT Legal Sex Male 8:58 PM EDT Gender Identity Male 07/10/2020 9:27 PM EDT Sexual Orientation Straight 07/10/2020 9: 27 PM EDT documented as of this encounter Functional Status * Calculated C-SSRS Risk Score (Lifetime/Recent) Answer Date of Assessment Author No Risk Indicated 09/15/2025 10:17 AM Arthur Gutierrez RN * [place] Suicide Severity Rating Scale (Screener/Recent Self-Report) Question Answer Date of Assessment Author 1. Wish to be (Past 1 Month) No 025 10:17 AM Arthur Gutierrez RN 2. Non-Specific Active Suici marilee Thoughts (Past 1 Month) No 09/15/2025 10:17 AM Arthur Gutierrez , DIANE 6. Suicidal Behavior (Lifetime) No 10:17 AM Arthur Gutierrez, DIANE documented as of this encounter Plan of Treatment Not on file documented as of this encounter Procedures Procedure Name Priority Date/Time Associated Diagnosis Comments XR FOOT 3 OR MORE VIEWS (RIGHT) Urgent/patient waiting 12/11/2021 3:58 PM EST Localized swelling of right foot documented in this encounter Results * XR FOOT 3 OR MORE VIEWS (RIGHT) (12/11/2021 3:58 PM EST) Anatomical Region Laterality Modality Foot Right Computed Radiogr aphy 12/11/2021 4:00 PM EST Impressions 12/11/2021 4:01 PM EST No fracture or dislocation. Narrative 12/11/2021 4:01 PM EST XR FOOT 3 OR MORE VIEWS (RIGHT) COMPARISON: None. FINDINGS: No fracture. Normal alignment. Normal joint spaces. No soft tissue swelling. Procedure Note Karen Lanza MD - 12/11/2021 XR FOOT 3 OR MORE VIEWS (RIGHT) COMPARISON: None. FINDINGS: No fracture. Normal alignment. Normal joint spaces. No soft tissueswelling. IMPRESSION: No fracture or dislocation. Ofelia Espinal MEDICAL ASSISTANT PER DIEM IMG XR LOWER EXTREMITY Lashay l Result documented in this encounter Visit Diagnoses Not on filedocumented in this encounter Care Teams Senior Business Process Analyst Relationship Specialty Start Date End Date Stanley Grewal PA [address] [place] [phone] PCP - General 07/10/20 documented as of this encounter Additional Source Comments The information contained in this document represents components of the legal health record. It is not the complete legal health record.[facility]
--- OUTSIDE RECORDS SUMMARY | 2025-09-15 10:17 | XMS_ITS | Encounter Summary ---
Author Organization [facility] Address [address] [address] Phone Care Team Providers Care Factory Engineer Name Role Phone Stanley Grewal Primary Care Provider + Reason for Visit * Reason Comments Foot Pain Encounter Details Date Type Department Care Team (Late st Contact Info) Description 09/15/2025 10:17 AM EST - 09/15/2025 11:57 AM EST Emergency [facility] [address] [place] [address] Discharge Disposition: Home or Self Care Social History Tobacco Use Types Packs/Day Years [...] PM EDT documented as of this encounter Last Filed Vital Signs Vital Sign Reading Time Taken Comments Blood Pressure 142/90 09/15/2025 11:53 AM EST Pulse 83 09/15/2025 11:53 AM EST Temperature 36.3 C (97.3 F) 09/15/2025 11:53 AM EST Respiratory Rate 18 09/15/2025 11:53 AM EST Oxygen Saturation 98% 09/15/2025 11:53 AM EST Inhaled Oxygen Concentration - - Weight 95.3 kg (210 lb) 09/15/2025 10:17 AM EST Height 190.5 cm (6' 3 ) 09/15/2025 10:17 AM EST Body Mass Index 26.25 09/15/2025 10:17 AM EST documented in this encounter Functional Status * Calculated C-SSRS Risk Score (Lifetime/Recent) Answer Date of Assessment Author No Risk Indicated 09/15/2025 10:17 AM EST Arthur White RN * [place] Suicide Severity Rating Scale (Screener/Recent Self-Report) Question Answer Date of Assessment Author 1. Wish to be (Past 1 Month) No 025 10:17 AM EST Arthur White RN 2. Non-Specific Active Suici marilee Thoughts (Past 1 Month) No 09/15/2025 10:17 AM EST Arthur White RN 6. Suicidal Behavior (Lifetime) No 10:17 AM EST Arthur White RN documented as of this encounter Discharge Instructions * Discharge Instructions* Kathya Nation PA-C - 09/15/2025 11:26 AM EST Take colchicine as needed 1-2 times a day until symptoms resolved. It is recommended that you take this for 1 to 2 days after symptoms have resolved to prevent recurrence. You may also take NSAID such as ibuprofen or Aleve to help reduce pain and treat the gout flare. Ice, elevate, reduce aggravating activities until your pain has resolved. You should then continue to take your allopurinol daily to prevent gout flares. Follow-up with your primary care doctor is also recommended. Return to ER if you have acutely worsening symptoms or other acute medical concerns. It was a pleasure caring for you today, I hope you feel better! * Attachments The following attachments cannot be sent through Care Everywhere. * Gout ([place]) documented in this encounter Medications at Time of Discharge allopurinol (ZYLOPRIM) 100 MG tablet Take 100 mg by mouth daily. 08/10/2024 chlordiazePOXIDE (LIBRIUM) 25 MG capsule Take 1 capsule (25 mg total) by mouth 3 (three) times a day as needed for anxiety (withdrawals) . 9 capsule 01/23/2025 colchicine (COLCRYS) 0.6 mg tablet Take 1 tablet (0.6 mg total) by mouth 2 (two) times a day for 14 days. 28 tablet 09/15/2025 famotidine (PEPCID) 20 MG tablet Take 1 tablet (20 mg total) by mouth 2 (two) times a day. 20 tablet 01/04/2025 ondansetron (ZOFRAN-ODT) 4 MG disintegrating tablet Take 1 tablet (4 mg total) by mouth every 8 (eight) hours as needed for nausea. 15 tablet 01/04/2025 documented as of this encounter ED Notes * Gaby Sosa RN - 09/15/2025 11:56 AM EST ED Discharge Nursing Note Patient evaluated and cleared for d/c by ED provider. AOx3, breathing unlabored, PWD. Patient verbalized discharged instructions, prescription, pain management and follow up care. Ambulated independently with crutches out of department. * Arthur White RN - 09/15/2025 10:16 AM EST R foot pain, worst along lateral border and bottom, hx similar pain w/ gout flares, also notes lastweek he did not take his medication and was drinking. * Kathya Nation PA-C - 09/15/2025 9:57 AM EST Chief Complaint Chief Complaint Patient presents with Foot Pain History of Present Illness The patient, Randall Aguilar,is a 35 y.o. male who presents for evaluation of Foot Pain The patient with past medical history of alcohol abuse, pancreatitis, gout on allopurinol presents to the ER for right foot pain which she states is consistent with an acute gout flare. Pain started abruptly overnight when he got up to use the restroom he had severe right foot pain that almost caused him to fall. Pain is located in the right lateral foot, which is where he frequently gets gout recurrence. No known trauma or other inciting injury. No other symptoms such as fever, chills, rash. Reports taking a dose of colchicine he has leftover from past gout flares prior to ED arrival. States the pain is severe and is interested in stronger pain medications, states he has done well with Toradol in the past. Unless otherwise specified, I have reviewed and agree with the triage and nursing notes. ROS A ten point review of systems was negative except what was noted in the HPI. Review of Systems Past Medical History Past Medical History: Diagnosis Date Alcohol abuse Binge drinks Idiopathic gout Pancreatitis Past Surgical History Past Surgical History: Procedure Laterality Date APPENDECTOMY Home Medications Prior to Admission medications Medication Sig allopurinol (ZYLOPRIM) 100 MG tablet 100 mg, Oral, Daily chlordiazePOXIDE (LIBRIUM) 25 MG capsule 25 mg, Oral, 3 times daily PRN colchicine (COLCRYS) 0.6 mg tablet 0.6 mg, Oral, 2 times daily famotidine (PEPCID) 20 MG tablet 20 mg, Oral, 2 times daily ondansetron (ZOFRAN-ODT) 4 MG disintegrating tablet 4 mg, Oral, Every 8 hours PRN Allergies No Known Allergies Social and Family History Social History Tobacco Use Smoking status: Never Smokeless tobacco: Never Substance Use Topics Alcohol use: Yes Social History Substance and Sexual Activity Drug Use Yes Types: Marijuana Family History Problem Relation Age of Onset Hypertension Mother Asthma Mother Asthma Sister Asthma Maternal Grandmother Physical Exam Vital Signs: ED Triage Vitals [09/15/25 1017] Encounter Vitals Group BP (!) 156/96 Girls Systolic BP Percentile Girls Diastolic BP Percentile Boys Systolic BP Percentile Boys Diastolic BP Percentile Heart Rate 80 Respiratory Rate 18 Temperature 36.3 ??C (97.3 ??F) Temp Source Temporal SpO2 98 % Weight 210 lb Height 6' 3 Head Circumference Peak Flow Pain Score Pain Loc Pain Education Exclude from Growth Chart Physical Exam Vitals and nursing note reviewed. Constitutional: General: He is not in acute distress. Appearance: Normal appearance. He is not ill-appearing. HENT: Head: Atraumatic. Nose: Nose normal. Mouth/Throat: Mouth: Mucous membranes are moist. Eyes: Conjunctiva/sclera: Conjunctivae normal. Cardiovascular: Rate and Rhythm: Normal rate and regular rhythm. Pulses: Normal pulses. Pulmonary: Effort: Pulmonary effort is normal. Musculoskeletal: General: Swelling and tenderness present. Cervical back: Neck supple. Comments: Right lateral/dorsum foot slightly swollen with exquisite tenderness to palpation with light palpation. No acute skin changes, erythema or lesions. Reduced AROM of the right foot/toes due to severe pain. Unable to bear weight/ambulate. Extremities warm and well-perfused distally with 2+ DP and PT pulses, brisk cap refill, sensation grossly intact. Skin: General: Skin is warm and dry. Neurological: General: No focal deficit present. Mental Status: He is alert and oriented to person, place, and time. Psychiatric: Mood and Affect: Mood normal. Behavior: Behavior normal. Laboratory Testing No results found for this visit on 09/15/25. Radiology Testing No orders to display ED Medication from 09/15/2025 0957 to 09/15/2025 1126 Date/Time Order Dose Route Action Action by Comments 09/15/2025 1119 EST ketorolac (TORADOL) injection 30 mg 30 mg Intramuscular Given Gaby Sosa RN -- MDM Assessment and Plan: Patient presents with acute, atraumatic right lateral foot pain that he states is consistent with gout flare. No other acute symptoms. Reassuring vitals, afebrile, nontachycardic, slightly hypertensive with remaining exam as noted above. Suspect most likely etiology is acute gout flare. No evidenceof acute infectious pathology and no report of trauma to suggest fracture. No additional workup indicated. Patient provided Toradol. Prescription for colchicine sent in, other supportive care management discussed with patient. Advised PCP follow-up and return to ER for any acutely worsening symptoms or other urgent medical concerns. Patient agreeable this plan and discharged in stable condition. Category 1: Tests, Studies or Independent Historians: Prior Data Reviewed: Prior notes reviewed. Risks of Complications, Morbidity, or Mortality: Risks: Necessity for prescription medication was discussed. Colchicine. Clinical Impressions as of 09/15/25 1126 Acute idiopathic gout of right foot Critical Care Time: 0 minutes Clinical Impression Diagnosis Description Comment Final diagnosis Acute idiopathic gout of right foot Acute idiopathic gout of right foot -- Disposition: Home Kathya Nation PA-C 09/15/25 1222 documented in this encounter Plan of Treatment Not on file documented as of this encounter Visit Diagnoses Diagnosis Acute idiopathic gout of right foot- Primary documented in this encounter Administered Medications Inactive Administered Medications - up to 3 most recent administrations Medication Order MAR Action Action Date Dose Rate Site ketorolac (TORADOL) injection 30 mg 30 mg, Intramuscular, Once, On Sat09/15/25 at 1115, For 1 dose Given 09/15/2025 11:19 AM EST 30 mg Right Deltoid documented in this encounter Active and Recently Administered Medications Times are shown in EST. Scheduled Medication Order 09/13/2025 09/14/2025 09/15/2025 ketorolac (TORADOL) injection 30 mg (COMPLETED) 30 mg, Intramuscular, Once, On Sat09/15/25 at 1115, For 1 dose 1119 (Given - Provid er: Gaby Sosa RN) documented in this encounter Care Teams Factory Engineer Relationship Specialty Start Date End Date Stanley Grewal PA [address] [place] [address] PCP - General 07/10/20 documented as of this encounter Additional Source Comments The information contained in this document represents components of the legal health record. It is not the complete legal health record.[facility]
[2025-09-15 14:50] VITALS: BP 158/68; PULSE 86; RESP 20; TEMP 36.3; O2SAT 97; BMI 26.2
--- NOTE | 2025-09-15 15:21 | ED_ITS ---
HPI - General Adult General Chief complaint: Extremity Injury, Lower Stated complaint: gout Time Seen by Provider: 09/15/25 15:10 Source: patient Mode of arrival: ambulatory Limitations: no limitations History of Present Illness ED Provider: Jose Bateman HPI narrative: 35 yold male with pmh of gout presents to the ED for right foot pain gout exacerpation. Patient states pain at MTP join. Patient denies any fever, chills, chest pain, shortness of breath, profuse swelling, or recent trauma Related Data Previous Rx's ?Medication ?Instructions ?Recorded blood pressure test kit-large #1 ea 12/21/21 naltrexone 50 mg tablet 50 mg PO DAILY PRN alcohol 1 cravings 30 days #30 tabs colchicine 0.6 mg tablet (Colcrys) 0.6 mg PO DAILY 14 days #14 tabs 07/30/25 folic acid 1 mg tablet 1 mg PO DAILY 30 days #30 ta bs 07/30/25 ibuprofen 400 mg tablet 400 mg PO Q8H 14 days #42 ta bs 07/30/25 pantoprazole 40 mg tablet,delayed 40 mg PO DAILY #30 t abs 07/30/25 release thiamine HCl (vitamin B1) 100 mg 100 mg PO DAILY #30 t abs 07/30/25 tablet indomethacin 50 mg capsule 50 mg PO TID PRN pain 4 day s #12 09/15/25 caps prednisone 20 mg tablet 40 mg (2 x 20 mg) PO DAILY 5 days 09/15/25 #10 tabs Allergies Allergy/AdvReac Type Severity Reaction Status Date / Time No Known Allergies (No Known Allergy Verified 09/15/25 14:52 Allergies*) Review of Systems 2 Review of Systems: Right foot pain, gout exacerbation Yes all other systems are reviewed and are negative [facility] Past Medical History Medical History Transaminitis Alcohol use disorder HTN (hypertension) Surgical History History of appendectomy Social History Social History Household Members: Spouse Housing: House Do you presently have visiting nurse or other home services: No Alcohol intake: current Alcohol intake frequency: a few times a week Alcohol type: hard liquor Patient Tobacco Use Status: Never used Tobacco e-Cigarette/Vaping Use: Currently Using Second Hand Smoke Exposure: No Substance Use Type: Marijuana Advance Directives: No Advance Directives Information Provided: Yes Do you have a plan to hurt others: No Plan service: No Current occupational status: employed Current occupational exposures/hazards: No Cognitive needs: No Hearing needs: No Vision needs: Yes (contact/glasses) Physical Exam ED Vital Signs: Vital Signs - 24 hr 09/15/25 14:50 Temperature 97.4 F Pulse Rate 86 Respiratory Rate 20 Blood Pressure 158/68 H Pulse Oximetry 97 Oxygen Delivery Method Room Air BMI result Body Mass Index 26.2 Const General: cooperative, healthy appearing, comfortable, no acute distress, well developed, alert, awake and Physically active Orientation/consciousness: patient oriented x3 HENMT Head: Yes normal to inspection, Yes No palpable skull fracture present, Yes normocephalic and Yes atraumatic Eyes General: appearance normal, both eyes and all related structures Neck Neck: Yes normal visual inspection, Yes full ROM, Yes no lymphadenopathy, Yes no meningeal signs, Yes trachea midline, Yes supple, No anterior neck swelling and No tender Chest Chest palpation & inspection: normal inspection of the chest and normal palpation of entire chest wall Resp Effort & Inspection: normal respiratory effort and able to speak in complete sentences Auscultation: clear to auscultation bilaterally Cardio Jugular venous distension: no JVD GI Inspection: Yes normal to inspection Palpation (GI): Soft to palpation, not firm, nontender, no guarding and not rigid General: Yes no CVA tenderness Back/Spine/Pelvis Back: no CVA tenderness and No back tenderness Skin General skin exam: no rashes or lesions noted, elasticity normal and turgor normal Neuro General: patient oriented x3, gait normal, tone normal, moves all extremities, Normal light touch and pain sensation, no meningeal signs, no focal motor deficits, CN's II-XI intact bilaterally and normal sensation to monofilament Extrem General: Yes normal to inspection and Yes full ROM Ankle/foot/toe images: 2 1. Positive for tenderness on palpation. Negative for ecchymosis, crepitus, deformity, ulcers, open wounds, pus discharge, foul odor, or ecchymosis. Rest of extremity normal. Motor/neuro/vascular examined Psych Appearance: grossly normal, well kempt and not disheveled Medications Administered Discontinued Medications Generic Name Dose Route Start Last Admin Trade Name Freq PRN Reason Stop Dose Admin Ketorolac Tromethamine 30 mg 09/15/25 15:13 09/15/25 15:29 Ketorolac Tromethamine 30 Mg/Ml Vial IM 09/15/25 15:14 30 mg ONCE ONE Administration Prednisone 40 mg 09/15/25 15:13 09/15/25 15:29 Prednisone 20 Mg Tablet PO 09/15/25 15:14 40 mg ONCE ONE Administration Medical Decision Making Medical Decision Making MDM Narrative: 24 year male presents to ED for gout exacerbation of right foot. History physical exam does not indicate DVT, cellulitis, osteomyelitis, compartment syndrome, arterial occlusion, fracture, dislocation or any other life- threatening etiology. Patient given NSAIDs and prednisone. Patient explained worrisome signs informed return to the ED immediately. patient treated as gout. Differential Diagnosis Differential Diagnoses: The differential diagnosis associated with the presentation includes (Gout) Admission/Observation Consideration of admission/observation: Escalation of care including admission/observation considered Independent Historian Clinical information obtained from an independent historian. History obtained from or confirmed by: Other (patient) Prescription Management I considered prescription management with: Pain Medication Discharge Plan Discharge Clinical Impression: Gout Patient Disposition: Home, Self-Care Instructions: Low Purine Diet (ED), Gout (ED) Additional Instructions: Recommend follow up with primary care provider. Return to the ED for any swelling, redness, pus discharge, foul odor, calf pain, chest pain, shortness of breath, or any other concerning symptoms. Do not take any other NSAIDs while taking indomethacin Prescriptions: New prednisone 20 mg tablet 40 mg PO DAILY 5 Days Qty: 10 0RF indomethacin 50 mg capsule 50 mg PO TID PRN (Reason: pain) 4 Days Qty: 12 0RF Rx Instructions: administer with food or milk No Action naltrexone 50 mg tablet 50 mg PO DAILY PRN (Reason: alcohol cravings ) 30 Days Qty: 30 0RF ibuprofen 400 mg Tablet 400 mg PO Q8H 14 Days Qty: 42 0RF folic acid 1 mg Tablet 1 mg PO DAILY 30 Days Qty: 30 0RF colchicine [Colcrys] 0.6 mg Tablet 0.6 mg PO DAILY 14 Days Qty: 14 0RF thiamine HCl (vitamin B1) 100 mg tablet 100 mg PO DAILY Qty: 30 0RF pantoprazole 40 mg tablet,delayed release (DR/EC) 40 mg PO DAILY Qty: 30 0RF (DME) blood pressure test kit-large Kit See Rx Instructions .Route Qty: 1 0RF Rx Instructions: As directed Referrals: Stanley Grewal PA-C [Primary Care Provider, Internal Medicine] - 2 days Referral Note: Gout Clinical Impression: Gout Stand Alone Forms: Work/School Release Interventions: ED Discharge Assessment Last Done: 09/15/25 16:07 Discharge Date/Time: 09/15/25 16:08 Print Language: Ivorian
[2025-09-15 16:07] VITALS: BP 158/68; PULSE 86; RESP 20; TEMP 36.3; O2SAT 97
--- OUTSIDE RECORDS SUMMARY | 2025-09-15 18:21 | XMS_ITS | Clinical Summary ---
Author Organization [facility] Address [address] [place], [place] [id number] Phone Care Team Providers Care Knotting Machine Operator Name Role Phone Unavailable Primary Care Provider Unavailabl e Active Problems Patient Care Coordination No te Formatting of this note is d ifferent from the original. [facility] mailed transition letter #2 (inactivated, age 24+, [...] 01/13/2018 01/14/2008, 09/29/1996, 03/01/1994, Additional history exists HPV Vaccines (1 - 3-dose SCDM series) 2019 Influenza Vaccines (#1) 2025 2010, 06/08 COVID-19 Vaccine (2024- season) 2025 Hepatitis B Vaccines Completed 06/20/1993, 1992, 1992 [...]
--- OUTSIDE RECORDS SUMMARY | 2025-09-15 18:21 | XMS_ITS | Encounter Summary ---
Author Organization [facility] Address [address] [facility] [address] [place] [phone] Phone Care Team Providers Care Delivery Crew Worker Name Role Phone Stanley Grewal Primary Care Provider + Encounter Details Date Type Department Care Team (Late st Contact Info) Description 01/22/2025 Procedure Pass [facility], Ct Scan - [address] [address] Social History Tobacco Use Types Packs/Day Years [...] 7:10 PM EDT Cathy Pickard RN * [place] Suicide Severity Rating Scale (Screener/Recent Self-Report) Question [...] on filedocumented in this encounter Care Teams Delivery Crew Worker Relationship Specialty Start Date End Date Stanley Grewal PA [address] [place] [id number] PCP - General 07/10/20 documented as of this encounter Additional Source Comments The information contained in this document represents components of the legal health record. It is not the complete legal health record.[facility]
--- OUTSIDE RECORDS SUMMARY | 2025-09-15 18:21 | XMS_ITS | Encounter Summary ---
Author Organization [facility] Address [address] [facility] [address] [place] [phone] Phone Care Team Providers Care Control Manager Name Role Phone Stanley Grewal Primary Care Provider + Encounter Details Date Type Department Care Team (Late st Contact Info) Description 08/21/2024 Procedure Pass [facility], Ct Scan - [address] [address] Social History Tobacco Use Types Packs/Day Years [...] 08/21/2024 4:43 PM Katina Ibarra RN * [place] Suicide Severity Rating Scale (Screener/Recent Self-Report) Question [...] on filedocumented in this encounter Care Teams Control Manager Relationship Specialty Start Date End Date Stanley Grewal PA [address] [place] [address] PCP - General 07/10/20 documented as of this encounter Additional Source Comments The information contained in this document represents components of the legal health record. It is not the complete legal health record.[facility]
--- OUTSIDE RECORDS SUMMARY | 2025-09-15 18:21 | XMS_ITS | Encounter Summary ---
Author Organization [facility] Address [address] [facility] [address] [place] [phone] Phone Care Team Providers Care Dairy Lab Technician Name Role Phone Stanley Grewal Primary Care Provider + Encounter Details Date Type Department Care Team (Late st Contact Info) Description 07/10/2020 Procedure Pass [facility], Ct Scan - [address] [address] Social History Tobacco Use Types Packs/Day Years [...] on filedocumented in this encounter Care Teams Dairy Lab Technician Relationship Specialty Start Date End Date Stanley Grewal PA [address] [place] [address] PCP - General 07/10/20 documented as of this encounter Additional Source Comments The information contained in this document represents components of the legal health record. It is not the complete legal health record.[facility]
--- OUTSIDE RECORDS SUMMARY | 2025-09-15 18:21 | XMS_ITS | Encounter Summary ---
Author Organization [facility] Address [address] [place] [address] [place] [phone] Phone Care Team Providers Care Teaching Manager Name Role Phone Stanley Grewal Primary Care Provider + Encounter Details Date Type Department Care Team (Late st Contact Info) Description 12/03/2021 Procedure Pass [facility], Ct Scan - [address] [address] Social History Tobacco Use Types Packs/Day Years [...] 12/03/2021 1:56 PM Jasmin Seo RN * [place] Suicide Severity Rating Scale (Screener/Recent Self-Report) Question [...] on filedocumented in this encounter Care Teams Teaching Manager Relationship Specialty Start Date End Date Stanley Grewal PA [address] [place] [address] PCP - General 07/10/20 documented as of this encounter Additional Source Comments The information contained in this document represents components of the legal health record. It is not the complete legal health record.[facility]
--- OUTSIDE RECORDS SUMMARY | 2025-09-15 18:21 | XMS_ITS | Clinical Summary ---
Author Organization [facility] Address [address] [place] [phone] Phone Care Team Providers Care Portable Machine Sander Name Role Phone Stanley Grewal Primary Care [...] times a day as needed for anxiety (withdrawal s). 9 capsule 5 Active colchicine (COLCRYS) 0.6 mg tablet Take 1 tablet (0.6 mg total) by mouth 2 (two) times a day for 14 days. 28 tablet 5 09/29/20 25 Active colchicine (COLCRYS) 0.6 mg tablet Take 1 tablet (0.6 mg total) by mouth 2 (two) times a day. 20 tablet 5 09/15/20 25 Discontin ued(No longer taking) Active Problems Problem Noted Date Diagnosed Date [...] No evidence for biliary disease. Discussed with anastasia Hernandez to advance diet as his pain is [...] on CT. Vital signs stable, no fever Encounters Date Type Department Care Team Description 09/15/2025 10:17 AM EST - 09/15/2025 11:57 AM EST Emergency [facility] [address] [place] [address] Discharge Disposition: Home or Self Care from Last 3 Months Immunizations Immunization Administration Dates Next Due COVID-19 [...] Mass Index 26.25 09/15/2025 10:17 AM EST Plan of Treatment Health Maintenance Due Date Last Done Comments DEPRESSION SCREENING 2004 HIV ONE-TIME SCREENING (18-65 YEARS) 2010 HEPATITIS A VACCINES (1 of 2 - Risk 2-dose series) 2011 PNEUMOCOCCAL VACCINES (0-49 years) (1 of 2 - PCV) 2011 INFLUENZA VACCINE (#1) 2025 COVID-19 VACCINE ( - 2024- season) 2025 11/06/2021, 02/26/2021, 02/05/2021 CREATININE LEVEL 01/22/2026 01/22/2025, , 08/24/2024, Additional history exists Adult Td,Tdap Booster 04/28/2030 04/28/2020, 008 HEPATITIS C SCREENING Completed 12/04/2021, 022 SMOKING STATUS SCREENING (Once After 26 Yrs) [...] Date/Time Associated Diagnosis Comments BASIC METABOLIC PANEL (BMP) STAT 01/22/2025 7:59 PM EDT HEPATITIS C ANTIBODY, QUALITATIVE Routine 12/04/2021 5:56 AM EST from Last 3 Months or Most Recently Relevant to Health Maintenance Results * (ABNORMAL) Basic metabolic panel (01/22/2025 7:59 PM EDT) SODIUM 140 133 - 146 mmol/L [facility] CHLORIDE 102 96 - 108 mmol/L [facility] POTASSIUM 3.3 3.3 - 5.1 mmol/L [facility] CO2 25 21 - 35 mmol/L [facility] BUN 5(L) 6 - 19 mg/dL [facility] CREATININE 0.60 0.5 - 1.5 mg/dL [facility] GLUCOSE 103(H) 70 - 99 mg/dL [facility] CALCIUM 9.3 8.4 - 10.3 mg/dL [facility] EGFR >120 >59 mL/min/1.7 3m2 [facility] Comment:Estimated glomerular filtration rate calculated using the CKD-EPI refit equation. ANION GAP 16 10 - 20 mmol/L [facility] Blood 01/22/2025 7:59 PM EDT 01/22/2025 8:21 PM EDT us Crow Carrillo MD LAB BLOOD BKR ORDERABLES Final Result [address] [id number] * Hepatitis C antibody, qualitative (12/04/2021 5:56 AM EST) HCV NON-REACTIV E NON-REACTI VE [facility] Blood 12/04/2021 5:56 AM EST 12/04/2021 6:25 AM EST us Galindo Jones MD LAB BLOOD BKR ORDERABLES Final Result [address] [id number] from Last 3 Months or Most Recently Relevant to Health Maintenance Insurance O Member Subscriber Plan / Payer (Ef fective 2023-Present) Name:Randall Aguilar Relation to Subscriber:Self Name:Randall Aguilar Payer ID:Not on file Type:HMO Address: [address] SAFETY NET PARTIAL O Member Subscriber Plan / Payer (Ef fective 2023-Present) Name:Randall Aguilar Relation to Subscriber:Self Name:Randall Aguilar Payer ID:Not on file Type:HMO Address: [address] NET PARTIAL [facility]IAL [facility] NET PARTIAL [facility] HMO [facility] SAFET[employer] NET PARTIAL [facility] [employer] NET PARTIAL Advance Directives For more information, please contact: [phone] (9AM - 5PM [place], Saturday-Saturday) * Full Code (Latest Code Status [...] Code Status Confirmed With: Patient Care Teams Portable Machine Sander Relationship Specialty Start Date End Date Stanley Grewal PA [address] [place] [id number] PCP - General 07/10/20 Additional Source Comments The information contained in this document represents components of the legal health record. It is not the complete legal health record.[facility]
--- OUTSIDE RECORDS SUMMARY | 2025-09-15 18:21 | XMS_ITS | Encounter Summary ---
Author Organization [facility] Address [address] [place] [phone] Phone Care Team Providers Care Buttonholer Name Role Phone Stanley Grewal Primary Care Provider + Encounter Details Date Type Department Care Team (Late st Contact Info) Description 01/04/2025 Procedure Pass [facility], Ct Scan - [address] [address] Social History Tobacco Use Types Packs/Day Years [...] 6:34 AM EDT Katina Lott RN * [place] Suicide Severity Rating Scale (Screener/Recent Self-Report) Question [...] on filedocumented in this encounter Care Teams Buttonholer Relationship Specialty Start Date End Date Stanley Grewal PA [address] [place] [phone] PCP - General 07/10/20 documented as of this encounter Additional Source Comments The information contained in this document represents components of the legal health record. It is not the complete legal health record.[facility]
== END 2025-09-15 16:08 | disposition home or self-care (01) ==
PROVIDERS: Emergency Provider Emergency Medicine; PCP Physician Assistant
DX: M10.9 Gout, unspecified (principal); Z79.899 Other long term (current) drug therapy
CPT/HCPCS: 96372; 99283; 99284; J1885